=== PATIENT | male | born 1955 | race Caucasian/White ===

== ENCOUNTER → 2017-12-28 16:13 | Outpatient (CLI) | payer MEDICARE, SELFPAY ==
[2017-12-28 16:36] LABS: HCT 42.3 % (40.0-50.0); HGB 14.3 g/dL (13.5-17.5); Mean Corp. HGB Concentration 33.8 g/dL (32.0-36.0); Mean Corpuscular Hemoglobin 32.9 pg (27.0-33.0); Mean Corpuscular Volume 97.5 fL (80-95); Mean Platelet Volume 13.3 fL (8.0-11.0); RBC 4.34 m/cumm (4.50-6.00); RBC Distribution Width 13.8 % (11.8-14.1); White Blood Cell Count 5.14 k/cumm (4.4-10.8)
[2017-12-28 16:47] LABS: INR 1.2 (1.0-3.5); Prothrombin Time 11.6 sec (9.3-10.8)
[2017-12-28 16:50] LABS: Platelet Count 52 x1000/uL (130-400)
[2017-12-28 17:36] LABS: ALT 30 U/L (12-78); AST 60 U/L (15-37); Albumin 2.5 g/dL (3.4-5.0); Alkaline Phosphatase 261 U/L (46-116); Anion Gap 8.5 mmol/L (3-11); BUN 28 mg/dL (7-18); Bilirubin, Total 3.6 mg/dL (0.2-1.0); CO2 27.5 mmol/L (21.0-32.0); CREATININE 1.44 mg/dL (0.70-1.30); Calcium 8.4 mg/dL (8.5-10.1); Chloride 101 mmol/L (98-107); Estimated GFR 49.87 (mL/min/1.73m2); Glucose 154 mg/dL (70-100); Potassium 3.8 mmol/L (3.5-5.1); Sodium 137 mmol/L (136-145)
== END ==
PROVIDERS: PCP Family Medicine; Visit Provider Family Medicine
DX: D64.9 Anemia, unspecified (principal); R10.9 Unspecified abdominal pain; K75.81 Nonalcoholic steatohepatitis (NASH)
CPT/HCPCS: 36415; 80053; 85027; 85610

== ENCOUNTER → 2018-01-03 11:00 | Outpatient (CLI) | payer MEDICARE, SELFPAY | PROVIDERS: PCP Family Medicine; Visit Provider Orthopaedic Surgery | DX: E11.621 Type 2 diabetes mellitus with foot ulcer (principal); L97.511 Non-pressure chronic ulcer of other part of right foot limited to breakdown of skin | CPT/HCPCS: 99213 ==

== ENCOUNTER 2018-01-17 09:00 | Inpatient (IN) | payer MEDICARE, SELFPAY ==
[2018-01-17] VITALS (102 sets, daily range): BP systolic 85–124; BP diastolic 33–90; PULSE 59–87; RESP 10–28; TEMP 37–37.2; O2SAT 90–100
--- NOTE | 2018-01-17 09:38 | DI.CT_ITS ---
SYMPTOMS/DIAGNOSIS: HEADACHE, DISTENSION, WT LOSS CT BRAIN: Noncontrast examination. No priors. There is normal jaimes/white matter differentiation. The ventricles are intact. The basilar cisterns are patent. No acute intracranial hemorrhage, infarct, midline shift or mass effect is identified. The visualized paranasal sinuses are clear. The mastoid air cells are well pneumatized. The calvarium is intact. Calcification of the cavernous portions of the internal carotid artery are noted. IMPRESSION: No acute intracranial process. CT OF THE The findings were discussed with the emergency department on the date of the examination. CT SCAN OF THE ABDOMEN AND PELVIS: CT scan of the abdomen and pelvis was performed without intravenous or oral contrast material. Dependent atelectatic changes are seen in the lung bases. The liver has a lobulated contour and appears slightly small, suggestive of hepatic cirrhosis. The spleen is enlarged. Calcifications are seen consistent with prior granulomatous disease. The patient is status post cholecystectomy. The pancreas, adrenal glands, kidneys and urinary bladder are unremarkable. The reproductive organs are unremarkable. There is atherosclerosis of the abdominal aorta but no aneurysmal dilatation. No significant abdominal or pelvic adenopathy or pneumoperitoneum is present. There is a large amount of abdominal and pelvic ascites present. The bowel shows no evidence of obstruction or inflammation. There is diverticulosis of the colon but no evidence of acute diverticulitis. No findings to suggest an acute appendicitis. Degenerative changes are seen in the spine. IMPRESSION: 1. Findings of hepatic cirrhosis with splenomegaly. 2. Massive amount of abdominal and pelvic ascites. The findings were discussed with Dr. Rodriguez of the emergency department on the date of the examination.
--- NOTE | 2018-01-17 09:40 | W.ED.GENAD ---
Discharge Plan Discharge Details Chief Complaint: GenMedical Reason For Visit: WEAKNESS AND LIVER FAILURE Admit Date/Time: 01/17/18 17:07 Admit Provider: William Adams Attending Provider: William Adams Primary Care Provider: Jaden Mendoza ED Provider: Filiberto Rodriguez Medical Decision Making MDM Narrative Medical decision making narrative: 63-year-old male presents from home with headache as well as episodes of dry heaving. States headache began 2 days ago, now with dry heaves this morning. He states he has had abdominal distention and weight loss since early this summer for which he is been referred to [facility]. He is afebrile, interactive, with grossly normal neurologic exam. Records from community clinic obtained and reveal history of BRUNNER and liver failure followed by Dr Quiñones at [facility] [place]. Differential diagnosis is broad. Includes intracranial hemorrhage, mass, infection, electrolyte abnormalities including metabolic derangements and dehydration. IV access established, patient given analgesic, small amount of fluid and antiemetic. Due to CT repair, CAT scan of the head was delayed Diagnostics reveal white blood cell count of 21, worsening renal function creatinine is risen to 2.0 from previous of 1.4 and 1.2. Patient has hyponatremia of 131 and slightly elevated potassium of 5.2. Total bili has increased to 5.8. Patient is a had near resolution of his headache following the parenteral analgesia. His CT scan of the head was unremarkable, he has fairly massive ascites present on abdominal and pelvic CT scan. Patient consented for paracentesis which I performed at the bedside and withdrew approximately 2200 cc of straw-colored fluid. Laboratory analysis of peritoneal fluid reveals 70 white cells per cubic millimeter. Given the patient's lactic acidosis, elevated white blood cell count and concern for developing peritonitis, I added blood cultures. I did discuss the case with on-call GI at [facility], they recommend complete fever workup, and agree with admission to the hospital. Medical Records Medical records reviewed: Yes I reviewed the patient's medical records. Lab Data Lab results reviewed: Yes I reviewed the patient's lab results. ECG Data Attestation: I personally reviewed and interpreted this ECG (s) as follows: Interpretation: Normal sinus rhythm, rate is 73, nonspecific ST segment changes, no acute T-wave change HPI - General Adult General Mode of arrival: wheelchair. Date/Time Provider Initiated Documentation: 01/17/18 09:11. Limitations to Documentation: no limitations. Information obtained by: patient. History of Present Illness 63 year old M presents to the emergency department with the chief complaint of Headache, described as severe, with intensity rated at 6. Quality is described as aching, and is localized to the head. Patient reports no radiation. Patient started experiencing this day(s) and it has been constant. No relieving factors improve symptom(s), No exacerbating factors reported . Patient notes nausea/vomiting and other (Weakness). HPI Narrative: 63-year-old male presents from home complaining of 2 days of malaise, nausea, weakness, and headache that he states is bifrontal, severe, nonradiating. This morning was associated with dry heaves, weakness, inability to get out of this chair. Denies fall or injury. Has not had stiff neck or fever. He states that over months time he has had weight loss and progressive abdominal swelling for which he has been referred to [facility]. Related Data Home Medications Medication Instructions Recorded Confirmed lancets [FreeStyle Lancets] #100 ea 12/25/14 pen needle, diabetic #100 ea 05/30/16 furosemide [Lasix] 20 - 40 mg PO DAILY 01/17/18 01/17/18 Previous Rx's Medication Instructions Recorded insulin aspart U-100 [Novolog 8 - 12 unit SQ AC #1 box 03/27/17 Flexpen] omeprazole 20 mg PO QAM #90 tab-cap 06/06/17 insulin glargine [Basaglar Kwikpen 20 - 25 u SQ HS #1800 u 10/17/17 U-100] blood sugar diagnostic [Freestyle #400 strip 12/07/17 Test Strips] spironolactone 100 mg PO DAILY #90 tab-cap 12/07/17 Allergies Allergy/AdvReac Type Severity Reaction Status Date / Time erythromycin base Allergy Intermediate Skin Rash Verified 01/17/18 11:04 Sulfa (Sulfonamide Allergy Mild Itching Verified 01/17/18 11:04 Antibiotics) amoxicillin trihydrate AdvReac Severe DIARRHEA Verified 01/17/18 11:04 [From Augmentin] potassium clavulanate AdvReac Severe DIARRHEA Verified 01/17/18 11:04 [From Augmentin] simvastatin AdvReac Severe Severe Verified 01/17/18 11:04 Myalgia gabapentin AdvReac Intermediate WIPED ME Verified 01/17/18 11:04 OUT metformin AdvReac Intermediate H.A.; Verified 01/17/18 11:04 LOOSE TEETH; HAIR General Stated Complaint: GenMedical JACOB: 3 Review of Systems Review of Systems 8 systems reviewed, otherwise negative PFSH Family History Mother Heart disease Cancer Father Essential hypertension Heart disease Cancer Sister Cancer Brother Cancer Social History Smoking/Tobacco Use Status: Never Surgical History Appendectomy Cholecystectomy (08/12/12) EGD - MAC Exam Narrative Exam Narrative: GEN: awake, alert, oriented 3. Pleasant, well groomed, interactive. HEAD: Normocephalic, atraumatic ENT: Mucous membranes dry, oropharynx edentulous, other unremarkable, External ear exam unremarkable EYES: PERRL, EOMI NECK: Full ROM, no DEBORAH, no menigismus CHEST/RESP: Nontender, clear to auscultation bilateral, no wheeze/rhonchi/rales CARDIOVASCULAR: RRR, no murmur, rub naheed. 2+ Rad pulse bilateral ABDOMEN: Soft, nontender, distended with prominent anterior abdominal veins, no mass. +Bowel sounds EXT: Full ROM, no edema, no rash Neuro: Cranial nerves II through XII grossly intact. Moves all 4 extremities without discomfort, grossly normal neurologic exam, conversant, interactive. Psych: Speech fluent, thoughts congruent, affect normal Course Vital Signs Temperature 37.2 C 01/17/18 09:05 Pulse 87 01/17/18 09:05 Respiratory Rate 20 01/17/18 09:05 Blood Pressure 124/56 L 01/17/18 09:05 Pulse Oximetry 98 01/17/18 09:05 Temperature 37.2 C 01/17/18 09:05 Pulse 87 01/17/18 09:05 Respiratory Rate 20 01/17/18 09:35 Blood Pressure 124/56 L 01/17/18 09:05 Pulse Oximetry 98 01/17/18 09:05 Procedures Paracentesis Time Out Performed: Yes Indication: possible spontaneous bacterial peritonitis Procedure: diagnostic paracentesis Location: LLQ Local Anesthetic: Lidocaine 1% Amount of anesthesia used (mL): 4 Bedside Ultrasound Used: yes, Ascites confirmed and location marked Preparation: 11 blade used to make ramón in skin Amount of Fluid Obtained: 2,200 Fluid: other (straw) Post Procedure Exam: awake, alert Patient Tolerated Procedure: well
--- NOTE | 2018-01-17 09:43 | ED.GENADUL_ITS ---
Discharge Plan Discharge Details Chief Complaint: GenMedical Reason For Visit: WEAKNESS AND LIVER FAILURE Admit Date/Time: 01/17/18 17:07 Admit Provider: William Adams Attending Provider: William Adams Primary Care Provider: Jaden Mendoza ED Provider: Filiberto Rodriguez Medical Decision Making MDM Narrative Medical decision making narrative: 63-year-old male presents from home with headache as well as episodes of dry heaving. States headache began 2 days ago, now with dry heaves this morning. He states he has had abdominal distention and weight loss since early this summer for which he is been referred to [facility]. He is afebrile, interactive, with grossly normal neurologic exam. Records from community clinic obtained and reveal history of BRUNNER and liver [place] [facility] Differential diagnosis is broad. Includes intracranial hemorrhage, mass, infection, electrolyte abnormalities including metabolic derangements and dehydration. IV access established, patient given analgesic, small amount of fluid and antiemetic. Due to CT repair, CAT scan of the head was delayed Diagnostics reveal white blood cell count of 21, worsening renal function creatinine is risen to 2.0 from previous of 1.4 and 1.2. Patient has hyponatremia of 131 and slightly elevated potassium of 5.2. Total bili has increased to 5.8. Patient is a had near resolution of his headache following the parenteral analgesia. His CT scan of the head was unremarkable, he has fairly massive ascites present on abdominal and pelvic CT scan. Patient consented for paracentesis which I performed at the bedside and withdrew approximately 2200 cc of straw-colored fluid. Laboratory analysis of peritoneal fluid reveals 70 white cells per cubic millimeter. Given the patient's lactic acidosis, elevated white blood cell count and concern for developing peritonitis, I added blood cultures. I did discuss the case with on-call GI at [facility], they recommend complete fever workup, and agree with admission to the hospital. Medical Records Medical records reviewed: Yes I reviewed the patient's medical records. Lab Data Lab results reviewed: Yes I reviewed the patient's lab results. ECG Data Attestation: I personally reviewed and interpreted this ECG (s) as follows: Interpretation: Normal sinus rhythm, rate is 73, nonspecific ST segment changes , no acute T-wave change HPI - General Adult General Mode of arrival: wheelchair . Date/Time Provider Initiated Documentation: 01/17/18 09:11 . Limitations to Documentation: no limitations . Information obtained by: patient . History of Present Illness 63 year old M presents to the emergency department with the chief complaint of Headache, described as severe, with intensity rated at 6. Quality is described as aching, and is localized to the head. Patient reports no radiation. Patient started experiencing this day(s) and it has been constant. No relieving factors improve symptom(s), No exacerbating factors reported . Patient notes nausea/vomiting and other (Weakness). HPI Narrative: 63-year-old male presents from home complaining of 2 days of malaise, nausea, weakness, and headache that he states is bifrontal, severe, nonradiating. This morning was associated with dry heaves, weakness, inability to get out of this chair. Denies fall or injury. Has not had stiff neck or fever. He states that over months time he has had weight loss and progressive abdominal swelling for which he has been referred to [facility]. Related Data Home Medications Medication Instructions Recorded Confirmed lancets [FreeStyle Lancets] #100 ea 12/25/14 pen needle, diabetic #100 ea 05/30/16 furosemide [Lasix] 20 - 40 mg PO DAILY 01/17/18 01/17/18 Previous Rx's Medication Instructions Recorded insulin aspart U-100 [Novolog 8 - 12 unit SQ AC #1 box 03/27/17 Flexpen] omeprazole 20 mg PO QAM #90 tab-cap 06/06/17 insulin glargine [Basaglar Kwikpen 20 - 25 u SQ HS #1800 u 10/17/17 U-100] blood sugar diagnostic [Freestyle #400 strip 12/07/17 Test Strips] spironolactone 100 mg PO DAILY #90 tab-cap 12/07/17 Allergies Allergy/AdvReac Type Severity Reaction Status Date / Time erythromycin base Allergy Intermediate Skin Rash Verified 01/17/18 11:04 Sulfa (Sulfonamide Allergy Mild Itching Verified 01/17/18 11:04 Antibiotics) amoxicillin trihydrate AdvReac Severe DIARRHEA Verified 01/17/18 11:04 [From Augmentin] potassium clavulanate AdvReac Severe DIARRHEA Verified 01/17/18 11:04 [From Augmentin] simvastatin AdvReac Severe Severe Verified 01/17/18 11:04 Myalgia gabapentin AdvReac Intermediate WIPED ME Verified 01/17/18 11:04 OUT metformin AdvReac Intermediate H.A.; Verified 01/17/18 11:04 LOOSE TEETH; HAIR General Stated Complaint: GenMedical JACOB: 3 Review of Systems Review of Systems 8 systems reviewed, otherwise negative PFSH Family History Mother Heart disease Cancer Father Essential hypertension Heart disease Cancer Sister Cancer Brother Cancer Social History Smoking/Tobacco Use Status: Never Surgical History Appendectomy Cholecystectomy (08/12/12) EGD - MAC Exam Narrative Exam Narrative: GEN: awake, alert, oriented 3. Pleasant, well groomed, interactive. HEAD: Normocephalic, atraumatic ENT: Mucous membranes dry, oropharynx edentulous, other unremarkable, External ear exam unremarkable EYES: PERRL, EOMI NECK: Full ROM, no DEBORAH, no menigismus CHEST/RESP: Nontender, clear to auscultation bilateral, no wheeze/rhonchi/rales CARDIOVASCULAR: RRR, no murmur, rub naheed. 2+ Rad pulse bilateral ABDOMEN: Soft, nontender, distended with prominent anterior abdominal veins, no mass. +Bowel sounds EXT: Full ROM, no edema, no rash Neuro: Cranial nerves II through XII grossly intact. Moves all 4 extremities without discomfort, grossly normal neurologic exam, conversant, interactive. Psych: Speech fluent, thoughts congruent, affect normal Course Vital Signs Temperature 37.2 C 01/17/18 09:05 Pulse 87 01/17/18 09:05 Respiratory Rate 20 01/17/18 09:05 Blood Pressure 124/56 L 01/17/18 09:05 Pulse Oximetry 98 01/17/18 09:05 Temperature 37.2 C 01/17/18 09:05 Pulse 87 01/17/18 09:05 Respiratory Rate 20 01/17/18 09:35 Blood Pressure 124/56 L 01/17/18 09:05 Pulse Oximetry 98 01/17/18 09:05 Procedures Paracentesis Time Out Performed: Yes Indication: possible spontaneous bacterial peritonitis Procedure: diagnostic paracentesis Location: LLQ Local Anesthetic: Lidocaine 1% Amount of anesthesia used (mL): 4 Bedside Ultrasound Used: yes, Ascites confirmed and location marked Preparation: 11 blade used to make ramón in skin Amount of Fluid Obtained: 2,200 Fluid: other (straw) Post Procedure Exam: awake, alert Patient Tolerated Procedure: well
[2018-01-17] MEDS: Normal Saline Flush 10 ML SYR IVP ×2 (09:45→20:06)
[2018-01-17] MEDS: Normal Saline 1,000 ML 150 ML IV ×2 (09:55→20:09)
[2018-01-17 09:58] LABS: HCT 39.6 % (40.0-50.0); HGB 13.4 g/dL (13.5-17.5); Mean Corp. HGB Concentration 33.8 g/dL (32.0-36.0); Mean Corpuscular Hemoglobin 33.1 pg (27.0-33.0); Mean Corpuscular Volume 97.8 fL (80-95); Mean Platelet Volume 13.4 fL (8.0-11.0); RBC 4.05 m/cumm (4.50-6.00); RBC Distribution Width 13.9 % (11.8-14.1); White Blood Cell Count 21.39 k/cumm (4.4-10.8)
[2018-01-17] MEDS: Ondansetron 4 MG/2 ML VIAL IVP (09:59)
[2018-01-17 10:07] LABS: Ammonia 43 umol/L (11-32)
[2018-01-17 10:16] LABS: ALT 32 U/L (12-78); AST 60 U/L (15-37); Albumin 2.4 g/dL (3.4-5.0); Alkaline Phosphatase 247 U/L (46-116); Anion Gap 11.7 mmol/L (3-11); BUN 33 mg/dL (7-18); Bilirubin, Total 5.8 mg/dL (0.2-1.0); CO2 23.3 mmol/L (21.0-32.0); CREATININE 2.06 mg/dL (0.70-1.30); Calcium 8.5 mg/dL (8.5-10.1); Chloride 96 mmol/L (98-107); Estimated GFR 32.88 (mL/min/1.73m2); Glucose 320 mg/dL (70-100); Potassium 5.2 mmol/L (3.5-5.1); Sodium 131 mmol/L (136-145); Total Protein 8.1 g/dL (6.4-8.2)
[2018-01-17 10:18] LABS: Platelet Count 59 x1000/uL (130-400)
[2018-01-17 10:19] LABS: Absolute Monocyte Count 0.86 k/cumm (0.11-0.7); Absolute Neutrophil Count 20.53 k/cumm (1.2-6.7); Diff Comment Manual Differential; RBC Morphology Normal
[2018-01-17 11:37] LABS: INR 1.3 (1.0-3.5); Prothrombin Time 12.7 sec (9.3-10.8)
[2018-01-17 13:51] LABS: Lactate-non-spesis 2.8 mmol/L (0.6-1.4)
[2018-01-17 14:24] LABS: Bilirubin Small (Negative); Blood Negative (Negative); Clarity Clear; Glucose Negative (Negative); Ketones Trace mg/dL (Negative); Leukocyte Esterase Negative (Negative); Nitrite Negative (Negative); Specific Gravity 1.025 (1.005-1.025)
[2018-01-17 14:56] LABS: Source PERITONEAL
[2018-01-17 14:57] LABS: Clarity CLEAR; Mononuclear Cells 85 % (0-0); Nucleated Cells 69 /MM3 (0-0); Polynuclear Cells 12 % (0-0)
[2018-01-17] MEDS: Normal Saline 500 ML IV (15:26)
--- NOTE | 2018-01-17 15:28 | DI.RAD_ITS ---
SYMPTOMS/DIAGNOSIS: ELEVATED WBC, WEAKNESS CHEST X-RAY, PA AND LATERAL: Comparison examination is 12/22/12. The heart is normal in size. The lungs are clear. The mediastinal structures and pleura appear intact. IMPRESSION: Normal chest.
[2018-01-17] MEDS: CEFEPIME 1 GM in Normal Saline 50 ML IVPB (16:27)
--- NOTE | 2018-01-17 18:42 | HPE_ITS ---
Date of service: 01/17/18 Time of Service: 18:39 Assessment and Plan (1) Chronic liver failure: Current visit: Yes Status: Chronic Severe ascites, status post paracentesis for 2200 cc. He still has a distended abdomen. Not terribly tender, no rigid or acute abdomen. Fluid results show significant white cells. Culture is pending. Empiric Rx for spontaneous bacterial peritonitis with cefepime 1 g IV every 12 hours. (2) Diabetic foot ulcer associated with type 2 diabetes mellitus: Current visit: Yes Status: Chronic Seen last week by Dr. Hicks he had this ulcer on his right first metatarsal head treated with skin debridement. It likely is chronically infected. He may need to have osteomyelitis ruled out. At this point does not appear to be a major cause of this admission. Will monitor and consider further treatment if needed. (3) Thrombocytopenia: Current visit: Yes Status: Chronic Chronically low platelet count. We will hold on the VTE prophylaxis. (4) Hypertension: Current visit: Yes Status: Chronic Blood pressures were initially somewhat low. Monitor for low blood pressure and hold parameters on blood pressure meds. However given his fluid status he does need further diuresis. (5) Diabetes type 2, controlled: Current visit: Yes Status: Chronic Diabetic diet. Check fingerstick blood sugars. (6) Liver cirrhosis secondary to nonalcoholic steatohepatitis (BRUNNER): Current visit: Yes Status: Chronic Followed by . Will call [facility] in the a.m. to discuss his management going forward. (7) Discharge planning issues: Current visit: Yes Status: Acute He would like to be a full code however he is quite clear he would not want to be on life support for more than 2 weeks. We will have him as a full code in acute care status in the ICU. CC: Marisela medical History of Present Illness Chief Complaint: Liver failure/abdominal pain/weakness Narrative: This is a 63-year-old man with long-standing stage IV liver failure. He lives alone in [facility]. His nephew came by today and he noted he could not even get out of the chair. Patient describes increasing weakness nausea almost vomited. He has had headaches and some low blood pressures. In the emergency room blood pressure 90/60, ammonia 43, bilirubin 5.8. The abdomen was very distended. The CT of the abdomen showed cirrhosis and splenomegaly. Dr. Rodriguez did a paracentesis for 2200 cc that showed multiple PMNs. He started him on cefepime 1 g. Blood cultures are pending. Review of Systems Constitutional Reports difficulty sleeping, Reports fatigue, Reports poor appetite, Reports weakness and Reports weight loss Cardiovascular Denies chest pain and Denies diaphoresis Respiratory Denies pain on inspiration Gastrointestinal Reports as per HPI, Denies melena, Denies coffee ground emesis, Reports nausea and Denies vomiting Genitourinary Reports urinary frequency Musculoskeletal Comments: Swelling of the lower extremities with skin changes, right greater than left. Neurologic Reports weakness Endocrine Reports fatigue PFSH Family History Mother Heart disease Cancer Father Essential hypertension Heart disease Cancer Sister Cancer Brother Cancer Medical History Chronic liver failure (Chronic) Diabetes type 2, controlled (Chronic) Diabetic foot ulcer associated with type 2 diabetes mellitus (Chronic) Hypertension (Chronic) Liver cirrhosis secondary to nonalcoholic steatohepatitis (BRUNNER) (Chronic) Thrombocytopenia (Chronic) Social History Smoking/Tobacco Use Status: Never Surgical History Appendectomy (Resolved) Cholecystectomy (Resolved 08/12/12) EGD - MAC (Resolved) Meds Home Medications Medication Instructions Recorded Confirmed Type lancets [FreeStyle Lancets] #100 ea 12/25/14 History pen needle, diabetic #100 ea 05/30/16 History furosemide [Lasix] 20 - 40 mg PO DAILY 01/17/18 01/17/18 History Allergies Allergy/AdvReac Type Severity Reaction Status Date / Time erythromycin base Allergy Intermediate Skin Rash Verified 01/17/18 11:04 Sulfa (Sulfonamide Allergy Mild Itching Verified 01/17/18 11:04 Antibiotics) amoxicillin trihydrate AdvReac Severe DIARRHEA Verified 01/17/18 11:04 [From Augmentin] potassium clavulanate AdvReac Severe DIARRHEA Verified 01/17/18 11:04 [From Augmentin] simvastatin AdvReac Severe Severe Verified 01/17/18 11:04 Myalgia gabapentin AdvReac Intermediate WIPED ME Verified 01/17/18 11:04 OUT metformin AdvReac Intermediate H.A.; Verified 01/17/18 11:04 LOOSE TEETH; HAIR Exam Narrative Exam Narrative: Disheveled appearing man with thin face he is thin extremities, long de paz. Huge abdomen with ascites. Const General: cooperative, disheveled and frail appearing Nutritional Appearance: cachectic (Despite huge ascites) Orientation: alert, awake and oriented x3 Neck Neck: normal visual inspection Chest Chest: normal inspection of the chest Breast inspection: normal inspection of the breasts Resp Effort & Inspection: normal respiratory effort Auscultation: clear to auscultation bilaterally Cardio Rate: regular rate Rhythm: regular rhythm Heart Sounds: S1 normal, S2 normal and no murmurs GI Inspection: distended Palpation: soft, hepatosplenomegaly and ascites Male General Exam: Yes normal external exam Back/Spine/Pelvis Back: no CVA tenderness Skin Lesions: lesion noted (Hemosiderin deposits both anterior shins with scale and crust formation, right greater than left, right junior area slightly erythematous and warm) Wounds: wounds noted (Diabetic foot ulcer right first metatarsal head about 1 cm in size no surrounding erythema or apparent drainage) Neuro General: moves all extremities Cognition: normal cognition Speech: speech normal Extrem Right lower extremity: foot (Ulcer on the first metatarsal head as noted) Results Labs : 01/17/18 09:45 01/17/18 09:45 Laboratory Results - last 24 hr 01/17/18 01/17/18 01/17/18 09:45 09:45 09:45 WBC 21.39 H RBC 4.05 L Hgb 13.4 L Hct 39.6 L MCV 97.8 H MCH 33.1 H MCHC 33.8 RDW 13.9 Plt Count 59 L MPV 13.4 H Immature Gran % 0.0 Neutrophils % 85.0 Lymphocytes % 0.0 Monocytes % 4.0 Eosinophils % 0.0 Basophils % 0.0 Absolute Neutrophils 20.53 H Band Neutrophils 11.0 Absolute Lymphocytes 0.00 L Absolute Monocytes 0.86 H Absolute Eosinophils 0.00 Absolute Basophils 0.00 Differential Comment Manual differential RBC Morphology Normal PT INR Sodium 131 L Potassium 5.2 H Chloride 96 L Carbon Dioxide 23.3 Anion Gap 11.7 H BUN 33 H Creatinine 2.06 H Estimated GFR/1.73 m2 32.88 Glucose 320 H Lactate Calcium 8.5 Total Bilirubin 5.8 H AST 60 H ALT 32 Alkaline Phosphatase 247 H Ammonia 43 H Total Protein 8.1 Albumin 2.4 L Urine Color Urine Clarity Urine pH Ur Specific [place] Urine Protein Urine Ketones Urine Blood Urine Nitrite Urine Bilirubin Urine Urobilinogen Ur Leukocyte Esterase Urine Glucose Fluid Source Fluid Color Fluid Appearance Fluid WBC Fluid Mononuclear Cell Fl Polymorphonucl Cell 01/17/18 01/17/18 01/17/18 09:45 13:45 13:45 WBC RBC Hgb Hct MCV MCH MCHC RDW Plt Count MPV Immature Gran % Neutrophils % Lymphocytes % Monocytes % Eosinophils % Basophils % Absolute Neutrophils Band Neutrophils Absolute Lymphocytes Absolute Monocytes Absolute Eosinophils Absolute Basophils Differential Comment RBC Morphology PT 12.7 H INR 1.3 Sodium Potassium Chloride Carbon Dioxide Anion Gap BUN Creatinine Estimated GFR/1.73 m2 Glucose Lactate 2.8 H Calcium Total Bilirubin AST ALT Alkaline Phosphatase Ammonia Total Protein Albumin Urine Color Urine Clarity Urine pH Ur Specific [place] Urine Protein Urine Ketones Urine Blood Urine Nitrite Urine Bilirubin Urine Urobilinogen Ur Leukocyte Esterase Urine Glucose Fluid Source Peritoneal Fluid Color Yellow Fluid Appearance Clear Fluid WBC 69 H Fluid Mononuclear Cell 85 H Fl Polymorphonucl Cell 12 H 01/17/18 14:15 WBC RBC Hgb Hct MCV MCH MCHC RDW Plt Count MPV Immature Gran % Neutrophils % Lymphocytes % Monocytes % Eosinophils % Basophils % Absolute Neutrophils Band Neutrophils Absolute Lymphocytes Absolute Monocytes Absolute Eosinophils Absolute Basophils Differential Comment RBC Morphology PT INR Sodium Potassium Chloride Carbon Dioxide Anion Gap BUN Creatinine Estimated GFR/1.73 m2 Glucose Lactate Calcium Total Bilirubin AST ALT Alkaline Phosphatase Ammonia Total Protein Albumin Urine Color Dark yellow Urine Clarity Clear Urine pH 5.0 Ur Specific [place] 1.025 Urine Protein Negative Urine Ketones Trace H Urine Blood Negative Urine Nitrite Negative Urine Bilirubin Small H Urine Urobilinogen 2.0 H Ur Leukocyte Esterase Negative Urine Glucose Negative Fluid Source Fluid Color Fluid Appearance Fluid WBC Fluid Mononuclear Cell Fl Polymorphonucl Cell
[2018-01-17] MEDS: Melatonin 3 MG TAB PO (22:05)
[2018-01-17] MEDS: Insulin Glargine 300 UNITS/3 ML PEN 12 UNITS SC (22:44)
[2018-01-18] VITALS (43 sets, daily range): BP systolic 89–116; BP diastolic 47–91; PULSE 53–66; RESP 11–22; TEMP 36.4–37; O2SAT 93–98
[2018-01-18] MEDS: Normal Saline 1,000 ML 150 ML IV (03:01)
[2018-01-18] MEDS: CEFEPIME 1 GM in Normal Saline 50 ML IVPB ×2 (03:02→16:25)
[2018-01-18 07:02] LABS: Abs Immature Grans 0.03 k/cumm (0.0-0.09); Absolute Basophil Count 0.02 k/cumm (0.0-0.2); Absolute Eosinophil Count 0.01 k/cumm (0.0-0.7); Absolute Monocyte Count 1.21 k/cumm (0.11-0.7); Absolute Neutrophil Count 10.55 k/cumm (1.2-6.7); Basophils % 0.2; Eosinophils % 0.1; HGB 11.9 g/dL (13.5-17.5); Immature Grans % 0.2; Lymphocytes % 3.3; Mean Corpuscular Hemoglobin 33.2 pg (27.0-33.0); Mean Corpuscular Volume 97.8 fL (80-95); Mean Platelet Volume 13.2 fL (8.0-11.0); Monocytes % 9.9; Neutrophils % 86.3; RBC 3.58 m/cumm (4.50-6.00); RBC Distribution Width 13.9 % (11.8-14.1); White Blood Cell Count 12.22 k/cumm (4.4-10.8)
[2018-01-18 07:20] LABS: ALT 29 U/L (12-78); AST 44 U/L (15-37); Albumin 1.9 g/dL (3.4-5.0); Alkaline Phosphatase 187 U/L (46-116); Anion Gap 5.4 mmol/L (3-11); BUN 36 mg/dL (7-18); Bilirubin, Total 2.7 mg/dL (0.2-1.0); CO2 27.6 mmol/L (21.0-32.0); CREATININE 1.66 mg/dL (0.70-1.30); Calcium 7.7 mg/dL (8.5-10.1); Chloride 101 mmol/L (98-107); Estimated GFR 42.19 (mL/min/1.73m2); Glucose 174 mg/dL (70-100); Potassium 4.5 mmol/L (3.5-5.1); Sodium 134 mmol/L (136-145); Total Protein 6.7 g/dL (6.4-8.2)
[2018-01-18 07:27] LABS: Platelet Count 52 x1000/uL (130-400)
[2018-01-18] MEDS: Spironolactone 50 MG TAB 100 MG PO (08:17)
[2018-01-18] MEDS: Omeprazole 20 MG CAPCR PO (08:17)
[2018-01-18] MEDS: Furosemide 40 MG TAB PO ×2 (08:17→16:25)
[2018-01-18] MEDS: Insulin Aspart 300 UNITS/3 ML PEN 8 UNITS SC ×3 (08:18→17:10)
[2018-01-18] MEDS: Insulin Aspart 300 UNITS/3 ML PEN SC ×2 (08:18→17:10)
--- NOTE | 2018-01-18 10:43 | PHARADMIT ---
Addendum entered by Camille Barrera 01/22/18 16:15: Pharmacy Note Subjective Objective VS-okay weight-107.5(up) no labs Assessment spironolactone 100 mg ordered daily, now dose given today cefepime discontinued Plan continue to watch VS, labs and for med changes Original Note: Addendum entered by Camille Barrera 01/19/18 13:53: Pharmacy Note Subjective pt. still has edema but had great urine output overnight per morning report Objective VS-okay weight-107.4(down) Na-134 SCr-1.43(down) wbc-6.24(down) Assessment lactulose ordered BID scheduled cefepime continues spironolactone still on hold peritoneal fluid culture- no growth at 48 hours Plan continue to watch VS, labs and for med changes Original Note: Admission Pharmacy Clinical Review weakness and liver failure Code Status Full Code Current Weight ~110.1 kg Renally Cleared and Narrow Therapeutic Index Meds Crcl ~56.5 using adjusted body weight current meds okay QTc Value / Action Taken BP Control, Fever BP 108/47 afebrile Electrolytes reviewed Na 134 DVT Prophylaxis none Opiate Usage / Scheduled Bowel Regimen Ordered no/prn Plt/SCr for Heparin / Enoxaparin plt 52 SCr 1.66 INR for Warfarin n/a H/H stable, WBC/Bands h/h 11.9/35.0 wbc 12.22 Antibiotic appropriateness cefepime Cultures and Sensitivities peritoneal body fluid: gram stain no bacteria seen, fluid culture pending Surgical ABX d/c within 24 hr n/a DM control / Insulin Dosing BG 174 scheduled aspart and glargine, sliding scale aspart Heart Failure (Check EF%) (DAMI's, B-Block, Diuretics) furosemide, spironolactone IV to PO Switch n/a Home Meds Reviewed yes Home Meds Not Ordered carvedilol Comments
--- NOTE | 2018-01-18 10:43 | PT.INIE ---
Date of service: 01/18/18 Time of Service: 10:44 PT Notes Inpatient Physical Therapy Evaluation Date: 01/18/18 Referring Doctor: William Adams PT Orders: PT CONSULT: end stage liver disease, decreasing mobility, loss of ADLS, home safety assessment, ability to live independently Precautions: Fall precautions Patient Profile/Admitting Diagnosis: Pt is a 63yr old male admitted with chronic liver failure, severe ascites s/p pancreatitis PMHX: obesity, diabetes mellitus type II, diabetic foot ulcer right 1st metatarsal head, diabetic neuropathy, liver cirrhosis, nonalcoholic steatopepatitis, thrombocytopenia, sciatica, lumbar disc prolapse with radiculopathy, charcot foot, left hand surgery, anxiety, depression, hypertension, cholecystectomy, hyperlipidemia Social History/Home Situation: Lives alone in a house, 3 steps with railing to enter, all one level inside, disabled. Basline mobility independent gait with FWW, occasionally uses quad cane. Has lift chair in the living room to assist with standing. Reports he cooks his own meals. Equipment Owned/DME: quad cane, FWW Subjective: Pt is lying in bed, alert agreeable to PT consult. States I don't know how I got his week, I just couldn't get up from the chair. Objective: General Observation: Telemetry, BP monitor, mcfarland catheter Mental Status: A& O x3 Pain: no c/o pain ROM: Right Upper Extremity: AROM WNL Left Upper Extremity: AROM WNL Right Lower Extremity: AROM WNL Left Lower Extremity: AROM WNL Strength: Right Upper Extremity: 4/5 shoulder flexion, 5/5 bicep, 5/5 sack keeper Left Upper Extremity: 4/5 shoulder flexion, 5/5 bicep, 5/5 sack keeper Right Lower Extremity: 4/5 hip flexion, 4/5 quad, 5/5 DF/PF Left Lower Extremity: 4/5 hip flexion, 4/5 quad, 5/5 DF/PF Bed Mobility/Transfers: Pt wears socks and sneakers for transfers - max A to don Supine-sit: HOB 45 degrees, SBA Sit-stand: MinAx1 with FWW Bed-chair: CGA with FWW Stand-sit: SBA Gait: Pt wears socks and sneakers for gait CGA with FWW 50ftx2, slow step through gait pattern, pt reports feeling weak, positioned up in chair after session completed. Balance: Static Sitting: normal Dynamic Sitting: normal Static Standing: fair Dynamic Standing: fair Special Tests: Mobility Limitations Standardized Measure [facility] AM-PAC 6 clicks Basic Mobility Inpatient Short Form: Raw Score: 18 Standardized Score: 43.63 CMS Score: 46.58% CMS Modifier: CK Informed Consent/Education: Patient instructed in purpose of PT consult and plan of care. Assessment: Pt is a 63yr old male admitted with chronic liver failure, severe ascites s/p pancreatitis in setting of obesity, diabetes mellitus type II, diabetic foot ulcer right 1st metatarsal head, diabetic neuropathy, liver cirrhosis, nonalcoholic steatopepatitis, thrombocytopenia, sciatica, lumbar disc prolapse with radiculopathy, charcot foot, left hand surgery. Patient presents with the following impairment level findings: decreased strength bilateral shoulders and hips, decreased sensation bilateral feet due to neuropathy requiring use of sneakers for gait stability, decreased strength with bed transfers, standing transfers requiring one person assist, decreased gait strength and mobility with decreased gait distance, increased time required to complete gait and decreased static and dynamic standing balance requiring FWW to prevent falls. Pt will benefit from skilled therapy intervention for strengthening, balance training and progressive mobility training. Impairments are contributing to the following functional limitations: AMPAC score CMS Score: 46.58% Patient is assessed as a High 63960 complexity based on the following: History: chronic liver failure, severe ascites s/p pancreatitis in setting of obesity, diabetes mellitus type II, diabetic foot ulcer right 1st metatarsal head, diabetic neuropathy, liver cirrhosis, nonalcoholic steatopepatitis, thrombocytopenia, sciatica, lumbar disc prolapse with radiculopathy, charcot foot, left hand surgery. Examination: decreased strength bilateral shoulders and hips, decreased sensation bilateral feet due to neuropathy requiring use of sneakers for gait stability, decreased strength with bed transfers, standing transfers requiring one person assist, decreased gait strength and mobility with decreased gait distance, increased time required to complete gait and decreased static and dynamic standing balance requiring FWW to prevent falls. Pt will benefit from skilled therapy intervention for strengthening, balance training and progressive mobility training. Presentation: evolving Decision Making: AMPAC score CMS Score: 46.58% Goals: Goals X1 week 1. Supine-Sit independent 2. Sit-Supine independent 3. Sit-Stand supervision with FWW 4. Stand-Sit supervision 5. Bed-Chair SBA with FWW 6. Chair-Bed SBA with FWW 7. Gait SBA with FWW 75ftx2 8. Stairs up/down 3 steps with railing, SBA Plan of Care/Treatment Plan: 1-2x/day, 7 days/week x 1 week. Plan of care has been reviewed with the [employer] MANAGER providing the service under Physical Therapy direction. Initiate Physical Therapy intervention for strengthening, bed mobility, transfers, gait, stairs, balance training, use of assistive device. DISCHARGE RECOMMENDATIONS: home with home PT TREATMENT CODE/TIME: 26min IE 9:30 G Codes in the area mobility of walking and moving around: current status [id number] []; projected status GP [id number]-[]. Discharge status (if discharging) GP G8980 CK based on [facility] score [facility] Score: 46.58% Tayler Herrera, PT
--- NOTE | 2018-01-18 10:58 | IN_ITS ---
Date of service: 01/18/18 Time of Service: 10:44 PT Notes Inpatient Physical Therapy Evaluation Date: 01/18/18 Referring Doctor: William Adams PT Orders: PT CONSULT: end stage liver disease, decreasing mobility, loss of ADLS, home safety assessment, ability to live independently Precautions: Fall precautions Patient Profile/Admitting Diagnosis: Pt is a 63yr old male admitted with chronic liver failure, severe ascites s/p pancreatitis PMHX: obesity, diabetes mellitus type II, diabetic foot ulcer right 1st metatarsal head, diabetic neuropathy, liver cirrhosis, nonalcoholic steatopepatitis, thrombocytopenia, sciatica, lumbar disc prolapse with radiculopathy, charcot foot, left hand surgery, anxiety, depression, hypertension, cholecystectomy, hyperlipidemia Social History/Home Situation: Lives alone in a house, 3 steps with railing to enter, all one level inside, disabled. Basline mobility independent gait with FWW, occasionally uses quad cane. Has lift chair in the living room to assist with standing. Reports he cooks his own meals. Equipment Owned/DME: quad cane, FWW Subjective: Pt is lying in bed, alert agreeable to PT consult. States I don't know how I got his week, I just couldn't get up from the chair. Objective: General Observation: Telemetry, BP monitor, mcfarland catheter Mental Status: A& O x3 Pain: no c/o pain ROM: Right Upper Extremity: AROM WNL Left Upper Extremity: AROM WNL Right Lower Extremity: AROM WNL Left Lower Extremity: AROM WNL Strength: Right Upper Extremity: 4/5 shoulder flexion, 5/5 bicep, 5/5 cracking machine operator Left Upper Extremity: 4/5 shoulder flexion, 5/5 bicep, 5/5 cracking machine operator Right Lower Extremity: 4/5 hip flexion, 4/5 quad, 5/5 DF/PF Left Lower Extremity: 4/5 hip flexion, 4/5 quad, 5/5 DF/PF Bed Mobility/Transfers: Pt wears socks and sneakers for transfers - max A to don Supine-sit: HOB 45 degrees, SBA Sit-stand: MinAx1 with FWW Bed-chair: CGA with FWW Stand-sit: SBA Gait: Pt wears socks and sneakers for gait CGA with FWW 50ftx2, slow step through gait pattern, pt reports feeling weak, positioned up in chair after session completed. Balance: Static Sitting: normal Dynamic Sitting: normal Static Standing: fair Dynamic Standing: fair Special Tests: Mobility Limitations Standardized Measure [facility] AM-PAC 6 clicks Basic Mobility Inpatient Short Form: Raw Score: 18 Standardized Score: 43.63 CMS Score: 46.58% CMS Modifier: CK Informed Consent/Education: Patient instructed in purpose of PT consult and plan of care. Assessment: Pt is a 63yr old male admitted with chronic liver failure, severe ascites s/p pancreatitis in setting of obesity, diabetes mellitus type II, diabetic foot ulcer right 1st metatarsal head, diabetic neuropathy, liver cirrhosis, nonalcoholic steatopepatitis, thrombocytopenia, sciatica, lumbar disc prolapse with radiculopathy, charcot foot, left hand surgery. Patient presents with the following impairment level findings: decreased strength bilateral shoulders and hips, decreased sensation bilateral feet due to neuropathy requiring use of sneakers for gait stability, decreased strength with bed transfers, standing transfers requiring one person assist, decreased gait strength and mobility with decreased gait distance, increased time required to complete gait and decreased static and dynamic standing balance requiring FWW to prevent falls. Pt will benefit from skilled therapy intervention for strengthening, balance training and progressive mobility training. Impairments are contributing to the following functional limitations: AMPAC score CMS Score: 46.58% Patient is assessed as a High 38000 complexity based on the following: History: chronic liver failure, severe ascites s/p pancreatitis in setting of obesity, diabetes mellitus type II, diabetic foot ulcer right 1st metatarsal head, diabetic neuropathy, liver cirrhosis, nonalcoholic steatopepatitis, thrombocytopenia, sciatica, lumbar disc prolapse with radiculopathy, charcot foot, left hand surgery. Examination: decreased strength bilateral shoulders and hips, decreased sensation bilateral feet due to neuropathy requiring use of sneakers for gait stability, decreased strength with bed transfers, standing transfers requiring one person assist, decreased gait strength and mobility with decreased gait distance, increased time required to complete gait and decreased static and dynamic standing balance requiring FWW to prevent falls. Pt will benefit from skilled therapy intervention for strengthening, balance training and progressive mobility training. Presentation: evolving Decision Making: AMPAC score CMS Score: 46.58% Goals: Goals X1 week 1. Supine-Sit independent 2. Sit-Supine independent 3. Sit-Stand supervision with FWW 4. Stand-Sit supervision 5. Bed-Chair SBA with FWW 6. Chair-Bed SBA with FWW 7. Gait SBA with FWW 75ftx2 8. Stairs up/down 3 steps with railing, SBA Plan of Care/Treatment Plan: 1-2x/day, 7 days/week x 1 week. Plan of care has been reviewed with the [employer]TER providing the service under Physical Therapy direction. Initiate Physical Therapy intervention for strengthening, bed mobility, transfers, gait, stairs, balance training, use of assistive device. DISCHARGE RECOMMENDATIONS: home with home PT TREATMENT CODE/TIME: 26min IE 9:30 G Codes in the area mobility of walking and moving around: current status [id number] []; projected status GP [id number]-[]. Discharge status (if discharging) GP G8980 CK based on [facility] score [facility] Score: 46.58% Tayler Herrera, PT
--- NOTE | 2018-01-18 10:58 | PDOC.CMIN ---
- If Service Date Differs Date of service: 01/18/18 Time of Service: 10:58 Care Management Initial Assess REASON FOR HOSPITALIZATION:: Chronic liver failure, weakness. PAST MEDICAL HISTORY/PAST SURGICAL HISTORY:: Chronic liver failure, diabetes, diabetic foot ulcer, hypertension, liver cirrhosis, thrombocytopenia. Surgical hx: appendectomy, cholecystectomy, EGD-MAC. PREVIOUS FUNCTIONAL STATUS/SOCIAL/FAMILY SUPPORTS:: Abdoulaye resides alone on [facility]. He has no children and has never been . 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 Abdoulaye has a sister in law, Vilma, and nephew, Tanvir, who are supportive. Tanvir checks in on Abdoulaye occassionally but otherwise Abdoulaye lives independently, off the grid. Abdoulaye reports that when he feels well enough he will drive to town for groceries and other errands, but that the window of feeling well is smaller and smaller. Most days he stays home. He is independent with his ADLs and uses a cane when ambulating. He has a history of falls though reports he is not really worried about that because he has his cell phone on him at all times so that he can phone 911. Abdoulaye reports that he does not cook and if he can't microwave something, he doesn't eat it. CURRENT FUNCTIONAL STATUS:: Pt presented at interdisciplinary rounds. Abdoulaye is sitting up in his chair in ICU with his sister in law, Vilma, at bedside when CM visits. He is engaged in conversation, makes good eye contact and is talkative. Both Abdoulaye and Vilma are concerned about Abdoulaye's living alone and Abdoulaye reports that he would be open to an assisted living facility for the winter. CM talked with Abdoulaye and Vilma about options; discussed the [facility] and their assisted living facility per pt's request. CM will phone Eugenia at the [facility] and discuss possibilities and report back to Abdoulaye and Vilma. Per Abdoulaye and Vilma, Abdoulaye's sugars were 60 yesterday and Abdoulaye reports that he is not always able to get out last picker his medications due to not feeling well. Abdoulaye is concerned about his finances and states that he does get a little lonely at times when at home by himself. Abdoulaye heats his home with kerosene and has gas for back up when he runs out. CM updated HIPAA with pt per his request. Vilma's phone number is [phone] and Tanvir's number is [phone]. ADVANCE DIRECTIVES:: On file at [facility]. Has patient been provided with information about the portal?: No (No internet access at home per pt. ) Did the patient sign up for the portal?: No CODE STATUS:: Full Code INSURANCE COVERAGE / FINANCIAL ISSUES:: Medicare, Financial ASST. CURRENT HOME/COMMUNITY SERVICES/EQUIPMENT:: No current home or community services. Pt utilizes a cane for ambulating. PRIMARY CARE PHYSICIAN:: Jaden Mendoza. POTENTIAL DISCHARGE NEEDS:: Follow up appointment with PCP and plan of care. PATIENT/FAMILY EDUCATION NEEDS:: Discharge education, any limitations and follow up plan of care. Ask Me Three discussion. ANTICIPATED BARRIERS TO DISCHARGE:: No anticipated barriers to discharge. TRANSPORTATION:: Abdoulaye will discharge via private vehicle with family. PLAN:: Abdoulaye will discharge when medically ready per MD. Anticipate pt will discharge to SNF/assisted living facility vs home with PT/OT, nursing services. Pt will transport via private vehicle with family. CM will continue to provide support to patient, family and care team regarding discharge planning and disposition.
--- NOTE | 2018-01-18 11:29 | INITIAL_ITS ---
- If Service Date Differs Date of service: 01/18/18 Time of Service: 10:58 Care Management Initial Assess REASON FOR HOSPITALIZATION:: Chronic liver failure, weakness. PAST MEDICAL HISTORY/PAST SURGICAL HISTORY:: Chronic liver failure, diabetes, diabetic foot ulcer, hypertension, liver cirrhosis, thrombocytopenia. Surgical hx: appendectomy, cholecystectomy, EGD-MAC. PREVIOUS FUNCTIONAL STATUS/SOCIAL/FAMILY SUPPORTS:: Abdoulaye resides alone on [facility]. He has no children and has never been . 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 Abdoulaye has a sister in law, Vilma, and nephew, Tanvir, who are supportive. Tanvir checks in on Abdoulaye occassionally but otherwise Abdoulaye lives independently, off the grid. Abdoulaye reports that when he feels well enough he will drive to town for groceries and other errands, but that the window of feeling well is smaller and smaller. Most days he stays home. He is independent with his ADLs and uses a cane when ambulating. He has a history of falls though reports he is not really worried about that because he has his cell phone on him at all times so that he can phone 911. Abdoulaye reports that he does not cook and if he can't microwave something, he doesn't eat it. CURRENT FUNCTIONAL STATUS:: Pt presented at interdisciplinary rounds. Abdoulaye is sitting up in his chair in ICU with his sister in law, Vilma, at bedside when CM visits. He is engaged in conversation, makes good eye contact and is talkative. Both Abdoulaye and Vilma are concerned about Abdoulaye's living alone and Abdoulaye reports that he would be open to an assisted living facility for the winter. CM talked with Abdoulaye and Vilma about options; discussed the [facility] and their assisted living facility per pt's request. CM will phone Eugenia at the [facility] and discuss possibilities and report back to Abdoulaye and Vilma. 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 Abdoulaye is concerned about his finances and states that he does get a little lonely at times when at home by himself. Abdoulaye heats his home with kerosene and has gas for back up when he runs out. CM updated HIPAA with pt per his request. Vilma' s phone number is [phone] and Tanvir's number is [phone]. ADVANCE DIRECTIVES:: On file at [facility]. Has patient been provided with information about the portal?: No (No internet access at home per pt. ) Did the patient sign up for the portal?: No CODE STATUS:: Full Code INSURANCE COVERAGE / FINANCIAL ISSUES:: Medicare, Financial ASST. CURRENT HOME/COMMUNITY SERVICES/EQUIPMENT:: No current home or community services. Pt utilizes a cane for ambulating. PRIMARY CARE PHYSICIAN:: Jaden Mendoza. POTENTIAL DISCHARGE NEEDS:: Follow up appointment with PCP and plan of care. PATIENT/FAMILY EDUCATION NEEDS:: Discharge education, any limitations and follow up plan of care. Ask Me Three discussion. ANTICIPATED BARRIERS TO DISCHARGE:: No anticipated barriers to discharge. TRANSPORTATION:: Abdoulaye will discharge via private vehicle with family. PLAN:: Abdoulaye will discharge when medically ready per MD. Anticipate pt will discharge to SNF/assisted living facility vs home with PT/OT, nursing services. Pt will transport via private vehicle with family. CM will continue to provide support to patient, family and care team regarding discharge planning and disposition.
[2018-01-18] MEDS: Acetaminophen 325 MG TAB PO (12:03)
--- NOTE | 2018-01-18 13:58 | OT.INIE ---
Occupational Therapy Notes Inpatient Occupational Therapy Evaluation Date: 01/18/18 Referring Doctor: William Adams MD OT Orders: Loss of ADLs, ambulatory issues, end-stage liver disease Precautions: Fall PATIENT PROFILE/ADMITTING DIAGNOSIS: Pt was admitted for end-stage liver disease. 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 Current Functional Limitations: Pt has difficulty performing ADLs, and decreased (I) for functional ambulation. Social History/Home Situation: Pt lives in [facility] alone. He is disabled. His home which is 1 floor has 3 steps in. Pt states that he has a step in bath shower for his bathroom set up. Pt also notes that his home has multiple rugs, which increase fall risk. Equipment owned/DME: Handheld shower head, quad cane, FWW. SUBJECTIVE: Pt was sitting upright in chair when OT arrived with socks and sneakers on. Pt states that he previously could perform all ADLs and IADLs (I). He has a nephew that stays with him in the summer until March. PT states that he did attend Physical Therapy last year at [facility] in [place] for overall conditioning which he felt was helpful at the time. Pt reports that he had walked with Physical therapy earlier today and felt good at the moment. OBJECTIVE: General Observation: Telemetry, BP monitor (R) arm, IV Mental Status: A/O x3 Pain: None ROM: RUE WFL L UE WFL STRENGTH: RUE flex 4/5, biceps 5/5, layer out 4/5 LUE flex 4/5, biceps 5/5, layer out 5/5 SENSATION: Pt reports diminished sensation in (B) LE and (B) UE located on his forearms. FUNCTIONAL MOBILITY/ADLS: DRESSING Dressing LE Pt able to don and doff socks and shoes with use of sock aid provided by OT (I). BALANCE: Dynamic Sitting CGA Pt education: Pt instructed in use of sock aid for donnng and doffing socks. Pt demonstrated verbal and visual understanding and was able to (I) don socks with minimal verbal cues. SPECIAL TESTS: Daily Activity Limitations Standardized Measure [facility] AM -PAC ?6 clicks? Daily Activity Inpatient Short Form: Raw score: 19 Standardized score: 40.22 CMS score: 42.80% CMS modifier: CK INFORMED CONSENT/EDUCATION: Pt instructed in purpose of OT Consult and plan of care. ASSESSMENT: Patient is a 63-year-old male referred to physical therapy services with diagnosis of loss of ADLs, ambulatory issues and end-stage liver disease. 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 Impairments are contributing to the following functional limitations: Pt presents with difficulty perform upper and lower body dressing (I), increase times with performing ADLs, decreased (I) with functional ambulation. Pt will benefit for OT services for education in adaptive equipment, UE strengthening, energy conservation techniques and education and increased (I) in functional mobility. AMPAC score 19, CMS score: 42.80% Patient is assessed as a X Moderate [id number] complexity based on the following: History: See above PMHX Examination: see functional impairments as noted above. Presentation: Stable Decision Making: AMPAC score 19, CMS Score: 42.80% GOALS Goals x1 week 1. Transfers (I) 2. Dressing (I) with use of adaptive equipment (Sock aid, shoe horn, metalsmith). 3. Bathing SBA 4. Toileting SBA 5. Eating (I) PLAN OF CARE/TREATMENT PLAN: 1x/day, 5 days/ week x 1week Initiate Occupational Therapy Services for bathing, dressing, grooming, toileting, eating, transfer training. DISCHARGE RECOMMENDATIONS Home with use of adaptive equipment. Grab Bars for step in bath/shower in home. TREATMENT TIME/MINUTES/CODES 25 IE Moderate G Codes in the area of self- : washing oneself, toileting, dressing, eating and drinking, current status [id number] CK projected status GP [id number]. Based on AMPAC score of 19, CMS score of 42.80%.
--- NOTE | 2018-01-18 14:24 | OTIE_ITS ---
Occupational Therapy Notes Inpatient Occupational Therapy Evaluation Date: 01/18/18 Referring Doctor: William Adams MD OT Orders: Loss of ADLs, ambulatory issues, end-stage liver disease Precautions: Fall PATIENT PROFILE/ADMITTING DIAGNOSIS: Pt was admitted for end-stage liver disease. 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 Current Functional Limitations: Pt has difficulty performing ADLs, and decreased (I) for functional ambulation. Social History/Home Situation: Pt lives in [facility] alone. He is disabled. His home which is 1 floor has 3 steps in. Pt states that he has a step in bath shower for his bathroom set up. Pt also notes that his home has multiple rugs, which increase fall risk. Equipment owned/DME: Handheld shower head, quad cane, FWW. SUBJECTIVE: Pt was sitting upright in chair when OT arrived with socks and sneakers on. Pt states that he previously could perform all ADLs and IADLs (I). He has a nephew that stays with him in the summer until March. PT states that he did attend Physical Therapy last year at [facility] in [place] for overall conditioning which he felt was helpful at the time. Pt reports that he had walked with Physical therapy earlier today and felt good at the moment. OBJECTIVE: General Observation: Telemetry, BP monitor (R) arm, IV Mental Status: A/O x3 Pain: None ROM: RUE WFL L UE WFL STRENGTH: RUE flex 4/5, biceps 5/5, collection advisor 4/5 LUE flex 4/5, biceps 5/5, collection advisor 5/5 SENSATION: Pt reports diminished sensation in (B) LE and (B) UE located on his forearms. FUNCTIONAL MOBILITY/ADLS: DRESSING Dressing LE Pt able to don and doff socks and shoes with use of sock aid provided by OT (I). BALANCE: Dynamic Sitting CGA Pt education: Pt instructed in use of sock aid for donnng and doffing socks. Pt demonstrated verbal and visual understanding and was able to (I) don socks with minimal verbal cues. SPECIAL TESTS: Daily Activity Limitations Standardized Measure [facility] AM -PAC ?6 clicks? Daily Activity Inpatient Short Form: Raw score: 19 Standardized score: 40.22 CMS score: 42.80% CMS modifier: CK INFORMED CONSENT/EDUCATION: Pt instructed in purpose of OT Consult and plan of care. ASSESSMENT: Patient is a 63-year-old male referred to physical therapy services with diagnosis of loss of ADLs, ambulatory issues and end-stage liver disease. 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 Impairments are contributing to the following functional limitations: Pt presents with difficulty perform upper and lower body dressing (I), increase times with performing ADLs, decreased (I) with functional ambulation. Pt will benefit for OT services for education in adaptive equipment, UE strengthening, energy conservation techniques and education and increased (I) in functional mobility. AMPAC score 19, CMS score: 42.80% Patient is assessed as a X Moderate [id number] complexity based on the following: History: See above PMHX Examination: see functional impairments as noted above. Presentation: Stable Decision Making: AMPAC score 19, CMS Score: 42.80% GOALS Goals x1 week 1. Transfers (I) 2. Dressing (I) with use of adaptive equipment (Sock aid, shoe horn, commercial real estate manager). 3. Bathing SBA 4. Toileting SBA 5. Eating (I) PLAN OF CARE/TREATMENT PLAN: 1x/day, 5 days/ week x 1week Initiate Occupational Therapy Services for bathing, dressing, grooming, toileting, eating, transfer training. DISCHARGE RECOMMENDATIONS Home with use of adaptive equipment. Grab Bars for step in bath/shower in home. TREATMENT TIME/MINUTES/CODES 25 IE Moderate G Codes in the area of self- : washing oneself, toileting, dressing, eating and drinking, current status [id number] CK projected status GP [id number]. Based on AMPAC score of 19, CMS score of 42.80%.
--- NOTE | 2018-01-18 14:26 | PT.INTREAT ---
Date of service: 01/18/18 Time of Service: 14:26 PT Notes Inpatient Physical Therapy Treatment Note Date: 01/18/18 PRECAUTIONS: Fall SUBJECTIVE: Abdoulaye reports that he has been sitting up since breakfast. He states that he does not do much walking at home because he is afraid of falling. OBJECTIVE: PAIN: Patient complained of abdominal pain with sit to supine transfer BED MOBILITY/TRANSFERS Sit-supine: SBA with HOB flat Sit-stand: SBA Stand-sit: SBA GAIT Assistive Device: FWW Weight bearing: Full Assist: CGA/SBA Distance: 100' x2 THEREX: Patient completed a lower extremity strengthening program, as per flow sheet. Patient performed ankle pumps, straight leg raise, heel slides, and bridging. ASSESSMENT: Patient tolerated session with complaints of increased fatigue. Patient was able to tolerate a progression in gait distance with FWW support, as well as a progression in his ther ex program. Patient would benefit from continued strengthening as well as transfer and gait training. PLAN: Continue with PT's POC TREATMENT CODE/TIME: 25 minutes; TA/TP
--- NOTE | 2018-01-18 16:10 | W.PM.PROGNOT ---
Date of service: 01/18/18 Time of Service: 16:10 Assessment and Plan (1) SBP (spontaneous bacterial peritonitis): Current visit: Yes Status: Acute He has some white cells on his ascites fluid. Culture is still pending. He really does not meet criteria for full-blown SBP. We will continue with IV cefepime ?5 days to fully rule out intra-abdominal infection. Await further culture results. (2) Ulcer of foot: Current visit: No Status: Active Diabetic foot ulcer on the right appears stable. He is on IV cefepime for SBP. Will ask Dr. Man to see him from podiatry regarding his toenails and to take a look at the ulcer. (3) Diabetes mellitus type 2: Current visit: No Status: Active Blood sugars are stable continue present meds. (4) Liver failure: Current visit: Yes Status: Acute End-stage liver failure. We will ask palliative care to consult. He is rapidly approaching a point where there is very little more we can do. (5) Discharge planning issues: Current visit: Yes Status: Acute He continues as a full code per his request. Further imaging to rule out hepatocellular carcinoma in the future. Palliative care to discuss overall prognosis and his wishes. Continue to monitor in acute care status. Subjective Patient reports: no new complaints Interval history since last seen: Patient was admitted yesterday because of worsening abdominal swelling and weakness. Workup in the emergency room suggestive of spontaneous bacterial peritonitis. He has not had severe abdominal pain. No fever chills or rigors. His appetite has improved. I spoke with Dr. Phan gastroenterology today. She did not have much to add other than further diagnostics to rule out hepatocellular carcinoma. That was the purpose of an upcoming MRI scheduled for 02 06 2018. Her impression was that he is gradually failing and that eventually would qualify for palliative care/hospice. Is not a candidate for liver transplant nor TI PS procedure. Exam Narrative Exam Narrative: He is lying comfortably in bed. He has no respiratory difficulty. He was up walking with a walker with physical therapy earlier. His strength is improved. Chest Chest: normal inspection of the chest Resp Effort & Inspection: normal respiratory effort Auscultation: clear to auscultation bilaterally Cardio Rate: regular rate Rhythm: regular rhythm Heart Sounds: no murmurs GI Inspection: other (Huge abdomen, generally soft without focal areas of tenderness. Paracentesis site looked fine.) Extrem General: abnormal to inspection (Both lower extremities show hemosiderin and scale, 2+ edema bilaterally. Hypertrophic toenails. Diabetic foot ulcer right first metatarsal is stable) Objective Objective Clinical Data: Abnormal lab results 01/18/18 01/18/18 Range/Units 06:30 06:30 WBC 12.22 H D (4.4-10.8) k/cumm RBC 3.58 L (4.50-6.00) m/cumm Hgb 11.9 L (13.5-17.5) g/dL Hct 35.0 L (40.0-50.0) % MCV 97.8 H (80-95) fL MCH 33.2 H (27.0-33.0) pg Plt Count 52 L (130-400) x1000/uL MPV 13.2 H (8.0-11.0) fL Absolute Neutrophils 10.55 H (1.2-6.7) k/cumm Absolute Lymphocytes 0.40 L (1.2-3.4) k/cumm Absolute Monocytes 1.21 H (0.11-0.7) k/cumm Sodium 134 L (136-145) mmol/L BUN 36 H (7-18) mg/dL Creatinine 1.66 H (0.70-1.30) mg/dL Glucose 174 H D (70-100) mg/dL Calcium 7.7 L (8.5-10.1) mg/dL Total Bilirubin 2.7 H (0.2-1.0) mg/dL AST 44 H (15-37) U/L Alkaline Phosphatase 187 H (46-116) U/L Albumin 1.9 L (3.4-5.0) g/dL Vital Signs Temp 36.5 C 01/18/18 13:00 Pulse 59 L 01/18/18 14:00 Resp 16 01/18/18 13:01 BP 102/59 L 01/18/18 14:00 Pulse Ox 97 01/18/18 11:46 Intake & Output 01/17/18 01/18/18 01/18/18 23:59 11:59 23:59 Intake Total 1560 / 1560 3202.5 / 3202.5 540 / 540 Output Total 120 / 120 200 / 200 Balance 1560 / 1560 3082.5 / 3082.5 340 / 340 Weight 105.4 kg 110.1 kg Intake: IV 1560 / 1560 1912.5 / 191.5 Oral 1290 / 1290 540 / 540 Output: Urine 120 / 120 200 / 200 Other: Urine Color Dark Marta Dark Marta Urine Appearance Clear Clear Comment Urgency with Lasix. Pt voided in ER.Has not voided in ICU as of yet, denies urge. Hernandez intact and draining well. Hernandez intact and draining well. Laboratory Results WBC 12.22 k/cumm (4.4-10.8) H D 01/18/18 06:30 RBC 3.58 m/cumm (4.50-6.00) L 01/18/18 06:30 Hgb 11.9 g/dL (13.5-17.5) L 01/18/18 06:30 Hct 35.0 % (40.0-50.0) L 01/18/18 06:30 MCV 97.8 fL (80-95) H 01/18/18 06:30 MCH 33.2 pg (27.0-33.0) H 01/18/18 06:30 MCHC 34.0 g/dL (32.0-36.0) 01/18/18 06:30 RDW 13.9 % (11.8-14.1) 01/18/18 06:30 Plt Count 52 x1000/uL (130-400) L 01/18/18 06:30 MPV 13.2 fL (8.0-11.0) H 01/18/18 06:30 Immature Gran % 0.2 01/18/18 06:30 Neutrophils % 86.3 01/18/18 06:30 Lymphocytes % 3.3 01/18/18 06:30 Monocytes % 9.9 01/18/18 06:30 Eosinophils % 0.1 01/18/18 06:30 Basophils % 0.2 01/18/18 06:30 Absolute Neutrophils 10.55 k/cumm (1.2-6.7) H 01/18/18 06:30 Band Neutrophils 11.0 % 01/17/18 09:45 Absolute Lymphocytes 0.40 k/cumm (1.2-3.4) L 01/18/18 06:30 Absolute Monocytes 1.21 k/cumm (0.11-0.7) H 01/18/18 06:30 Absolute Eosinophils 0.01 k/cumm (0.0-0.7) 01/18/18 06:30 Absolute Basophils 0.02 k/cumm (0.0-0.2) 01/18/18 06:30 Differential Comment Manual differential 01/17/18 09:45 RBC Morphology Normal 01/17/18 09:45 PT 12.7 sec (9.3-10.8) H 01/17/18 09:45 INR 1.3 (1.0-3.5) 01/17/18 09:45 Sodium 134 mmol/L (136-145) L 01/18/18 06:30 Potassium 4.5 mmol/L (3.5-5.1) 01/18/18 06:30 Chloride 101 mmol/L (98-107) 01/18/18 06:30 Carbon Dioxide 27.6 mmol/L (21.0-32.0) 01/18/18 06:30 Anion Gap 5.4 mmol/L (3-11) 01/18/18 06:30 BUN 36 mg/dL (7-18) H 01/18/18 06:30 Creatinine 1.66 mg/dL (0.70-1.30) H 01/18/18 06:30 Estimated GFR/1.73 m2 42.19 (mL/min/1.73m2) 01/18/18 06:30 Glucose 174 mg/dL (70-100) H D 01/18/18 06:30 Lactate 2.8 mmol/L (0.6-1.4) H 01/17/18 13:45 Calcium 7.7 mg/dL (8.5-10.1) L 01/18/18 06:30 Total Bilirubin 2.7 mg/dL (0.2-1.0) H 01/18/18 06:30 AST 44 U/L (15-37) H 01/18/18 06:30 ALT 29 U/L (12-78) 01/18/18 06:30 Alkaline Phosphatase 187 U/L (46-116) H 01/18/18 06:30 Ammonia 43 umol/L (11-32) H 01/17/18 09:45 Total Protein 6.7 g/dL (6.4-8.2) 01/18/18 06:30 Albumin 1.9 g/dL (3.4-5.0) L 01/18/18 06:30 Urine Color Dark yellow (Yellow) 01/17/18 14:15 Urine Clarity Clear 01/17/18 14:15 Urine pH 5.0 (5-8) 01/17/18 14:15 Ur Specific [place] 1.025 (1.005-1.025) 01/17/18 14:15 Urine Protein Negative mg/dL (Negative) 01/17/18 14:15 Urine Ketones Trace mg/dL (Negative) H 01/17/18 14:15 Urine Blood Negative (Negative) 01/17/18 14:15 Urine Nitrite Negative (Negative) 01/17/18 14:15 Urine Bilirubin Small (Negative) H 01/17/18 14:15 Urine Urobilinogen 2.0 EU/dL (Up TO 0.2) H 01/17/18 14:15 Ur Leukocyte Esterase Negative (Negative) 01/17/18 14:15 Urine Glucose Negative mg/dL (Negative) 01/17/18 14:15 Fluid Source Peritoneal 01/17/18 13:45 Fluid Color Yellow 01/17/18 13:45 Fluid Appearance Clear 01/17/18 13:45 Fluid WBC 69 /MM3 (0-0) H 01/17/18 13:45 Fluid Mononuclear Cell 85 % (0-0) H 01/17/18 13:45 Fl Polymorphonucl Cell 12 % (0-0) H 01/17/18 13:45
[2018-01-18] MEDS: Normal Saline Flush 10 ML SYR IVP (16:25)
[2018-01-18] MEDS: Melatonin 3 MG TAB PO (22:06)
[2018-01-18] MEDS: Insulin Glargine 300 UNITS/3 ML PEN 12 UNITS SC (22:06)
[2018-01-19] VITALS (21 sets, daily range): BP systolic 99–128; BP diastolic 63–79; PULSE 56–77; RESP 12–58; TEMP 35.9–37.1; O2SAT 95–97
[2018-01-19] MEDS: CEFEPIME 1 GM in Normal Saline 50 ML IVPB ×2 (04:13→16:39)
[2018-01-19] MEDS: Normal Saline Flush 10 ML SYR IVP ×2 (04:13→17:42)
[2018-01-19 06:23] LABS: HCT 38.8 % (40.0-50.0); HGB 13.3 g/dL (13.5-17.5); Mean Corp. HGB Concentration 34.3 g/dL (32.0-36.0); Mean Corpuscular Hemoglobin 33.3 pg (27.0-33.0); Mean Corpuscular Volume 97.2 fL (80-95); RBC 3.99 m/cumm (4.50-6.00); White Blood Cell Count 6.24 k/cumm (4.4-10.8)
[2018-01-19 06:24] LABS: Abs Immature Grans 0.02 k/cumm (0.0-0.09); Absolute Basophil Count 0.02 k/cumm (0.0-0.2); Absolute Eosinophil Count 0.18 k/cumm (0.0-0.7); Absolute Lymphocyte Count 0.49 k/cumm (1.2-3.4); Absolute Monocyte Count 0.85 k/cumm (0.11-0.7); Absolute Neutrophil Count 4.68 k/cumm (1.2-6.7); Basophils % 0.3; Eosinophils % 2.9; Immature Grans % 0.3; Lymphocytes % 7.9; Mean Platelet Volume 13.6 fL (8.0-11.0); Monocytes % 13.6; RBC Distribution Width 13.7 % (11.8-14.1)
[2018-01-19 06:32] LABS: Platelet Count 53 x1000/uL (130-400)
[2018-01-19 06:50] LABS: ALT 31 U/L (12-78); AST 45 U/L (15-37); Albumin 1.9 g/dL (3.4-5.0); Alkaline Phosphatase 198 U/L (46-116); Anion Gap 4.6 mmol/L (3-11); BUN 39 mg/dL (7-18); Bilirubin, Total 1.9 mg/dL (0.2-1.0); CO2 28.4 mmol/L (21.0-32.0); CREATININE 1.43 mg/dL (0.70-1.30); Chloride 101 mmol/L (98-107); Estimated GFR 50.11 (mL/min/1.73m2); Glucose 123 mg/dL (70-100); Potassium 4.5 mmol/L (3.5-5.1); Sodium 134 mmol/L (136-145); Total Protein 7.2 g/dL (6.4-8.2)
[2018-01-19] MEDS: Insulin Aspart 300 UNITS/3 ML PEN 8 UNITS SC ×3 (07:54→16:49)
[2018-01-19] MEDS: Furosemide 40 MG TAB PO ×2 (07:54→16:39)
[2018-01-19] MEDS: Omeprazole 20 MG CAPCR PO (07:54)
--- NOTE | 2018-01-19 10:39 | NUR.NOTE ---
Dr. Man in, debrided the plantar aspect of Right foot under the great toe. Padded dressing applied to right foot by the doctor.Nursing Note:
--- NOTE | 2018-01-19 10:51 | W.PODCONSULT ---
Date of service: 01/19/18 Time of Service: 10:51 Assessment and Plan (1) Onychomycosis due to dermatophyte: Start date: 01/19/18 Start time: 11:07 Current visit: Yes Status: Chronic Debrided all toenails aggressively and atraumatically to patient tolerance. Gently curettage all debris free of the nail grooves. Significant relief of symptomatology noted upon debridement. Recommend periodic podiatric care for ongoing comfort measures. Diabetic ulceration right foot Sharply debrided the ulceration with a #10 scalpel under the right first metatarsal partial thickness to patient tolerance. Bleeding edges and base appreciated. Pressure dispersion padding was applied consisting of 1/4 inch felt. He is instructed and he knows that he must wear his shoes during all weightbearing activities to avoid further breakdown of skin on the his right first metatarsal head. Wound should be washed regularly with soap and water and protected with accommodative shoe gear. (2) Diabetic ulcer of right foot associated with diabetes mellitus due to underlying condition, limited to breakdown of skin: Current visit: Yes Status: Chronic History of Present Illness Narrative: This is a 63-year-old male who was admitted through the emergency department due to spontaneous bacterial ascites and severe deconditioning. He has a long-standing insulin-dependent diabetic with peripheral neuropathy and peripheral venous disease. He has a wound under the right first metatarsal head region that has been present for over 10 years which is in need of debridement. He also states he has not been able to trim his nails in about a year and a half. It was last done for him during an admission at [facility]. [facility] Family History Mother Heart disease Cancer Father Essential hypertension Heart disease Cancer Sister Cancer Brother Cancer Medical History Chronic liver failure (Chronic) Diabetes type 2, controlled (Chronic) Diabetic foot ulcer associated with type 2 diabetes mellitus (Chronic) Hypertension (Chronic) Liver cirrhosis secondary to nonalcoholic steatohepatitis (BRUNNER) (Chronic) Thrombocytopenia (Chronic) Social History Smoking/Tobacco Use Status: Never Surgical History Appendectomy (Resolved) Cholecystectomy (Resolved 08/12/12) EGD - MAC (Resolved) Exam Narrative Exam Narrative: Vascular exam: Peripheral arterial pulses are palpable bilaterally weakly graded plus 1 out of 4 at the DP and PT level. Capillary refill is under 4 seconds to all toes. He has chronic venous stasis disease with +1 peripheral edema bilaterally. Skin is hypertrophic and scaly along the anterior aspects of both legs. A dry scab is noted along the distal third medial aspect of the right calf but it is free of any signs of infection. Calves are nontender to gentle palpation. No cords are noted. Dermatologic exam: Chronic venous stasis changes are noted to the anterior junior and calves of both feet. Plaques are appreciated there is no active sign of infection. Toenails appear to be chronically fungal, they are yellowed, thickened, dystrophic, hypertrophic, elongated and in need of debridement. There is heavy subungual debris with periungual tenderness but no drainage or secondary signs of infection. All toenails are affected. Grade 2 ulceration is noted under the right first metatarsal head. The ulcer is partial-thickness without sinus tracking or undermining. The lesion has been present for approximately 10 years on and off per patient history. Wound has a hypertrophic margin and there are areas of hemorrhagic change at the base which should be debrided. The wound measured 2.6 cm medial to lateral and 1.6 cm proximal distal. It is partial thickness. There is no sign of deep space abscess or fluid accumulations. The lesion appears to be directly under the tibial sesamoid Muscle groups are 5 out of 5 bilaterally although markedly deconditioned. Physical therapy has been in working with him on regaining strength. Skeletal exam: No joint inflammations or gross deformities are observed. The lesion under the his right first metatarsal head is biomechanically induced. Neurologically he does show findings consistent with moderate diabetic peripheral neuropathy more noted distally on the plantar aspects of his feet patient acknowledges the peripheral neuropathy and states it has been present for many years. His current shoes are marginally acceptable. There is no removable insole to make accommodation however they are adequately spacious where insoles can be slipped in and pressure a treatment measures can be considered. Results Labs : 01/19/18 05:33 01/19/18 05:33 Laboratory Results - last 24 hr 01/19/18 01/19/18 05:33 05:33 WBC 6.24 D RBC 3.99 L Hgb 13.3 L Hct 38.8 L MCV 97.2 H MCH 33.3 H MCHC 34.3 RDW 13.7 Plt Count 53 L MPV 13.6 H Immature Gran % 0.3 Neutrophils % 75.0 Lymphocytes % 7.9 Monocytes % 13.6 Eosinophils % 2.9 Basophils % 0.3 Absolute Neutrophils 4.68 Absolute Lymphocytes 0.49 L Absolute Monocytes 0.85 H Absolute Eosinophils 0.18 Absolute Basophils 0.02 Sodium 134 L Potassium 4.5 Chloride 101 Carbon Dioxide 28.4 Anion Gap 4.6 BUN 39 H Creatinine 1.43 H Estimated GFR/1.73 m2 50.11 Glucose 123 H Calcium 8.0 L Total Bilirubin 1.9 H AST 45 H ALT 31 Alkaline Phosphatase 198 H Total Protein 7.2 Albumin 1.9 L
--- NOTE | 2018-01-19 11:12 | PT.INTREAT ---
Date of service: 01/19/18 Time of Service: 11:13 PT Notes Inpatient Physical Therapy Treatment Note Date: 01/19/18 SUBJECTIVE: Abdoulaye states that he feels better today vs yesterday. OBJECTIVE: BED MOBILITY/TRANSFERS Supine-sit: SBA Sit-stand: SBA with bed elevated so hips above knees. Stand-sit: [SBA GAIT Assistive Device: FWW Weight bearing: full Assist: SBA/CGA Distance: 100' THEREX: performed a global LE strengthening routine in both supine and seated positions. See flowsheet for details. ASSESSMENT: tolerated session well. No noted LOB or pain. PLAN: continue with POC TREATMENT CODE/TIME: 25 min. TPx1/TAx1.
--- NOTE | 2018-01-19 12:21 | PGE_ITS ---
Assessment and Plan (1) SBP (spontaneous bacterial peritonitis): Current visit: No Status: Acute cont. Cefepime pending results of cultures (2) Ascites: Current visit: No Status: Acute cont. diuretics; may need further peritoneal taps in near future (3) BRUNNER (nonalcoholic steatohepatitis): Current visit: No Status: Acute treat DM, avoid hepatotoxins; cont. management of ascites (4) Diabetes mellitus type 2: Current visit: No Status: Active adjust insulin dosing (5) Liver failure: Current visit: No Status: Chronic (6) Discharge planning issues: Current visit: No Status: Acute (7) Onychomycosis due to dermatophyte: Current visit: No Status: Chronic await podiatry evaluation (8) Diabetic ulcer of right foot associated with diabetes mellitus due to underlying condition, limited to breakdown of skin: Current visit: No Status: Chronic await podiatry evaluation otherwise continue current antibiotics Subjective Patient reports: still having pain Interval history since last seen: Still having some abdominal pains. Remains weak. Starting some P.T. Cont. Cefepime empirically for SBP until we receive results of peritoneal tap done in the ER. Await podiatry evaluation of his foot ulcer. Still has a leukocytosis of 12,000 but coming down. Exam Const General: cooperative, no acute distress, well developed, well groomed and ill appearing chronically Nutritional Appearance: obese Orientation: alert, awake and oriented x3 HENMT Head: normal to inspection Neck Neck: normal visual inspection and full ROM Carotids: normal carotid upstroke Resp Effort & Inspection: normal respiratory effort and able to speak in complete sentences Auscultation: clear to auscultation bilaterally Cardio Jugular venous pressure: JVD Palpation: normal PMI Rate: regular rate Rhythm: regular rhythm Heart Sounds: S1 normal, S2 normal and normal, physiologic split S2 Bruits: no abdominal aortic bruits GI Inspection: abdominal wall ecchymosis, edema and obesity Palpation: soft, hepatosplenomegaly and ascites Percussion: normal to percussion Auscultation: normal bowel sounds Neuro General: alert, awake and oriented x3 Cognition: normal cognition Motor: muscle tone normal throughout and strength 5/5 throughout Extrem General: full ROM, no calf tenderness, edema Laterality: bilateral and pedal edema bilaterally Right lower extremity: edema Left lower extremity: edema Objective Objective Clinical Data: Abnormal lab results 01/19/18 01/19/18 Range/Units 05:33 05:33 RBC 3.99 L (4.50-6.00) m/cumm Hgb 13.3 L (13.5-17.5) g/dL Hct 38.8 L (40.0-50.0) % MCV 97.2 H (80-95) fL MCH 33.3 H (27.0-33.0) pg Plt Count 53 L (130-400) x1000/uL MPV 13.6 H (8.0-11.0) fL Absolute Lymphocytes 0.49 L (1.2-3.4) k/cumm Absolute Monocytes 0.85 H (0.11-0.7) k/cumm Sodium 134 L (136-145) mmol/L BUN 39 H (7-18) mg/dL Creatinine 1.43 H (0.70-1.30) mg/dL Glucose 123 H (70-100) mg/dL Calcium 8.0 L (8.5-10.1) mg/dL Total Bilirubin 1.9 H (0.2-1.0) mg/dL AST 45 H (15-37) U/L Alkaline Phosphatase 198 H (46-116) U/L Albumin 1.9 L (3.4-5.0) g/dL Vital Signs Temp 36.6 C 01/19/18 12:12 Pulse 65 01/19/18 12:02 Resp 16 01/19/18 12:02 BP 109/70 01/19/18 12:02 Pulse Ox 97 01/19/18 09:33 Intake & Output 01/18/18 01/19/18 01/19/18 23:59 11:59 23:59 Intake Total 1070 / 1070 425 / 425 Output Total 1200 / 1200 2225 / 2225 Balance -130 / -130 -1800 / -1800 Weight 107.4 kg Intake: IV 50 / 50 Oral 1060 / 1060 375 / 375 Output: Urine 1200 / 1200 2225 / 2225 Other: Urine Color Light Marta Yellow Urine Appearance Sediment Clear Comment Hernandez in place draining clear yellow urine. Hernandez in place draining clear yellow urine. Laboratory Results WBC 6.24 k/cumm (4.4-10.8) D 01/19/18 05:33 RBC 3.99 m/cumm (4.50-6.00) L 01/19/18 05:33 Hgb 13.3 g/dL (13.5-17.5) L 01/19/18 05:33 Hct 38.8 % (40.0-50.0) L 01/19/18 05:33 MCV 97.2 fL (80-95) H 01/19/18 05:33 MCH 33.3 pg (27.0-33.0) H 01/19/18 05:33 MCHC 34.3 g/dL (32.0-36.0) 01/19/18 05:33 RDW 13.7 % (11.8-14.1) 01/19/18 05:33 Plt Count 53 x1000/uL (130-400) L 01/19/18 05:33 MPV 13.6 fL (8.0-11.0) H 01/19/18 05:33 Immature Gran % 0.3 01/19/18 05:33 Neutrophils % 75.0 01/19/18 05:33 Lymphocytes % 7.9 01/19/18 05:33 Monocytes % 13.6 01/19/18 05:33 Eosinophils % 2.9 01/19/18 05:33 Basophils % 0.3 01/19/18 05:33 Absolute Neutrophils 4.68 k/cumm (1.2-6.7) 01/19/18 05:33 Band Neutrophils 11.0 % 01/17/18 09:45 Absolute Lymphocytes 0.49 k/cumm (1.2-3.4) L 01/19/18 05:33 Absolute Monocytes 0.85 k/cumm (0.11-0.7) H 01/19/18 05:33 Absolute Eosinophils 0.18 k/cumm (0.0-0.7) 01/19/18 05:33 Absolute Basophils 0.02 k/cumm (0.0-0.2) 01/19/18 05:33 Differential Comment Manual differential 01/17/18 09:45 RBC Morphology Normal 01/17/18 09:45 PT 12.7 sec (9.3-10.8) H 01/17/18 09:45 INR 1.3 (1.0-3.5) 01/17/18 09:45 Sodium 134 mmol/L (136-145) L 01/19/18 05:33 Potassium 4.5 mmol/L (3.5-5.1) 01/19/18 05:33 Chloride 101 mmol/L (98-107) 01/19/18 05:33 Carbon Dioxide 28.4 mmol/L (21.0-32.0) 01/19/18 05:33 Anion Gap 4.6 mmol/L (3-11) 01/19/18 05:33 BUN 39 mg/dL (7-18) H 01/19/18 05:33 Creatinine 1.43 mg/dL (0.70-1.30) H 01/19/18 05:33 Estimated GFR/1.73 m2 50.11 (mL/min/1.73m2) 01/19/18 05:33 Glucose 123 mg/dL (70-100) H 01/19/18 05:33 Lactate 2.8 mmol/L (0.6-1.4) H 01/17/18 13:45 Calcium 8.0 mg/dL (8.5-10.1) L 01/19/18 05:33 Total Bilirubin 1.9 mg/dL (0.2-1.0) H 01/19/18 05:33 AST 45 U/L (15-37) H 01/19/18 05:33 ALT 31 U/L (12-78) 01/19/18 05:33 Alkaline Phosphatase 198 U/L (46-116) H 01/19/18 05:33 Ammonia 43 umol/L (11-32) H 01/17/18 09:45 Total Protein 7.2 g/dL (6.4-8.2) 01/19/18 05:33 Albumin 1.9 g/dL (3.4-5.0) L 01/19/18 05:33 Urine Color Dark yellow (Yellow) 01/17/18 14:15 Urine Clarity Clear 01/17/18 14:15 Urine pH 5.0 (5-8) 01/17/18 14:15 Ur Specific [place] 1.025 (1.005-1.025) 01/17/18 14:15 Urine Protein Negative mg/dL (Negative) 01/17/18 14:15 Urine Ketones Trace mg/dL (Negative) H 01/17/18 14:15 Urine Blood Negative (Negative) 01/17/18 14:15 Urine Nitrite Negative (Negative) 01/17/18 14:15 Urine Bilirubin Small (Negative) H 01/17/18 14:15 Urine Urobilinogen 2.0 EU/dL (Up TO 0.2) H 01/17/18 14:15 Ur Leukocyte Esterase Negative (Negative) 01/17/18 14:15 Urine Glucose Negative mg/dL (Negative) 01/17/18 14:15 Fluid Source Peritoneal 01/17/18 13:45 Fluid Color Yellow 01/17/18 13:45 Fluid Appearance Clear 01/17/18 13:45 Fluid WBC 69 /MM3 (0-0) H 01/17/18 13:45 Fluid Mononuclear Cell 85 % (0-0) H 01/17/18 13:45 Fl Polymorphonucl Cell 12 % (0-0) H 01/17/18 13:45
--- NOTE | 2018-01-19 12:24 | PDOC.CMPRO ---
Care Management Progress Note S/O: Abdoulaye was lying in bed when CM met with him. He shared concerns around returning home and feels he has become weaker. CM met with Abdoulaye's family; his former ABELARDO: Tati, his nephew; Tanvir and Tanvir's significant other; Soni. CM coordinated an MD meeting with the family as they had questions and were voicing concerns around Abdoulaye's medical status. Dr. 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 CM requested Palliative Care Consult, provided [facility] Medicaid application to the family and reviewed insurance limitations, discharge planning considerations. Abdoulaye and his family would like for the plan to be for Abdoulaye to discharge to the [facility] upon discharge. Dr. Klein does not anticipate this will be before Sunday as he is still closely monitoring Abdoulaye at this time. CM will continue to follow and support Abdoulaye and his family. A: 63 year old male admitted to [facility] 01/17/18 for Weakness and Liver Failure P: Abdoulaye will discharge when medically ready per MD; he continues to be monitored as a MED/SURG overflow patient in the ICU. Abdoulaye will likelu discharge to [email or web address] and transport via private vehicle with family. In the event the [facility] is unable to offer a bed, CM will coordinate referrals to other facilities including [facility] and [facility]. CM will continue to monitor clinical status and provide support to patient, family and care team regarding discharge planning and disposition.
--- NOTE | 2018-01-19 12:27 | CMPROGNOTE_ITS ---
Care Management Progress Note S/O: Abdoulaye was lying in bed when CM met with him. He shared concerns around returning home and feels he has become weaker. CM met with Abdoulaye's family; his former ABELARDO: Tati, his nephew; Tanvir and Tanvir's significant other; Soni. CM coordinated an MD meeting with the family as they had questions and were voicing concerns around Abdoulaye's medical status. Dr. 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 CM requested Palliative Care Consult, provided [facility] Medicaid application to the family and reviewed insurance limitations, discharge planning considerations. Abdoulaye and his family would like for the plan to be for Abdoulaye to discharge to the [facility] upon discharge. Dr. Klein does not anticipate this will be before Sunday as he is still closely monitoring Abdoulaye at this time. CM will continue to follow and support Abdoulaye and his family. A: 63 year old male admitted to [facility] 01/17/18 for Weakness and Liver Failure P: Abdoulaye will discharge when medically ready per MD; he continues to be monitored as a MED/SURG overflow patient in the ICU. Abdoulaye will likelu discharge to SNF[facility] and transport via private vehicle with family. In the event the [facility] is unable to offer a bed, CM will coordinate referrals to other facilities including [facility] and [facility]. CM will continue to monitor clinical status and provide support to patient, family and care team regarding discharge planning and disposition.
[2018-01-19] MEDS: Lactulose 20 GM/30 ML CUP PO ×2 (13:42→20:16)
--- NOTE | 2018-01-19 16:26 | NUR.NOTE ---
Nursing Note: At 1618 on 01/19/18, pt. was transferred from ICU to Med/Surg per MD order. Pt. was settled in to and oriented to his room, VS were obtained, and a head to toe assessment was performed. VSS. Pt. complained of 6/10 dull pain in his bilateral abdomen but denied the need for pain medication at this time. RN informed pt. not to let his pain get out of control and informed him to ring if he felt like he needed pain medication. See shift assessment for more information. RN will reassess as necessary.
[2018-01-19] MEDS: Acetaminophen 325 MG TAB PO (18:23)
[2018-01-19] MEDS: Melatonin 3 MG TAB PO (22:17)
[2018-01-19] MEDS: traMADol 50 MG TAB PO (22:17)
[2018-01-19] MEDS: Insulin Glargine 300 UNITS/3 ML PEN 12 UNITS SC (22:18)
[2018-01-20] VITALS (7 sets, daily range): BP systolic 98–118; BP diastolic 60–76; PULSE 52–59; RESP 14–18; TEMP 35.9–36.6; O2SAT 95–100
[2018-01-20] MEDS: Normal Saline Flush 10 ML SYR IVP (04:15)
[2018-01-20] MEDS: CEFEPIME 1 GM in Normal Saline 50 ML IVPB ×2 (04:15→16:08)
[2018-01-20] MEDS: Lactulose 20 GM/30 ML CUP PO ×2 (08:08→20:03)
[2018-01-20] MEDS: Omeprazole 20 MG CAPCR PO (08:09)
[2018-01-20] MEDS: traMADol 50 MG TAB PO (08:09)
[2018-01-20] MEDS: Docusate Sodium 100 MG CAP PO (08:09)
[2018-01-20] MEDS: Insulin Aspart 300 UNITS/3 ML PEN 8 UNITS SC ×3 (08:09→17:20)
[2018-01-20] MEDS: Furosemide 40 MG TAB PO ×2 (08:09→16:08)
--- NOTE | 2018-01-20 11:02 | PT.INTREAT ---
Date of service: 01/20/18 Time of Service: 10:00 PT Notes Inpatient Physical Therapy Treatment Note Date: 01/20/18 SUBJECTIVE: Abdoulaye states that he is not feeling well. He c/o nausea. OBJECTIVE: [] BED MOBILITY/TRANSFERS Supine-sit: SBA Sit-supine: SBA Sit-stand: SBA Stand-sit: SBA GAIT Assistive Device: FWW Weight bearing: full Assist: CGA Distance: 50' THEREX: performed a global LE strengthening in both supine and seated positions. Please refer to flowsheet for details. ASSESSMENT: tolerated session well despite feeling nauseous. No improvement in symptoms after session today in regards to nausea. PLAN: continue with POC. TREATMENT CODE/TIME: 25 min. TPx1/TAx1.
--- NOTE | 2018-01-20 14:44 | PDOC.CMPRO ---
Care Management Progress Note S/O: Abdoulaye was lying in his bed, visiting with multiple visitors in his room now on MED/SURG when CM checked in with him. He reported no concerns at this time. Per MD, Abdoulaye will require five days of ABX; monitored and the soonest he would be ready for discharge would be 01/22/18. A: 63 year old male admitted to [facility] 01/17/18 for Weakness and Liver Failure P: Abdoulaye will discharge when medically ready per MD; he continues to be monitored as a MED/SURG overflow patient in the ICU. Abdoulaye will likely discharge to SNF[email or web address] and transport via private vehicle with family for short term rehab, though CM did provided LTC Medicaid application to his family for future planning. In the event the [facility] is unable to offer a bed, CM will coordinate referrals to other facilities including [facility] and [facility]. CM will continue to monitor clinical status and provide support to patient, family and care team regarding discharge planning and disposition.
--- NOTE | 2018-01-20 15:35 | PGE_ITS ---
Date of service: 01/20/18 Time of Service: 12:45 Assessment and Plan (1) Liver failure: Current visit: Yes Status: Acute end-stage liver failure. palliative care consult placed and pending. further imaging to rule out hepatocellular carcinoma, MRI. follow labs, avoid hepatotoxic drugs (2) SBP (spontaneous bacterial peritonitis): Current visit: Yes Status: Acute will complete a 5 day course of cefepime. cultures with no growth. hemodynamically stable and afebrile. (3) Discharge planning issues: Current visit: Yes Status: Acute case management following. patient remains a full code (4) Diabetes mellitus type 2: Current visit: No Status: Active stable, continue current regimen (5) Benign hypertension: Current visit: No Status: Active blood pressures stable. continue to follow (6) Ulcer of foot: Current visit: No Status: Active seen and debrided by Dr Man. wound care: wash regularly with soap and water and protect with accommodative shoe gear. Subjective Patient reports: bowel movement, nausea and afebrile; denies diarrhea and vomiting Interval history since last seen: this is a 63 year old male with history of liver failure who presented to the emergency department with c/o increasing abdominal swelling, pain and weakness who's work up with concerning for SBP. Dr Phan from GI at [facility] was consulted yesterday and recommendations for MRI to rule out hepatocellular carcinoma which he is scheduled as outpatient for on 02/06/2018. Hes not a candidate for liver transplant nor TI PS procedure and he has been gradually failing and may qualify for palliative/hospice care. He has been hemodynamically stable and afebrile. he is eating some but today experienced some nausea. He does not have worsening abdominal pain. Exam Narrative Exam Narrative: resting quietly in bed Const General: cooperative, comfortable, no acute distress and ill appearing Orientation: alert, awake and oriented x3 HENMT Head: normal to inspection and normocephalic Mouth: oral mucosa abnormal (dry) Eyes Sclera: scleral abnormality bilaterally (non-icteric) Resp Effort & Inspection: normal respiratory effort and no respiratory distress Auscultation: clear to auscultation bilaterally Cardio Rate: regular rate GI Inspection: abnormal to inspection and distended (severely) Palpation: soft, no guarding, no masses and ascites Auscultation: normal bowel sounds Skin Lesions: lesion noted (paracentesis site clear) Rashes: rash noted Extrem General: full ROM Psych Speech and Movement: speech and movement normal Affect: sad (flat affect) Attitude: cooperative Objective Objective Clinical Data: Vital Signs Temp 36.2 C L 01/20/18 11:33 Pulse 55 L 01/20/18 11:33 Resp 16 01/20/18 11:33 BP 112/73 01/20/18 11:33 Pulse Ox 95 01/20/18 11:33 Intake & Output 01/19/18 01/20/18 01/20/18 23:59 11:59 23:59 Intake Total 1190 / 1190 640 / 640 240 / 240 Output Total 1725 / 1725 1300 / 1300 900 / 900 Balance -535 / -535 -660 / -660 -660 / -660 Intake: IV 50 / 50 50 / 50 Oral 1140 / 1140 590 / 590 240 / 240 Output: Urine 1725 / 1725 1300 / 1300 900 / 900 Other: Urine Color Dark Marta Dark Marta Light Marta Urine Appearance Clear Clear Clear Stool Size Small Stool Characteristics Formed Laboratory Results WBC 6.24 k/cumm (4.4-10.8) D 01/19/18 05:33 RBC 3.99 m/cumm (4.50-6.00) L 01/19/18 05:33 Hgb 13.3 g/dL (13.5-17.5) L 01/19/18 05:33 Hct 38.8 % (40.0-50.0) L 01/19/18 05:33 MCV 97.2 fL (80-95) H 01/19/18 05:33 MCH 33.3 pg (27.0-33.0) H 01/19/18 05:33 MCHC 34.3 g/dL (32.0-36.0) 01/19/18 05:33 RDW 13.7 % (11.8-14.1) 01/19/18 05:33 Plt Count 53 x1000/uL (130-400) L 01/19/18 05:33 MPV 13.6 fL (8.0-11.0) H 01/19/18 05:33 Immature Gran % 0.3 01/19/18 05:33 Neutrophils % 75.0 01/19/18 05:33 Lymphocytes % 7.9 09/15/18 05:33 Monocytes % 13.6 09/15/18 05:33 Eosinophils % 2.9 01/19/18 05:33 Basophils % 0.3 01/19/18 05:33 Absolute Neutrophils 4.68 k/cumm (1.2-6.7) 01/19/18 05:33 Band Neutrophils 11.0 % 01/17/18 09:45 Absolute Lymphocytes 0.49 k/cumm (1.2-3.4) L 01/19/18 05:33 Absolute Monocytes 0.85 k/cumm (0.11-0.7) H 01/19/18 05:33 Absolute Eosinophils 0.18 k/cumm (0.0-0.7) 01/19/18 05:33 Absolute Basophils 0.02 k/cumm (0.0-0.2) 01/19/18 05:33 Differential Comment Manual differential 01/17/18 09:45 RBC Morphology Normal 01/17/18 09:45 PT 12.7 sec (9.3-10.8) H 01/17/18 09:45 INR 1.3 (1.0-3.5) 01/17/18 09:45 Sodium 134 mmol/L (136-145) L 01/19/18 05:33 Potassium 4.5 mmol/L (3.5-5.1) 01/19/18 05:33 Chloride 101 mmol/L (98-107) 01/19/18 05:33 Carbon Dioxide 28.4 mmol/L (21.0-32.0) 01/19/18 05:33 Anion Gap 4.6 mmol/L (3-11) 01/19/18 05:33 BUN 39 mg/dL (7-18) H 01/19/18 05:33 Creatinine 1.43 mg/dL (0.70-1.30) H 01/19/18 05:33 Estimated GFR/1.73 m2 50.11 (mL/min/1.73m2) 01/19/18 05:33 Glucose 123 mg/dL (70-100) H 01/19/18 05:33 Lactate 2.8 mmol/L (0.6-1.4) H 01/17/18 13:45 Calcium 8.0 mg/dL (8.5-10.1) L 01/19/18 05:33 Total Bilirubin 1.9 mg/dL (0.2-1.0) H 01/19/18 05:33 AST 45 U/L (15-37) H 01/19/18 05:33 ALT 31 U/L (12-78) 01/19/18 05:33 Alkaline Phosphatase 198 U/L (46-116) H 01/19/18 05:33 Ammonia 43 umol/L (11-32) H 01/17/18 09:45 Total Protein 7.2 g/dL (6.4-8.2) 01/19/18 05:33 Albumin 1.9 g/dL (3.4-5.0) L 01/19/18 05:33 Urine Color Dark yellow (Yellow) 01/17/18 14:15 Urine Clarity Clear 01/17/18 14:15 Urine pH 5.0 (5-8) 01/17/18 14:15 Ur Specific [place] 1.025 (1.005-1.025) 01/17/18 14:15 Urine Protein Negative mg/dL (Negative) 01/17/18 14:15 Urine Ketones Trace mg/dL (Negative) H 01/17/18 14:15 Urine Blood Negative (Negative) 01/17/18 14:15 Urine Nitrite Negative (Negative) 01/17/18 14:15 Urine Bilirubin Small (Negative) H 01/17/18 14:15 Urine Urobilinogen 2.0 EU/dL (Up TO 0.2) H 01/17/18 14:15 Ur Leukocyte Esterase Negative (Negative) 01/17/18 14:15 Urine Glucose Negative mg/dL (Negative) 01/17/18 14:15 Fluid Source Peritoneal 01/17/18 13:45 Fluid Color Yellow 01/17/18 13:45 Fluid Appearance Clear 01/17/18 13:45 Fluid WBC 69 /MM3 (0-0) H 01/17/18 13:45 Fluid Mononuclear Cell 85 % (0-0) H 01/17/18 13:45 Fl Polymorphonucl Cell 12 % (0-0) H 01/17/18 13:45
[2018-01-20] MEDS: Melatonin 3 MG TAB PO (22:04)
[2018-01-20] MEDS: Insulin Glargine 300 UNITS/3 ML PEN 12 UNITS SC (22:05)
[2018-01-21 03:36] VITALS: BP 112/69; PULSE 54; RESP 16; TEMP 36.5; O2SAT 96
[2018-01-21] MEDS: CEFEPIME 1 GM in Normal Saline 50 ML IVPB ×2 (03:43→17:01)
[2018-01-21 06:58] LABS: Abs Immature Grans 0.06 k/cumm (0.0-0.09); Absolute Basophil Count 0.05 k/cumm (0.0-0.2); Absolute Eosinophil Count 0.21 k/cumm (0.0-0.7); Absolute Lymphocyte Count 0.46 k/cumm (1.2-3.4); Absolute Neutrophil Count 3.42 k/cumm (1.2-6.7); Eosinophils % 4.3; HCT 37.3 % (40.0-50.0); HGB 12.9 g/dL (13.5-17.5); Immature Grans % 1.2; Lymphocytes % 9.4; Mean Corp. HGB Concentration 34.6 g/dL (32.0-36.0); Mean Corpuscular Hemoglobin 33.2 pg (27.0-33.0); Mean Corpuscular Volume 96.1 fL (80-95); Mean Platelet Volume 13.1 fL (8.0-11.0); Monocytes % 14.3; Neutrophils % 69.8; RBC 3.88 m/cumm (4.50-6.00); RBC Distribution Width 13.6 % (11.8-14.1)
[2018-01-21 07:11] LABS: ALT 37 U/L (12-78); AST 60 U/L (15-37); Alkaline Phosphatase 248 U/L (46-116); Anion Gap 5.3 mmol/L (3-11); BUN 41 mg/dL (7-18); CO2 28.7 mmol/L (21.0-32.0); CREATININE 1.24 mg/dL (0.70-1.30); Calcium 8.2 mg/dL (8.5-10.1); Chloride 100 mmol/L (98-107); Estimated GFR 59.07 (mL/min/1.73m2); Glucose 98 mg/dL (70-100); Potassium 4.2 mmol/L (3.5-5.1); Sodium 134 mmol/L (136-145); Total Protein 7.2 g/dL (6.4-8.2)
[2018-01-21 07:20] VITALS: BP 112/71; PULSE 60; RESP 16; TEMP 36.3; O2SAT 94
[2018-01-21 07:23] LABS: Platelet Count 69 x1000/uL (130-400)
[2018-01-21] MEDS: Mylanta Suspension 30 ML CUP PO (08:04)
[2018-01-21] MEDS: Lactulose 20 GM/30 ML CUP PO ×2 (08:04→19:27)
[2018-01-21] MEDS: Omeprazole 20 MG CAPCR PO (08:04)
[2018-01-21] MEDS: Furosemide 40 MG TAB PO ×2 (08:04→17:01)
[2018-01-21] MEDS: Insulin Aspart 300 UNITS/3 ML PEN 8 UNITS SC ×3 (08:27→17:02)
--- NOTE | 2018-01-21 09:22 | OT.INTREAT ---
Date of service: 01/21/18 Time of Service: 08:35 Occupational Therapy Notes Occupational Therapy Inpatient Treatment Note Date: 01/21/18 SUBJECTIVE: Pt was laying in bed when OT arrived. He was just finishing up his breakfast. Pt states that it is much quieter in his new room and that he was able to sleep a little better. He states that he is not sure when he will be leaving or when he will end up going home but he is looking forward meeting with the woman (director case) to discuss this. OBJECTIVE: PAIN:Pt reports no pain while sitting or with functional movements. FUNCTIONAL MOBILITY Supine-sit: HOB 45*, CGA Sit-stand: CGA, FWW Stand-sit: CGA, FWW Bed-Chair: CGA, FWW DRESSING: Lower Extremity: Pt has modified (I) for donning and doffing socks and shoes with use of sock aid. Pt was educated on the use of shoe horn to help with shoes, however pt states that this is more difficult. Pt reports that since the use of sock aid, he feels that he is able to perform donning socks a little quicker. GROOMING: Pt performed dynamic functional movements at sink with CGA and FWW. Was able to wash face with minimal verbal cues, shift weight with CGA while reaching for objects located on sink, with verbal cues for standing up tall. EATING: (I) THEREX: Pt instructed in shoulder flexion, shoulder abduction and bicep curls 10x each to maintain UE functional ROM. ASSESSMENT: Pt demonstrated understanding of education of sock aid for LE dressing. Pt also demonstrates good dynamic balance while performing ADLs. Pt does report that he feels unbalanced at the sink while performing ADLs and tends to lean forward. When transferring from stand to sit pt needed minimal verbal cues for hand placement on chair. Pt will benefit from OT services to continue to work on (I) with functional dynamic endurance and (I) in ADLs. PLAN: Continue to work on pt's (I) with ADLs and increase UE strengthening and functional endurance. TREATMENT CODES/TIME: 35 min/ Self Care Training x2
--- NOTE | 2018-01-21 09:34 | OTTR_ITS ---
Date of service: 01/21/18 Time of Service: 08:35 Occupational Therapy Notes Occupational Therapy Inpatient Treatment Note Date: 01/21/18 SUBJECTIVE: Pt was laying in bed when OT arrived. He was just finishing up his breakfast. Pt states that it is much quieter in his new room and that he was able to sleep a little better. He states that he is not sure when he will be leaving or when he will end up going home but he is looking forward meeting with the woman (welfare case worker) to discuss this. OBJECTIVE: PAIN:Pt reports no pain while sitting or with functional movements. FUNCTIONAL MOBILITY Supine-sit: HOB 45*, CGA Sit-stand: CGA, FWW Stand-sit: CGA, FWW Bed-Chair: CGA, FWW DRESSING: Lower Extremity: Pt has modified (I) for donning and doffing socks and shoes with use of sock aid. Pt was educated on the use of shoe horn to help with shoes , however pt states that this is more difficult. Pt reports that since the use of sock aid, he feels that he is able to perform donning socks a little quicker. GROOMING: Pt performed dynamic functional movements at sink with CGA and FWW. Was able to wash face with minimal verbal cues, shift weight with CGA while reaching for objects located on sink, with verbal cues for standing up tall. EATING: (I) THEREX: Pt instructed in shoulder flexion, shoulder abduction and bicep curls 10x each to maintain UE functional ROM. ASSESSMENT: Pt demonstrated understanding of education of sock aid for LE dressing. Pt also demonstrates good dynamic balance while performing ADLs. Pt does report that he feels unbalanced at the sink while performing ADLs and tends to lean forward. When transferring from stand to sit pt needed minimal verbal cues for hand placement on chair. Pt will benefit from OT services to continue to work on (I) with functional dynamic endurance and (I) in ADLs. PLAN: Continue to work on pt's (I) with ADLs and increase UE strengthening and functional endurance. TREATMENT CODES/TIME: 35 min/ Self Care Training x2
--- NOTE | 2018-01-21 10:22 | PT.INTREAT ---
Date of service: 01/21/18 Time of Service: 10:23 PT Notes Inpatient Physical Therapy Treatment Note Date: 01/21/18 PRECAUTIONS:Fall SUBJECTIVE: Abdoulaye states that he is feeling fair today. OBJECTIVE: PAIN: No c/o pain BED MOBILITY/TRANSFERS Sit-stand: SBA Stand-sit: SBA GAIT Assistive Device: FWW Weight bearing: Full Assist: SBA Distance: 200' ASSESSMENT: Patient tolerated a progression in his gait distance well, with FWW support and SBA only. He would benefit from continued gait and transfer training as well as strengthening to improve ability to perform daily functional tasks. PLAN: Continue with PT's POC TREATMENT CODE/TIME: 15 minutes; TA
[2018-01-21 11:10] VITALS: BP 99/63; PULSE 64; RESP 20; TEMP 36.6; O2SAT 98
--- NOTE | 2018-01-21 11:23 | PDOC.CMPRO ---
- If Service Date Differs Date of service: 01/21/18 Time of Service: 11:24 Care Management Progress Note S/O: Abdoulaye was just finishing up with PT when CM visited this morning. He is ambulating well with a walker and reports that he feels pretty good though he's a bit nauseous. Abdoulaye reports that he has been anxious about the plan and his next steps. CM informed Abdoulaye that the [facility] has offered him a bed and that he can go whenever he is medically ready. Abdoulaye accepted the bed offer and CM phoned Eugenia at the [facility] to confirm. Abdoulaye agrees that the [facility] will be a good place for him and he is looking forward to someone providing his meals. He reports that he is often lonely at home and looks forward to being around other people at the [facility]. Abdoulaye needs five days of antibiotics so could potentially discharge to the [facility] on 01/22. Abdoulaye had an appointment scheduled with his PCP for 01/22 and requested that CM cancel it. CM phoned Dr. Mendoza's office. CM spoke with Abdoulaye's nephew, Tanvir, and reviewed the plan. A: 63 year old male admitted to [facility] 01/17/18 for Weakness and Liver Failure P: Abdoulaye will discharge when medically ready per MD. Anticipate Abdoulaye will discharge to the [facility] and transport via private vehicle with family for short term rehab. CM provided LTC Medicaid application to Abdoulaye's family and CM has requested that the [facility] follow up. FELISHA will continue to offer support to patient, family and care team regarding discharge planning and disposition.
--- NOTE | 2018-01-21 11:35 | CMPROGNOTE_ITS ---
- If Service Date Differs Date of service: 01/21/18 Time of Service: 11:24 Care Management Progress Note S/O: Abdoulaye was just finishing up with PT when CM visited this morning. He is ambulating well with a walker and reports that he feels pretty good though he' s a bit nauseous. Abdoulaye reports that he has been anxious about the plan and his next steps. CM informed Abdoulaye that the [facility] has offered him a bed and that he can go whenever he is medically ready. Abdoulaye accepted the bed offer and CM phoned Eugenia at the [facility] to confirm. Abdoulaye agrees that the [facility] will be a good place for him and he is looking forward to someone providing his meals. He reports that he is often lonely at home and looks forward to being around other people at the [facility]. Abdoulaye needs five days of antibiotics so could potentially discharge to the [facility] on 01/22. Abdoulaye had an appointment scheduled with his PCP for 01/22 and requested that CM cancel it. CM phoned Dr. Mendoza's office. CM spoke with Abdoulaye's nephew, Tanvir, and reviewed the plan. A: 63 year old male admitted to [facility] 01/17/18 for Weakness and Liver Failure P: Abdoulaye will discharge when medically ready per MD. Anticipate Abdoulaye will discharge to the [facility] and transport via private vehicle with family for short term rehab. CM provided LTC Medicaid application to Abdoulaye's family and CM has requested that the [facility] follow up. FELISHA will continue to offer support to patient , family and care team regarding discharge planning and disposition.
--- NOTE | 2018-01-21 13:59 | W.PM.PROGNOT ---
Assessment and Plan (1) SBP (spontaneous bacterial peritonitis): Current visit: No Status: Acute cont. Cefepime for another 24hr then dc all antibiotics and observer him for 24hr. if no fever spikes nor any leukocytosis while off antibiotics then he can be discharged (2) Ascites: Current visit: No Status: Acute cont. diuretics; may need further peritoneal taps in near future (3) BRUNNER (nonalcoholic steatohepatitis): Current visit: No Status: Acute treat DM, avoid hepatotoxins; cont. management of ascites (4) Diabetes mellitus type 2: Current visit: No Status: Active adjust insulin dosing (5) Liver failure: Current visit: No Status: Chronic (6) Onychomycosis due to dermatophyte: Current visit: No Status: Chronic patient has had podiatry visit on 01/19 w/ trimming of his toenails and debridement of his chronic foot ulcer (7) Diabetic ulcer of right foot associated with diabetes mellitus due to underlying condition, limited to breakdown of skin: Current visit: No Status: Chronic Dr. Man's treatment and opinion of this patient's chronic foot ulcer is greatly appreciated. (8) Discharge planning issues: Current visit: No Status: Acute patient will be discharged to [facility] after he has been off antibiotics for 24hrs and we are certain that he has shown no signs of relapse Subjective Patient reports: no new complaints Interval history since last seen: Patient denies any abdominal pain or nausea or vomiting. He is remained afebrile. He remains on cefepime empirically for spontaneous bacterial peritonitis. However his peritoneal cultures came back no growth. Nevertheless on admission he had elevated white blood cell count 21,000 which is since normalized and is currently at 4900. He has never spiked a fever. I will continue his cefepime for another 24hr to give him a completed 5 day course of parenteral antibiotics for empiric treatment of SBP although his peritoneal fluids have not grown any bacteria, nevertheless he has some signs of infection w/ his leukocytosis, worsening ascites and abdominal pains. Exam Const General: cooperative, healthy appearing and no acute distress Orientation: alert, awake and oriented x3 HENMT Head: normal to inspection, normocephalic and atraumatic Ears: hearing grossly normal bilaterally and TM's normal bilaterally General nose exam: external nose normal, nares normal and nasal mucous membranes and turbinates normal Face and sinus: normal facial exam Mouth: oral mucosae normal Teeth and gingiva: dentition normal Throat: posterior oropharynx normal and uvula midline Eyes General: appearance normal, both eyes and all related structures Visual Mistry: normal visual mistry by confrontation Alignment and Position: alignment normal and position normal Eyelids: eyelids normal Sclera: sclerae normal Cornea: corneas normal Pupils: PERRL EOM: EOM intact bilaterally Direct ophthalmoscopy: normal light reflex Neck Neck: normal visual inspection, full ROM, no lymphadenopathy, trachea midline, supple and no JVD Thyroid: thyroid normal Carotids: normal carotid upstroke Lymphatic: no lymphadenopathy noted Chest Chest: normal inspection of the chest and normal palpation of entire chest wall Breast inspection: normal inspection of the breasts Breast palpation: normal palpation of the breasts and normal palpation of the axillae Resp Effort & Inspection: normal respiratory effort and able to speak in complete sentences Auscultation: clear to auscultation bilaterally Percussion: percussion normal Cardio Jugular venous pressure: no JVD Palpation: normal PMI Rate: regular rate Rhythm: regular rhythm Heart Sounds: S1 normal, S2 normal and normal, physiologic split S2 Bruits: no abdominal aortic bruits, no carotid bruits, no femoral bruits and no renal bruits Pulses: brachial pulses present, radial pulses present, femoral pulses present, popliteal pulses present, posterior tibial pulses present, dorsalis pedis pulses present and normal peripheral pulses GI Inspection: normal to inspection Palpation: soft and no hepatosplenomegaly Percussion: normal to percussion Auscultation: normal bowel sounds Back/Spine/Pelvis Back: no CVA tenderness Cervical Spine: normal cervical lordosis and cervical ROM normal Thoracic/Lumbar Spine: thoracic and lumbar spine normal to inspection Skin General skin exam: no rashes or lesions noted and turgor normal Lesions: no lesions Rashes: no rashes Wounds: no wounds Hair: normal Nails: normal Neuro General: alert, awake, oriented x3, gait normal, tone normal, moves all extremities, normal light touch, pain and propioception, no focal motor deficits, CN's II-XI intact bilaterally and deep tendon reflexes 2+ bilaterally Cognition: normal cognition Speech: speech normal Gait: normal gait Motor: muscle tone normal throughout Sensory Exam: no sensory deficits noted Extrem General: normal to inspection, full ROM, normal capillary refill, no joint enlargement, no clubbing, cyanosis or edema, no calf tenderness and normal gait Psych Appearance: grossly normal and well kempt Mental Status: mental status grossly normal Speech and Movement: speech and movement normal Mood: congruent mood Affect: normal affect Attitude: cooperative Thought Process: normal Thought Content: normal Insight: insight good Judgment: judgment good Objective Objective Clinical Data: Abnormal lab results 01/21/18 01/21/18 Range/Units 06:40 06:40 RBC 3.88 L (4.50-6.00) m/cumm Hgb 12.9 L (13.5-17.5) g/dL Hct 37.3 L (40.0-50.0) % MCV 96.1 H (80-95) fL MCH 33.2 H (27.0-33.0) pg Plt Count 69 L (130-400) x1000/uL MPV 13.1 H (8.0-11.0) fL Absolute Lymphocytes 0.46 L (1.2-3.4) k/cumm Sodium 134 L (136-145) mmol/L BUN 41 H (7-18) mg/dL Calcium 8.2 L (8.5-10.1) mg/dL Total Bilirubin 2.0 H (0.2-1.0) mg/dL AST 60 H (15-37) U/L Alkaline Phosphatase 248 H (46-116) U/L Albumin 2.0 L (3.4-5.0) g/dL Vital Signs Temp 36.6 C 01/21/18 11:10 Pulse 64 01/21/18 11:10 Resp 20 01/21/18 11:10 BP 99/63 L 01/21/18 11:10 Pulse Ox 98 01/21/18 11:10 Intake & Output 01/20/18 01/21/18 01/21/18 23:59 11:59 23:59 Intake Total 650 / 650 1020 / 1020 250 / 250 Output Total 2650 / 2650 500 / 500 Balance -1999 / -1999 520 / 520 250 / 250 Weight 106.7 kg Intake: IV 50 / 50 170 / 170 Oral 600 / 600 850 / 850 250 / 250 Output: Urine 2650 / 2650 500 / 500 Other: Urine Color Yellow Yellow Urine Appearance Clear Clear Urine Odor Normal Voiding Methods Indwelling Catheter Laboratory Results WBC 4.90 k/cumm (4.4-10.8) 01/21/18 06:40 RBC 3.88 m/cumm (4.50-6.00) L 01/21/18 06:40 Hgb 12.9 g/dL (13.5-17.5) L 01/21/18 06:40 Hct 37.3 % (40.0-50.0) L 01/21/18 06:40 MCV 96.1 fL (80-95) H 01/21/18 06:40 MCH 33.2 pg (27.0-33.0) H 01/21/18 06:40 MCHC 34.6 g/dL (32.0-36.0) 01/21/18 06:40 RDW 13.6 % (11.8-14.1) 01/21/18 06:40 Plt Count 69 x1000/uL (130-400) L 01/21/18 06:40 MPV 13.1 fL (8.0-11.0) H 01/21/18 06:40 Immature Gran % 1.2 01/21/18 06:40 Neutrophils % 69.8 01/21/18 06:40 Lymphocytes % 9.4 01/21/18 06:40 Monocytes % 14.3 01/21/18 06:40 Eosinophils % 4.3 01/21/18 06:40 Basophils % 1.0 01/21/18 06:40 Absolute Neutrophils 3.42 k/cumm (1.2-6.7) 01/21/18 06:40 Band Neutrophils 11.0 % 01/17/18 09:45 Absolute Lymphocytes 0.46 k/cumm (1.2-3.4) L 01/21/18 06:40 Absolute Monocytes 0.70 k/cumm (0.11-0.7) 01/21/18 06:40 Absolute Eosinophils 0.21 k/cumm (0.0-0.7) 01/21/18 06:40 Absolute Basophils 0.05 k/cumm (0.0-0.2) 01/21/18 06:40 Differential Comment Manual differential 01/17/18 09:45 RBC Morphology Normal 01/17/18 09:45 PT 12.7 sec (9.3-10.8) H 01/17/18 09:45 INR 1.3 (1.0-3.5) 01/17/18 09:45 Sodium 134 mmol/L (136-145) L 01/21/18 06:40 Potassium 4.2 mmol/L (3.5-5.1) 01/21/18 06:40 Chloride 100 mmol/L (98-107) 01/21/18 06:40 Carbon Dioxide 28.7 mmol/L (21.0-32.0) 01/21/18 06:40 Anion Gap 5.3 mmol/L (3-11) 01/21/18 06:40 BUN 41 mg/dL (7-18) H 01/21/18 06:40 Creatinine 1.24 mg/dL (0.70-1.30) 01/21/18 06:40 Estimated GFR/1.73 m2 59.07 (mL/min/1.73m2) 01/21/18 06:40 Glucose 98 mg/dL (70-100) 01/21/18 06:40 Lactate 2.8 mmol/L (0.6-1.4) H 01/17/18 13:45 Calcium 8.2 mg/dL (8.5-10.1) L 01/21/18 06:40 Total Bilirubin 2.0 mg/dL (0.2-1.0) H 01/21/18 06:40 AST 60 U/L (15-37) H 01/21/18 06:40 ALT 37 U/L (12-78) 01/21/18 06:40 Alkaline Phosphatase 248 U/L (46-116) H 01/21/18 06:40 Ammonia 43 umol/L (11-32) H 01/17/18 09:45 Total Protein 7.2 g/dL (6.4-8.2) 01/21/18 06:40 Albumin 2.0 g/dL (3.4-5.0) L 01/21/18 06:40 Urine Color Dark yellow (Yellow) 01/17/18 14:15 Urine Clarity Clear 01/17/18 14:15 Urine pH 5.0 (5-8) 01/17/18 14:15 Ur Specific [place] 1.025 (1.005-1.025) 01/17/18 14:15 Urine Protein Negative mg/dL (Negative) 01/17/18 14:15 Urine Ketones Trace mg/dL (Negative) H 01/17/18 14:15 Urine Blood Negative (Negative) 01/17/18 14:15 Urine Nitrite Negative (Negative) 01/17/18 14:15 Urine Bilirubin Small (Negative) H 01/17/18 14:15 Urine Urobilinogen 2.0 EU/dL (Up TO 0.2) H 01/17/18 14:15 Ur Leukocyte Esterase Negative (Negative) 01/17/18 14:15 Urine Glucose Negative mg/dL (Negative) 01/17/18 14:15 Fluid Source Peritoneal 01/17/18 13:45 Fluid Color Yellow 01/17/18 13:45 Fluid Appearance Clear 01/17/18 13:45 Fluid WBC 69 /MM3 (0-0) H 01/17/18 13:45 Fluid Mononuclear Cell 85 % (0-0) H 01/17/18 13:45 Fl Polymorphonucl Cell 12 % (0-0) H 01/17/18 13:45 Path Cons Comment 01/17/18 13:45
--- NOTE | 2018-01-21 14:34 | PT.INTREAT ---
Date of service: 01/21/18 Time of Service: 14:34 PT Notes Inpatient Physical Therapy Treatment Note Date: 01/21/18 PRECAUTIONS: Fall SUBJECTIVE: Abdoulaye states that he is feeling better this afternoon. OBJECTIVE: PAIN: No complaints of pain. BED MOBILITY/TRANSFERS Supine-sit: S with HOB at 20? Sit-supine: S with HOB flat Sit-stand: SBA Stand-sit: SBA GAIT Assistive Device: FWW Weight bearing: Full Assist: S Distance: 200' THEREX: Patient completed a lower extremity strengthening program in a supine position, as per flow sheet. ASSESSMENT: Patient tolerated session well without complaint. Patient would benefit from continued to sit <> stand transfer training to improve safety with increased independence. Patient would also benefit from continued participation in the strengthening program. PLAN: Continue with PT's POC. TREATMENT CODE/TIME: 25 minutes; TA/TP
[2018-01-21 15:20] VITALS: BP 104/63; PULSE 60; RESP 17; TEMP 36.6; O2SAT 97
--- NOTE | 2018-01-21 15:45 | CHAPLAIN ---
Abdoulaye was visiting with a friend, so I didn't stay long. We remembered each other from previous admission. I will check in with Abdoulaye tomorrow.
[2018-01-21] MEDS: Normal Saline Flush 10 ML SYR IVP (17:01)
[2018-01-21 19:49] VITALS: BP 120/76; PULSE 65; RESP 18; TEMP 36; O2SAT 98
[2018-01-21] MEDS: Melatonin 3 MG TAB PO (21:54)
[2018-01-21] MEDS: Insulin Glargine 300 UNITS/3 ML PEN 12 UNITS SC (21:54)
[2018-01-22 00:01] VITALS: BP 120/71; PULSE 67; RESP 16; TEMP 35.9; O2SAT 95
[2018-01-22 03:20] VITALS: BP 118/74; PULSE 60; RESP 20; TEMP 36.6; O2SAT 95
[2018-01-22] MEDS: Normal Saline Flush 10 ML SYR IVP ×2 (04:46→12:07)
[2018-01-22] MEDS: CEFEPIME 1 GM in Normal Saline 50 ML IVPB (04:47)
[2018-01-22 07:27] VITALS: BP 109/66; PULSE 59; RESP 18; TEMP 36.2; O2SAT 95
[2018-01-22] MEDS: Omeprazole 20 MG CAPCR PO ×2 (08:04→19:58)
[2018-01-22] MEDS: Furosemide 40 MG TAB PO ×2 (08:04→15:46)
[2018-01-22] MEDS: Insulin Aspart 300 UNITS/3 ML PEN 8 UNITS SC ×3 (08:04→17:05)
[2018-01-22] MEDS: Lactulose 20 GM/30 ML CUP PO ×2 (08:04→19:58)
--- NOTE | 2018-01-22 09:37 | PT.INTREAT ---
Date of service: 01/22/18 Time of Service: 09:37 PT Notes Inpatient Physical Therapy Treatment Note Date: 01/22/18 PRECAUTIONS: Fall SUBJECTIVE: Abdoulaye reports that he is feeling a little better today. OBJECTIVE: PAIN: No complaints of pain. BED MOBILITY/TRANSFERS Sit-stand: S Stand-sit: S GAIT Assistive Device: FWW Weight bearing: Full Assist: S Distance: 250' THEREX: Patient completed a lower extremity strengthening program, as per flow sheet. Patient was able to tolerate a slight progression in his program today, modifications made to repetitions are noted on flow sheet. ASSESSMENT: Patient tolerated a progression in his gait distance with FWW support and supervision only. He also tolerated a progression in his ther ex program today. Patient would benefit from continued participation in his strengthening program as well as continued gait training for improved strength and duration. PLAN: Continue with PT's POC. TREATMENT CODE/TIME: 30 minutes; TA/TP
--- NOTE | 2018-01-22 11:45 | OT.INTREAT ---
Date of service: 01/22/18 Time of Service: 11:10 Occupational Therapy Notes Occupational Therapy Inpatient Treatment Note Date: 01/22/18 SUBJECTIVE: Pt was up and getting into the bathroom when OT arrived with EDGER OPERATOR. Pt states that he has been sitting up in his chair since 9:30 and is ready to get back into bed soon. Pt states that he was hoping to leave for the [facility] [facility] today but was told that he should be leaving tomorrow. He states he was a little discouraged but is hoping he will go to the [facility] [facility] by tomorrow afternoon. Pt's catheter was removed prior to OT arrival. Pt was concerned about how he was going to do without the catheter and his toileting routines. OBJECTIVE: PAIN:0/10 FUNCTIONAL MOBILITY Supine-sit: SBA Sit-stand: SBA, FWW Stand-sit: SBA, FWW Chair-bed: SBA, FWW DRESSING: Upper Extremity: Pt is able to (I) don and doff gown without verbal cues or adaptive equipment. TOILETING: Device: FWW for ambulation Assist: SBA with min (A) for self care for wiping. ASSESSMENT: Pt continues to make gains with (I) in functional ambulation and ADLs. He still needs min (A) with wiping during toileting and is mod (I) for donning and doffing socks to (B) LE. Pt continues to report increased time for bathing and dressing routines. Pt will continue to benefit from OT services for education and progression for Functional (I) in ADLs including LE dressing PLAN: Continue per POC. TREATMENT CODES/TIME: 20 min, Self Care Training x1
--- NOTE | 2018-01-22 11:52 | PDOC.CMPRO ---
- If Service Date Differs Date of service: 01/22/18 Time of Service: 11:52 Care Management Progress Note S/O: Abdoulaye was ambulating from the BR to his recliner with his walker when CM visited this morning. He is engaged in conversation, makes good eye contact and is talkative. Abdoulaye had his [place]arland d/c'ed this morning and is due to void. He reports that he is feeling weak but might feel a little better than when he first arrived at [facility]. Dr. Man will see Abdoulaye today to evaluate his right foot. A: 63 year old male admitted to [facility] 01/17/18 for Weakness and Liver Failure P: Abdoulaye will discharge when medically ready per MD. Anticipate Abdoulaye will discharge to the [facility] and transport via private vehicle with family for short term rehab. CM spoke with Eugenia at the [facility] regarding Abdoulaye's continuation of stay at [facility]. CM spoke with Abdoulaye's sister in law, Vilma, to review the plan. CM will continue to offer support to patient, family and care team regarding discharge planning and disposition.
--- NOTE | 2018-01-22 11:56 | CMPROGNOTE_ITS ---
- If Service Date Differs Date of service: 01/22/18 Time of Service: 11:52 Care Management Progress Note S/O: Abdoulaye was ambulating from the BR to his recliner with his walker when CM visited this morning. He is engaged in conversation, makes good eye contact and is talkative. Abdoulaye had his mcfarland d/c'ed this morning and is due to void. He reports that he is feeling weak but might feel a little better than when he first arrived at [facility]. Dr. Man will see Abdoulaye today to evaluate his right foot. A: 63 year old male admitted to [facility] 01/17/18 for Weakness and Liver Failure P: Abdoulaye will discharge when medically ready per MD. Anticipate Abdoulaye will discharge to the [facility] and transport via private vehicle with family for short term rehab. CM spoke with Eugenia at the [facility] regarding Abdoulaye's continuation of stay at [facility]. CM spoke with Abdoulaye's sister in law, Vilma, to review the plan. CM will continue to offer support to patient, family and care team regarding discharge planning and disposition.
--- NOTE | 2018-01-22 11:58 | OTTR_ITS ---
Date of service: 01/22/18 Time of Service: 11:10 Occupational Therapy Notes Occupational Therapy Inpatient Treatment Note Date: 01/22/18 SUBJECTIVE: Pt was up and getting into the bathroom when OT arrived with FUEL CELL SYSTEMS ENGINEER. Pt states that he has been sitting up in his chair since 9:30 and is ready to get back into bed soon. Pt states that he was hoping to leave for the [facility] today but was told that he should be leaving tomorrow. He states he was a little discouraged but is hoping he will go to the [facility] [facility] by tomorrow afternoon. Pt's catheter was removed prior to OT arrival. Pt was concerned about how he was going to do without the catheter and his toileting routines. OBJECTIVE: PAIN:0/10 FUNCTIONAL MOBILITY Supine-sit: SBA Sit-stand: SBA, FWW Stand-sit: SBA, FWW Chair-bed: SBA, FWW DRESSING: Upper Extremity: Pt is able to (I) don and doff gown without verbal cues or adaptive equipment. TOILETING: Device: FWW for ambulation Assist: SBA with min (A) for self care for wiping. ASSESSMENT: Pt continues to make gains with (I) in functional ambulation and ADLs. He still needs min (A) with wiping during toileting and is mod (I) for donning and doffing socks to (B) LE. Pt continues to report increased time for bathing and dressing routines. Pt will continue to benefit from OT services for education and progression for Functional (I) in ADLs including LE dressing PLAN: Continue per POC. TREATMENT CODES/TIME: 20 min, Self Care Training x1
[2018-01-22] MEDS: Insulin Aspart 300 UNITS/3 ML PEN SC ×2 (12:01→17:06)
[2018-01-22] MEDS: Mylanta Suspension 30 ML CUP PO (12:06)
--- NOTE | 2018-01-22 13:37 | PT.INDS ---
Date of service: 01/22/18 Time of Service: 13:37 PT Notes Inpatient Physical Therapy Discharge Summary Date: 01/22/18 Dates of Service: 01/18/18-01/22/18 Subjective: Pt is lying in bed watching TV, agreeable to PT session. Pt keeps his sneakers on in the bed in case he needs to get up to use the bathroom. Objective: Pain: no c/o pain Bed Mobility/Transfers: Supine-sit: HOB 30 degrees, independent Sit-stand: independent Stand-sit: independent Sit-supine: independent Gait: Pt wears socks and sneakers for gait supervision gait with FWW 250ft. wide base of support, step through gait pattern, steady prachi Stairs: Up/down 3 steps with left railing and cane, supervision Balance: Static Sitting: normal Dynamic Sitting: normal Static Standing: fair Dynamic Standing: fair Assessment: Pt is a 63yr old male admitted with chronic liver failure, severe ascites s/p pancreatitis in setting of obesity, diabetes mellitus type II, diabetic foot ulcer right 1st metatarsal head, diabetic neuropathy, liver cirrhosis, nonalcoholic steatopepatitis, thrombocytopenia, sciatica, lumbar disc prolapse with radiculopathy, charcot foot, left hand surgery. Patient was seen for 7 PT visits. Progressed from SBA bed transfers to independent, from Curtis standing transfers to independent, from CGA gait with FWW 50ftx2 to supervision gait with FWW 250ft, able to ascend/descend 3 steps with railing supervision. Pt has met therapy goals. Plan is for [facility] to [facility]. Goals: Goals X1 week 1. Supine-Sit independent 2. Sit-Supine independent 3. Sit-Stand supervision with FWW 4. Stand-Sit supervision 5. Bed-Chair SBA with FWW 6. Chair-Bed SBA with FWW 7. Gait SBA with FWW 75ftx2 8. Stairs up/down 3 steps with railing, SBA Pt met goals 1-8 DISCHARGE RECOMMENDATIONS: Plan is for patient to transfer to [facility] tomorrow TREATMENT CODE/TIME: 24min TAx1 TP x1 1330 G Codes in the area mobility of walking and moving around:projected status GP [id number] CK Discharge status (if discharging) GP [id number] CK Tayler Herrera, PT
--- NOTE | 2018-01-22 13:44 | INDS_ITS ---
Date of service: 01/22/18 Time of Service: 13:37 PT Notes Inpatient Physical Therapy Discharge Summary Date: 01/22/18 Dates of Service: 01/18/18-01/22/18 Subjective: Pt is lying in bed watching TV, agreeable to PT session. Pt keeps his sneakers on in the bed in case he needs to get up to use the bathroom. Objective: Pain: no c/o pain Bed Mobility/Transfers: Supine-sit: HOB 30 degrees, independent Sit-stand: independent Stand-sit: independent Sit-supine: independent Gait: Pt wears socks and sneakers for gait supervision gait with FWW 250ft. wide base of support, step through gait pattern , steady prachi Stairs: Up/down 3 steps with left railing and cane, supervision Balance: Static Sitting: normal Dynamic Sitting: normal Static Standing: fair Dynamic Standing: fair Assessment: Pt is a 63yr old male admitted with chronic liver failure, severe ascites s/p pancreatitis in setting of obesity, diabetes mellitus type II, diabetic foot ulcer right 1st metatarsal head, diabetic neuropathy, liver cirrhosis, nonalcoholic steatopepatitis, thrombocytopenia, sciatica, lumbar disc prolapse with radiculopathy, charcot foot, left hand surgery. Patient was seen for 7 PT visits. Progressed from SBA bed transfers to independent, from Curtis standing transfers to independent, from CGA gait with FWW 50ftx2 to supervision gait with FWW 250ft, able to ascend/descend 3 steps with railing supervision. Pt has met therapy goals. Plan is for [facility] to [facility]. Goals: Goals X1 week 1. Supine-Sit independent 2. Sit-Supine independent 3. Sit-Stand supervision with FWW 4. Stand-Sit supervision 5. Bed-Chair SBA with FWW 6. Chair-Bed SBA with FWW 7. Gait SBA with FWW 75ftx2 8. Stairs up/down 3 steps with railing, SBA Pt met goals 1-8 DISCHARGE RECOMMENDATIONS: Plan is for patient to transfer to [facility] facility tomorrow TREATMENT CODE/TIME: 24min TAx1 TP x1 1330 G Codes in the area mobility of walking and moving around:projected status GP [id number] CK Discharge status (if discharging) GP [id number] CK Tayler Herrera, PT
--- NOTE | 2018-01-22 15:27 | PGE_ITS ---
Date of service: 01/22/18 Time of Service: 15:24 Assessment and Plan (1) SBP (spontaneous bacterial peritonitis): Current visit: Yes Status: Acute Patient's peritoneal fluids never grew out any organisms nevertheless his leukocytosis responded to parenteral antibiotics including cefepime. At this point he has been afebrile since admission. His leukocytosis has resolved since January 19, 2018. He completed 5 days worth of cefepime and at this point I think we can discontinue parenteral antibiotics. If he remains afebrile overnight and no rise in his white cell count overnight that he could be discharged to senior living facility with close follow-up. (2) Ascites: Current visit: Yes Status: Acute I resumed his spironolactone in addition to his furosemide. He may require further paracentesis in the near future. (3) BRUNNER (nonalcoholic steatohepatitis): Current visit: Yes Status: Acute Continue to work on diabetes control. Otherwise continue to treat for cirrhosis by controlling his ascites and prevent hyperammonemia (4) Diabetes mellitus type 2: Current visit: No Status: Active Although his blood sugars are not optimal they are reasonably controlled today. Fasting glucose is 110 his highest today was 190. He is currently being maintained on insulin aspart 8 units with meals along with sliding scale coverage for elevated blood sugars and 12 units of Lantus at bedtime. (5) Liver failure: Current visit: Yes Status: Chronic (6) Discharge planning issues: Current visit: Yes Status: Acute (7) Onychomycosis due to dermatophyte: Current visit: Yes Status: Chronic Patient had his toenails trimmed and his right foot ulcer debrided by Dr. Man (8) Diabetic ulcer of right foot associated with diabetes mellitus due to underlying condition, limited to breakdown of skin: Current visit: Yes Status: Chronic Status post debridement by Dr. Man on January 19, 2018. Patient's been instructed he needs to wear shoes during all weightbearing activities to prevent further breakdown the skin on his right first metatarsal head. Patient has a pressure dispersion padding applied to the right first metatarsal head Subjective Interval history since last seen: Patient compllains of some dyspepsia w/ improvement after Mylanta. He is already on omeprazole 20 mg every morning. I will increase this to twice a day. He is having couple BM per day. Formed Soft bm's. This suggests that his lactulose is working. He still has significant ascites and bilateral leg edema. I am going to resume his spironolactone 100 mg per day and recheck his labs in the a.m. Exam Const General: cooperative, no acute distress and ill appearing chronically Nutritional Appearance: obese Orientation: alert, awake and oriented x3 Resp Effort & Inspection: normal respiratory effort and able to speak in complete sentences Auscultation: clear to auscultation bilaterally Cardio Palpation: normal PMI Rate: regular rate Rhythm: regular rhythm Heart Sounds: S1 normal, S2 normal and normal, physiologic split S2 Bruits: no abdominal aortic bruits GI Inspection: abdominal wall ecchymosis Palpation: ascites Percussion: normal to percussion Auscultation: normal bowel sounds Neuro General: alert, awake and oriented x3 Cognition: normal cognition Motor: muscle tone normal throughout and strength 5/5 throughout Extrem General: full ROM, no calf tenderness, edema Laterality: bilateral and pedal edema bilaterally Objective Objective Clinical Data: Vital Signs Temp 36.2 C L 01/22/18 07:27 Pulse 59 L 01/22/18 07:27 Resp 18 01/22/18 07:27 BP 109/66 01/22/18 07:27 Pulse Ox 95 01/22/18 07:27 Intake & Output 01/21/18 01/22/18 01/22/18 23:59 11:59 23:59 Intake Total 550 / 550 690 / 690 240 / 240 Output Total 1200 / 1200 950 / 950 100 / 100 Balance -650 / -650 -260 / -260 140 / 140 Weight 107.5 kg Intake: IV 60 / 60 50 / 50 Oral 490 / 490 640 / 640 240 / 240 Output: Urine 1200 / 1200 950 / 950 100 / 100 Other: Urine Color Light Marta Straw Yellow Urine Appearance Clear Clear Cloudy Comment Scanned the Bladder 3 times the amounts were, 141, 56, and 242. Stool Size Small Stool Characteristics Soft Formed Voiding Methods Toilet Laboratory Results WBC 4.90 k/cumm (4.4-10.8) 01/21/18 06:40 RBC 3.88 m/cumm (4.50-6.00) L 01/21/18 06:40 Hgb 12.9 g/dL (13.5-17.5) L 01/21/18 06:40 Hct 37.3 % (40.0-50.0) L 01/21/18 06:40 MCV 96.1 fL (80-95) H 01/21/18 06:40 MCH 33.2 pg (27.0-33.0) H 01/21/18 06:40 MCHC 34.6 g/dL (32.0-36.0) 01/21/18 06:40 RDW 13.6 % (11.8-14.1) 01/21/18 06:40 Plt Count 69 x1000/uL (130-400) L 01/21/18 06:40 MPV 13.1 fL (8.0-11.0) H 01/21/18 06:40 Immature Gran % 1.2 01/21/18 06:40 Neutrophils % 69.8 01/21/18 06:40 Lymphocytes % 9.4 01/21/18 06:40 Monocytes % 14.3 01/21/18 06:40 Eosinophils % 4.3 01/21/18 06:40 Basophils % 1.0 01/21/18 06:40 Absolute Neutrophils 3.42 k/cumm (1.2-6.7) 01/21/18 06:40 Band Neutrophils 11.0 % 01/17/18 09:45 Absolute Lymphocytes 0.46 k/cumm (1.2-3.4) L 01/21/18 06:40 Absolute Monocytes 0.70 k/cumm (0.11-0.7) 01/21/18 06:40 Absolute Eosinophils 0.21 k/cumm (0.0-0.7) 01/21/18 06:40 Absolute Basophils 0.05 k/cumm (0.0-0.2) 01/21/18 06:40 Differential Comment Manual differential 01/17/18 09:45 RBC Morphology Normal 01/17/18 09:45 PT 12.7 sec (9.3-10.8) H 01/17/18 09:45 INR 1.3 (1.0-3.5) 01/17/18 09:45 Sodium 134 mmol/L (136-145) L 01/21/18 06:40 Potassium 4.2 mmol/L (3.5-5.1) 01/21/18 06:40 Chloride 100 mmol/L (98-107) 01/21/18 06:40 Carbon Dioxide 28.7 mmol/L (21.0-32.0) 01/21/18 06:40 Anion Gap 5.3 mmol/L (3-11) 01/21/18 06:40 BUN 41 mg/dL (7-18) H 01/21/18 06:40 Creatinine 1.24 mg/dL (0.70-1.30) 01/21/18 06:40 Estimated GFR/1.73 m2 59.07 (mL/min/1.73m2) 01/21/18 06:40 Glucose 98 mg/dL (70-100) 01/21/18 06:40 Lactate 2.8 mmol/L (0.6-1.4) H 01/17/18 13:45 Calcium 8.2 mg/dL (8.5-10.1) L 01/21/18 06:40 Total Bilirubin 2.0 mg/dL (0.2-1.0) H 01/21/18 06:40 AST 60 U/L (15-37) H 01/21/18 06:40 ALT 37 U/L (12-78) 01/21/18 06:40 Alkaline Phosphatase 248 U/L (46-116) H 01/21/18 06:40 Ammonia 43 umol/L (11-32) H 01/17/18 09:45 Total Protein 7.2 g/dL (6.4-8.2) 01/21/18 06:40 Albumin 2.0 g/dL (3.4-5.0) L 01/21/18 06:40 Urine Color Dark yellow (Yellow) 01/17/18 14:15 Urine Clarity Clear 01/17/18 14:15 Urine pH 5.0 (5-8) 01/17/18 14:15 Ur Specific [place] 1.025 (1.005-1.025) 01/17/18 14:15 Urine Protein Negative mg/dL (Negative) 01/17/18 14:15 Urine Ketones Trace mg/dL (Negative) H 01/17/18 14:15 Urine Blood Negative (Negative) 01/17/18 14:15 Urine Nitrite Negative (Negative) 01/17/18 14:15 Urine Bilirubin Small (Negative) H 01/17/18 14:15 Urine Urobilinogen 2.0 EU/dL (Up TO 0.2) H 01/17/18 14:15 Ur Leukocyte Esterase Negative (Negative) 01/17/18 14:15 Urine Glucose Negative mg/dL (Negative) 01/17/18 14:15 Fluid Source Peritoneal 01/17/18 13:45 Fluid Color Yellow 01/17/18 13:45 Fluid Appearance Clear 01/17/18 13:45 Fluid WBC 69 /MM3 (0-0) H 01/17/18 13:45 Fluid Mononuclear Cell 85 % (0-0) H 01/17/18 13:45 Fl Polymorphonucl Cell 12 % (0-0) H 01/17/18 13:45 Path Cons Comment 01/17/18 13:45
--- NOTE | 2018-01-22 15:37 | NUR.NOTE ---
01/22/[id number] Man regarding pressure relieving pad under right great toe. stated that we can keep dressing in place unless pt showering. also stated pt needs to be in his shoes to ambulate.
[2018-01-22 15:44] VITALS: BP 103/69; PULSE 64; RESP 18; TEMP 36.2; O2SAT 98
[2018-01-22] MEDS: Spironolactone 50 MG TAB 100 MG PO (15:46)
[2018-01-22] MEDS: Insulin Glargine 300 UNITS/3 ML PEN 12 UNITS SC (21:27)
[2018-01-22] MEDS: Melatonin 3 MG TAB PO (21:27)
[2018-01-22 23:12] VITALS: BP 113/73; PULSE 60; RESP 18; TEMP 36.5; O2SAT 97
[2018-01-23 07:31] LABS: ALT 35 U/L (12-78); AST 59 U/L (15-37); Alkaline Phosphatase 277 U/L (46-116); Anion Gap 6.6 mmol/L (3-11); BUN 39 mg/dL (7-18); Bilirubin, Total 2.7 mg/dL (0.2-1.0); CO2 28.4 mmol/L (21.0-32.0); CREATININE 1.19 mg/dL (0.70-1.30); Chloride 100 mmol/L (98-107); Glucose 110 mg/dL (70-100); Potassium 4.2 mmol/L (3.5-5.1); Sodium 135 mmol/L (136-145); Total Protein 7.1 g/dL (6.4-8.2)
[2018-01-23] MEDS: Insulin Aspart 300 UNITS/3 ML PEN 8 UNITS SC (08:10)
[2018-01-23] MEDS: Lactulose 20 GM/30 ML CUP PO (08:53)
[2018-01-23] MEDS: Furosemide 40 MG TAB PO (08:54)
[2018-01-23] MEDS: Omeprazole 20 MG CAPCR PO (08:54)
[2018-01-23] MEDS: Spironolactone 50 MG TAB 100 MG PO (08:54)
[2018-01-23 09:47] LABS: Hemoglobin A1C 5.9 % (4.5-6.2)
[2018-01-23 09:50] VITALS: BP 109/70; PULSE 60; RESP 19; TEMP 36.5; O2SAT 99
--- NOTE | 2018-01-23 10:08 | W.PM.DS.N ---
DS: Diagnosis Discharge Diagnosis (1) SBP (spontaneous bacterial peritonitis): Status: Acute Asessment and Plan: Although his peritoneal culture came back no growth and there was no definite evidence of peritonitis nevertheless the patient had a significant leukocytosis on admission along with abdominal pain and abdominal distention with worsening ascites. He was empirically treated for 5 days with meropenem and improved dramatically with correction of his lactic acidosis and leukocytosis. He should be closely monitored for any worsening symptoms such as fever, rigors, recurrent leukocytosis or abdominal pain. (2) Ascites: Status: Acute Asessment and Plan: Patient underwent paracentesis with removal of 2200 mL of fluid on the day of admission on January 17, 2018. His furosemide was increased and spironolactone was resumed. His electrolytes need to be carefully monitored with repeat CMP in the next week. He should be weighed daily and if he has significant weight gain such as 5 pounds or more within a week he may require repeat therapeutics paracentesis. Patient needs a follow-up with his aircraft structure mechanic Dr. Phan at [facility]. (3) BRUNNER (nonalcoholic steatohepatitis): Status: Acute Asessment and Plan: Monitoring of liver function testing as well as hepatology follow-up as noted above (4) Diabetes mellitus type 2: Status: Active Asessment and Plan: Patient's mealtime insulin dosing as well as sliding scale coverage for correction of elevated blood sugars has been adjusted. He should be closely watch for any hypoglycemia spells. Further adjustment in his insulin may be required over the next week as the patient re-acclimates to outpatient treatment (5) Liver failure: Status: Chronic Asessment and Plan: As above (6) Discharge planning issues: Status: Acute Asessment and Plan: Plans for the patient to go to the [facility] for short-term rehabilitation stay. OT and PT should continue to work with the patient with goals to get him to perform primary and secondary ADLs independently with a goal for him to return to his home in [facility]. (7) Onychomycosis due to dermatophyte: Status: Chronic Asessment and Plan: Patient was seen by Dr. Marshall Man, plastic surgery technician, while he was hospitalized. Dr. Man trimmed his toenails and did some debridement from the patient's pressure ulcer over his right first MTP plantar surface. Patient needs to wear shoes at all times and should have padding under his MTP joints to prevent ulceration. His feet should be inspected daily and wash daily. Any change in his podiatric condition should be reported to Dr. Man. Outpatient follow-up should be arranged in the next 4-[address] Man. (8) Diabetic ulcer of right foot associated with diabetes mellitus due to underlying condition, limited to breakdown of skin: Status: Chronic Asessment and Plan: See above Discharge Plan Disposition Patient Disposition: SNF (LEVEL 1) [facility] Condition: Improving Discharge Details Reason For Visit: WEAKNESS AND LIVER FAILURE Admit Date/Time: 01/17/18 16:56 Admit Provider: William Adams Attending Provider: William Adams Primary Care Provider: [facility] Hospital Course: This 63-year-old male with a history of stage IV liver failure secondary to nonalcoholic steatohepatitis,hypertension and DM type 2, presented to the emergency room with increased generalized weakness nausea and vomiting along with hypotension and increasing ascites. He was evaluated in the emergency room by Dr. Filiberto Rodriguez who performed a paracentesis obtaining 2200 cc of fluid that showed multiple PMNs and after obtaining blood cultures start him on cefepime. Patient had no fever on admission but had elevated white count of 21,000 and elevated blood lactate level of 2.8 and glucose of 320 with an elevated anion gap of 11.7 and an elevated creatinine of 2.0. Patient was admitted to the intensive care unit for parenteral antibiotics including cefepime to treat empirically for what was felt to be spontaneous bacterial peritonitis. Admission images including CT of the head because of complaints of headache and showed no acute intracranial process. Noncontrast CT scan of the abdomen and pelvis demonstrated hepatic cirrhosis with splenomegaly and massive amounts of abdominal pelvic ascites. Chest x-ray was read as normal. After initiation of parenteral antibiotics his leukocytosis resolved dropping down to 12,000 the next morning and down to 6002 days later. His platelet count remained steady but suppressed from his hepatosplenomegaly at 50,000-59,000. And his anemia remained stable with a hemoglobin 13 g hematocrit 38%. With IV fluid hydration his azotemia improved with a final BUN of 39 and creatinine 1.19. With adjustment of his insulin dosing his glucose improved and on the day of discharge his fasting glucose was 110. His peritoneal fluid came back showing moderate white cells but no bacteria on the Gram stain and the culture results showed no growth after 96 hours. Nevertheless the patient was treated for 5 days with meropenem. On the day prior to discharge the meropenem was discontinued and he had no fevers off antibiotics. Patient was eventually resumed on his furosemide and spironolactone to treat his ascites. Patient has some dyspepsia for which his omeprazole was increased to twice a day. The dyspepsia improved with antacids. Patient underwent physical therapy and he met all of his physical therapy goals for the first week. See Tayler Herrera's discharge note from January 22, 2018 for details. She recommended continued physical therapy treatment in a rehab facility to improve his strength and mobility and independence before returning home. Patient should have a follow-up CBC and CMP next week. He should be weighed daily and if he has 5 pounds or more weight gain in a week and his physician should be notified and consult with his aircraft structure mechanic, Dr. Phan, at [facility]. Home Meds and New Rx's Prescriptions: New furosemide 40 mg Tablet 40 mg PO BID@0830,1600 Qty: 60 RF: 0 polyethylene glycol 3350 17 gram Powder In Packet 17 g PO DAILY PRN PRN (Reason: Constipation) Qty: 30 RF: 0 tramadol 50 mg Tablet 50 mg PO Q12H PRNQty: 10 RF: 0 magnesium hydroxide [Milk of Magnesia] 400 mg/5 mL Suspension 30 ml PO DAILY PRN PRNQty: 1000 RF: 0 docusate sodium [Colace] 100 mg Capsule 100 mg PO TID PRN PRNQty: 90 RF: 0 omeprazole 20 mg Capsule,Delayed Release(Dr/Ec) 20 mg PO BID Qty: 60 RF: 0 alum-mag hydroxide-simeth [Mag-Al Plus] 200-200-20 mg/5 mL Suspension 30 ml PO Q2H PRN PRNQty: 1000 RF: 0 melatonin 3 mg Tablet Extended Release 3 mg PO HS Qty: 30 RF: 0 insulin aspart U-100 [Novolog Flexpen U-100 Insulin] 100 unit/mL Insulin Pen 8 units subcut AC Qty: 10 RF: 0 insulin aspart U-100 [Novolog Flexpen U-100 Insulin] 100 unit/mL Insulin Pen subcut 0800,1200,1700 Qty: 10 RF: 0 insulin glargine [Lantus Solostar U-100 Insulin] 100 unit/mL (3 mL) Insulin Pen 12 units subcut HS Qty: 10 RF: 0 lactulose 20 gram/30 mL Solution 20 g PO BID Qty: 1800 RF: 0 Continue spironolactone 100 MG tablet 100 mg PO DAILY Qty: 90 RF: 3 Discontinued insulin aspart U-100 [Novolog Flexpen U-100 Insulin] 100 UNIT/1 ML insulin pen 8 - 12 unit SQ AC Qty: 1 RF: 11 omeprazole 20 MG capsule,delayed release(DR/EC) 20 mg PO QAM Qty: 90 RF: 4 insulin glargine [Basaglar KwikPen U-100 Insulin] 100 UNIT/1 ML insulin pen 20 - 25 u SQ HS Qty: 1800 RF: 3 furosemide [Lasix] 40 MG tablet 20 - 40 mg PO DAILY RF: 0 No Action lancets [FreeStyle Lancets] 1 EACH misc 1 ea Miscellaneous QID Qty: 100 RF: 11 pen needle, diabetic 1 EACH needle 1 ea Miscellaneous QID Qty: 100 RF: 4 blood sugar diagnostic [FreeStyle Test] 1 EACH strip 1 ea Miscellaneous AC & HS Qty: 400 RF: 4 Discharge Instructions Instructions: Abdominal Paracentesis (DC), Ascites (DC) Additional Instructions: Labs next week including CBC and CMP Stand Alone Forms: Nursing Discharge Form Activity:: Activity as Tolerated Equipment/Supplies:: Walker Diet:: Low-sodium with a 2 L/d Discharge Orders Discharge Orders: Discharge Order (Routine); Ordered 01/23/18 Ordered By: Royer Klein Other Ambulatory Orders: Complete Blood Count w/Diff (Routine) Timeframe: 1 Week Location: Determined by Patient Ordered By: Royer Klein Comprehensive Metabolic Panel (Routine) Timeframe: 1 Week Location: Determined by Patient Ordered By: Royer Klein DS: Summary Status at Discharge Functional status at discharge: uses cane/walker Overall status at discharge: patient is progressing back to baseline Time Spent with Patient Greater than 30 minutes Exam Const General: cooperative, no acute distress, well developed and well groomed Nutritional Appearance: obese Orientation: alert, awake and oriented x3 HENMT Head: normal to inspection Neck Neck: normal visual inspection and full ROM Carotids: normal carotid upstroke Resp Effort & Inspection: normal respiratory effort and able to speak in complete sentences Auscultation: clear to auscultation bilaterally Cardio Jugular venous pressure: JVD Rate: regular rate Rhythm: regular rhythm Heart Sounds: S1 normal and S2 normal GI Inspection: edema and obesity Palpation: soft, hepatosplenomegaly and ascites Percussion: normal to percussion Auscultation: normal bowel sounds Extrem Right lower extremity: edema Left lower extremity: edema DS: Data Vitals/I&O Vitals and I&O: Vital Signs Temp 36.5 C 01/22/18 23:12 Pulse 60 01/22/18 23:12 Resp 18 01/22/18 23:12 BP 113/73 01/22/18 23:12 Pulse Ox 97 01/22/18 23:12 Intake & Output 01/22/18 01/22/18 01/23/18 11:59 23:59 11:59 Intake Total 690 / 690 900 / 900 400 / 400 Output Total 950 / 950 1094 / 1094 500 / 500 Balance -260 / -260 -194 / -194 -100 / -100 Weight 107.5 kg 106.4 kg Intake: IV 50 / 50 10 / 10 Oral 640 / 640 890 / 890 400 / 400 Output: Urine 950 / 950 1094 / 1094 500 / 500 Other: Urine Color Straw Straw Light [place]at Urine Appearance Clear Clear Clear Urine Odor Normal Comment Scanned the Bladder 3 times the amounts were, 141, 56, and 242. Stool Size Moderate Stool Characteristics Soft Voiding Methods Toilet Toilet Labs on day of discharge: Labs from last 24 hours 01/23/18 01/23/18 06:25 06:25 Sodium 135 L Potassium 4.2 Chloride 100 Carbon Dioxide 28.4 Anion Gap 6.6 BUN 39 H Creatinine 1.19 Estimated GFR/1.73 m2 >= 60.00 Glucose 110 H Hemoglobin A1c Pending Calcium 8.0 L Total Bilirubin 2.7 H AST 59 H ALT 35 Alkaline Phosphatase 277 H Total Protein 7.1 Albumin 2.0 L
--- NOTE | 2018-01-23 10:09 | CMDISCH_ITS ---
- If Service Date Differs Date of service: 01/23/18 Time of Service: 10:05 LACE Index Scoring Tool - Questions: Length of Stay (in days): 7 - 13 Acuity (Admit via E.D.?): Yes Comorbidities: Diabetes w/o Complication, Mild Liver/Renal Disease E.D. Visits: 1 - Answers: Total Score: 12 Risk of Readmission: High Risk Care Management Discharge Reason for Hospitalization: Chronic liver failure, weakness. Discharge Plan: Abdoulaye will discharge to the [facility] facility when medically ready per MD. Abdoulaye will transport via private vehicle with his sister in law, Vilma. Patient/Family Education Needs: Discharge education, any limitations and follow up plan of care. Ask Me Three discussion. Services Needed at Discharge: Intermediate Facility ([facility])
--- NOTE | 2018-01-23 10:44 | OT.INDS ---
Date of service: 01/23/18 Time of Service: 08:25 Occupational Therapy Notes Occupational Therapy Inpatient Discharge Summary Date: 01/23/18 Dates of Service: 01/18/18- 01/23/18 PRECAUTIONS: None SUBJECTIVE: Pt reports that he will be going to the [facility] in [place], [place] today. He reports that he isn't sure how he feels about going but he wants to get stronger. Pt was laying supine in bed when OT arrived and was getting ready to eat breakfast. OBJECTIVE: PAIN: 0/10 however, pt states that his abdomen is uncomfortable today but was unable to quantify pain with a number. FUNCTIONAL MOBILITY/ADLS: Rolling L/R: S Supine-sit: S Sit-supine: S Sit-stand: S Stand-sit: SBA with minimal verbal cues for hand placement. Bed-Chair: S BATHING Pt performed bathing in sitting position with good dynamic sitting balance. Pt denied use of shower stating that, he preferred to do this sitting in chair today. Pt was able to (I) wash UE/LE with S assist for LE and dynamic balance. DRESSING Upper body: Pt (I) able to don t-shirt. Lower Body: S with FWW, pt able to don underwear and pants. Don socks and shoes mod (I) with use of sock aid. GROOMING: Pt performed grooming with S, FWW in front for balance is needed. Pt able to (I) groom hair and teeth without cues. TOILETING: Denied need for use of toileting at this time. Pt reports that he felt sore from wiping so much, but states he has been trying to perform this as (I) as possible. EATING: (I) ASSESSMENT: Patient is a 63-year-old male referred to occupational therapy services with diagnosis of loss of ADLs, ambulatory issues and end-stage liver disease. 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 Impairments are contributing to the following functional limitations: Pt presents with difficulty perform upper and lower body dressing (I), increase times with performing ADLs, decreased (I) with functional ambulation. Discussed with pt use of grab bars for home for his bathroom. Pt will be discharged from OT services at this time and will transition his care to terminal manager care facility today. GOALS Goals 1. Transfers (I)- (MET)with use of FWW 2. Dressing (I) with use of adaptive equipment (Sock aid, shoe horn, retail operations specialist)- (MET) pt able to (I) dress UE and mod (I) with use of sock aid for socks. Pt able to don pants and underwear with S and FWW. 3. Bathing SBA- (MET) Pt able to (I) bath in the sitting position both UE/LE without assist or verbal cues. 4. Toileting SBA- (MET) Pt still requires S for wiping but otherwise able to perform toileting routine without assist. 5. Eating (I)- (MET) Pt met goals 1-5. DISCHARGE RECOMMENDATIONS long-term care facility. TREATMENT TIME/MINUTES/CODES 35 min, Self care training x 2, 08:25 G Codes in the area of self- : washing oneself, toileting, dressing, eating and drinking, current status [id number] CK projected status GP [id number]. Discharge status: [id number] CJ Based on AMPAC score of 19, CMS score of 42.80% at eval and at AMPAC score 21, CMS score 32.79%.
--- NOTE | 2018-01-23 10:47 | OTDS_ITS ---
Date of service: 01/23/18 Time of Service: 08:25 Occupational Therapy Notes Occupational Therapy Inpatient Discharge Summary Date: 01/23/18 Dates of Service: 01/18/18- 01/23/18 PRECAUTIONS: None SUBJECTIVE: Pt reports that he will be going to the [facility] in [place], [place] today. He reports that he isn't sure how he feels about going but he wants to get stronger. Pt was laying supine in bed when OT arrived and was getting ready to eat breakfast. OBJECTIVE: PAIN: 0/10 however, pt states that his abdomen is uncomfortable today but was unable to quantify pain with a number. FUNCTIONAL MOBILITY/ADLS: Rolling L/R: S Supine-sit: S Sit-supine: S Sit-stand: S Stand-sit: SBA with minimal verbal cues for hand placement. Bed-Chair: S BATHING Pt performed bathing in sitting position with good dynamic sitting balance. Pt denied use of shower stating that, he preferred to do this sitting in chair today. Pt was able to (I) wash UE/LE with S assist for LE and dynamic balance. DRESSING Upper body: Pt (I) able to don t-shirt. Lower Body: S with FWW, pt able to don underwear and pants. Don socks and shoes mod (I) with use of sock aid. GROOMING: Pt performed grooming with S, FWW in front for balance is needed. Pt able to (I) groom hair and teeth without cues. TOILETING: Denied need for use of toileting at this time. Pt reports that he felt sore from wiping so much, but states he has been trying to perform this as (I) as possible. EATING: (I) ASSESSMENT: Patient is a 63-year-old male referred to occupational therapy services with diagnosis of loss of ADLs, ambulatory issues and end-stage liver disease. 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 Impairments are contributing to the following functional limitations: Pt presents with difficulty perform upper and lower body dressing (I), increase times with performing ADLs, decreased (I) with functional ambulation. Discussed with pt use of grab bars for home for his bathroom. Pt will be discharged from OT services at this time and will transition his care to [facility] facility today. GOALS Goals 1. Transfers (I)- (MET)with use of FWW 2. Dressing (I) with use of adaptive equipment (Sock aid, shoe horn, rn wellness)- (MET) pt able to (I) dress UE and mod (I) with use of sock aid for socks. Pt able to don pants and underwear with S and FWW. 3. Bathing SBA- (MET) Pt able to (I) bath in the sitting position both UE/LE without assist or verbal cues. 4. Toileting SBA- (MET) Pt still requires S for wiping but otherwise able to perform toileting routine without assist. 5. Eating (I)- (MET) Pt met goals 1-5. DISCHARGE RECOMMENDATIONS snf care facility. TREATMENT TIME/MINUTES/CODES 35 min, Self care training x 2, 08:25 G Codes in the area of self- : washing oneself, toileting, dressing, eating and drinking, current status [id number] CK projected status GP [id number]. Discharge status: [id number] CJ Based on AMPAC score of 19, CMS score of 42.80% at eval and at AMPAC score 21, CMS score 32.79%.
== END 2018-01-23 11:09 | disposition skilled nursing facility (03) | DRG 372 ==
LOC: ER 17:10 → ICU 18:41 → MS 01-22 11:26
PROVIDERS: Internal Medicine; Nurse Practitioner Acute Care; Admitting Provider Family Medicine; Emergency Provider Emergency Medicine; PCP Family Medicine; Visit Provider Family Medicine
DX: K65.2 Spontaneous bacterial peritonitis; R18.8 Other ascites; L97.411 Non-pressure chronic ulcer of right heel and midfoot limited to breakdown of skin; Z79.4 Long term (current) use of insulin; B35.1 Tinea unguium; E11.621 Type 2 diabetes mellitus with foot ulcer; I10 Essential (primary) hypertension; D64.9 Anemia, unspecified; Z73.89 Other problems related to life management difficulty; R10.13 Epigastric pain; D69.6 Thrombocytopenia, unspecified; K75.81 Nonalcoholic steatohepatitis (NASH)
CPT/HCPCS: 36415; 36416; 49082; 80053; 82962; 93005; 96361; 96365; 96375; 97110; 97163; 97167; 97530; 97535; 99223; 99232; 99233; 99239; 99285; 70450; 71046; 74176; 81003; 82140; 83036; 83605; 85025; 85610; 87070; 87205; 89051; 93010; J2405

== ENCOUNTER 2018-01-30 11:41 | Outpatient (REF) | payer MEDICARE, SELFPAY ==
[2018-01-30 12:46] LABS: Abs Immature Grans 0.01 k/cumm (0.0-0.09); Absolute Basophil Count 0.03 k/cumm (0.0-0.2); Absolute Eosinophil Count 0.09 k/cumm (0.0-0.7); Absolute Lymphocyte Count 0.39 k/cumm (1.2-3.4); Absolute Monocyte Count 0.62 k/cumm (0.11-0.7); Absolute Neutrophil Count 3.71 k/cumm (1.2-6.7); Basophils % 0.6; Eosinophils % 1.9; HCT 38.2 % (40.0-50.0); HGB 12.8 g/dL (13.5-17.5); Immature Grans % 0.2; Mean Corp. HGB Concentration 33.5 g/dL (32.0-36.0); Mean Corpuscular Volume 98.5 fL (80-95); Mean Platelet Volume 13.3 fL (8.0-11.0); Monocytes % 12.8; Neutrophils % 76.5; RBC 3.88 m/cumm (4.50-6.00); RBC Distribution Width 13.8 % (11.8-14.1); White Blood Cell Count 4.85 k/cumm (4.4-10.8)
[2018-01-30 13:46] LABS: Diff Comment PLT Morph Reviewed; Platelet Count 60 x1000/uL (130-400); RBC Morphology Normal
== END 2018-01-30 12:01 ==
LOC: LBN 11:41
PROVIDERS: PCP Family Medicine; Visit Provider Family Medicine
DX: I10 Essential (primary) hypertension (principal); D69.6 Thrombocytopenia, unspecified; K74.60 Unspecified cirrhosis of liver
CPT/HCPCS: 80053; 85025

== ENCOUNTER 2018-02-05 11:31 | Outpatient (REF) | payer MEDICARE, SELFPAY | END 2018-02-05 11:51 | LOC: LBN 11:31 | PROVIDERS: PCP Family Medicine; Visit Provider Family Medicine | DX: I10 Essential (primary) hypertension (principal) | CPT/HCPCS: 80053 ==

== ENCOUNTER → 2018-04-03 10:55 | Outpatient (BNVA) | payer MEDICARE, MEDICAID, SELFPAY | PROVIDERS: PCP Family Medicine; Referring Provider Family Medicine; Visit Provider Orthopaedic Surgery | DX: L84 Corns and callosities (principal); L97.511 Non-pressure chronic ulcer of other part of right foot limited to breakdown of skin; E11.621 Type 2 diabetes mellitus with foot ulcer; Z79.4 Long term (current) use of insulin | CPT/HCPCS: 99211; 99213 ==

== ENCOUNTER 2018-05-09 09:05 | Outpatient (REF) | payer MEDICARE, SELFPAY ==
[2018-05-09 10:25] LABS: Hemoglobin A1C 5.4 % (4.5-6.2)
== END 2018-05-09 09:25 ==
LOC: LBN 09:05
PROVIDERS: PCP Family Medicine; Visit Provider Family Medicine
DX: E11.40 Type 2 diabetes mellitus with diabetic neuropathy, unspecified (principal)
CPT/HCPCS: 83036

== ENCOUNTER 2018-05-10 12:36 | Outpatient (REF) | payer MEDICARE, SELFPAY ==
[2018-05-10 14:33] LABS: Abs Immature Grans 0.02 k/cumm (0.0-0.09); Absolute Basophil Count 0.04 k/cumm (0.0-0.2); Absolute Eosinophil Count 0.16 k/cumm (0.0-0.7); Absolute Lymphocyte Count 0.36 k/cumm (1.2-3.4); Absolute Monocyte Count 0.65 k/cumm (0.11-0.7); Absolute Neutrophil Count 3.28 k/cumm (1.2-6.7); Basophils % 0.9; Eosinophils % 3.5; HCT 42.2 % (40.0-50.0); HGB 14.1 g/dL (13.5-17.5); Immature Grans % 0.4; Mean Corp. HGB Concentration 33.4 g/dL (32.0-36.0); Mean Corpuscular Hemoglobin 33.9 pg (27.0-33.0); Mean Corpuscular Volume 101.4 fL (80-95); Mean Platelet Volume 13.7 fL (8.0-11.0); Monocytes % 14.4; Neutrophils % 72.8; RBC 4.16 m/cumm (4.50-6.00); RBC Distribution Width 14.8 % (11.8-14.1); White Blood Cell Count 4.51 k/cumm (4.4-10.8)
[2018-05-10 14:44] LABS: Platelet Count 62 x1000/uL (130-400)
[2018-05-10 15:19] LABS: INR 1.1 (0.9-1.1); Prothrombin Time 11.1 sec (9.3-11.0)
[2018-05-10 15:53] LABS: ALT 67 U/L (12-78); AST 110 U/L (15-37); Albumin 2.6 g/dL (3.4-5.0); Alkaline Phosphatase 323 U/L (46-116); BUN 32 mg/dL (7-18); Bilirubin, Total 2.5 mg/dL (0.2-1.0); CREATININE 1.59 mg/dL (0.70-1.30); Calcium 8.8 mg/dL (8.5-10.1); Chloride 102 mmol/L (98-107); Estimated GFR 44.34 (mL/min/1.73m2); Glucose 90 mg/dL (70-100); Potassium 5.1 mmol/L (3.5-5.1); Sodium 135 mmol/L (136-145); TSH (W/Ref FT4) 6.43 uIU/mL (0.358-3.74); Total Protein 8.4 g/dL (6.4-8.2)
[2018-05-10 16:12] LABS: FREE T4 1.22 ng/dL (0.76-1.46)
== END 2018-05-10 12:56 ==
LOC: LBN 12:36
PROVIDERS: PCP Family Medicine; Visit Provider Family Medicine
DX: I10 Essential (primary) hypertension (principal); R63.5 Abnormal weight gain; N18.6 End stage renal disease; E11.9 Type 2 diabetes mellitus without complications; D64.9 Anemia, unspecified
CPT/HCPCS: 80053; 84439; 84443; 85025; 85610

== ENCOUNTER 2018-06-05 11:42 | Outpatient (REF) | payer MEDICARE, SELFPAY ==
[2018-06-05 13:48] LABS: Abs Immature Grans 0.02 k/cumm (0.0-0.09); Absolute Basophil Count 0.05 k/cumm (0.0-0.2); Absolute Eosinophil Count 0.07 k/cumm (0.0-0.7); Absolute Lymphocyte Count 0.39 k/cumm (1.2-3.4); Absolute Monocyte Count 0.64 k/cumm (0.11-0.7); Absolute Neutrophil Count 3.86 k/cumm (1.2-6.7); Eosinophils % 1.4; HCT 41.4 % (40.0-50.0); HGB 14.3 g/dL (13.5-17.5); Immature Grans % 0.4; Lymphocytes % 7.8; Mean Corp. HGB Concentration 34.5 g/dL (32.0-36.0); Mean Corpuscular Hemoglobin 34.6 pg (27.0-33.0); Mean Corpuscular Volume 100.2 fL (80-95); Monocytes % 12.7; Neutrophils % 76.7; RBC 4.13 m/cumm (4.50-6.00); RBC Distribution Width 14.2 % (11.8-14.1); White Blood Cell Count 5.03 k/cumm (4.4-10.8)
[2018-06-05 14:07] LABS: ALT 49 U/L (12-78); AST 73 U/L (15-37); Albumin 2.7 g/dL (3.4-5.0); Alkaline Phosphatase 271 U/L (46-116); BUN 51 mg/dL (7-18); CREATININE 1.88 mg/dL (0.70-1.30); Chloride 99 mmol/L (98-107); Estimated GFR 36.54 (mL/min/1.73m2); Glucose 152 mg/dL (70-100); Potassium 4.6 mmol/L (3.5-5.1); Sodium 136 mmol/L (136-145); Total Protein 8.1 g/dL (6.4-8.2)
[2018-06-05 14:26] LABS: Diff Comment RBC Morph Reviewed; Macrocytosis 2+; Platelet Count 51 x1000/uL (130-400)
== END 2018-06-05 12:02 ==
LOC: LBN 11:42
PROVIDERS: PCP Family Medicine; Visit Provider Family Medicine
DX: E11.40 Type 2 diabetes mellitus with diabetic neuropathy, unspecified (principal); R11.2 Nausea with vomiting, unspecified; K74.60 Unspecified cirrhosis of liver; R18.8 Other ascites
CPT/HCPCS: 80053; 85025

== ENCOUNTER 2018-06-09 08:48 | Inpatient (IN) | payer MEDICARE, MEDICAID, SELFPAY ==
[2018-06-09] VITALS (15 sets, daily range): BP systolic 100–129; BP diastolic 56–76; PULSE 56–71; RESP 12–22; TEMP 36.2–36.9; O2SAT 92–100
--- NOTE | 2018-06-09 09:02 | W.ED.GENAD ---
Discharge Plan Disposition Patient Disposition: [facility] INPATIENT Condition: Stable Discharge Details Chief Complaint: Abd Prob Clinical Impression: Hyperammonemia, Acute kidney injury Reason For Visit: BRIDGER Primary Care Provider: Jaden Mendoza ED Provider: Filiberto Rodriguez Home Meds and New Rx's Prescriptions: No Action lancets [FreeStyle Lancets] 1 EACH misc 1 ea Miscellaneous QID Qty: 100 RF: 11 pen needle, diabetic 1 EACH needle 1 ea Miscellaneous QID Qty: 100 RF: 4 spironolactone 100 MG tablet 100 mg PO DAILY Qty: 90 RF: 3 blood sugar diagnostic [FreeStyle Test] 1 EACH strip 1 ea Miscellaneous AC & HS Qty: 400 RF: 4 polyethylene glycol 3350 17 gram Powder In Packet 17 g PO DAILY PRN PRN (Reason: Constipation) Qty: 30 RF: 0 tramadol 50 mg Tablet 50 mg PO Q12H PRNQty: 10 RF: 0 magnesium hydroxide [Milk of Magnesia] 400 mg/5 mL Suspension 30 ml PO DAILY PRN PRNQty: 1000 RF: 0 docusate sodium [Colace] 100 mg Capsule 100 mg PO TID PRN PRNQty: 90 RF: 0 omeprazole 20 mg Capsule,Delayed Release(Dr/Ec) 20 mg PO BID Qty: 60 RF: 0 alum-mag hydroxide-simeth [Mag-Al Plus] 200-200-20 mg/5 mL Suspension 30 ml PO Q2H PRN PRNQty: 1000 RF: 0 melatonin 3 mg Tablet Extended Release 3 mg PO HS Qty: 30 RF: 0 Novolog Flexpen U-100 Insulin 100 unit/mL Insulin Pen 8 units subcut AC Qty: 10 RF: 0 Novolog Flexpen U-100 Insulin 100 unit/mL Insulin Pen subcut 0800,1200,1700 Qty: 10 RF: 0 lactulose 20 gram/30 mL Solution 20 g PO BID Qty: 1800 RF: 0 ondansetron HCl 4 mg Tablet 4 mg PO TID PRNRF: 0 ergocalciferol (vitamin D2) [Vitamin D2] 50,000 unit Capsule 50,000 unit PO QWEEK RF: 0 Basaglar KwikPen U-100 Insulin 100 unit/mL (3 mL) Insulin Pen 8 unit SUBCUT HS RF: 0 Centrum Complete 18-400 mg-mcg Tablet 1 tab PO DAILY RF: 0 furosemide 40 mg tablet 80 mg PO DAILY RF: 0 Medical Decision Making 63-year-old male with diabetes, end-stage liver failure, who lives at the [facility]. He presents with weeks of decreased p.o. intake, persistent nausea, and emesis of large volumes of food or liquids. Very weak today and therefore referred to the ER. He denies confusion, is not had a fever. He arrives interactive but dehydrated in appearance. Differential diagnosis is broad including electrolyte abnormality, metabolic derangements, dehydration, SBP. Patient had IV access established, given antiemetic, referred for laboratory testing Is elevated BUN of 54 with creatinine greater than 2. His ammonia is 145 which is significantly increased over most recent baseline. CT scan of the abdomen reveals hepatic cirrhosis morphology, significant cirrhosis with portal hypertension and mild splenomegaly, increased cardiophrenic angle adenopathy. Ascitic fluid analysis shows 208 white blood cells per field, less than that diagnostic of SBP. I do feel he should be admitted for hyperammonemia and probable mild encephalopathy. Lactulose initiated. Lab Data Lab results reviewed: Yes I reviewed the patient's lab results. Laboratory Results - last 24 hr 06/09/18 06/09/18 06/09/18 08:55 08:55 08:55 WBC RBC Hgb Hct MCV MCH MCHC RDW Plt Count MPV Immature Gran % Neutrophils % Lymphocytes % Monocytes % Eosinophils % Basophils % Absolute Neutrophils Absolute Lymphocytes Absolute Monocytes Absolute Eosinophils Absolute Basophils Sodium 134 L Potassium 4.0 Chloride 97 L Carbon Dioxide 31.5 Anion Gap 5.5 BUN 54 H Creatinine 2.08 H Estimated GFR/1.73 m2 32.52 Glucose 106 H Calcium 8.9 Magnesium 2.3 Total Bilirubin 4.8 H AST 73 H ALT 44 Alkaline Phosphatase 273 H Ammonia 145 H Troponin I < 0.02 Total Protein 9.0 H Albumin 2.6 L Lipase 228 06/09/18 08:55 WBC 5.68 RBC 4.16 L Hgb 14.5 Hct 41.6 MCV 100.0 H MCH 34.9 H MCHC 34.9 RDW 14.0 Plt Count 47 L MPV 13.7 H Immature Gran % 0.4 Neutrophils % 71.0 Lymphocytes % 11.1 Monocytes % 15.5 Eosinophils % 1.1 Basophils % 0.9 Absolute Neutrophils 4.04 Absolute Lymphocytes 0.63 L Absolute Monocytes 0.88 H Absolute Eosinophils 0.06 Absolute Basophils 0.05 Sodium Potassium Chloride Carbon Dioxide Anion Gap BUN Creatinine Estimated GFR/1.73 m2 Glucose Calcium Magnesium Total Bilirubin AST ALT Alkaline Phosphatase Ammonia Troponin I Total Protein Albumin Lipase ECG Data Attestation: I personally reviewed and interpreted this ECG (s) as follows: Interpretation: Normal sinus rhythm, rate of 60, slight interval ventricular conduction delay, QRS measures approximately 100, there is no ST segment HPI General Mode of arrival: EMS. Date/Time Provider Initiated Documentation: 06/09/18 08:50. Limitations to Documentation: no limitations. Information obtained by: patient, EMS and old records reviewed. History of Present Illness 63 year old M presents to the emergency department with the chief complaint of Weakness, nausea, decreased p.o. intake over days to 2 weeks time, described as moderate, Quality is described as dull and constant, and is localized to the abdomen. Patient reports no radiation. Patient started experiencing this day(s) and it has been constant. No relieving factors improve symptom(s), Eating worsens symptoms . Patient notes loss of appetite, malaise and weakness; denies chest pain, cough and fever/chills. Patient did receive the following treatments prior to arrival, other (Ondansetron) Related Data Home Medications Medication Instructions Recorded Confirmed lancets [FreeStyle Lancets] #100 ea 12/25/14 04/03/18 pen needle, diabetic #100 ea 05/30/16 04/03/18 blood sugar diagnostic [Freestyle #400 strip 12/07/17 04/03/18 Test Strips] spironolactone 100 mg PO DAILY #90 tab-cap 12/07/17 06/09/18 alum-mag hydroxide-simeth [Mag-Al 30 ml PO Q2H PRN PRN #1000 ml 01/23/18 06/09/18 Plus] docusate sodium [Colace] 100 mg PO TID PRN PRN #90 cap 01/23/18 06/09/18 insulin aspart U-100 [Novolog 0 units SUBCUT 0800,1200,1700 #10 01/23/18 06/09/18 Flexpen U-100 Insulin] ml insulin aspart U-100 [Novolog 8 units SUBCUT AC #10 ml 01/23/18 06/09/18 Flexpen U-100 Insulin] lactulose 20 g PO BID #1800 ml 01/23/18 06/09/18 magnesium hydroxide [Milk of 30 ml PO DAILY PRN PRN #1000 ml 01/23/18 06/09/18 Magnesia] melatonin 3 mg PO HS #30 tab 01/23/18 06/09/18 omeprazole 20 mg PO BID #60 cap 01/23/18 06/09/18 polyethylene glycol 3350 17 g PO DAILY PRN PRN #30 ea 01/23/18 06/09/18 tramadol 50 mg PO Q12H PRN #10 tab 01/23/18 06/09/18 ergocalciferol (vitamin D2) 50,000 unit PO QWEEK 06/09/18 06/09/18 [Vitamin D2] furosemide 80 mg PO DAILY 06/09/18 insulin glargine [Basaglar KwikPen 8 unit SUBCUT HS 06/09/18 06/09/18 U-100 Insulin] jqfnxwketebw-ebbb-nbajr acid 1 tab PO DAILY 06/09/18 06/09/18 [Centrum Complete] ondansetron HCl 4 mg PO TID PRN 06/09/18 06/09/18 Previous Rx's Medication Instructions Recorded blood sugar diagnostic [Freestyle #400 strip 12/07/17 Test Strips] spironolactone 100 mg PO DAILY #90 tab-cap 12/07/17 alum-mag hydroxide-simeth [Mag-Al 30 ml PO Q2H PRN PRN #1000 ml 01/23/18 Plus] docusate sodium [Colace] 100 mg PO TID PRN PRN #90 cap 01/23/18 insulin aspart U-100 [Novolog 0 units SUBCUT 0800,1200,1700 #10 01/23/18 Flexpen U-100 Insulin] ml insulin aspart U-100 [Novolog 8 units SUBCUT AC #10 ml 01/23/18 Flexpen U-100 Insulin] lactulose 20 g PO BID #1800 ml 01/23/18 magnesium hydroxide [Milk of 30 ml PO DAILY PRN PRN #1000 ml 01/23/18 Magnesia] melatonin 3 mg PO HS #30 tab 01/23/18 omeprazole 20 mg PO BID #60 cap 01/23/18 polyethylene glycol 3350 17 g PO DAILY PRN PRN #30 ea 01/23/18 tramadol 50 mg PO Q12H PRN #10 tab 01/23/18 Allergies Allergy/AdvReac Type Severity Reaction Status Date / Time erythromycin base Allergy Intermediate Skin Rash Verified 06/09/18 08:59 Sulfa (Sulfonamide Allergy Mild Itching Verified 06/09/18 08:59 Antibiotics) amoxicillin trihydrate AdvReac Severe DIARRHEA Verified 06/09/18 08:59 [From Augmentin] potassium clavulanate AdvReac Severe DIARRHEA Verified 06/09/18 08:59 [From Augmentin] simvastatin AdvReac Severe Severe Verified 06/09/18 08:59 Myalgia gabapentin AdvReac Intermediate WIPED ME Verified 06/09/18 08:59 OUT metformin AdvReac Intermediate H.A.; Verified 06/09/18 08:59 LOOSE TEETH; HAIR General JACOB: 3 Review of Systems Review of Systems 8 systems reviewed and otherwise negative [facility] Medical History Chronic liver failure (Chronic) Diabetes type 2, controlled (Chronic) Diabetic foot ulcer associated with type 2 diabetes mellitus (Chronic) Hypertension (Chronic) Liver cirrhosis secondary to nonalcoholic steatohepatitis (BRUNNER) (Chronic) Thrombocytopenia (Chronic) Surgical History Appendectomy (Resolved) Cholecystectomy (Resolved 08/12/12) EGD - MAC (Resolved) Family History Mother Heart disease Cancer Father Essential hypertension Heart disease Cancer Sister Cancer Brother Cancer Social History Smoking/Tobacco Use Status: Never alcohol intake: never substance use type: does not use Exam Narrative Exam Narrative: GEN: awake, alert, oriented 3. Pleasant, well groomed, interactive. HEAD: Normocephalic, atraumatic ENT: Mucous membranes dry, oropharynx unremarkable, External ear exam unremarkable EYES: PERRL, EOMI NECK: Full ROM, no DEBORAH, no menigismus CHEST/RESP: Nontender, clear to auscultation bilateral, no wheeze/rhonchi/rales CARDIOVASCULAR: RRR, no murmur, rub naheed. 2+ Rad pulse bilateral ABDOMEN: Soft, distended, no fluid wave, nontender, no mass. +Bowel sounds EXT: Full ROM, thin, muscle wasting, trace pretibial edema, no rash Neuro: Grossly normal neurologic exam, conversant, interactive. Psych: Speech fluent, thoughts congruent, affect slightly anxious Course Lab/Test Results Lab/Test Results: 06/09/18 08:51 Nasopharynx Influenza Types A,B Antigen - Pending Procedures Paracentesis Time Out Performed: Yes Indication: possible spontaneous bacterial peritonitis Procedure: diagnostic paracentesis Location: LLQ Local Anesthetic: Lidocaine 1% Bedside Ultrasound Used: yes, Ascites confirmed and location marked Preparation: 11 blade used to make ramón in skin Amount of Fluid Obtained: 2,250 Fluid: other (straw colored) Post Procedure Exam: awake, alert Patient Tolerated Procedure: well
--- NOTE | 2018-06-09 09:05 | ED.GENADUL_ITS ---
Discharge Plan Disposition Patient Disposition: [facility] INPATIENT Condition: Stable Discharge Details Chief Complaint: Abd Prob Clinical Impression: Hyperammonemia, Acute kidney injury Reason For Visit: BRIDGER Primary Care Provider: Jaden Mendoza ED Provider: Filiberto Rodriguez Home Meds and New Rx's Prescriptions: No Action lancets [FreeStyle Lancets] 1 EACH misc 1 ea Miscellaneous QID Qty: 100 RF: 11 pen needle, diabetic 1 EACH needle 1 ea Miscellaneous QID Qty: 100 RF: 4 spironolactone 100 MG tablet 100 mg PO DAILY Qty: 90 RF: 3 blood sugar diagnostic [FreeStyle Test] 1 EACH strip 1 ea Miscellaneous AC & HS Qty: 400 RF: 4 polyethylene glycol 3350 17 gram Powder In Packet 17 g PO DAILY PRN PRN (Reason: Constipation) Qty: 30 RF: 0 tramadol 50 mg Tablet 50 mg PO Q12H PRNQty: 10 RF: 0 magnesium hydroxide [Milk of Magnesia] 400 mg/5 mL Suspension 30 ml PO DAILY PRN PRNQty: 1000 RF: 0 docusate sodium [Colace] 100 mg Capsule 100 mg PO TID PRN PRNQty: 90 RF: 0 omeprazole 20 mg Capsule,Delayed Release(Dr/Ec) 20 mg PO BID Qty: 60 RF: 0 alum-mag hydroxide-simeth [Mag-Al Plus] 200-200-20 mg/5 mL Suspension 30 ml PO Q2H PRN PRNQty: 1000 RF: 0 melatonin 3 mg Tablet Extended Release 3 mg PO HS Qty: 30 RF: 0 Novolog Flexpen U-100 Insulin 100 unit/mL Insulin Pen 8 units subcut AC Qty: 10 RF: 0 Novolog Flexpen U-100 Insulin 100 unit/mL Insulin Pen subcut 0800,1200,1700 Qty: 10 RF: 0 lactulose 20 gram/30 mL Solution 20 g PO BID Qty: 1800 RF: 0 ondansetron HCl 4 mg Tablet 4 mg PO TID PRNRF: 0 ergocalciferol (vitamin D2) [Vitamin D2] 50,000 unit Capsule 50,000 unit PO QWEEK RF: 0 Basaglar KwikPen U-100 Insulin 100 unit/mL (3 mL) Insulin Pen 8 unit SUBCUT HS RF: 0 Centrum Complete 18-400 mg-mcg Tablet 1 tab PO DAILY RF: 0 furosemide 40 mg tablet 80 mg PO DAILY RF: 0 Medical Decision Making 63-year-old male with diabetes, end-stage liver failure, who lives at the [facility]. He presents with weeks of decreased p.o. intake, persistent nausea, and emesis of large volumes of food or liquids. Very weak today and therefore referred to the ER. He denies confusion, is not had a fever. He arrives interactive but dehydrated in appearance. Differential diagnosis is broad including electrolyte abnormalit y, metabolic derangements, dehydration, SBP. Patient had IV access established, given antiemetic, referred for laboratory testing Is elevated BUN of 54 with creatinine greater than 2. His ammonia is 145 which is significantly increased over most recent baseline. CT scan of the abdomen reveals hepatic cirrhosis morphology, significant cirrhosis with portal hypertension and mild splenomegaly, increased cardiophrenic angle adenopathy. Ascitic fluid analysis shows 208 white blood cells per field, less than that diagnostic of SBP. I do feel he should be admitted for hyperammonemia and probable mild encephalopathy. Lactulose initiated. Lab Data Lab results reviewed: Yes I reviewed the patient's lab results. Laboratory Results - last 24 hr 06/09/18 06/09/18 06/09/18 08:55 08:55 08:55 WBC RBC Hgb Hct MCV MCH MCHC RDW Plt Count MPV Immature Gran % Neutrophils % Lymphocytes % Monocytes % Eosinophils % Basophils % Absolute Neutrophils Absolute Lymphocytes Absolute Monocytes Absolute Eosinophils Absolute Basophils Sodium 134 L Potassium 4.0 Chloride 97 L Carbon Dioxide 31.5 Anion Gap 5.5 BUN 54 H Creatinine 2.08 H Estimated GFR/1.73 m2 32.52 Glucose 106 H Calcium 8.9 Magnesium 2.3 Total Bilirubin 4.8 H AST 73 H ALT 44 Alkaline Phosphatase 273 H Ammonia 145 H Troponin I < 0.02 Total Protein 9.0 H Albumin 2.6 L Lipase 228 06/09/18 08:55 WBC 5.68 RBC 4.16 L Hgb 14.5 Hct 41.6 MCV 100.0 H MCH 34.9 H MCHC 34.9 RDW 14.0 Plt Count 47 L MPV 13.7 H Immature Gran % 0.4 Neutrophils % 71.0 Lymphocytes % 11.1 Monocytes % 15.5 Eosinophils % 1.1 Basophils % 0.9 Absolute Neutrophils 4.04 Absolute Lymphocytes 0.63 L Absolute Monocytes 0.88 H Absolute Eosinophils 0.06 Absolute Basophils 0.05 Sodium Potassium Chloride Carbon Dioxide Anion Gap BUN Creatinine Estimated GFR/1.73 m2 Glucose Calcium Magnesium Total Bilirubin AST ALT Alkaline Phosphatase Ammonia Troponin I Total Protein Albumin Lipase ECG Data Attestation: I personally reviewed and interpreted this ECG (s) as follows: Interpretation: Normal sinus rhythm, rate of 60, slight interval ventricular conduction delay, QRS measures approximately 100, there is no ST segment HPI General Mode of arrival: EMS . Date/Time Provider Initiated Documentation: 06/09/18 08:50 . Limitations to Documentation: no limitations . Information obtained by: patient, EMS and old records reviewed . History of Present Illness 63 year old M presents to the emergency department with the chief complaint of Weakness, nausea, decreased p.o. intake over days to 2 weeks time, described as moderate, Quality is described as dull and constant, and is localized to the abdomen. Patient reports no radiation. Patient started experiencing this day(s) and it has been constant. No relieving factors improve symptom(s), Eating worsens symptoms . Patient notes loss of appetite, malaise and weakness; denies chest pain, cough and fever/chills. Patient did receive the following treatments prior to arrival, other (Ondansetron) Related Data Home Medications Medication Instructions Recorded Confirmed lancets [FreeStyle Lancets] #100 ea 12/25/14 04/03/18 pen needle, diabetic #100 ea 05/30/16 04/03/18 blood sugar diagnostic [Freestyle #400 strip 12/07/17 04/03/18 Test Strips] spironolactone 100 mg PO DAILY #90 tab-cap 12/07/17 06/09/18 alum-mag hydroxide-simeth [Mag-Al 30 ml PO Q2H PRN PRN #1000 ml 01/23/18 06/09/18 Plus] docusate sodium [Colace] 100 mg PO TID PRN PRN #90 cap 01/23/18 06/09/18 insulin aspart U-100 [Novolog 0 units SUBCUT 0800,1200,1700 #10 01/23/18 06/09/18 Flexpen U-100 Insulin] ml insulin aspart U-100 [Novolog 8 units SUBCUT AC #10 ml 01/23/18 06/09/18 Flexpen U-100 Insulin] lactulose 20 g PO BID #1800 ml 01/23/18 06/09/18 magnesium hydroxide [Milk of 30 ml PO DAILY PRN PRN #1000 ml 01/23/18 06/09/18 Magnesia] melatonin 3 mg PO HS #30 tab 01/23/18 06/09/18 omeprazole 20 mg PO BID #60 cap 01/23/18 06/09/18 polyethylene glycol 3350 17 g PO DAILY PRN PRN #30 ea 01/23/18 06/09/18 tramadol 50 mg PO Q12H PRN #10 tab 01/23/18 06/09/18 ergocalciferol (vitamin D2) 50,000 unit PO QWEEK 06/09/18 06/09/18 [Vitamin D2] furosemide 80 mg PO DAILY 06/09/18 insulin glargine [Basaglar KwikPen 8 unit SUBCUT HS 06/09/18 06/09/18 U-100 Insulin] lnkxmdjclrry-fiit-cvqbu acid 1 tab PO DAILY 06/09/18 06/09/18 [Centrum Complete] ondansetron HCl 4 mg PO TID PRN 06/09/18 06/09/18 Previous Rx's Medication Instructions Recorded blood sugar diagnostic [Freestyle #400 strip 12/07/17 Test Strips] spironolactone 100 mg PO DAILY #90 tab-cap 12/07/17 alum-mag hydroxide-simeth [Mag-Al 30 ml PO Q2H PRN PRN #1000 ml 01/23/18 Plus] docusate sodium [Colace] 100 mg PO TID PRN PRN #90 cap 01/23/18 insulin aspart U-100 [Novolog 0 units SUBCUT 0800,1200,1700 #10 01/23/18 Flexpen U-100 Insulin] ml insulin aspart U-100 [Novolog 8 units SUBCUT AC #10 ml 01/23/18 Flexpen U-100 Insulin] lactulose 20 g PO BID #1800 ml 01/23/18 magnesium hydroxide [Milk of 30 ml PO DAILY PRN PRN #1000 ml 01/23/18 Magnesia] melatonin 3 mg PO HS #30 tab 01/23/18 omeprazole 20 mg PO BID #60 cap 01/23/18 polyethylene glycol 3350 17 g PO DAILY PRN PRN #30 ea 01/23/18 tramadol 50 mg PO Q12H PRN #10 tab 01/23/18 Allergies Allergy/AdvReac Type Severity Reaction Status Date / Time erythromycin base Allergy Intermediate Skin Rash Verified 06/09/18 08:59 Sulfa (Sulfonamide Allergy Mild Itching Verified 06/09/18 08:59 Antibiotics) amoxicillin trihydrate AdvReac Severe DIARRHEA Verified 06/09/18 08:59 [From Augmentin] potassium clavulanate AdvReac Severe DIARRHEA Verified 06/09/18 08:59 [From Augmentin] simvastatin AdvReac Severe Severe Verified 06/09/18 08:59 Myalgia gabapentin AdvReac Intermediate WIPED ME Verified 06/09/18 08:59 OUT metformin AdvReac Intermediate H.A.; Verified 06/09/18 08:59 LOOSE TEETH; HAIR General JACOB: 3 Review of Systems Review of Systems 8 systems reviewed and otherwise negative [facility] Medical History Chronic liver failure (Chronic) Diabetes type 2, controlled (Chronic) Diabetic foot ulcer associated with type 2 diabetes mellitus (Chronic) Hypertension (Chronic) Liver cirrhosis secondary to nonalcoholic steatohepatitis (BRUNNER) (Chronic) Thrombocytopenia (Chronic) Surgical History Appendectomy (Resolved) Cholecystectomy (Resolved 08/12/12) EGD - MAC (Resolved) Family History Mother Heart disease Cancer Father Essential hypertension Heart disease Cancer Sister Cancer Brother Cancer Social History Smoking/Tobacco Use Status: Never alcohol intake: never substance use type: does not use Exam Narrative Exam Narrative: GEN: awake, alert, oriented 3. Pleasant, well groomed, interactive. HEAD: Normocephalic, atraumatic ENT: Mucous membranes dry, oropharynx unremarkable, External ear exam unremarkable EYES: PERRL, EOMI NECK: Full ROM, no DEBORAH, no menigismus CHEST/RESP: Nontender, clear to auscultation bilateral, no wheeze/rhonchi/rales CARDIOVASCULAR: RRR, no murmur, rub naheed. 2+ Rad pulse bilateral ABDOMEN: Soft, distended, no fluid wave, nontender, no mass. +Bowel sounds EXT: Full ROM, thin, muscle wasting, trace pretibial edema, no rash Neuro: Grossly normal neurologic exam, conversant, interactive. Psych: Speech fluent, thoughts congruent, affect slightly anxious Course Lab/Test Results Lab/Test Results: 06/09/18 08:51 Nasopharynx Influenza Types A,B Antigen - Pending Procedures Paracentesis Time Out Performed: Yes Indication: possible spontaneous bacterial peritonitis Procedure: diagnostic paracentesis Location: LLQ Local Anesthetic: Lidocaine 1% Bedside Ultrasound Used: yes, Ascites confirmed and location marked Preparation: 11 blade used to make ramón in skin Amount of Fluid Obtained: 2,250 Fluid: other (straw colored) Post Procedure Exam: awake, alert Patient Tolerated Procedure: well
[2018-06-09 09:11] LABS: Abs Immature Grans 0.02 k/cumm (0.0-0.09); Absolute Basophil Count 0.05 k/cumm (0.0-0.2); Absolute Eosinophil Count 0.06 k/cumm (0.0-0.7); Absolute Lymphocyte Count 0.63 k/cumm (1.2-3.4); Absolute Monocyte Count 0.88 k/cumm (0.11-0.7); Absolute Neutrophil Count 4.04 k/cumm (1.2-6.7); Basophils % 0.9; Eosinophils % 1.1; HCT 41.6 % (40.0-50.0); HGB 14.5 g/dL (13.5-17.5); Immature Grans % 0.4; Lymphocytes % 11.1; Mean Corp. HGB Concentration 34.9 g/dL (32.0-36.0); Mean Corpuscular Hemoglobin 34.9 pg (27.0-33.0); Mean Platelet Volume 13.7 fL (8.0-11.0); Monocytes % 15.5; RBC 4.16 m/cumm (4.50-6.00); White Blood Cell Count 5.68 k/cumm (4.4-10.8)
[2018-06-09 09:21] LABS: Lipase 228 U/L (73-393); Magnesium 2.3 mg/dL (1.8-2.4)
[2018-06-09 09:23] LABS: Ammonia 145 umol/L (11-32)
[2018-06-09] MEDS: Normal Saline 1,000 ML 125 ML IV (09:25)
[2018-06-09] MEDS: Normal Saline Flush 10 ML SYR IVP ×2 (09:26→19:41)
[2018-06-09 09:30] LABS: ALT 44 U/L (12-78); AST 73 U/L (15-37); Albumin 2.6 g/dL (3.4-5.0); Alkaline Phosphatase 273 U/L (46-116); Anion Gap 5.5 mmol/L (3-11); BUN 54 mg/dL (7-18); Bilirubin, Total 4.8 mg/dL (0.2-1.0); CO2 31.5 mmol/L (21.0-32.0); CREATININE 2.08 mg/dL (0.70-1.30); Calcium 8.9 mg/dL (8.5-10.1); Chloride 97 mmol/L (98-107); Estimated GFR 32.52 (mL/min/1.73m2); Glucose 106 mg/dL (70-100); Sodium 134 mmol/L (136-145)
[2018-06-09 09:31] LABS: Platelet Count 47 x1000/uL (130-400)
[2018-06-09 09:32] LABS: Troponin I < 0.02 ng/mL (0.00-0.06)
--- NOTE | 2018-06-09 10:07 | DI.CT_ITS ---
SYMPTOM/DIAGNOSIS: NAUSEA, FECULENT EMESIS, H/O BRUNNER ABDOMEN AND PELVIC CT: Comparison is made with 01/17/18. A noncontrast exam was performed. Cirrhotic appearing liver and splenomegaly are again noted, unchanged. The patient is status post cholecystectomy. There is no biliary dilatation. A large quantity of ascites is again noted, similar to the previous exam. The urinary bladder is distended but otherwise unremarkable. The heart size is normal. There is respiratory motion at the lung bases. There is motion in the mid portion of the scan. There is colonic wall thickening seen of the ascending colon which could represent colitis or could be secondary to portal hypertension. The kidneys, adrenals and pancreas are unremarkable. Enlarged lymph nodes are again noted anterior to the heart, unchanged. There are small haile hepatis lymph nodes and celiac axis lymph nodes, also stable. IMPRESSION: Stable hepatosplenomegaly and ascites. Wall thickening of the ascending colon could represent infectious or inflammatory colitis versus being secondary to portal hypertension.
--- NOTE | 2018-06-09 11:13 | DI.VRAD_ITS ---
EXAM: CT Abdomen and Pelvis Without Contrast EXAM DATE/TIME: 06/09/2018 10:06 AM CLINICAL HISTORY: 63 years old, male; Signs and symptoms; Nausea and vomiting; Patient HX: Nausea, feculent emesis, HX boss. TECHNIQUE: Axial computed tomography images of the abdomen and pelvis without contrast. All CT scans at this facility use at least one of these dose optimization techniques: automated exposure control; mA and/or kV adjustment per patient size (includes targeted exams where dose is matched to clinical indication); or iterative reconstruction. Coronal and sagittal reformatted images were created and reviewed. COMPARISON: CT UPPER ABD WITH CONTRAST (P) 12/11/2012 8:17 AM FINDINGS: Lower thorax: No acute findings. ABDOMEN: Liver: Hepatic cirrhosis morphology with nodular contour and/or caudate lobe enlargement and/or left lobe enlargement. Gallbladder and bile ducts: Stable cholecystectomy. Pancreas: Normal. No ductal dilation. Spleen: Continued significant cirrhosis with portal hypertension and moderate splenomegaly. There are one or more accessory splenules. Moderate 15.0 x 14.7 cm splenomegaly. Adrenals: Normal. No mass. Kidneys and ureters: Normal. No hydronephrosis. Stomach and bowel: New onset mild to moderate bowel wall thickening in the right colon most consistent with portal colonopathy. Appendix: No evidence of appendicitis. PELVIS: Bladder: The urinary bladder is enlarged suggesting possible outlet obstruction versus neurogenic bladder. Reproductive: Unremarkable as visualized. ABDOMEN and PELVIS: Intraperitoneal space: New onset severe four-quadrant ascites. Bones/joints: No acute fracture. No dislocation. Soft tissues: Unremarkable. Vasculature: 18 mm portal vein consistent with portal hypertension. One or more calcified pelvic phleboliths. Lymph nodes: Increased mild cardiophrenic angle adenopathy with increase size of 3 lymph nodes which is non-specific and suggestive of infectious or neoplastic process. Other findings: Examination is limited secondary to motion artifact. The images were repeated with or without additional motion artifact. IMPRESSION: 1. New onset severe four-quadrant ascites. 2. Increased mild cardiophrenic angle adenopathy with increase size of 3 lymph nodes which is non-specific and suggestive of infectious or neoplastic process. 3. Continued significant cirrhosis with portal hypertension and moderate splenomegaly. 4. New onset mild to moderate bowel wall thickening in the right colon most consistent with portal colonopathy. 5. The urinary bladder is enlarged suggesting possible outlet obstruction versus neurogenic bladder. Dictated and Authenticated by: William Dash MD. Ordering:DEANDRE De Los Santos MD
--- NOTE | 2018-06-09 12:23 | NUR.NOTE ---
paracentesis done and fluid sent to lab er er doctor Nursing Note:
[2018-06-09 12:45] LABS: Bilirubin Negative (Negative); Blood Negative (Negative); Clarity Clear; Glucose Negative (Negative); Ketones Negative (Negative); Leukocyte Esterase Negative (Negative); Nitrite Negative (Negative); Specific Gravity 1.015 (1.005-1.025); Urobilinogen >=8.0 EU/dL (Up TO 0.2)
[2018-06-09 12:55] LABS: Source PERITONEAL
[2018-06-09 12:59] LABS: Clarity CLEAR; Mononuclear Cells 81 % (0-0); Nucleated Cells 208 /MM3 (0-0); Polynuclear Cells 8 % (0-0)
[2018-06-09 13:00] LABS: Other Cells 11 0 (0-0)
--- NOTE | 2018-06-09 16:47 | W.PM.HP.N ---
Date of service: 06/09/18 Time of Service: 16:47 Assessment and Plan (1) Hepatic encephalopathy: Current visit: Yes Status: Acute Patient educated on the need to take lactulose, even if he doesn't like it - he verbalizes understanding. I have scheduled lactulose to be TID. If the patient truly has difficulty tolerating lactulose, he should be treated with rifaximine, but for now I feel like lactulose was not given a fair try. Monitor mental status with lactulose on board. Recheck ammonia in am. (2) Hepatorenal syndrome: Current visit: Yes Status: Acute Due to dehydration - as below. Hold diuretics. On discharge, lasix should be only prn for edema, not scheduled, but the aldactone can likely be resumed. Gentle hydration with NS. May need albumin. Also, ensure there is no urinary retention. (3) Dehydration: Current visit: Yes Status: Acute Clinically, truly dry - no evidence of LE edema. Both diuretics are on hold. In the future, the patient should only be on lasix if he actually has edema - otherwise, he should remain only on aldactone for the ascites. Hydrate gently with Normal saline. May actually require albumin. (4) Ascites: Current visit: Yes Status: Acute S/p paracenthesis today with WBC's not quite meeting criteria for SBP, nor does he clinically. However, we will await peritoneal fluid culture results and, for now, cover with cefepime. (5) Nausea & vomiting: Current visit: Yes Status: Acute ?due to portal gastropathy. Check hemoccult. Start IV protonix BID. Consider starting beta blockers. Prn zofran IV for now (6) Thrombocytopenia: Current visit: Yes Status: Chronic Stable. Monitor for bleeding. No chemical DVT ppx (7) Hyponatremia: Current visit: Yes Status: Acute Due to liver disease. At this point, will monitor. (8) End stage liver disease: Current visit: Yes Status: Chronic Due to BRUNNER, with known portal hypertension, esophageal varices (no history of bleeding), ascites, prior SBP, thrombocytopenia, encephalopathy. Check INR. Patient follows with [facility]. (9) Esophageal varices without bleeding: Current visit: No Status: Acute Check hematest. Consider starting the patient on a nadolol (10) Insulin dependent diabetes mellitus: Current visit: Yes Status: Chronic Cover with sliding scale insulin for now while it is not clear how good the patient's PO intake is going to be. (11) Discharge planning issues: Current visit: Yes Status: Acute Full code as per COLST form and my discussion with patient. Will need PT/OT consults Expected to return to the [facility] on discharge. (12) DVT prophylaxis: Current visit: Yes Status: Acute Chemical DVT ppx is contraindicated with patient's thrombocytopenia and history of esophageal varices History of Present Illness Chief Complaint: Weakness, nausea, vomiting, poor appetite Narrative: Mr Urias is a 63 year old male with end stage liver disease/chronic liver failure due to BRUNNER with ascites with prior history of SBP and hepatic encephalopathy, not compliant with lactulose, as well as insulin dependent diabetes mellitus type 2 and hypertension, resident of the [facility], who was brought in to [facility] ED today by ambulance for weakness, nausea/vomiting, and poor PO intake for 2 weeks. He states he hasn't had any abdominal pain. A couple of days ago the patient also had a cough, though he states this now resolved. Denies any bleeding in his stool/emesis. He had not vomited now in several days. Last BM was yesterday and was light brown. Notably,he has not been compliant with his lactulose and had not been having diarrhea. He states he had an appointment at [facility] for a paracenthesis on 05/22, when 11 L of fluid were removed (I cannot confirm an exact volume by [facility] notes). In our ED today, he also had a paracenthesis with 2 L out of clear yellow fluid with 208 WBC's. Review of Systems Review of Systems 12 systems reviewed. Pertinent positives and negatives are as per HPI. In addition, the patient reports notices 2 sores on the tibial surface of his LLE, which initially drained pus but have since healed and are doing better. 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) (Chronic) Thrombocytopenia (Chronic) Surgical History Appendectomy (Resolved) Cholecystectomy (Resolved 08/12/12) EGD - MAC (Resolved) Family History Mother Heart disease Cancer Father Essential hypertension Heart disease Cancer Sister Cancer Brother Cancer Social History Smoking/Tobacco Use Status: Never alcohol intake: never substance use type: does not use Meds Home Medications Medication Instructions Recorded Confirmed Type lancets [FreeStyle Lancets] #100 ea 12/25/14 04/03/18 History pen needle, diabetic #100 ea 05/30/16 04/03/18 History blood sugar diagnostic [Freestyle #400 strip 12/07/17 04/03/18 Rx Test Strips] spironolactone 100 mg PO DAILY #90 tab-cap 12/07/17 06/09/18 Rx alum-mag hydroxide-simeth [Mag-Al 30 ml PO Q2H PRN PRN #1000 ml 01/23/18 06/09/18 Rx Plus] docusate sodium [Colace] 100 mg PO TID PRN PRN #90 cap 01/23/18 06/09/18 Rx insulin aspart U-100 [Novolog 0 units SUBCUT 0800,1200,1700 #10 01/23/18 06/09/18 Rx Flexpen U-100 Insulin] ml insulin aspart U-100 [Novolog 8 units SUBCUT AC #10 ml 01/23/18 06/09/18 Rx Flexpen U-100 Insulin] lactulose 20 g PO BID #1800 ml 01/23/18 06/09/18 Rx magnesium hydroxide [Milk of 30 ml PO DAILY PRN PRN #1000 ml 01/23/18 06/09/18 Rx Magnesia] melatonin 3 mg PO HS #30 tab 01/23/18 06/09/18 Rx omeprazole 20 mg PO BID #60 cap 01/23/18 06/09/18 Rx polyethylene glycol 3350 17 g PO DAILY PRN PRN #30 ea 01/23/18 06/09/18 Rx tramadol 50 mg PO Q12H PRN #10 tab 01/23/18 06/09/18 Rx ergocalciferol (vitamin D2) 50,000 unit PO QWEEK 06/09/18 06/09/18 History [Vitamin D2] furosemide 60 mg PO DAILY 06/09/18 06/09/18 History insulin glargine [Basaglar KwikPen 8 unit SUBCUT HS 06/09/18 06/09/18 History U-100 Insulin] aqashqchbroi-mbql-whkga acid 1 tab PO DAILY 06/09/18 06/09/18 History [Centrum Complete] ondansetron HCl 4 mg PO TID PRN 06/09/18 06/09/18 History Allergies Allergy/AdvReac Type Severity Reaction Status Date / Time erythromycin base Allergy Intermediate Skin Rash Verified 06/09/18 08:59 Sulfa (Sulfonamide Allergy Mild Itching Verified 06/09/18 08:59 Antibiotics) amoxicillin trihydrate AdvReac Severe DIARRHEA Verified 06/09/18 08:59 [From Augmentin] potassium clavulanate AdvReac Severe DIARRHEA Verified 06/09/18 08:59 [From Augmentin] simvastatin AdvReac Severe Severe Verified 06/09/18 08:59 Myalgia gabapentin AdvReac Intermediate WIPED ME Verified 06/09/18 08:59 OUT metformin AdvReac Intermediate H.A.; Verified 06/09/18 08:59 LOOSE TEETH; HAIR Exam Narrative Exam Narrative: General: Very pleasant middle Aged male, appears tired and weak, fully able to tell his story, A&OX3 Neurological: A&OX3, +asterexis Psychiatric: appropriate speech pattern/content Skin: Dry with facial scaling; chronic venous stasis dermatitis B; B feet without lesions. LLE tibial surface indeed with 2 healing wounds, no drainage/evidence of infection. HEENT: EOMI, Dry MM, clear oropharynx, no submandibular or cervical lymphadenopathy, no goiter or JVD Cardiovascular: RRR, no m/r/g Lungs: CTAB Gastrointestinal: abdomen soft with ascites, nontender, nondistended (though this is hard to tell with ascites); + bowel sounds. Genitourinary: Deferred Extremities: No edema, clubbing, or cyanosis; 2+ BLE pedal pulses; no lesions on feet. Skin exam as above Results Labs : 06/09/18 08:55 06/09/18 08:55 Laboratory Results - last 24 hr 06/09/18 06/09/18 06/09/18 08:55 08:55 08:55 WBC RBC Hgb Hct MCV MCH MCHC RDW Plt Count MPV Immature Gran % Neutrophils % Lymphocytes % Monocytes % Eosinophils % Basophils % Absolute Neutrophils Absolute Lymphocytes Absolute Monocytes Absolute Eosinophils Absolute Basophils Sodium 134 L Potassium 4.0 Chloride 97 L Carbon Dioxide 31.5 Anion Gap 5.5 BUN 54 H Creatinine 2.08 H Estimated GFR/1.73 m2 32.52 Glucose 106 H Calcium 8.9 Magnesium 2.3 Total Bilirubin 4.8 H AST 73 H ALT 44 Alkaline Phosphatase 273 H Ammonia 145 H Troponin I < 0.02 Total Protein 9.0 H Albumin 2.6 L Lipase 228 Urine Color Urine Clarity Urine pH Ur Specific [place] Urine Protein Urine Ketones Urine Blood Urine Nitrite Urine Bilirubin Urine Urobilinogen Ur Leukocyte Esterase Urine Glucose Fluid Source Fluid Color Fluid Appearance Fluid WBC Fluid Mononuclear Cell Fl Polymorphonucl Cell Fluid Other Cells 06/09/18 06/09/18 06/09/18 08:55 11:42 12:33 WBC 5.68 RBC 4.16 L Hgb 14.5 Hct 41.6 MCV 100.0 H MCH 34.9 H MCHC 34.9 RDW 14.0 Plt Count 47 L MPV 13.7 H Immature Gran % 0.4 Neutrophils % 71.0 Lymphocytes % 11.1 Monocytes % 15.5 Eosinophils % 1.1 Basophils % 0.9 Absolute Neutrophils 4.04 Absolute Lymphocytes 0.63 L Absolute Monocytes 0.88 H Absolute Eosinophils 0.06 Absolute Basophils 0.05 Sodium Potassium Chloride Carbon Dioxide Anion Gap BUN Creatinine Estimated GFR/1.73 m2 Glucose Calcium Magnesium Total Bilirubin AST ALT Alkaline Phosphatase Ammonia Troponin I Total Protein Albumin Lipase Urine Color Yellow Urine Clarity Clear Urine pH 7.0 Ur Specific [place] 1.015 Urine Protein Negative Urine Ketones Negative Urine Blood Negative Urine Nitrite Negative Urine Bilirubin Negative Urine Urobilinogen >=8.0 Ur Leukocyte Esterase Negative Urine Glucose Negative Fluid Source Peritoneal Fluid Color Yellow Fluid Appearance Clear Fluid WBC 208 H Fluid Mononuclear Cell 81 H Fl Polymorphonucl Cell 8 H Fluid Other Cells 11 H Last Vital Signs Temp 36.6 C 06/09/18 15:23 Pulse 57 L 06/09/18 15:23 Resp 18 06/09/18 15:23 BP 123/75 06/09/18 15:23 Pulse Ox 99 06/09/18 15:23
--- NOTE | 2018-06-09 16:51 | HPE_ITS ---
Date of service: 06/09/18 Time of Service: 16:47 Assessment and Plan (1) Hepatic encephalopathy: Current visit: Yes Status: Acute Patient educated on the need to take lactulose, even if he doesn't like it - he verbalizes understanding. I have scheduled lactulose to be TID. If the patient truly has difficulty tolerating lactulose, he should be treated with rifaximine, but for now I feel like lactulose was not given a fair try. Monitor mental status with lactulose on board. Recheck ammonia in am. (2) Hepatorenal syndrome: Current visit: Yes Status: Acute Due to dehydration - as below. Hold diuretics. On discharge, lasix should be only prn for edema, not scheduled, but the ald actone can likely be resumed. Gentle hydration with NS. May need albumin. Also, ensure there is no urinary retention. (3) Dehydration: Current visit: Yes Status: Acute Clinically, truly dry - no evidence of LE edema. Both diuretics are on hold. In the future, the patient should only be on lasix if he actually has edema - otherwise, he should remain only on aldactone for the ascites. Hydrate gently with Normal saline. May actually require albumin. (4) Ascites: Current visit: Yes Status: Acute S/p paracenthesis today with WBC's not quite meeting criteria for SBP, nor does he clinically. However, we will await peritoneal fluid culture results and, for now, cover with cefepime. (5) Nausea & vomiting: Current visit: Yes Status: Acute ?due to portal gastropathy. Check hemoccult. Start IV protonix BID. Consider starting beta blockers. Prn zofran IV for now (6) Thrombocytopenia: Current visit: Yes Status: Chronic Stable. Monitor for bleeding. No chemical DVT ppx (7) Hyponatremia: Current visit: Yes Status: Acute Due to liver disease. At this point, will monitor. (8) End stage liver disease: Current visit: Yes Status: Chronic Due to BRUNNER, with known portal hypertension, esophageal varices (no history of bleeding), ascites, prior SBP, thrombocytopenia, encephalopathy. Check INR. Patient follows with [facility]. (9) Esophageal varices without bleeding: Current visit: No Status: Acute Check hematest. Consider starting the patient on a nadolol (10) Insulin dependent diabetes mellitus: Current visit: Yes Status: Chronic Cover with sliding scale insulin for now while it is not clear how good the patient's PO intake is going to be. (11) Discharge planning issues: Current visit: Yes Status: Acute Full code as per COLST form and my discussion with patient. Will need PT/OT consults Expected to return to the [facility] on discharge. (12) DVT prophylaxis: Current visit: Yes Status: Acute Chemical DVT ppx is contraindicated with patient's thrombocytopenia and history of esophageal varices History of Present Illness Chief Complaint: Weakness, nausea, vomiting, poor appetite Narrative: Mr Urias is a 63 year old male with end stage liver disease/chronic liver failure due to BRUNNER with ascites with prior history of SBP and hepatic encephalopathy, not compliant with lactulose, as well as insulin dependent diabetes mellitus type 2 and hypertension, resident of the [facility], who was brought in to [facility] ED today by ambulance for weakness, nausea/vomiting, and poor PO intake for 2 weeks. He states he hasn't had any abdominal pain. A couple of days ago the patient also had a cough, though he states this now resolved. Denies any bleeding in his stool/emesis. He had not vomited now in several days. Last BM was yesterday and was light brown. Notably,he has not been compliant with his lactulose and had not been having diarrhea. He states he had an appointment at [facility] for a paracenthesis on 05/22, when 11 L of fluid were removed (I cannot confirm an exact volume by [facility] notes). In our ED today, he also had a paracenthesis with 2 L out of clear yellow fluid with 208 WBC's. Review of Systems Review of Systems 12 systems reviewed. Pertinent positives and negatives are as per HPI. In addition, the patient reports notices 2 sores on the tibial surface of his LLE, which initially drained pus but have since healed and are doing better. 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) (Chronic) Thrombocytopenia (Chronic) Surgical History Appendectomy (Resolved) Cholecystectomy (Resolved 08/12/12) EGD - MAC (Resolved) Family History Mother Heart disease Cancer Father Essential hypertension Heart disease Cancer Sister Cancer Brother Cancer Social History Smoking/Tobacco Use Status: Never alcohol intake: never substance use type: does not use Meds Home Medications Medication Instructions Recorded Confirmed Type lancets [FreeStyle Lancets] #100 ea 12/25/14 04/03/18 History pen needle, diabetic #100 ea 05/30/16 04/03/18 History blood sugar diagnostic [Freestyle #400 strip 12/07/17 04/03/18 Rx Test Strips] spironolactone 100 mg PO DAILY #90 tab-cap 12/07/17 06/09/18 Rx alum-mag hydroxide-simeth [Mag-Al 30 ml PO Q2H PRN PRN #1000 ml 01/23/18 06/09/18 Rx Plus] docusate sodium [Colace] 100 mg PO TID PRN PRN #90 cap 01/23/18 06/09/18 Rx insulin aspart U-100 [Novolog 0 units SUBCUT 0800,1200,1700 #10 01/23/18 06/09/18 Rx Flexpen U-100 Insulin] ml insulin aspart U-100 [Novolog 8 units SUBCUT AC #10 ml 01/23/18 06/09/18 Rx Flexpen U-100 Insulin] lactulose 20 g PO BID #1800 ml 01/23/18 06/09/18 Rx magnesium hydroxide [Milk of 30 ml PO DAILY PRN PRN #1000 ml 01/23/18 06/09/18 Rx Magnesia] melatonin 3 mg PO HS #30 tab 01/23/18 06/09/18 Rx omeprazole 20 mg PO BID #60 cap 01/23/18 06/09/18 Rx polyethylene glycol 3350 17 g PO DAILY PRN PRN #30 ea 01/23/18 06/09/18 Rx tramadol 50 mg PO Q12H PRN #10 tab 01/23/18 06/09/18 Rx ergocalciferol (vitamin D2) 50,000 unit PO QWEEK 06/09/18 06/09/18 History [Vitamin D2] furosemide 60 mg PO DAILY 06/09/18 06/09/18 History insulin glargine [Basaglar KwikPen 8 unit SUBCUT HS 06/09/18 06/09/18 History U-100 Insulin] yfavchztueqk-iece-vevao acid 1 tab PO DAILY 06/09/18 06/09/18 History [Centrum Complete] ondansetron HCl 4 mg PO TID PRN 06/09/18 06/09/18 History Allergies Allergy/AdvReac Type Severity Reaction Status Date / Time erythromycin base Allergy Intermediate Skin Rash Verified 06/09/18 08:59 Sulfa (Sulfonamide Allergy Mild Itching Verified 06/09/18 08:59 Antibiotics) amoxicillin trihydrate AdvReac Severe DIARRHEA Verified 06/09/18 08:59 [From Augmentin] potassium clavulanate AdvReac Severe DIARRHEA Verified 06/09/18 08:59 [From Augmentin] simvastatin AdvReac Severe Severe Verified 06/09/18 08:59 Myalgia gabapentin AdvReac Intermediate WIPED ME Verified 06/09/18 08:59 OUT metformin AdvReac Intermediate H.A.; Verified 06/09/18 08:59 LOOSE TEETH; HAIR Exam Narrative Exam Narrative: General: Very pleasant middle Aged male, appears tired and weak, fully able to tell his story, A&OX3 Neurological: A&OX3, +asterexis Psychiatric: appropriate speech pattern/content Skin: Dry with facial scaling; chronic venous stasis dermatitis B; B feet without lesions. LLE tibial surface indeed with 2 healing wounds, no drainage/evidence of infection. HEENT: EOMI, Dry MM, clear oropharynx, no submandibular or cervical lymphadenopathy, no goiter or JVD Cardiovascular: RRR, no m/r/g Lungs: CTAB Gastrointestinal: abdomen soft with ascites, nontender, nondistended (though this is hard to tell with ascites); + bowel sounds. Genitourinary: Deferred Extremities: No edema, clubbing, or cyanosis; 2+ BLE pedal pulses; no lesions on feet. Skin exam as above Results Labs : 06/09/18 08:55 06/09/18 08:55 Laboratory Results - last 24 hr 06/09/18 06/09/18 06/09/18 08:55 08:55 08:55 WBC RBC Hgb Hct MCV MCH MCHC RDW Plt Count MPV Immature Gran % Neutrophils % Lymphocytes % Monocytes % Eosinophils % Basophils % Absolute Neutrophils Absolute Lymphocytes Absolute Monocytes Absolute Eosinophils Absolute Basophils Sodium 134 L Potassium 4.0 Chloride 97 L Carbon Dioxide 31.5 Anion Gap 5.5 BUN 54 H Creatinine 2.08 H Estimated GFR/1.73 m2 32.52 Glucose 106 H Calcium 8.9 Magnesium 2.3 Total Bilirubin 4.8 H AST 73 H ALT 44 Alkaline Phosphatase 273 H Ammonia 145 H Troponin I < 0.02 Total Protein 9.0 H Albumin 2.6 L Lipase 228 Urine Color Urine Clarity Urine pH Ur Specific [place] Urine Protein Urine Ketones Urine Blood Urine Nitrite Urine Bilirubin Urine Urobilinogen Ur Leukocyte Esterase Urine Glucose Fluid Source Fluid Color Fluid Appearance Fluid WBC Fluid Mononuclear Cell Fl Polymorphonucl Cell Fluid Other Cells 06/09/18 06/09/18 06/09/18 08:55 11:42 12:33 WBC 5.68 RBC 4.16 L Hgb 14.5 Hct 41.6 MCV 100.0 H MCH 34.9 H MCHC 34.9 RDW 14.0 Plt Count 47 L MPV 13.7 H Immature Gran % 0.4 Neutrophils % 71.0 Lymphocytes % 11.1 Monocytes % 15.5 Eosinophils % 1.1 Basophils % 0.9 Absolute Neutrophils 4.04 Absolute Lymphocytes 0.63 L Absolute Monocytes 0.88 H Absolute Eosinophils 0.06 Absolute Basophils 0.05 Sodium Potassium Chloride Carbon Dioxide Anion Gap BUN Creatinine Estimated GFR/1.73 m2 Glucose Calcium Magnesium Total Bilirubin AST ALT Alkaline Phosphatase Ammonia Troponin I Total Protein Albumin Lipase Urine Color Yellow Urine Clarity Clear Urine pH 7.0 Ur Specific [place] 1.015 Urine Protein Negative Urine Ketones Negative Urine Blood Negative Urine Nitrite Negative Urine Bilirubin Negative Urine Urobilinogen >=8.0 Ur Leukocyte Esterase Negative Urine Glucose Negative Fluid Source Peritoneal Fluid Color Yellow Fluid Appearance Clear Fluid WBC 208 H Fluid Mononuclear Cell 81 H Fl Polymorphonucl Cell 8 H Fluid Other Cells 11 H Last Vital Signs Temp 36.6 C 06/09/18 15:23 Pulse 57 L 06/09/18 15:23 Resp 18 06/09/18 15:23 BP 123/75 06/09/18 15:23 Pulse Ox 99 06/09/18 15:23
[2018-06-09] MEDS: Normal Saline 1,000 ML 75 ML IV (18:13)
--- NOTE | 2018-06-09 18:27 | DI.RAD_ITS ---
SYMPTOM/DIAGNOSIS: COUGH, FROM SENIOR LIVING, SUSPECT PNEUMONIA PORTABLE CHEST: Comparison is made with 17 Jan 2018. The heart size is normal. The lungs are poorly inflated. There is a question of patchy bilateral pulmonary densities which could represent pneumonia vs hypoventillatory changes. IMPRESSION: Question of bilateral infiltrates vs atelectasis. Limited exam.
--- NOTE | 2018-06-09 18:33 | DI.VRAD_ITS ---
EXAM: XR Chest, 1 View EXAM DATE/TIME: 06/09/2018 5:40 PM CLINICAL HISTORY: 63 years old, male; Signs and symptoms; Shortness of breath TECHNIQUE: XR of the chest, 1 view. COMPARISON: CR XR CHEST 2V PA LATERAL 01/17/2018 3:34 PM FINDINGS: Lungs: Mild to moderate nonspecific bilateral pulmonary opacities most consistent with pneumonia. Poor inspiratory effort with some crowding of pulmonary markings and possible accentuation of the apparent heart size. Pleural space: Unremarkable. No pleural effusion. No pneumothorax. Heart/Mediastinum: Unremarkable. No cardiomegaly. Bones/joints: Mild dextroscoliosis. Other findings: Patient rotation to the left. IMPRESSION: 1. Mild to moderate nonspecific bilateral pulmonary opacities most consistent with pneumonia. 2. Poor inspiratory effort with some crowding of pulmonary markings and possible accentuation of the apparent heart size. Dictated and Authenticated by: William Dash MD. Ordering:REJI Mooney MD
--- NOTE | 2018-06-09 19:19 | NUR.NOTE ---
Nursing Note: Report received from off going nurse, patient is in stable condition, currently resting in bed, no report of pain or discomfort at this time, the bed is in the low and locked position, side rails up x2, call light within reach.
[2018-06-09] MEDS: CEFEPIME 2 GM in Normal Saline 100 ML IVPB (19:35)
[2018-06-09] MEDS: Pantoprazole 40 MG VIAL IVP (19:36)
[2018-06-09] MEDS: Lactulose 20 GM/30 ML CUP PO (19:37)
[2018-06-09] MEDS: Insulin Aspart 300 UNITS/3 ML PEN SC (21:26)
[2018-06-09] MEDS: Melatonin 3 MG TAB PO (21:26)
--- NOTE | 2018-06-09 22:03 | NUR.NOTE ---
Nursing Note: Straight cath performed on patient per MD orders. Patient tolerated well. Output of 900cc, documented in I&O.
[2018-06-10] VITALS (7 sets, daily range): BP systolic 103–123; BP diastolic 54–71; PULSE 60–69; RESP 16–22; TEMP 36.1–37.1; O2SAT 90–99
--- NOTE | 2018-06-10 04:24 | NUR.NOTE ---
Nursing Note: Patient bladder scanned for PVR per MD orders, 161 greatest reading obtained.
[2018-06-10] MEDS: Normal Saline 1,000 ML 75 ML IV ×2 (05:46→20:48)
[2018-06-10 07:15] LABS: Abs Immature Grans 0.01 k/cumm (0.0-0.09); Absolute Basophil Count 0.05 k/cumm (0.0-0.2); Absolute Lymphocyte Count 0.36 k/cumm (1.2-3.4); Absolute Monocyte Count 0.75 k/cumm (0.11-0.7); Absolute Neutrophil Count 2.87 k/cumm (1.2-6.7); Basophils % 1.2; Eosinophils % 2.4; HCT 38.6 % (40.0-50.0); HGB 13.4 g/dL (13.5-17.5); Immature Grans % 0.2; Lymphocytes % 8.7; Mean Corp. HGB Concentration 34.7 g/dL (32.0-36.0); Mean Corpuscular Hemoglobin 34.9 pg (27.0-33.0); Mean Corpuscular Volume 100.5 fL (80-95); Mean Platelet Volume 13.4 fL (8.0-11.0); Monocytes % 18.1; Neutrophils % 69.4; RBC 3.84 m/cumm (4.50-6.00); White Blood Cell Count 4.14 k/cumm (4.4-10.8)
[2018-06-10 07:23] LABS: Ammonia 75 umol/L (11-32); INR 1.2 (0.9-1.1); Prothrombin Time 12.1 sec (9.3-11.0)
[2018-06-10 07:28] LABS: ALT 35 U/L (12-78); AST 66 U/L (15-37); Albumin 2.3 g/dL (3.4-5.0); Alkaline Phosphatase 233 U/L (46-116); Anion Gap 7.5 mmol/L (3-11); BUN 53 mg/dL (7-18); Bilirubin, Direct 2.66 mg/dL (0.00-0.20); Bilirubin, Total 3.9 mg/dL (0.2-1.0); CO2 29.5 mmol/L (21.0-32.0); CREATININE 1.99 mg/dL (0.70-1.30); Calcium 8.6 mg/dL (8.5-10.1); Chloride 104 mmol/L (98-107); Estimated GFR 34.22 (mL/min/1.73m2); Glucose 103 mg/dL (70-100); Magnesium 1.8 mg/dL (1.8-2.4); Potassium 4.3 mmol/L (3.5-5.1); Sodium 141 mmol/L (136-145); Total Protein 7.9 g/dL (6.4-8.2)
[2018-06-10 07:53] LABS: Platelet Count 48 x1000/uL (130-400)
[2018-06-10 07:54] LABS: Diff Comment RBC Morph Reviewed; Macrocytosis 2+
[2018-06-10] MEDS: CEFEPIME 2 GM in Normal Saline 100 ML IVPB ×2 (08:24→19:12)
[2018-06-10] MEDS: Lactulose 20 GM/30 ML CUP PO ×3 (08:24→19:12)
[2018-06-10] MEDS: Normal Saline Flush 10 ML SYR IVP ×2 (08:24→19:17)
[2018-06-10] MEDS: Multivitamin w/Minerals TAB 1 TAB PO (08:24)
[2018-06-10] MEDS: Pantoprazole 40 MG VIAL IVP ×2 (08:24→19:12)
--- NOTE | 2018-06-10 09:11 | PHARADMIT ---
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 Taken to OR for insertion of pigtail to drain ascites while on hospice. Objective HR-50 BP-95/59 Na-133, K+4.0 Mag-2.0 SCr-1.59 H&H-12.9/37 Plts-63 Wgt- 99.3 kg, BM today Assessment Spironolactone, Lasix, Lactulose continue. Plan Patient to return to [facility] Original Note: Addendum entered by Camille Barrera 06/18/18 14:08: Pharmacy Note Subjective Objective BP-92/58 HR-54 Na-130 SCr-1.68 FSBG-173 Plt-62(down) weight-102.6(up) Assessment furosemide discontinued, spironolactone started (pts home dose), lactulose changed from Q6H to TID albumin ordered prior to paracentesis nadolol discontinued yesterday due to bradycardia and fatigue Plan continue to watch VS, weight, labs, and for med changes Original Note: Addendum entered by Camron Garcia III 06/13/18 12:39: Pharmacy Note Subjective Nursing reports patient feeling achey last night Objective VS-OK K+5.0 Na-131 SCr-1.67 Plts- 57 INR-2.3 Assessment MD expecting diarrhea to start before she increases Lactulose further. Vancomycin trough due at 11am if patient does not discharge Plan Plan is for discharge tomorrow back to [facility]. Original Note: Addendum entered by Camron Garcia III 06/12/18 14:46: Pharmacy Note Subjective Nursing notes sho san MD dc'D IV Fluids Objective VS-OK K+4.5 SCr-1.46 Plts-44 H&H,WBC-OK Assessment Ammonia levels continues to drop with Lactulose. Vancomycin trough (18.2, no change, continue & Cefepime. Plan Watch K+(rising) & ammonia levels. thinking discharge on Sunday. Original Note: Addendum entered by Camille Barrera 06/11/18 16:33: Pharmacy Note Subjective Objective HR-54 BP-125/58 other VS okay Na-135 ammonia-93(up) SCr-1.73 improved plt-46 Assessment cefepime (day3) and vanco (day 2) continue, mentioned 5 days of vanco lactulose cahanged to Q6H rifaxamin, nadolol, metoclopramide, tamsulosin all ordered Plan vanco trough ordered for tomorrow @1100, not quite at steady state Original Note: Admission Pharmacy Clinical Review Hepatic encephalopathy, acites Code Status Full Code Current Weight 87.2 kg Renally Cleared and Narrow Therapeutic Index Meds Crcl ~42.00 mL/min current meds okay QTc Value / Action Taken QTc 449 BP Control, Fever BP 106/65 afebrile Electrolytes reviewed within normal limits DVT Prophylaxis none- thrombocytopenia Opiate Usage / Scheduled Bowel Regimen Ordered prn/prn Plt/SCr for Heparin / Enoxaparin plt 48 SCr 1.99 INR for Warfarin INR-1.2 H/H stable, WBC/Bands h/h 13.4/38.6 wbc 4.14 Antibiotic appropriateness cefepime and vanco Cultures and Sensitivities peritoneal body fluid culture- no growth @24 hours MRSA-pending rapid flu- negative sputum and blood cultures pending Surgical ABX d/c within 24 hr n/a DM control / Insulin Dosing BG 103 sliding scale aspart Heart Failure (Check EF%) (DAMI's, B-Block, Diuretics) carvedilol, furosemide, spironolactone (all home meds/not currently ordered) IV to PO Switch n/a Home Meds Reviewed - multivitamin and vitamin D may increase the serum concentration of aluminum hydroxide; avoid excessive use/watch for aluminum related toxicity -multiple vitamin D analogs, watch for increased risk of toxicity -separate admin of multivitamin from magnesium hydroxide Home Meds Not Ordered mag-al plus, carvedilol, docusate, ergocalciferol, furosemide, insulin glargine, milk of mag, omeprazole (has pantoprazole), miralax, spironolactone Comments
--- NOTE | 2018-06-10 09:44 | PT.INIE ---
Date of service: 06/10/18 Time of Service: 09:10 PT Notes Inpatient Physical Therapy Evaluation Date: 06/10/18 Referring Doctor: Dr. Wise PT Orders: PT CONSULT: evaluate and treat Precautions: contact, fall Patient Profile/Admitting Diagnosis: Patient admitted from the [facility] after experiencing weakness with nausea and vomiting. He is now being managed acutely for hepatic encephalopathy, hepatorenal syndrome and dehydration. PMHX: IDDM, esophageal varices, end stage liver disease, hyponatremia, thrombocytopenia Social History/Home Situation: Patient is a half-way resident of the [facility]. He reports that he walks the halls on his own with a WW throughout the day. He also completes a regular exercise program on his own, using therabands and performing seated exercises. Current Functional Limitations: Abdoulaye states that he hasn't been able to perform his exercises or walk on his own for the past couple of days due to weakness. He also required assistance getting in/out of bed yesterday. Equipment Owned/DME: [facility], assisted living Subjective: Abdoulaye states that he is feeling tired, but overall better than yesterday. He's anxious to get up and moving again. Objective: General Observation: Sitting in chair with IV in LUE. Mental Status: A&Ox3 Pain: denies ROM: Right Upper Extremity: Shoulder flexion to 140 degrees. Otherwise, grossly WFL. Left Upper Extremity: Shoulder flexion to 140 degrees. Otherwise, grossly WFL. Right Lower Extremity: Grossly WFL Left Lower Extremity: Grossly WFL Strength: Right Upper Extremity: Shoulder flexion 3+/5. Biceps 4-/5. Triceps 3+/5. Research Test Engine Operator weak, but equal. Left Upper Extremity: Shoulder flexion 3+/5. Biceps 4-/5. Triceps 3+/5. Research Test Engine Operator weak, but equal. Right Lower Extremity: Hip flexion 4/5. Quads 4-/5. Hamstrings 4-/5. Ankle DF 4+/5. Left Lower Extremity: Hip flexion 4/5. Quads 4-/5. Hamstrings 4-/5. Ankle DF 4+/5. Sensation: diminished through plantar aspect of feet Bed Mobility/Transfers: supine-sit: supervision sit-stand: CG stand-sit: CG, cues for safety bed-chair: FWW, CG Gait: Patient is able to ambulate 25' with FWW and CG. He requires cues for safety throughout, particularly with turning. Balance: Static Sitting: good Dynamic Sitting: fair Static Standing: fair Dynamic Standing: fair Special Tests: Mobility Limitations Standardized Measure [facility] AM-PAC 6 clicks Basic Mobility Inpatient Short Form: Raw Score: 19 Standardized Score: 45.44 CMS Score: 42% Informed Consent/Education: Patient instructed in purpose of PT consult and plan of care. Treatment: Patient was seen for evaluation, followed by instruction in both open and closed chain strengthening program. He required significant cues throughout, as well as CG during dynamic standing activities. Assessment: Patient is a 63 year old male referred to physical therapy services with the diagnosis of weakness due to hepatic ecephalopathy. Patient presents with clinical signs and symptoms consistent with diagnosis, as demonstrated by the following impairment level findings: 1. Decreased UE strength 2. Decreased LE strength 3. Decreased balance 4. Decreased activity tolerance 5. Decreased sensation bilat feet Impairments are contributing to the following functional limitations: 1. Decreased tolerance to household distance ambulation 2. Decreased independence with bed mobility 3. Decreased balance resulting in elevated fall risk [facility] score 42% deficit. Patient is assessed as Moderate 01546 complexity based on the following: History: 63 year old male admitted for acute management of hepatic encephalopathy. He has a complicated medical history as noted above, as well as being a long-term resident of the [facility] due to ongoing mobility issues. Examination: functional limitations as noted above Presentation: evolving Decision Making: moderate complexity Goals: Goals X1 week 1. Supine-Sit: supervision 2. Sit-Supine supervision 3. Sit-Stand : supervision 4. Stand-Sit : supervision 5. Bed-Chair : supervision with FWW 6. Chair-Bed : supervision with FWW 7. Gait : supervision with FWW x 50' Plan of Care/Treatment Plan: 1-2x/day, 7 days/week x 1 week. Plan of care has been reviewed with the CENTRAL OFFICE FRAME WIRER providing the service under Physical Therapy direction. Initiate Physical Therapy intervention for strengthening, bed mobility, transfers, gait, stairs, balance training, use of assistive device. DISCHARGE RECOMMENDATIONS: Return to the [facility], no equipment needs TREATMENT CODE/TIME: 30 minutes ([id number]) Vashti Ronquillo, PT, DPT [facility]
--- NOTE | 2018-06-10 09:49 | IN_ITS ---
Date of service: 06/10/18 Time of Service: 09:10 PT Notes Inpatient Physical Therapy Evaluation Date: 06/10/18 Referring Doctor: Dr. Wise PT Orders: PT CONSULT: evaluate and treat Precautions: contact, fall Patient Profile/Admitting Diagnosis: Patient admitted from the [facility] after experiencing weakness with nausea and vomiting. He is now being managed acutely for hepatic encephalopathy, hepatorenal syndrome and dehydration. PMHX: IDDM, esophageal varices, end stage liver disease, hyponatremia, thrombocytopenia Social History/Home Situation: Patient is a retirement resident of the [facility]. He reports that he walks the halls on his own with a WW throughout the day. He also completes a regular exercise program on his own, using therabands and performing seated exercises. Current Functional Limitations: Abdoulaye states that he hasn't been able to perform his exercises or walk on his own for the past couple of days due to weakness. He also required assistance getting in/out of bed yesterday. Equipment Owned/DME: [facility], assisted living Subjective: Abdoulaye states that he is feeling tired, but overall better than yesterday. He's anxious to get up and moving again. Objective: General Observation: Sitting in chair with IV in LUE. Mental Status: A&Ox3 Pain: denies ROM: Right Upper Extremity: Shoulder flexion to 140 degrees. Otherwise, grossly WFL. Left Upper Extremity: Shoulder flexion to 140 degrees. Otherwise, grossly WFL. Right Lower Extremity: Grossly WFL Left Lower Extremity: Grossly WFL Strength: Right Upper Extremity: Shoulder flexion 3+/5. Biceps 4-/5. Triceps 3+/5. Photographer Assistant weak, but equal. Left Upper Extremity: Shoulder flexion 3+/5. Biceps 4-/5. Triceps 3+/5. Photographer Assistant weak, but equal. Right Lower Extremity: Hip flexion 4/5. Quads 4-/5. Hamstrings 4-/5. Ankle DF 4+/5. Left Lower Extremity: Hip flexion 4/5. Quads 4-/5. Hamstrings 4-/5. Ankle DF 4+/5. Sensation: diminished through plantar aspect of feet Bed Mobility/Transfers: supine-sit: supervision sit-stand: CG stand-sit: CG, cues for safety bed-chair: FWW, CG Gait: Patient is able to ambulate 25' with FWW and CG. He requires cues for safety throughout, particularly with turning. Balance: Static Sitting: good Dynamic Sitting: fair Static Standing: fair Dynamic Standing: fair Special Tests: Mobility Limitations Standardized Measure [facility] AM-PAC 6 clicks Basic Mobility Inpatient Short Form: Raw Score: 19 Standardized Score: 45.44 CMS Score: 42% Informed Consent/Education: Patient instructed in purpose of PT consult and plan of care. Treatment: Patient was seen for evaluation, followed by instruction in both open and closed chain strengthening program. He required significant cues throughout, as well as CG during dynamic standing activities. Assessment: Patient is a 63 year old male referred to physical therapy services with the diagnosis of weakness due to hepatic ecephalopathy. Patient presents with clinical signs and symptoms consistent with diagnosis, as demonstrated by the following impairment level findings: 1. Decreased UE strength 2. Decreased LE strength 3. Decreased balance 4. Decreased activity tolerance 5. Decreased sensation bilat feet Impairments are contributing to the following functional limitations: 1. Decreased tolerance to household distance ambulation 2. Decreased independence with bed mobility 3. Decreased balance resulting in elevated fall risk [facility] score 42% deficit. Patient is assessed as Moderate 62773 complexity based on the following: History: 63 year old male admitted for acute management of hepatic encephalopathy. He has a complicated medical history as noted above, as well as being a long-term resident of the [facility] due to ongoing mobility issues. Examination: functional limitations as noted above Presentation: evolving Decision Making: moderate complexity Goals: Goals X1 week 1. Supine-Sit: supervision 2. Sit-Supine supervision 3. Sit-Stand : supervision 4. Stand-Sit : supervision 5. Bed-Chair : supervision with FWW 6. Chair-Bed : supervision with FWW 7. Gait : supervision with FWW x 50' Plan of Care/Treatment Plan: 1-2x/day, 7 days/week x 1 week. Plan of care has been reviewed with the GEAR ROLLER providing the service under Physical Therapy direction. Initiate Physical Therapy intervention for strengthening, bed mobility, transfers, gait, stairs, balance training, use of assistive device. DISCHARGE RECOMMENDATIONS: Return to the [facility], no equipment needs TREATMENT CODE/TIME: 30 minutes ([id number]) Vashti Ronquillo, PT, DPT [facility]
--- NOTE | 2018-06-10 11:04 | OTIE_ITS ---
Occupational Therapy Notes Inpatient Occupational Therapy Evaluation Date: 06/10/18 Referring Doctor:Jesica Wise MD OT Orders: Eval and Treat Precautions: Contact precautions, Fall Risk PATIENT PROFILE/ADMITTING DIAGNOSIS: Pt is a 63 year old male who was admitted through the ER on 06/09/18 from the [facility] after experiencing weakness,nausea and vomiting. He is now being managed acutely for hepatic encephalopathy, hepatorenal syndrome and dehydration. Past Medical History: IDDM, esophageal varices, end stage liver disease, hyponatremia, thrombocytopenia Current Functional Limitations: Decreased functional activity tolerance, decreased (B)UE strength, decreased (B)UE AROM, decreased functional mobility to perform ADLs. Social History/Home Situation: Pt is currently living at [facility], he reports that he daily washes himself up standing at the sink but only gets to shower 1x per week. He reports that his baseline is (I) with all ADLs/IADLs as well as toileting which he typically performs on the toilet (I). Equipment owned/DME: [facility], Assisted living facility SUBJECTIVE: Pt was sitting in bed when OT arrived. He reports that he is extremely tired since he worked with PT and would like to take a nap. He was agreeable to OT consult. OBJECTIVE: General Observation: IV (R) UE Mental Status: A&Ox3 Pain: no c/o pain ROM: Right Upper Extremity: Shoulder flexion to 130 degrees. Elbow and hand WNL Left Upper Extremity: Shoulder flexion to 130 degrees. Elbow and hand WNL STRENGTH: Right Upper Extremity: Shoulder flexion 3+/5. Biceps 4/5. Ham Stringer weak and symmetrical Left Upper Extremity: Shoulder flexion 3+/5. Biceps 4/5. Ham Stringer weak and symmetrical FUNCTIONAL MOBILITY/ADLS: BATHING sitting in bed with assist with set up (A) Bathing UE (I) UE, max (A) back with min vc Bathing LE Max(A) (B) LE DRESSING Sitting in hospital bed Dressing UE Mod (A) with donning and doffing hospital gown Dressing LE Max (A) GROOMING Pt performed teeth/hair brushing sitting in bed (I) TOILETING NT at todays session BALANCE: Static sitting Normal Dynamic Sitting Fair SPECIAL TESTS: Daily Activity Limitations [facility] Daily Activity Inpatient Short Form: Raw score: 17 Standardized score: 37.26 CMS score: 50.11% CMS modifier: CK INFORMED CONSENT/EDUCATION: Pt instructed in purpose of OT Consult and plan of care. ASSESSMENT: Patient is a 63-year-old male referred to occupational therapy services with diagnosis of ER on 06/09/18 from the [facility] after experiencing weakness,nausea and vomiting. He is now being managed acutely for hepatic encephalopathy, hepatorenal syndrome and dehydration. Patient presents with clinical signs and symptoms consistent with dx, as demonstrated by the following impairment level findings/ functional limitations: Decreased functional activity tolerance, decreased (B)UE strength, decreased (B)UE AROM, decreased functional mobility to perform ADLs. OT recommends that pt return to [facility] when medically cleared per MD. AMPAC score 17, CMS score 50.11% Patient is assessed as a Moderate 06051 complexity based on the following: History: See Above Examination: See Above Presentation: Evolving Decision Making: AMPAC score 17, CMS score 50.11% GOALS Goals x1 week 1. Transfers S, FWW 2. Dressing Sitting in chair (I) with UE/LE dressing 3. Bathing Standing at sink (I) with UE/LE. 4. Toileting on toilet (I) 5. Eating (I) 6. Grooming- standing at sink with FWW (I) PLAN OF CARE/TREATMENT PLAN: 1x/day, 5 days/ week x 1week Initiate Occupational Therapy Services for bathing, dressing, grooming, toileting, eating, transfer training. DISCHARGE RECOMMENDATIONS Return to [facility] when medically cleared per MD. TREATMENT TIME/MINUTES/CODES 35110, 58349, 30 minutes (10:30) G Codes in the area of self- : washing oneself, toileting, dressing, eating and drinking, current status GO [id number] CK projected status GO [id number]. Discharge status (if discharging) GO [id number] Lien Vera OTR/[facility]
--- NOTE | 2018-06-10 11:21 | PDOC.CMIN ---
Care Management Initial Assess REASON FOR HOSPITALIZATION:: Hepatic Encephalopathy, Ascites PAST MEDICAL HISTORY/PAST SURGICAL HISTORY:: Chronic liver failure, Diabetes type 2, controlled, Diabetic foot ulcer associated with type 2 diabetes mellitus, Hypertension, Liver cirrhosis secondary to nonalcoholic steatohepatitis, Thrombocytopenia, Appendectomy, Cholecystectomy, EGD - MA PREVIOUS FUNCTIONAL STATUS/SOCIAL/FAMILY SUPPORTS:: Abdoulaye resides at the [facility] in [place], [place] since his discharge from [facility] in January of 2018. He previously lived alone on [address]. He has no children and has never been . Abdoulaye retired from a [email or web address] in [place] 12 years ago and his income is limited to his social security. Abdoulaye has a sister in law, Vilma, and nephew, Tanvir, who are supportive. Abdoulaye is now on [facility] Medicaid which pays for his level of care at the [facility]. CURRENT FUNCTIONAL STATUS:: Abdoulaye was in bed, readying to eat lunch when CM met with him. His nephew and nephew's were at his bedside along with his CCC; Tammie. He was pleasant in interaction and reported no concerns at this time. ADVANCE DIRECTIVES:: On file at [facility]. Has patient been provided with information about the portal?: Yes Did the patient sign up for the portal?: No CODE STATUS:: Full Code INSURANCE COVERAGE / FINANCIAL ISSUES:: Medicare, Financial Assistance: 100%, [facility] Medicaid. CURRENT HOME/COMMUNITY SERVICES/EQUIPMENT:: Abdoulaye is a current resident at the [facility], he has LTC CFC. PRIMARY CARE PHYSICIAN:: Jaden Mendoza MD. POTENTIAL DISCHARGE NEEDS:: Follow up appointment with PCP and plan of care. PATIENT/FAMILY EDUCATION NEEDS:: Discharge education, any limitations and follow up plan of care. Ask Me Three discussion. ANTICIPATED BARRIERS TO DISCHARGE:: None anticipated at this time; Abdoulaye will return to his residence at the [facility]. TRANSPORTATION:: Via private vehicle with family or RCT. PLAN:: [facility]. CM will continue to follow and provide updated clinicals to [facility] staff. Abdoulaye will transport via private vehicle with family or RCT.
[2018-06-10] MEDS: Tamsulosin 0.4 MG CAPCR PO (11:24)
--- NOTE | 2018-06-10 12:00 | INITIAL_ITS ---
Care Management Initial Assess REASON FOR HOSPITALIZATION:: Hepatic Encephalopathy, Ascites PAST MEDICAL HISTORY/PAST SURGICAL HISTORY:: Chronic liver failure, Diabetes type 2, controlled, Diabetic foot ulcer associated with type 2 diabetes mellitus, Hypertension, Liver cirrhosis secondary to nonalcoholic steatohepatitis, Thrombocytopenia, Appendectomy, Cholecystectomy, EGD - MA PREVIOUS FUNCTIONAL STATUS/SOCIAL/FAMILY SUPPORTS:: Abdoulaye resides at the [facility] in [place], [place] since his discharge from [facility] in January of 2018. He previously lived alone on [address]. He has no children and has never been . Abdoulaye retired from a [employer] in [place] 12 years ago and his income is limited to his social security. Abdoulaye has a sister in law, Vilma, and nephew, Tanvir, who are supportive. Abdoulaye is now on [facility] Medicaid which pays for his level of care at the [facility]. CURRENT FUNCTIONAL STATUS:: Abdoulaye was in bed, readying to eat lunch when CM met with him. His nephew and nephew's were at his bedside along with his CCC; Tammie. He was pleasant in interaction and reported no concerns at this time. ADVANCE DIRECTIVES:: On file at [facility]. Has patient been provided with information about the portal?: Yes Did the patient sign up for the portal?: No CODE STATUS:: Full Code INSURANCE COVERAGE / FINANCIAL ISSUES:: Medicare, Financial Assistance: 100%, [facility] Medicaid. CURRENT HOME/COMMUNITY SERVICES/EQUIPMENT:: Abdoulaye is a current resident at the [facility], he has LTC CFC. PRIMARY CARE PHYSICIAN:: Jaden Mendoza MD. POTENTIAL DISCHARGE NEEDS:: Follow up appointment with PCP and plan of care. PATIENT/FAMILY EDUCATION NEEDS:: Discharge education, any limitations and follow up plan of care. Ask Me Three discussion. ANTICIPATED BARRIERS TO DISCHARGE:: None anticipated at this time; Abdoulaye will return to his residence at the [facility]. TRANSPORTATION:: Via private vehicle with family or RCT. PLAN:: [facility] when ready per MD. CM will continue to follow and provide updated clinicals to [facility] staff. Abdoulaye will transport via private vehicle with family or RCT.
[2018-06-10] MEDS: Insulin Aspart 300 UNITS/3 ML PEN SC ×3 (12:11→21:00)
[2018-06-10] MEDS: guaiFENesin 600 MG TABCR PO ×2 (12:11→19:12)
[2018-06-10] MEDS: Benzonatate 100 MG CAP PO ×2 (13:48→19:12)
--- NOTE | 2018-06-10 14:40 | PGE_ITS ---
Date of Service Date of service: 06/10/18 Time of Service: 14:37 Assessment and Plan (1) HCAP (healthcare-associated pneumonia): Current visit: Yes Status: Acute Seen on CXR yesterday evening - present on admission. Vancomycin added to cefepime. I also added antitussives and nebs. (2) Hepatic encephalopathy: Current visit: Yes Status: Acute Clinically improved. Continue lactulose. (3) Hepatorenal syndrome: Current visit: Yes Status: Acute YURI is multifactorial - both due to hepatorenal syndrome from overdiuresis with lasix as well as due to urinary retention. Obtain US kidneys. Flomax started today. If has retention again in the next 24 hours, he should get a mcfarland catheter. Continue gentle hydration and holding both lasix and aldactone. May require albumin, but at this point still responding to NS. On discharge, lasix should be written as prn for edema; aldactone should be continued the way it was. (4) Urinary retention: Current visit: Yes Status: Acute start flomax, continue monitoring PVR's. Check US kidneys. (5) Dehydration: Current visit: Yes Status: Acute As above (6) Ascites: Current visit: Yes Status: Acute S/p paracenthesis 06/09/18 in the ED with WBC's not quite meeting criteria for SBP. Clinically, there is no evidence of SBP either. He is being covered with cefepime for PNA. Fluid cultures show no growth to date so far. Aldactone is presently on hold, but should be resumed once kidney function returns to baseline. (7) Nausea & vomiting: Current visit: Yes Status: Acute ?due to portal gastropathy. This is significantly better on protonix IV - continue for now. Consider starting nadolol. (8) Thrombocytopenia: Current visit: Yes Status: Chronic Stable. Monitor for bleeding. No chemical DVT ppx (9) Hyponatremia: Current visit: Yes Status: Resolved Due to liver disease. At this point, will monitor. (10) End stage liver disease: Current visit: Yes Status: Chronic Due to BRUNNER, with known portal hypertension, esophageal varices (no history of bleeding, hemoccult negative), ascites, prior SBP, thrombocytopenia, encephalopathy. INR 1.2. Patient follows with [facility]. We will attempt to initiate nadolol on this admission. (11) Esophageal varices without bleeding: Current visit: No Status: Acute Hemoccult negative. Consider starting the patient on a nadolol (12) Insulin dependent diabetes mellitus: Current visit: Yes Status: Chronic Cover with sliding scale insulin (13) Discharge planning issues: Current visit: Yes Status: Acute Full code as per COLST form and my discussion with patient. Expected to return to the [facility] on discharge. (14) DVT prophylaxis: Current visit: Yes Status: Acute Chemical DVT ppx is contraindicated with patient's thrombocytopenia and history of esophageal varices Subjective Interval history since last seen: Mr Urias states he spent the whole night coughing, with cough being productive of white sputum. He states overall he feels better today. He denies dizziness, has more energy today, denies chest pain, shortness of breath. He still had nausea overnight,but had not had any today. He was able to tolerate his breakfast and lunch. He had not yet had diarrhea, but he has been taking his lactulose. He still notes that he is shaky. Overnight, nursing reports that the patient was retaining 900 cc of urine, for which he had to be straight cath'ed. Exam Narrative Exam Narrative: General: Very pleasant middle Aged male, A&Ox3, looks better, continues to have asterexis HEENT: EOMI, Dry MM (but better) Cardiovascular: RRR, no m/r/g Lungs: Quiet wheezing on expiration B; I do not observe the cough today Gastrointestinal: abdomen soft with ascites, nontender, nondistended Extremities: No edema, clubbing, or cyanosis; 2+ BLE pedal pulses; L tibial surface wounds do not look infected; wearing TEDs Objective Objective Clinical Data: Abnormal lab results 06/10/18 06/10/18 06/10/18 Range/Units 07:00 07:00 07:00 WBC (4.4-10.8) k/cumm RBC (4.50-6.00) m/cumm Hgb (13.5-17.5) g/dL Hct (40.0-50.0) % MCV (80-95) fL MCH (27.0-33.0) pg Plt Count (130-400) x1000/uL MPV (8.0-11.0) fL Absolute Lymphocytes (1.2-3.4) k/cumm Absolute Monocytes (0.11-0.7) k/cumm PT 12.1 H (9.3-11.0) sec INR 1.2 H (0.9-1.1) BUN 53 H (7-18) mg/dL Creatinine 1.99 H (0.70-1.30) mg/dL Glucose 103 H (70-100) mg/dL Total Bilirubin 3.9 H (0.2-1.0) mg/dL Conjugated Bilirubin 2.66 H (0.00-0.20) mg/dL AST 66 H (15-37) U/L Alkaline Phosphatase 233 H (46-116) U/L Ammonia 75 H (11-32) umol/L Albumin 2.3 L (3.4-5.0) g/dL 06/10/18 Range/Units 07:00 WBC 4.14 L (4.4-10.8) k/cumm RBC 3.84 L (4.50-6.00) m/cumm Hgb 13.4 L (13.5-17.5) g/dL Hct 38.6 L (40.0-50.0) % MCV 100.5 H (80-95) fL MCH 34.9 H (27.0-33.0) pg Plt Count 48 L (130-400) x1000/uL MPV 13.4 H (8.0-11.0) fL Absolute Lymphocytes 0.36 L (1.2-3.4) k/cumm Absolute Monocytes 0.75 H (0.11-0.7) k/cumm PT (9.3-11.0) sec INR (0.9-1.1) BUN (7-18) mg/dL Creatinine (0.70-1.30) mg/dL Glucose (70-100) mg/dL Total Bilirubin (0.2-1.0) mg/dL Conjugated Bilirubin (0.00-0.20) mg/dL AST (15-37) U/L Alkaline Phosphatase (46-116) U/L Ammonia (11-32) umol/L Albumin (3.4-5.0) g/dL Vital Signs Temperature 36.7 C 06/10/18 11:39 Temperature Source Tympanic 06/10/18 11:39 Pulse 60 06/10/18 11:39 Pulse Rhythm Regular 06/10/18 09:44 Pulse 56 L 06/09/18 09:40 Respiratory Rate 16 06/10/18 11:39 Respiratory Effort Non-Labored 06/10/18 09:44 Respiratory Depth Normal 06/10/18 09:44 Respiratory Pattern Normal 06/10/18 09:44 Blood Pressure 103/66 06/10/18 11:39 Blood Pressure Mean 71 06/09/18 09:30 Blood Pressure Position Sitting 06/09/18 09:00 Pulse Oximetry 96 06/10/18 11:39 Oxygen Delivery Method Room Air 06/10/18 11:39 Oxygen Flow Rate 0 06/10/18 11:39 Pain Level 0 06/09/18 15:23 Intake & Output 06/09/18 06/10/18 06/10/18 23:59 11:59 23:59 Intake Total 1100 / 1100 1320.00 / 1320.00 Output Total 3950 / 3950 500 / 700 200 / 700 Balance -2850 / -2850 820.00 / 620.00 -200 / 620.00 Weight 95.254 kg 87.2 kg Intake: IV 1100 / 1100 1320.00 / 1320.00 Output: Urine 3950 / 3950 500 / 700 200 / 700 Other: Urine Color Yellow Yellow Light Marta Urine Appearance Clear Clear Clear Comment Pt. straight cathed per MD orders for a PVR >250 Stool Occult Blood Negative Stool Size Moderate Stool Characteristics Formed Hard Black Voiding Methods Toilet Laboratory Results WBC 4.14 k/cumm (4.4-10.8) L 06/10/18 07:00 RBC 3.84 m/cumm (4.50-6.00) L 06/10/18 07:00 Hgb 13.4 g/dL (13.5-17.5) L 06/10/18 07:00 Hct 38.6 % (40.0-50.0) L 06/10/18 07:00 MCV 100.5 fL (80-95) H 06/10/18 07:00 MCH 34.9 pg (27.0-33.0) H 06/10/18 07:00 MCHC 34.7 g/dL (32.0-36.0) 06/10/18 07:00 RDW 14.0 % (11.8-14.1) 06/10/18 07:00 Plt Count 48 x1000/uL (130-400) L 06/10/18 07:00 MPV 13.4 fL (8.0-11.0) H 06/10/18 07:00 Immature Gran % 0.2 06/10/18 07:00 Neutrophils % 69.4 06/10/18 07:00 Lymphocytes % 8.7 06/10/18 07:00 Monocytes % 18.1 06/10/18 07:00 Eosinophils % 2.4 06/10/18 07:00 Basophils % 1.2 06/10/18 07:00 Absolute Neutrophils 2.87 k/cumm (1.2-6.7) 06/10/18 07:00 Absolute Lymphocytes 0.36 k/cumm (1.2-3.4) L 06/10/18 07:00 Absolute Monocytes 0.75 k/cumm (0.11-0.7) H 06/10/18 07:00 Absolute Eosinophils 0.10 k/cumm (0.0-0.7) 06/10/18 07:00 Absolute Basophils 0.05 k/cumm (0.0-0.2) 06/10/18 07:00 Differential Comment Rbc morph reviewed 06/10/18 07:00 RBC Morphology See below 06/10/18 07:00 Macrocytosis 2+ 06/10/18 07:00 PT 12.1 sec (9.3-11.0) H 06/10/18 07:00 INR 1.2 (0.9-1.1) H 06/10/18 07:00 Sodium 141 mmol/L (136-145) 06/10/18 07:00 Potassium 4.3 mmol/L (3.5-5.1) 06/10/18 07:00 Chloride 104 mmol/L (98-107) 06/10/18 07:00 Carbon Dioxide 29.5 mmol/L (21.0-32.0) 06/10/18 07:00 Anion Gap 7.5 mmol/L (3-11) 06/10/18 07:00 BUN 53 mg/dL (7-18) H 06/10/18 07:00 Creatinine 1.99 mg/dL (0.70-1.30) H 06/10/18 07:00 Estimated GFR/1.73 m2 34.22 (mL/min/1.73m2) 06/10/18 07:00 Glucose 103 mg/dL (70-100) H 06/10/18 07:00 Calcium 8.6 mg/dL (8.5-10.1) 06/10/18 07:00 Magnesium 1.8 mg/dL (1.8-2.4) 06/10/18 07:00 Total Bilirubin 3.9 mg/dL (0.2-1.0) H 06/10/18 07:00 Conjugated Bilirubin 2.66 mg/dL (0.00-0.20) H 06/10/18 07:00 AST 66 U/L (15-37) H 06/10/18 07:00 ALT 35 U/L (12-78) 06/10/18 07:00 Alkaline Phosphatase 233 U/L (46-116) H 06/10/18 07:00 Ammonia 75 umol/L (11-32) H 06/10/18 07:00 Troponin I < 0.02 ng/mL (0.00-0.06) 06/09/18 08:55 Total Protein 7.9 g/dL (6.4-8.2) 06/10/18 07:00 Albumin 2.3 g/dL (3.4-5.0) L 06/10/18 07:00 Lipase 228 U/L (73-393) 06/09/18 08:55 Urine Color Yellow (Yellow) 06/09/18 12:33 Urine Clarity Clear 06/09/18 12:33 Urine pH 7.0 (5-8) 06/09/18 12:33 Ur Specific [place] 1.015 (1.005-1.025) 06/09/18 12:33 Urine Protein Negative mg/dL (Negative) 06/09/18 12:33 Urine Ketones Negative mg/dL (Negative) 06/09/18 12:33 Urine Blood Negative (Negative) 06/09/18 12:33 Urine Nitrite Negative (Negative) 06/09/18 12:33 Urine Bilirubin Negative (Negative) 06/09/18 12:33 Urine Urobilinogen >=8.0 EU/dL (Up TO 0.2) 06/09/18 12:33 Ur Leukocyte Esterase Negative (Negative) 06/09/18 12:33 Urine Glucose Negative mg/dL (Negative) 06/09/18 12:33 Fluid Source Peritoneal 06/09/18 11:42 Fluid Color Yellow 06/09/18 11:42 Fluid Appearance Clear 06/09/18 11:42 Fluid WBC 208 /MM3 (0-0) H 06/09/18 11:42 Fluid Mononuclear Cell 81 % (0-0) H 06/09/18 11:42 Fl Polymorphonucl Cell 8 % (0-0) H 06/09/18 11:42 Fluid Other Cells 11 0 (0-0) H 06/09/18 11:42 Path Cons Comment 06/09/18 11:42 CXR: Question of bilateral infiltrates vs atelectasis. Limited exam.
--- NOTE | 2018-06-10 14:47 | PT.INTREAT ---
Date of service: 06/10/18 Time of Service: 14:47 PT Notes Inpatient Physical Therapy Treatment Note [facility] Date: 06/10/18 PRECAUTIONS: Fall, contact SUBJECTIVE: Abdoulaye states that he is feeling a little bit better than when he came to the hospital yesterday. He is also stating that he feels really tired this afternoon, although is willing to participate in PT. OBJECTIVE: PAIN: No complaints of pain BED MOBILITY/TRANSFERS Sit-supine: I with HOB flat Sit-stand: SBA Stand-sit: SBA Chair-bed: SBA with FWW GAIT Assistive Device: FWW Weight bearing: Full Assist: SBA Distance: 50' +10' Deviation: Slow pace THEREX: Patient completed several lower extremity strengthening exercises in a seated position, as per flow sheet. Patient was was not able to complete program in its entirety as he fell asleep during ther ex session. ASSESSMENT: Patient tolerated session without complaint. He was able to tolerate a slight progression in gait distance with FWW support requiring SBA only. Patient would benefit from continued gait and transfer training as well as strengthening for improved mobility and improved activity tolerance. PLAN: Continue with PTs POC TREATMENT CODE/TIME: 20 minutes; [id number]
--- NOTE | 2018-06-10 14:50 | PTTR_ITS ---
Date of service: 06/10/18 Time of Service: 14:47 PT Notes Inpatient Physical Therapy Treatment Note [facility] Date: 06/10/18 PRECAUTIONS: Fall, contact SUBJECTIVE: Abdoulaye states that he is feeling a little bit better than when he came to the hospital yesterday. He is also stating that he feels really tired this afternoon, although is willing to participate in PT. OBJECTIVE: PAIN: No complaints of pain BED MOBILITY/TRANSFERS Sit-supine: I with HOB flat Sit-stand: SBA Stand-sit: SBA Chair-bed: SBA with FWW GAIT Assistive Device: FWW Weight bearing: Full Assist: SBA Distance: 50' +10' Deviation: Slow pace THEREX: Patient completed several lower extremity strengthening exercises in a seated position, as per flow sheet. Patient was was not able to complete pr ogram in its entirety as he fell asleep during ther ex session. ASSESSMENT: Patient tolerated session without complaint. He was able to tolerate a slight progression in gait distance with FWW support requiring SBA only. Patient would benefit from continued gait and transfer training as well as strengthening for improved mobility and improved activity tolerance. PLAN: Continue with PTs POC TREATMENT CODE/TIME: 20 minutes; [id number]
--- NOTE | 2018-06-10 15:30 | DI.US_ITS ---
SYMPTOM/DIAGNOSIS: YURI, URINARY RETENTION RENAL ULTRASOUND: The exam was somewhat limited by patient coughing and limited breath holding ability. A large amount of ascites is again noted. The kidneys are not ideally visualized, also partially secondary to patient body habitus. There is no gross evidence of hydronephrosis. The bladder was empty since the patient had voided before the examination. IMPRESSION: Unremarkable kidneys. Bladder is not evaluated as it was empty.
--- NOTE | 2018-06-10 16:36 | DI.VRAD_ITS ---
EXAM: US Retroperitoneal Limited, Kidneys EXAM DATE/TIME: 06/10/2018 4:17 PM CLINICAL HISTORY: 63 years old, male; Signs and symptoms; Other: Kvng, urinary retention TECHNIQUE: Real-time ultrasound of the retroperitoneum with image documentation. Examination was focused on the kidneys. COMPARISON: CT Abdomen^ROUTINE ABDOMEN PELVIS WITHOUT (Adult) 06/09/2018 9:59 AM FINDINGS: Limitations: This examination is limited by patient motion secondary to coughing. Right kidney: The right kidney measures 10.9 cm in length. No right renal stone, focal renal lesion or hydronephrosis is identified. Left kidney: The left kidney measures 10.2 cm in length. No left renal stone, focal renal lesion or hydronephrosis is identified. Color Doppler blood flow to the left kidney was unable to be obtained. Intraperitoneal space: Small to moderate pelvic ascites. Bladder: The patient recently voided and the urinary bladder is not visible. IMPRESSION: No focal renal lesion or hydronephrosis. Dictated and Authenticated by: Jose Overton MD. Ordering:REJI Mooney MD
--- NOTE | 2018-06-10 19:55 | NUR.NOTE ---
Nursing Note: Report received from RHEA Silva. Patient is currently in stable condition, currently resting in bed, no report of pain or discomfort at this time, the bed is in the low and locked position, side rails up x2, call light within reach, bed alarm on.
[2018-06-10] MEDS: Melatonin 3 MG TAB PO (21:00)
[2018-06-11] MEDS: traMADol 50 MG TAB PO ×2 (01:12→13:41)
[2018-06-11 03:43] VITALS: BP 121/72; PULSE 69; RESP 20; TEMP 37.3; O2SAT 97
[2018-06-11 07:41] LABS: HCT 38.6 % (40.0-50.0); HGB 13.3 g/dL (13.5-17.5); Mean Corp. HGB Concentration 34.5 g/dL (32.0-36.0); Mean Corpuscular Hemoglobin 34.7 pg (27.0-33.0); Mean Corpuscular Volume 100.8 fL (80-95); Platelet Count 46 x1000/uL (130-400); RBC 3.83 m/cumm (4.50-6.00); RBC Distribution Width 13.9 % (11.8-14.1); White Blood Cell Count 4.59 k/cumm (4.4-10.8)
[2018-06-11 07:49] LABS: Anion Gap 5.7 mmol/L (3-11); BUN 50 mg/dL (7-18); CO2 27.3 mmol/L (21.0-32.0); CREATININE 1.73 mg/dL (0.70-1.30); Calcium 8.2 mg/dL (8.5-10.1); Chloride 102 mmol/L (98-107); Estimated GFR 40.22 (mL/min/1.73m2); Glucose 154 mg/dL (70-100); Potassium 4.4 mmol/L (3.5-5.1); Sodium 135 mmol/L (136-145)
[2018-06-11 07:50] VITALS: BP 107/67; PULSE 59; RESP 18; TEMP 37.1; O2SAT 96
[2018-06-11 07:51] LABS: Ammonia 93 umol/L (11-32)
[2018-06-11] MEDS: Multivitamin w/Minerals TAB 1 TAB PO (08:23)
[2018-06-11] MEDS: CEFEPIME 2 GM in Normal Saline 100 ML IVPB ×2 (08:23→19:53)
[2018-06-11] MEDS: Pantoprazole 40 MG VIAL IVP ×2 (08:23→19:54)
[2018-06-11] MEDS: Nadolol 40 MG TAB 20 MG PO (08:23)
[2018-06-11] MEDS: Normal Saline Flush 10 ML SYR IVP ×2 (08:23→19:58)
[2018-06-11] MEDS: Lactulose 20 GM/30 ML CUP PO ×4 (08:23→23:15)
[2018-06-11] MEDS: Benzonatate 100 MG CAP PO ×3 (08:23→19:54)
[2018-06-11] MEDS: Tamsulosin 0.4 MG CAPCR PO (08:24)
[2018-06-11] MEDS: Insulin Aspart 300 UNITS/3 ML PEN SC ×4 (08:24→21:07)
[2018-06-11] MEDS: guaiFENesin 600 MG TABCR PO ×2 (08:24→19:54)
--- NOTE | 2018-06-11 10:49 | OT.INTREAT ---
Date of service: 06/11/18 Time of Service: 09:50 Occupational Therapy Notes Occupational Therapy Inpatient Treatment Note Date: 06/11/18 PRECAUTIONS: Fall risk, standard precautions SUBJECTIVE: Pt reports that he has not slept in 3 days. He reports that he is willing to wash his face and arms but otherwise is too tired to do anything else. OBJECTIVE: PAIN:no c/o pain BATHING: Upper Body: Wash face with water sitting in bed (I) with min vc, washed (B) UE with min (A) for shoulders with water only per pt request. ASSESSMENT: Pt was very tired at todays session he was unable to follow instructions for more than 2 minute periods. He wanted to wash his face and (B) UE. We discussed the importance of body positioning in the bed to maximize (I) in bathing routine. Pt would benefit from continued skilled OT intervention for progression of (I) in bathing routine. PLAN: OT will follow up with pt tomorrow progressing pts (I) in bathing routine sitting in chair as pts symptoms allow. TREATMENT CODES/TIME: [id number], 10 minutes Lien Vera OTR/[facility]
[2018-06-11 11:50] VITALS: BP 105/68; PULSE 52; RESP 18; TEMP 36.5; O2SAT 95
[2018-06-11] MEDS: Normal Saline 1,000 ML 75 ML IV (12:03)
--- NOTE | 2018-06-11 12:34 | PDOC.CMPRO ---
Care Management Progress Note S/O: Abdoulaye was lying in bed, visitors at his bedside when CM met with him. He remains pleasant in interaction and shares no concerns at this time. CM updated Eugenia morales [facility] of anticipated return to the [facility] on Sunday. No change to overall plan. A: 63 year old male admitted to [facility] P: Abdoulaye will return to the [facility] when ready per MD, he will require continued IV ABX with an anticipated discharge of 06/14/18 per MD. CM will continue to follow and provide updated clinicals to [facility] staff. Abdoulaye will transport via private vehicle with family or RCT.
[2018-06-11] MEDS: Ondansetron 4 MG/2 ML VIAL IVP (13:45)
--- NOTE | 2018-06-11 13:46 | CMPROGNOTE_ITS ---
Care Management Progress Note S/O: Abdoulaye was lying in bed, visitors at his bedside when CM met with him. He remains pleasant in interaction and shares no concerns at this time. CM updated Eugenia morales [facility] of anticipated return to the [facility] on Sunday. No change to overall plan. A: 63 year old male admitted to [facility] P: Abdoulaye will return to the [facility] when ready per MD, he will require continued IV ABX with an anticipated discharge of 06/14/18 per MD. CM will continue to follow and provide updated clinicals to [facility] staff. Abdoulaye will transport via private vehicle with family or RCT.
[2018-06-11 15:29] VITALS: BP 125/58; PULSE 54; RESP 18; TEMP 36.1; O2SAT 98
--- NOTE | 2018-06-11 15:29 | PT.INTREAT ---
Date of service: 06/11/18 Time of Service: 15:29 PT Notes Inpatient Physical Therapy Treatment Note [facility] Date: 06/11/18 PRECAUTIONS: Fall SUBJECTIVE: Abdoulaye states that he is extremely fatigued today, I was up all night coughing. OBJECTIVE: PAIN: No c/o pain BED MOBILITY/TRANSFERS/GAIT: Refused THEREX: Patient completed a LE and UE strengthening program in a supine position, as per flow sheet. ASSESSMENT: Patient completed a ther ex program in a supine position, with c/o increased fatigue. Patient refused gait and transfer training due to fatigue. PLAN: Continue with PT's POC TREATMENT CODE/TIME: 15 minutes; [id number]
[2018-06-11] MEDS: Metoclopramide 10 MG/2 ML VIAL IVP (15:38)
--- NOTE | 2018-06-11 15:39 | PT.INNT ---
Date of service: 06/11/18 Time of Service: 15:39 PT Notes 06/11/18 Patient refused afternoon PT session stating that he just got sick and is extremely fatigued. Will attempt to resume PT services tomorrow morning.
--- NOTE | 2018-06-11 18:11 | PGE_ITS ---
Date of Service Date of service: 06/11/18 Time of Service: 15:10 Assessment and Plan (1) HCAP (healthcare-associated pneumonia): Current visit: Yes Status: Acute Present on admission. Continue vancomycin (D2), cefepime (D3), antitussives. (2) Hepatic encephalopathy: Current visit: Yes Status: Acute No improvement since yesterday. I increased lactulose and added rifaxamin (3) Hepatorenal syndrome: Current visit: Yes Status: Acute YURI is multifactorial - both due to hepatorenal syndrome from overdiuresis with lasix as well as due to urinary retention. US kidneys wnl. Continue flomax - passed VT. YURI is improving with gentle IVF - would continue for another 24 hours. Continue to hold both lasix and aldactone. On discharge, lasix should be written as prn for edema; aldactone should be continued the way it was. (4) Urinary retention: Current visit: Yes Status: Acute Better with flomax - continue. (5) Dehydration: Current visit: Yes Status: Acute As above (6) Ascites: Current visit: Yes Status: Acute S/p paracenthesis 06/09/18 in the ED with WBC's not quite meeting criteria for SBP. Clinically, there is no evidence of SBP either. He is being covered with cefepime for PNA. Fluid cultures show no growth to date. Aldactone is presently on hold, but should be resumed once kidney function returns to baseline. (7) Nausea & vomiting: Current visit: Yes Status: Acute ?due to portal gastropathy. Continue protonix IV, nadolol. (8) Thrombocytopenia: Current visit: Yes Status: Chronic Stable. Monitor for bleeding. Hemoccult negative. No chemical DVT ppx (9) Hyponatremia: Current visit: Yes Status: Resolved Due to liver disease. Continue to monitor. (10) End stage liver disease: Current visit: Yes Status: Chronic Due to BRUNNER, with known portal hypertension, esophageal varices (no history of bleeding, hemoccult negative), ascites, prior SBP, thrombocytopenia, encephalopathy. INR 1.2. Patient follows with [facility]. Nadolol initiated - monitor. (11) Esophageal varices without bleeding: Current visit: No Status: Acute Hemoccult negative. Started on nadolol. (12) Insulin dependent diabetes mellitus: Current visit: Yes Status: Chronic Cover with sliding scale insulin (13) Discharge planning issues: Current visit: Yes Status: Acute Full code as per COLST form and my discussion with patient. Expected to return to the [facility] on discharge - likely on 06/14/18 (14) DVT prophylaxis: Current visit: Yes Status: Acute Chemical DVT ppx is contraindicated with patient's thrombocytopenia and history of esophageal varices Subjective Interval history since last seen: The patient had an episode of vomiting today even after he got zofran. Continues to report cough at night. Denies dizziness, chest pain, shortness of breath, abdominal pain. Still no diarrhea - had 2 hard bowel movements today. Exam Narrative Exam Narrative: General: Very pleasant middle Aged male, A&Ox3, asterexis persists, essentially unchanged from yesterday HEENT: EOMI, moist MM Cardiovascular: RRR, no m/r/g Lungs: Quiet wheezing on expiration B - improved. No cough. Gastrointestinal: abdomen soft with ascites, nontender, nondistended Extremities: No edema, clubbing, or cyanosis; 2+ BLE pedal pulses; L tibial surface wounds do not look infected; wearing TEDs Objective Objective Clinical Data: Abnormal lab results 06/11/18 06/11/18 06/11/18 Range/Units 07:25 07:25 07:25 RBC 3.83 L (4.50-6.00) m/cumm Hgb 13.3 L (13.5-17.5) g/dL Hct 38.6 L (40.0-50.0) % MCV 100.8 H (80-95) fL MCH 34.7 H (27.0-33.0) pg Plt Count 46 L (130-400) x1000/uL Sodium 135 L (136-145) mmol/L BUN 50 H (7-18) mg/dL Creatinine 1.73 H (0.70-1.30) mg/dL Glucose 154 H (70-100) mg/dL Calcium 8.2 L (8.5-10.1) mg/dL Ammonia 93 H (11-32) umol/L Vital Signs Temperature 36.1 C L 06/11/18 15:29 Temperature Source Tympanic 06/11/18 15:29 Pulse 54 L 06/11/18 15:29 Pulse Rhythm Regular 06/11/18 09:13 Pulse 56 L 06/09/18 09:40 Respiratory Rate 18 02/05/19 15:29 Respiratory Effort Non-Labored 06/11/18 09:13 Respiratory Depth Normal 06/11/18 09:13 Respiratory Pattern Normal 06/11/18 09:13 Blood Pressure 125/58 L 06/11/18 15:29 Blood Pressure Mean 71 06/09/18 09:30 Blood Pressure Position Sitting 06/09/18 09:00 Pulse Oximetry 98 06/11/18 15:29 Oxygen Delivery Method Room Air 06/11/18 15:29 Oxygen Flow Rate 0 06/11/18 15:29 Pain Level 2 06/11/18 14:41 Intake & Output 06/10/18 06/11/18 06/11/18 23:59 11:59 23:59 Intake Total 1443.75 / 2763.75 1840 / 1840 Output Total 200 / 700 400 / 1100 700 / 1100 Balance 1243.75 / 2063.75 1440 / 740 -700 / 740 Weight 90.9 kg Intake: IV 943.75 / 2263.75 1300 / 1300 Oral 500 / 500 540 / 540 Output: Urine 200 / 700 400 / 1100 700 / 1100 Other: Urine Color Light Marta Light Marta Urine Appearance Clear Clear Clear Urine Odor Normal Stool Occult Blood Negative Negative Stool Size Moderate Moderate Stool Characteristics Formed Soft Brown Voiding Methods Toilet Toilet Laboratory Results WBC 4.59 k/cumm (4.4-10.8) 06/11/18 07:25 RBC 3.83 m/cumm (4.50-6.00) L 06/11/18 07:25 Hgb 13.3 g/dL (13.5-17.5) L 06/11/18 07:25 Hct 38.6 % (40.0-50.0) L 06/11/18 07:25 MCV 100.8 fL (80-95) H 06/11/18 07:25 MCH 34.7 pg (27.0-33.0) H 06/11/18 07:25 MCHC 34.5 g/dL (32.0-36.0) 06/11/18 07:25 RDW 13.9 % (11.8-14.1) 06/11/18 07:25 Plt Count 46 x1000/uL (130-400) L 06/11/18 07:25 MPV Not Applicable 06/11/18 07:25 Immature Gran % 0.2 06/10/18 07:00 Neutrophils % 69.4 06/10/18 07:00 Lymphocytes % 8.7 06/10/18 07:00 Monocytes % 18.1 06/10/18 07:00 Eosinophils % 2.4 06/10/18 07:00 Basophils % 1.2 06/10/18 07:00 Absolute Neutrophils 2.87 k/cumm (1.2-6.7) 06/10/18 07:00 Absolute Lymphocytes 0.36 k/cumm (1.2-3.4) L 06/10/18 07:00 Absolute Monocytes 0.75 k/cumm (0.11-0.7) H 06/10/18 07:00 Absolute Eosinophils 0.10 k/cumm (0.0-0.7) 06/10/18 07:00 Absolute Basophils 0.05 k/cumm (0.0-0.2) 06/10/18 07:00 Differential Comment Rbc morph reviewed 06/10/18 07:00 RBC Morphology See below 06/10/18 07:00 Macrocytosis 2+ 06/10/18 07:00 PT 12.1 sec (9.3-11.0) H 06/10/18 07:00 INR 1.2 (0.9-1.1) H 06/10/18 07:00 Sodium 135 mmol/L (136-145) L 06/11/18 07:25 Potassium 4.4 mmol/L (3.5-5.1) 06/11/18 07:25 Chloride 102 mmol/L (98-107) 06/11/18 07:25 Carbon Dioxide 27.3 mmol/L (21.0-32.0) 06/11/18 07:25 Anion Gap 5.7 mmol/L (3-11) 06/11/18 07:25 BUN 50 mg/dL (7-18) H 06/11/18 07:25 Creatinine 1.73 mg/dL (0.70-1.30) H 06/11/18 07:25 Estimated GFR/1.73 m2 40.22 (mL/min/1.73m2) 06/11/18 07:25 Glucose 154 mg/dL (70-100) H 06/11/18 07:25 Calcium 8.2 mg/dL (8.5-10.1) L 06/11/18 07:25 Magnesium 2.0 mg/dL (1.8-2.4) 06/11/18 07:25 Total Bilirubin 3.9 mg/dL (0.2-1.0) H 06/10/18 07:00 Conjugated Bilirubin 2.66 mg/dL (0.00-0.20) H 06/10/18 07:00 AST 66 U/L (15-37) H 06/10/18 07:00 ALT 35 U/L (12-78) 06/10/18 07:00 Alkaline Phosphatase 233 U/L (46-116) H 06/10/18 07:00 Ammonia 93 umol/L (11-32) H 06/11/18 07:25 Troponin I < 0.02 ng/mL (0.00-0.06) 06/09/18 08:55 Total Protein 7.9 g/dL (6.4-8.2) 06/10/18 07:00 Albumin 2.3 g/dL (3.4-5.0) L 06/10/18 07:00 Lipase 228 U/L (73-393) 06/09/18 08:55 Urine Color Yellow (Yellow) 06/09/18 12:33 Urine Clarity Clear 06/09/18 12:33 Urine pH 7.0 (5-8) 06/09/18 12:33 Ur Specific [place] 1.015 (1.005-1.025) 06/09/18 12:33 Urine Protein Negative mg/dL (Negative) 06/09/18 12:33 Urine Ketones Negative mg/dL (Negative) 06/09/18 12:33 Urine Blood Negative (Negative) 06/09/18 12:33 Urine Nitrite Negative (Negative) 06/09/18 12:33 Urine Bilirubin Negative (Negative) 06/09/18 12:33 Urine Urobilinogen >=8.0 EU/dL (Up TO 0.2) 06/09/18 12:33 Ur Leukocyte Esterase Negative (Negative) 06/09/18 12:33 Urine Glucose Negative mg/dL (Negative) 06/09/18 12:33 Fluid Source Peritoneal 06/09/18 11:42 Fluid Color Yellow 06/09/18 11:42 Fluid Appearance Clear 06/09/18 11:42 Fluid WBC 208 /MM3 (0-0) H 06/09/18 11:42 Fluid Mononuclear Cell 81 % (0-0) H 06/09/18 11:42 Fl Polymorphonucl Cell 8 % (0-0) H 06/09/18 11:42 Fluid Other Cells 11 0 (0-0) H 06/09/18 11:42 Path Cons Comment 06/09/18 11:42
--- NOTE | 2018-06-11 18:50 | NUR.NOTE ---
Nursing Note: Report received from RHEA Silva. Patient is in stable condition, currently resting in bed with no report of pain or discomfort at this time, the bed is in the low and locked position, side rails up x2, call light within reach, bed alarm on.
[2018-06-11] MEDS: Rifaximin 550 MG TAB PO (19:53)
[2018-06-11] MEDS: Docusate Sodium 100 MG CAP PO (19:53)
[2018-06-11 20:28] VITALS: BP 107/62; PULSE 50; RESP 18; TEMP 37; O2SAT 96
[2018-06-11] MEDS: Melatonin 3 MG TAB PO (21:07)
[2018-06-11 23:50] VITALS: BP 105/67; PULSE 53; RESP 16; TEMP 35.8; O2SAT 97
[2018-06-12] MEDS: Normal Saline 1,000 ML 75 ML IV (01:28)
[2018-06-12 03:50] VITALS: BP 100/63; PULSE 58; RESP 18; TEMP 36.8; O2SAT 98
[2018-06-12] MEDS: Lactulose 20 GM/30 ML CUP PO ×3 (05:30→17:13)
[2018-06-12 07:24] LABS: Ammonia 47 umol/L (11-32)
[2018-06-12 07:28] LABS: Abs Immature Grans 0.05 k/cumm (0.0-0.09); Absolute Basophil Count 0.04 k/cumm (0.0-0.2); Absolute Eosinophil Count 0.23 k/cumm (0.0-0.7); Absolute Lymphocyte Count 0.43 k/cumm (1.2-3.4); Absolute Monocyte Count 0.66 k/cumm (0.11-0.7); Absolute Neutrophil Count 2.99 k/cumm (1.2-6.7); Basophils % 0.9; Eosinophils % 5.2; HCT 43.2 % (40.0-50.0); HGB 14.6 g/dL (13.5-17.5); Immature Grans % 1.1; Lymphocytes % 9.8; Mean Corp. HGB Concentration 33.8 g/dL (32.0-36.0); Mean Corpuscular Hemoglobin 33.9 pg (27.0-33.0); Mean Corpuscular Volume 100.2 fL (80-95); Mean Platelet Volume 13.7 fL (8.0-11.0); RBC 4.31 m/cumm (4.50-6.00); RBC Distribution Width 13.7 % (11.8-14.1)
[2018-06-12 07:45] VITALS: BP 137/69; PULSE 62; RESP 22; TEMP 36.6; O2SAT 95
[2018-06-12 07:49] LABS: Anion Gap 5.5 mmol/L (3-11); BUN 46 mg/dL (7-18); CO2 27.5 mmol/L (21.0-32.0); CREATININE 1.46 mg/dL (0.70-1.30); Calcium 8.6 mg/dL (8.5-10.1); Chloride 101 mmol/L (98-107); Estimated GFR 48.92 (mL/min/1.73m2); Glucose 132 mg/dL (70-100); Magnesium 2.2 mg/dL (1.8-2.4); Potassium 4.5 mmol/L (3.5-5.1); Sodium 134 mmol/L (136-145)
[2018-06-12] MEDS: Pantoprazole 40 MG VIAL IVP ×2 (08:04→20:32)
[2018-06-12] MEDS: CEFEPIME 2 GM in Normal Saline 100 ML IVPB ×2 (08:04→20:32)
[2018-06-12 08:05] LABS: Platelet Count 44 x1000/uL (130-400)
[2018-06-12] MEDS: Benzonatate 100 MG CAP PO ×3 (08:05→20:33)
[2018-06-12] MEDS: guaiFENesin 600 MG TABCR PO ×2 (08:05→20:33)
[2018-06-12] MEDS: Tamsulosin 0.4 MG CAPCR PO (08:05)
[2018-06-12] MEDS: Multivitamin w/Minerals TAB 1 TAB PO (08:05)
[2018-06-12] MEDS: Rifaximin 550 MG TAB PO ×2 (08:05→20:32)
[2018-06-12] MEDS: Nadolol 40 MG TAB 20 MG PO (08:05)
[2018-06-12] MEDS: Normal Saline Flush 10 ML SYR IVP (08:05)
[2018-06-12] MEDS: Docusate Sodium 100 MG CAP PO ×2 (08:05→20:33)
[2018-06-12 08:06] LABS: Diff Comment Diff Reviewed; RBC Morphology Normal
[2018-06-12 08:52] LABS: PSA, Diagnostic <0.1 ng/ml (0-4.5)
--- NOTE | 2018-06-12 10:04 | OT.INTREAT ---
Date of service: 06/12/18 Time of Service: 09:25 Occupational Therapy Notes Occupational Therapy Inpatient Treatment Note Date: 06/12/18 PRECAUTIONS: Standard precautions, fall risk SUBJECTIVE: Pt was sitting in chair when OT arrived. He reports that he is tired again today but states that he is feeling a little better than yesterday. OBJECTIVE: PAIN:no c/o pain BATHING: Upper Body: Sitting in chair with set up (A) washed face and (B) UE with water (I). GROOMING: Sitting in chair with set up (A) brushed his teeth and hair (I) with set up (A). ASSESSMENT: Pt is demonstrating a slight increase in functional activity tolerance today. He is tired which limits his tolerance to his ADL routine. He reports that he is using the toilet with nursing. In sitting position in the chair he demonstrates increased progression of (I) in ADLs. Pt would benefit from continued skilled OT intervention for progression of ADLs to the standing position as this is pts baseline. PLAN: Continue per POC. TREATMENT CODES/TIME: 84166, 17 minutes (09:25) Lien Vera OTR/[facility]
--- NOTE | 2018-06-12 10:11 | OTTR_ITS ---
Date of service: 06/12/18 Time of Service: 09:25 Occupational Therapy Notes Occupational Therapy Inpatient Treatment Note Date: 06/12/18 PRECAUTIONS: Standard precautions, fall risk SUBJECTIVE: Pt was sitting in chair when OT arrived. He reports that he is tired again today but states that he is feeling a little better than yesterday. OBJECTIVE: PAIN:no c/o pain BATHING: Upper Body: Sitting in chair with set up (A) washed face and (B) UE with water (I). GROOMING: Sitting in chair with set up (A) brushed his teeth and hair (I) with set up (A). ASSESSMENT: Pt is demonstrating a slight increase in functional activity tolerance today. He is tired which limits his tolerance to his ADL routine. He reports that he is using the toilet with nursing. In sitting position in the chair he demonstrates increased progression of (I) in ADLs. Pt would benefit from continued skilled OT intervention for progression of ADLs to the standing position as this is pts baseline. PLAN: Continue per POC. TREATMENT CODES/TIME: 55087, 17 minutes (09:25) Lien Vera OTR/[facility]
[2018-06-12 11:22] LABS: Vancomycin, Trough 18.2 ug/mL (10.0-20.0)
[2018-06-12 11:30] VITALS: BP 130/69; PULSE 56; RESP 18; TEMP 36.2; O2SAT 99
--- NOTE | 2018-06-12 11:39 | PT.INTREAT ---
Date of service: 06/12/18 Time of Service: 11:40 PT Notes 06/12/18 SUBJECTIVE: Abdoulaye stating he is quite fatigued today. He is able to stay awake today unlike yesterday. He is unsure what he will be able to tolerate today. OBJECTIVE: Pt seated in his chair. He feels that he should go back to his bed. TRANSFERS: Sit to stand: SBA Stand to sit: SBA Sit to supine: I GAIT: Device: FWW Weight bearing: Full Assist: CGA Distance: 8' Deviation: Pt stating he feels weak. Therex: Light LE strengthening performed as noted on flow sheet including 5 functional sit to stands with bed elevated. See flow sheet for all activities performed. ASSESSMENT: Pt continues to be very fatigued today although was able to participate with PT today. He may tolerate increased gait distance this afternoon after some rest this morning. PLAN: Continue current POC progressing gait distance and strength as he is able to tolerate. Treatment time: 15' [id number] Marla Crawford PTA
--- NOTE | 2018-06-12 11:48 | PTTR_ITS ---
Date of service: 06/12/18 Time of Service: 11:40 PT Notes 06/12/18 SUBJECTIVE: Abdoulaye stating he is quite fatigued today. He is able to stay awake today unlike yesterday. He is unsure what he will be able to tolerate today. OBJECTIVE: Pt seated in his chair. He feels that he should go back to his bed. TRANSFERS: Sit to stand: SBA Stand to sit: SBA Sit to supine: I GAIT: Device: FWW Weight bearing: Full Assist: CGA Distance: 8' Deviation: Pt stating he feels weak. Therex: Light LE strengthening performed as noted on flow sheet including 5 functional sit to stands with bed elevated. See flow sheet for all activities performed. ASSESSMENT: Pt continues to be very fatigued today although was able to partic ipate with PT today. He may tolerate increased gait distance this afternoon after some rest this morning. PLAN: Continue current POC progressing gait distance and strength as he is able to tolerate. Treatment time: 15' [id number] Marla Crawford, PALEONTOLOGY TEACHER
[2018-06-12] MEDS: Insulin Aspart 300 UNITS/3 ML PEN SC ×3 (11:49→22:29)
--- NOTE | 2018-06-12 14:06 | PT.INTREAT ---
Date of service: 06/12/18 Time of Service: 14:06 PT Notes Inpatient Physical Therapy Treatment Note [facility] Date: 06/12/18 PRECAUTIONS: Contact and fall SUBJECTIVE: Pt reports that he is tired this afternoon. Pt reports that the medication that he takes in the am makes him feel off by the afternoon. OBJECTIVE: BED MOBILITY/TRANSFERS Supine-sit: Min Ax1 Sit-supine: SBA Sit-stand: SBA Stand-sit: SBA GAIT Assistive Device: FWW Weight bearing: Full Assist: CGA Distance: marching in place for approx 2 min. THEREX: Pt completed UE and LE ther ex in the supine and seated positions as per flow sheet. ASSESSMENT: Pt was fairly fatigued this afternoon but was still able to complete a fair amount of ther ex this afternoon. PLAN: Cont as per PT POC. TREATMENT CODE/TIME: 1:15-1:35 [phone]
--- NOTE | 2018-06-12 14:11 | PTTR_ITS ---
Date of service: 06/12/18 Time of Service: 14:06 PT Notes Inpatient Physical Therapy Treatment Note [facility] Date: 06/12/18 PRECAUTIONS: Contact and fall SUBJECTIVE: Pt reports that he is tired this afternoon. Pt reports that the me dication that he takes in the am makes him feel off by the afternoon. OBJECTIVE: BED MOBILITY/TRANSFERS Supine-sit: Min Ax1 Sit-supine: SBA Sit-stand: SBA Stand-sit: SBA GAIT Assistive Device: FWW Weight bearing: Full Assist: CGA Distance: marching in place for approx 2 min. THEREX: Pt completed UE and LE ther ex in the supine and seated positions as per flow sheet. ASSESSMENT: Pt was fairly fatigued this afternoon but was still able to complete a fair amount of ther ex this afternoon. PLAN: Cont as per PT POC. TREATMENT CODE/TIME: 1:15-1:35 [id number]
--- NOTE | 2018-06-12 14:44 | W.INDIABCONS ---
Date of service: 06/12/18 Time of Service: 14:44 Diabetes Inpatient Consult DESCRIPTION/ASSESSMENT: Appreciate diabetes consult for Abdoulaye Urias who is hospitalized with hepatic encephalopathy. At the [facility] Abdoulaye receives 8u Basaglar and 8units mealtime insulin per home med regimen. A1c 5.4 Initially Abdoulaye blood sugars were well controlled with only insulin for sensitive correction. Fasting blood sugars remain at goal however his blood sugar is climbing as the day progresses with just insulin correction yesterday eating 50-60grams carbohydrate at a meal. INTERVENTION: Abdoulaye manages his diabetes well with his at home regimen if it is without hypoglycemia based on A1c. He did well here with minimal insulin dosing until yesterday. If he will be staying for any length of time, would suggest he initiate mealtime insulin to cover carbohydrate at a sensitive level. No self management suggested at this time. He is well informed from previous self management consults and is in residential care. Only concern is whether he is sensitive to hypoglycemia symptoms. PLAN: No intervention suggested at this time. Time Spent in Nutritional Counseling and Treatment: 0 time face to face
--- NOTE | 2018-06-12 14:46 | PDOC.CMPRO ---
- If Service Date Differs Date of service: 06/12/18 Time of Service: 14:46 Care Management Progress Note S/O: Abdoulaye is lying in bed this morning when this data analyst report writer visits. Abduolaye is having breakfast and pleasant throughout interaction. Abdoulaye remains on IV antibiotics and will continue to require these until Sunday. The [facility] is aware of the potential DC for Sunday back to the [facility]. A: 63 year old male admitted to [facility] P: Abdoulaye will return to the [facility] when ready per MD, he will require continued IV ABX with an anticipated discharge of 06/14/18 per MD. CM will continue to follow and provide updated clinicals to [facility] staff. Abdoulaye will transport via private vehicle with family or RCT.
--- NOTE | 2018-06-12 14:53 | CMPROGNOTE_ITS ---
- If Service Date Differs Date of service: 06/12/18 Time of Service: 14:46 Care Management Progress Note S/O: Abdoulaye is lying in bed this morning when this screenplay writer visits. Abdoulaye is having breakfast and pleasant throughout interaction. Abdoulaye remains on IV antibiotics and will continue to require these until Sunday. The [facility] is aware of the potential DC for Sunday back to the [facility]. A: 63 year old male admitted to [facility] P: Abdoulaye will return to the [facility] when ready per MD, he will require continued IV ABX with an anticipated discharge of 06/14/18 per MD. CM will continue to follow and provide updated clinicals to [facility] staff. Abdoulaye will transport via private vehicle with family or RCT.
--- NOTE | 2018-06-12 14:56 | DM INPTCON_ITS ---
Date of service: 06/12/18 Time of Service: 14:44 Diabetes Inpatient Consult DESCRIPTION/ASSESSMENT: Appreciate diabetes consult for Abdoulaye Urias who is hospitalized with hepatic encephalopathy. At the [facility] Abdoulaye receives 8u Basaglar and 8units mealtime insulin per home med regimen. A1c 5.4 Initially Abdoulaye blood sugars were well controlled with only insulin for sensitive correction. Fasting blood sugars remain at goal however his blood sugar is climbing as the day progresses with just insulin correction yesterday eating 50- 60grams carbohydrate at a meal. INTERVENTION: Abdoulaye manages his diabetes well with his at home regimen if it is without hypoglycemia based on A1c. He did well here with minimal insulin dosing until yesterday. If he will be staying for any length of time, would suggest he initiate mealtime insulin to cover carbohydrate at a sensitive level. No self management suggested at this time. He is well informed from previous self management consults and is in residential care. Only concern is whether he is sensitive to hypoglycemia symptoms. PLAN: No intervention suggested at this time. Time Spent in Nutritional Counseling and Treatment: 0 time face to face
[2018-06-12 16:04] VITALS: BP 95/59; PULSE 53; RESP 18; TEMP 35.5; O2SAT 93
--- NOTE | 2018-06-12 18:21 | W.PM.PROGNOT ---
Date of Service Date of service: 06/12/18 Time of Service: 15:00 Assessment and Plan (1) HCAP (healthcare-associated pneumonia): Current visit: Yes Status: Acute Present on admission. Improving. Continue vancomycin (D3), cefepime (D4), antitussives. Planned to be discharged to SNF on Sunday. (2) Hepatic encephalopathy: Current visit: Yes Status: Acute Improved. Continue lactulose + rifaximine. (3) Hepatorenal syndrome: Current visit: Yes Status: Resolved YURI is multifactorial - both due to hepatorenal syndrome from overdiuresis with lasix as well as due to urinary retention. US kidneys wnl. Continue flomax - passed VT. Cr is now at baseline. IVF d/c'ed. Would resume aldactone tomorrow if Cr is stable. *On discharge, lasix should be written as prn for edema; aldactone should be continued the way it was. (4) Urinary retention: Current visit: Yes Status: Acute Better with flomax - continue. (5) Dehydration: Current visit: Yes Status: Resolved As above (6) Ascites: Current visit: Yes Status: Acute S/p paracenthesis 06/09/18 in the ED with WBC's not quite meeting criteria for SBP. Clinically, there is no evidence of SBP either. He is being covered with cefepime for PNA. Fluid cultures show no growth to date. Aldactone to be resumed tomorrow. (7) Nausea & vomiting: Current visit: Yes Status: Resolved ?due to portal gastropathy. Continue protonix IV, nadolol. Will need to be discharged on a PPI and with [place] [facility] (8) Thrombocytopenia: Current visit: Yes Status: Chronic Stable. Monitor for bleeding. Hemoccult negative. No chemical DVT ppx (9) Hyponatremia: Current visit: Yes Status: Resolved Due to liver disease. Continue to monitor. (10) End stage liver disease: Current visit: Yes Status: Chronic Due to BRUNNER, with known portal hypertension, esophageal varices (no history of bleeding, hemoccult negative), ascites, prior SBP, thrombocytopenia, encephalopathy. INR 1.2. Patient follows with [facility]. Nadolol initiated - monitor. (11) Esophageal varices without bleeding: Current visit: No Status: Acute Hemoccult negative. Started on nadolol. (12) Insulin dependent diabetes mellitus: Current visit: Yes Status: Chronic Cover with sliding scale insulin (13) Discharge planning issues: Current visit: Yes Status: Acute Full code as per COLST form and my discussion with patient. Expected to return to the [facility] on discharge - likely on 06/14/18 (14) DVT prophylaxis: Current visit: Yes Status: Acute Chemical DVT ppx is contraindicated with patient's thrombocytopenia and history of esophageal varices Subjective Interval history since last seen: Complains of feeling itchy all over (chronic condition), for which he would like to try his own lotion. Cough is better. Feels a little dizzy. Denies chest pain, shortness of breath, nausea, vomiting, abdominal pain. Still no diarrhea today, but less confused. Exam Narrative Exam Narrative: General: Very pleasant middle Aged male, A&Ox3, asterexis significantly better; patient appears more alert as well HEENT: EOMI, moist MM Cardiovascular: RRR, no m/r/g Lungs: Quiet bibasilar crackles B Gastrointestinal: abdomen soft with ascites, nontender, nondistended Extremities: No edema, clubbing, or cyanosis; 2+ BLE pedal pulses; L tibial surface wounds do not look infected; wearing TEDs Objective Objective Clinical Data: Abnormal lab results 06/12/18 06/12/18 06/12/18 Range/Units 07:05 07:05 07:05 RBC 4.31 L (4.50-6.00) m/cumm MCV 100.2 H (80-95) fL MCH 33.9 H (27.0-33.0) pg Plt Count 44 L (130-400) x1000/uL MPV 13.7 H (8.0-11.0) fL Absolute Lymphocytes 0.43 L (1.2-3.4) k/cumm Sodium 134 L (136-145) mmol/L BUN 46 H (7-18) mg/dL Creatinine 1.46 H (0.70-1.30) mg/dL Glucose 132 H (70-100) mg/dL Ammonia 47 H (11-32) umol/L Vital Signs Temperature 35.5 C L 06/12/18 16:04 Temperature Source Tympanic 06/12/18 16:04 Pulse 53 L 06/12/18 16:04 Pulse Rhythm Regular 06/12/18 08:05 Pulse 56 L 06/09/18 09:40 Respiratory Rate 18 06/12/18 16:04 Respiratory Effort Non-Labored 06/12/18 08:05 Respiratory Depth Normal 06/12/18 08:05 Respiratory Pattern Normal 06/12/18 08:05 Blood Pressure 95/59 L 06/12/18 16:04 Blood Pressure Mean 71 06/09/18 09:30 Blood Pressure Position Sitting 06/09/18 09:00 Pulse Oximetry 93 L 06/12/18 16:04 Oxygen Delivery Method Room Air 06/12/18 16:04 Oxygen Flow Rate 0 06/12/18 16:04 Pain Level 0 06/12/18 16:04 Intake & Output 06/11/18 06/12/18 06/12/18 23:59 11:59 23:59 Intake Total 540 / 2380 2337.5 / 3177.5 840 / 3177.5 Output Total 2300 / 2700 Balance -1760 / -320 2337.5 / 3177.5 840 / 3177.5 Weight 94.2 kg Intake: IV 300 / 1600 1897.5 / 1897.5 Oral 240 / 780 440 / 1280 840 / 1280 Output: Urine 2300 / 2700 Other: Urine Color Yellow Urine Appearance Clear Urine Odor Normal Comment Void in toilet. Stool Occult Blood Negative Stool Size Moderate Stool Characteristics Soft Brown Voiding Methods Toilet Laboratory Results WBC 4.40 k/cumm (4.4-10.8) 06/12/18 07:05 RBC 4.31 m/cumm (4.50-6.00) L 06/12/18 07:05 Hgb 14.6 g/dL (13.5-17.5) 06/12/18 07:05 Hct 43.2 % (40.0-50.0) 06/12/18 07:05 MCV 100.2 fL (80-95) H 06/12/18 07:05 MCH 33.9 pg (27.0-33.0) H 06/12/18 07:05 MCHC 33.8 g/dL (32.0-36.0) 06/12/18 07:05 RDW 13.7 % (11.8-14.1) 06/12/18 07:05 Plt Count 44 x1000/uL (130-400) L 06/12/18 07:05 MPV 13.7 fL (8.0-11.0) H 06/12/18 07:05 Immature Gran % 1.1 06/12/18 07:05 Neutrophils % 68.0 06/12/18 07:05 Lymphocytes % 9.8 06/12/18 07:05 Monocytes % 15.0 06/12/18 07:05 Eosinophils % 5.2 06/12/18 07:05 Basophils % 0.9 06/12/18 07:05 Absolute Neutrophils 2.99 k/cumm (1.2-6.7) 06/12/18 07:05 Absolute Lymphocytes 0.43 k/cumm (1.2-3.4) L 06/12/18 07:05 Absolute Monocytes 0.66 k/cumm (0.11-0.7) 06/12/18 07:05 Absolute Eosinophils 0.23 k/cumm (0.0-0.7) 06/12/18 07:05 Absolute Basophils 0.04 k/cumm (0.0-0.2) 06/12/18 07:05 Differential Comment Diff reviewed 06/12/18 07:05 RBC Morphology Normal 06/12/18 07:05 Macrocytosis 2+ 06/10/18 07:00 PT 12.1 sec (9.3-11.0) H 06/10/18 07:00 INR 1.2 (0.9-1.1) H 06/10/18 07:00 Sodium 134 mmol/L (136-145) L 06/12/18 07:05 Potassium 4.5 mmol/L (3.5-5.1) 06/12/18 07:05 Chloride 101 mmol/L (98-107) 06/12/18 07:05 Carbon Dioxide 27.5 mmol/L (21.0-32.0) 06/12/18 07:05 Anion Gap 5.5 mmol/L (3-11) 06/12/18 07:05 BUN 46 mg/dL (7-18) H 06/12/18 07:05 Creatinine 1.46 mg/dL (0.70-1.30) H 06/12/18 07:05 Estimated GFR/1.73 m2 48.92 (mL/min/1.73m2) 06/12/18 07:05 Glucose 132 mg/dL (70-100) H 06/12/18 07:05 Calcium 8.6 mg/dL (8.5-10.1) 06/12/18 07:05 Magnesium 2.2 mg/dL (1.8-2.4) 06/12/18 07:05 Total Bilirubin 3.9 mg/dL (0.2-1.0) H 06/10/18 07:00 Conjugated Bilirubin 2.66 mg/dL (0.00-0.20) H 06/10/18 07:00 AST 66 U/L (15-37) H 06/10/18 07:00 ALT 35 U/L (12-78) 06/10/18 07:00 Alkaline Phosphatase 233 U/L (46-116) H 06/10/18 07:00 Ammonia 47 umol/L (11-32) H 06/12/18 07:05 Troponin I < 0.02 ng/mL (0.00-0.06) 06/09/18 08:55 Total Protein 7.9 g/dL (6.4-8.2) 06/10/18 07:00 Albumin 2.3 g/dL (3.4-5.0) L 06/10/18 07:00 Lipase 228 U/L (73-393) 06/09/18 08:55 Prostate Specific Ag <0.1 ng/ml (0-4.5) 06/11/18 07:25 Urine Color Yellow (Yellow) 06/09/18 12:33 Urine Clarity Clear 06/09/18 12:33 Urine pH 7.0 (5-8) 06/09/18 12:33 Ur Specific [place] 1.015 (1.005-1.025) 06/09/18 12:33 Urine Protein Negative mg/dL (Negative) 06/09/18 12:33 Urine Ketones Negative mg/dL (Negative) 06/09/18 12:33 Urine Blood Negative (Negative) 06/09/18 12:33 Urine Nitrite Negative (Negative) 06/09/18 12:33 Urine Bilirubin Negative (Negative) 06/09/18 12:33 Urine Urobilinogen >=8.0 EU/dL (Up TO 0.2) 06/09/18 12:33 Ur Leukocyte Esterase Negative (Negative) 06/09/18 12:33 Urine Glucose Negative mg/dL (Negative) 06/09/18 12:33 Fluid Source Peritoneal 06/09/18 11:42 Fluid Color Yellow 06/09/18 11:42 Fluid Appearance Clear 06/09/18 11:42 Fluid WBC 208 /MM3 (0-0) H 06/09/18 11:42 Fluid Mononuclear Cell 81 % (0-0) H 06/09/18 11:42 Fl Polymorphonucl Cell 8 % (0-0) H 06/09/18 11:42 Fluid Other Cells 11 0 (0-0) H 06/09/18 11:42 Vancomycin Trough 18.2 ug/mL (10.0-20.0) 06/12/18 11:00 Path Cons Comment 06/09/18 11:42
[2018-06-12 20:03] VITALS: BP 97/58; PULSE 65; RESP 19; TEMP 36.7; O2SAT 99
[2018-06-12] MEDS: Melatonin 3 MG TAB PO (22:28)
[2018-06-12 22:51] VITALS: BP 97/57; PULSE 58; RESP 17; TEMP 36.3; O2SAT 96
[2018-06-13] MEDS: Lactulose 20 GM/30 ML CUP PO ×5 (00:50→23:53)
[2018-06-13 03:32] VITALS: BP 104/69; PULSE 60; RESP 18; TEMP 35.9; O2SAT 97
[2018-06-13] MEDS: Normal Saline Flush 10 ML SYR IVP ×5 (03:51→20:36)
[2018-06-13 07:31] LABS: Abs Immature Grans 0.05 k/cumm (0.0-0.09); Absolute Basophil Count 0.07 k/cumm (0.0-0.2); Absolute Eosinophil Count 0.38 k/cumm (0.0-0.7); Absolute Lymphocyte Count 0.47 k/cumm (1.2-3.4); Absolute Monocyte Count 0.69 k/cumm (0.11-0.7); Absolute Neutrophil Count 3.56 k/cumm (1.2-6.7); Basophils % 1.3; Eosinophils % 7.3; HCT 42.9 % (40.0-50.0); HGB 14.5 g/dL (13.5-17.5); Mean Corp. HGB Concentration 33.8 g/dL (32.0-36.0); Mean Corpuscular Hemoglobin 33.8 pg (27.0-33.0); Monocytes % 13.2; Neutrophils % 68.2; RBC 4.29 m/cumm (4.50-6.00); RBC Distribution Width 13.8 % (11.8-14.1); White Blood Cell Count 5.22 k/cumm (4.4-10.8)
[2018-06-13 07:38] LABS: Anion Gap 4.4 mmol/L (3-11); BUN 52 mg/dL (7-18); CO2 25.6 mmol/L (21.0-32.0); CREATININE 1.67 mg/dL (0.70-1.30); Calcium 8.4 mg/dL (8.5-10.1); Chloride 101 mmol/L (98-107); Glucose 148 mg/dL (70-100); Magnesium 2.3 mg/dL (1.8-2.4); Sodium 131 mmol/L (136-145)
[2018-06-13 07:53] LABS: Platelet Count 57 x1000/uL (130-400)
[2018-06-13] MEDS: Nadolol 40 MG TAB 20 MG PO (08:11)
[2018-06-13] MEDS: Docusate Sodium 100 MG CAP PO ×2 (08:12→20:36)
[2018-06-13] MEDS: guaiFENesin 600 MG TABCR PO ×2 (08:12→20:37)
[2018-06-13] MEDS: Benzonatate 100 MG CAP PO ×3 (08:12→20:36)
[2018-06-13] MEDS: Ondansetron 4 MG/2 ML VIAL IVP (08:12)
[2018-06-13] MEDS: Tamsulosin 0.4 MG CAPCR PO (08:12)
[2018-06-13] MEDS: Multivitamin w/Minerals TAB 1 TAB PO (08:12)
[2018-06-13] MEDS: Rifaximin 550 MG TAB PO ×2 (08:12→20:37)
[2018-06-13] MEDS: Pantoprazole 40 MG VIAL IVP ×2 (08:12→20:36)
[2018-06-13] MEDS: Insulin Aspart 300 UNITS/3 ML PEN SC ×4 (08:13→22:04)
[2018-06-13] MEDS: CEFEPIME 2 GM in Normal Saline 100 ML IVPB ×2 (08:13→22:04)
[2018-06-13 08:32] VITALS: BP 117/73; PULSE 52; RESP 16; TEMP 36.8; O2SAT 97
--- NOTE | 2018-06-13 10:36 | PDOC.CMPRO ---
Care Management Progress Note S/O: Abdoulaye was ambulating with PT through the hallways this morning, this afternoon he was sleeping soundly. He is aware of his discharge plan for tomorrow and remains agreeable to [place] [facility] [place] Abdoulaye reports he plans to return to his home this Spring. No change to overall plan. A: 63 year old male admitted to [facility] P: Abdoulaye will return to the [facility] when ready per MD, he will require continued IV ABX with an anticipated discharge of 06/14/18 per MD. CM will continue to follow and provide updated clinicals to [facility] [place] staff. Abdoulaye will transport via private vehicle with family or RCT.
--- NOTE | 2018-06-13 10:48 | OT.INTREAT ---
Date of service: 06/13/18 Time of Service: 10:00 Occupational Therapy Notes Occupational Therapy Inpatient Treatment Note Date: 06/13/18 PRECAUTIONS:Standard, fall SUBJECTIVE: Pt was sitting in chair when OT arrived. He reports that he is very tired again today but that he was already cleaned up with nursing. OBJECTIVE: PAIN:no c/o pain TOILETING: Pt reports that he is (I) toileting at this time Therapeutic Activities [id number]: Pt performed the following functional activities to increase functional activity tolerance during ADL routines and gross motor control of (B) UE. He performed each exercise 10x each with min vc including: Shoulder flexion, crossing midline with (B) UE, shoulder abduction, reaching above head, reaching towards knees. Pt also demonstrated ideal technique for donning and doffing (B) socks with min vc. ASSESSMENT: Pt demonstrating increased (I) in ADLs in the sitting position in the chair. He was still very tired during todays session but was more receptive to performing functional activities today. Pt would benefit from continued skilled OT services for increased functional activity tolerance. Pt is functionally able to perform ADLs he just can only perform for a short time period. OT does recommend though that pt return to the [facility] when medically cleared per MD. PLAN: Pt reports thats he believes he will be going back to [facility] soon he is unsure when at this time. OT will continue to work with pt to progress (I) in ADL/IADL routine. TREATMENT CODES/TIME: [id number], 15 minutes (10:00) [facility]
--- NOTE | 2018-06-13 10:54 | OTTR_ITS ---
Date of service: 06/13/18 Time of Service: 10:00 Occupational Therapy Notes Occupational Therapy Inpatient Treatment Note Date: 06/13/18 PRECAUTIONS:Standard, fall SUBJECTIVE: Pt was sitting in chair when OT arrived. He reports that he is very tired again today but that he was already cleaned up with nursing. OBJECTIVE: PAIN:no c/o pain TOILETING: Pt reports that he is (I) toileting at this time Therapeutic Activities [id number]: Pt performed the following functional activities to increase functional activity tolerance during ADL routines and gross motor control of (B) UE. He performed each exercise 10x each with min vc including: Shoulder flexion, crossing midline with (B) UE, shoulder abduction, reaching above head, reaching towards knees. Pt also demonstrated ideal technique for donning and doffing (B) socks with min vc. ASSESSMENT: Pt demonstrating increased (I) in ADLs in the sitting position in the chair. He was still very tired during todays session but was more receptive to performing functional activities today. Pt would benefit from continued skilled OT services for increased functional activity tolerance. Pt is functionally able to perform ADLs he just can only perform for a short time period. OT does recommend though that pt return to the [facility] when medically cleared per MD. PLAN: Pt reports thats he believes he will be going back to [facility] soon he is unsure when at this time. OT will continue to work with pt to progress (I) in ADL/IADL routine. TREATMENT CODES/TIME: [id number], 15 minutes (10:00) [facility]
[2018-06-13] MEDS: Bisacodyl 5 MG TABEC PO (11:01)
[2018-06-13 11:50] VITALS: BP 101/58; PULSE 58; RESP 18; TEMP 36.7; O2SAT 98
--- NOTE | 2018-06-13 12:37 | DI.RAD_ITS ---
SYMPTOMS/DIAGNOSIS: NEW WHEEZING, ? NEW PNEUMONIA/CHF PORTABLE AP CHEST: The heart is not enlarged. The lungs appear grossly clear and well expanded. CONCLUSION: No evidence of acute disease.
[2018-06-13] MEDS: predniSONE 20 MG TAB 40 MG PO (13:26)
--- NOTE | 2018-06-13 14:45 | CHAPLAIN ---
Abdoulaye was sitting up in his chair when I visited, waiting for PT or RT to come in an work with him. He was here in January and we'd met then. Abdoulaye lives at the [facility] currently. He said he hopes he will be able to return home this spring, after spending the winter at the [facility]. He identified a nephew as a support person. He is the youngest of five brothers and the only surviving one, he told me.
--- NOTE | 2018-06-13 15:07 | PT.INTREAT ---
Date of service: 06/13/18 Time of Service: 15:07 PT Notes Inpatient Physical Therapy Treatment Note [facility] Date: 06/13/18 PRECAUTIONS: Contact, Fall SUBJECTIVE: Abdoulaye reports that he is feeling better today than he has been. OBJECTIVE: PAIN: No c/o pain BED MOBILITY/TRANSFERS Supine-sit: I Sit-supine: I Sit-stand: S Stand-sit: S GAIT Assistive Device: FWW Weight bearing: Full Assist: SBA Distance: 60' x2 in both a.m. and p.m. THEREX: Patient completed a LE strengthening program in a seated position at EOB in a.m., and an UE and LE strengthening program in a supine position in p.m., as per flow sheet. ASSESSMENT: Patient tolerated sessions well with some complaint of increased fatigue. He was able to tolerate a progression in gait distance with FWW support and SBA. She would benefit from continued gait training and strengthening for improved activity tolerance. PLAN: Continue with PT's POC TREATMENT CODE/TIME: Session 1: 25 minutes; [id number], [id number] Session 2: 30 minutes; [id number], [id number]
--- NOTE | 2018-06-13 15:37 | PGE_ITS ---
Date of Service Date of service: 06/13/18 Time of Service: 15:35 Assessment and Plan (1) HCAP (healthcare-associated pneumonia): Current visit: Yes Status: Acute Present on admission. CXR is not showing an infiltrate today, but wheezing could still be due to either this infectious process or mild fluid overload. I started prednisone and wrote for lasix 20 mg IV x1. Continue vancomycin (D4), cefepime (D5), antitussives. (2) Hepatic encephalopathy: Current visit: Yes Status: Acute Improved. Continue lactulose + rifaximine. Finally started to have diarrhea. (3) Hepatorenal syndrome: Current visit: Yes Status: Resolved YURI is multifactorial - both due to hepatorenal syndrome from overdiuresis with lasix as well as due to urinary retention. Continue flomax. Creatinine is a little worse today, and potassium higher. No aldactone today. Trialing a single dose of lasix. *On discharge, lasix should be written as prn for edema; aldactone should be continued the way it was. (4) Urinary retention: Current visit: Yes Status: Acute Better with flomax - continue. (5) Dehydration: Current visit: Yes Status: Resolved As above (6) Ascites: Current visit: Yes Status: Acute S/p paracenthesis 06/09/18 in the ED with WBC's not quite meeting criteria for SBP. Clinically, there is no evidence of SBP either. He is being covered with cefepime for PNA. Fluid cultures show no growth to date. Holding off on aldactone. (7) Nausea & vomiting: Current visit: Yes Status: Resolved ?due to portal gastropathy. Continue protonix IV, nadolol. Will need to be discharged on a PPI and with follow [place] [facility] (8) Thrombocytopenia: Current visit: Yes Status: Chronic Stable. Monitor for bleeding. Hemoccult negative. No chemical DVT ppx (9) Hyponatremia: Current visit: Yes Status: Resolved Due to liver disease. Continue to monitor. (10) End stage liver disease: Current visit: Yes Status: Chronic Due to BRUNNER, with known portal hypertension, esophageal varices (no history of bleeding, hemoccult negative), ascites, prior SBP, thrombocytopenia, encephalopathy. INR 1.2. Patient follows with [facility]. Nadolol initiated - monitor. (11) Esophageal varices without bleeding: Current visit: No Status: Acute Hemoccult negative. Continue nadolol. (12) Insulin dependent diabetes mellitus: Current visit: Yes Status: Chronic Cover with sliding scale insulin (13) Discharge planning issues: Current visit: Yes Status: Acute Full code as per COLST form and my discussion with patient. Expected to return to the [facility] on discharge - likely on 06/14/18 (14) DVT prophylaxis: Current visit: Yes Status: Acute Chemical DVT ppx is contraindicated with patient's thrombocytopenia and history of esophageal varices Subjective Interval history since last seen: Mr Urias states his cough is doing a little bit better - however, he is noticing himself wheeze. Cough is not productive. Denies dizziness, chest pain, shortness of breath, nausea, vomiting. Did finally have diarrhea today - and was about to have a 2nd bowel movement when I came to see him. Exam Narrative Exam Narrative: General: Very pleasant middle Aged male, A&Ox3, asterexis significantly better; patient appears more alert as well HEENT: EOMI, moist MM Cardiovascular: RRR, no m/r/g Lungs: Wheezing on expiration B - new Gastrointestinal: abdomen soft with ascites, nontender, nondistended Extremities: Trace edema BLE's, no clubbing, or cyanosis; 2+ BLE pedal pulses; L tibial surface wounds do not look infected; wearing TEDs Objective Objective Clinical Data: Abnormal lab results 06/13/18 06/13/18 Range/Units 06:40 06:40 RBC 4.29 L (4.50-6.00) m/cumm MCV 100.0 H (80-95) fL MCH 33.8 H (27.0-33.0) pg Plt Count 57 L (130-400) x1000/uL Absolute Lymphocytes 0.47 L (1.2-3.4) k/cumm Sodium 131 L (136-145) mmol/L BUN 52 H (7-18) mg/dL Creatinine 1.67 H (0.70-1.30) mg/dL Glucose 148 H (70-100) mg/dL Calcium 8.4 L (8.5-10.1) mg/dL Vital Signs Temperature 36.7 C 06/13/18 11:50 Temperature Source Tympanic 06/13/18 11:50 Pulse 58 L 06/13/18 11:50 Pulse Rhythm Regular 06/13/18 07:35 Pulse 56 L 06/09/18 09:40 Respiratory Rate 18 06/13/18 11:50 Respiratory Effort Non-Labored 06/13/18 07:35 Respiratory Depth Normal 06/13/18 07:35 Respiratory Pattern Normal 06/13/18 07:35 Blood Pressure 101/58 L 06/13/18 11:50 Blood Pressure Mean 71 06/09/18 09:30 Blood Pressure Position Sitting 06/09/18 09:00 Pulse Oximetry 98 06/13/18 11:50 Oxygen Delivery Method Room Air 06/13/18 11:50 Oxygen Flow Rate 0 06/13/18 11:50 Pain Level 2 06/13/18 11:50 Comment 06/13/18 08:32 Intake & Output 06/12/18 06/13/18 06/13/18 23:59 11:59 23:59 Intake Total 1140 / 3477.5 710 / 1300 590 / 1300 Output Total 400 / 400 450 / 750 300 / 750 Balance 740 / 3077.5 260 / 550 290 / 550 Weight 94.3 kg Intake: IV 300 / 2197.5 310 / 310 Oral 840 / 1280 400 / 990 590 / 990 Output: Urine 400 / 400 450 / 750 300 / 750 Other: Urine Color Dark Marta Dark Marta Dark Marta Urine Appearance Clear Cloudy Urine Odor Strong None Strong Comment voided in the tiolet Stool Size Moderate Large Small Stool Characteristics Formed Soft Soft Liquid Formed Voiding Methods Toilet Laboratory Results WBC 5.22 k/cumm (4.4-10.8) 06/13/18 06:40 RBC 4.29 m/cumm (4.50-6.00) L 06/13/18 06:40 Hgb 14.5 g/dL (13.5-17.5) 06/13/18 06:40 Hct 42.9 % (40.0-50.0) 06/13/18 06:40 MCV 100.0 fL (80-95) H 06/13/18 06:40 MCH 33.8 pg (27.0-33.0) H 06/13/18 06:40 MCHC 33.8 g/dL (32.0-36.0) 06/13/18 06:40 RDW 13.8 % (11.8-14.1) 06/13/18 06:40 Plt Count 57 x1000/uL (130-400) L 06/13/18 06:40 MPV fL (8.0-11.0) 06/13/18 06:40 Immature Gran % 1.0 06/13/18 06:40 Neutrophils % 68.2 06/13/18 06:40 Lymphocytes % 9.0 06/13/18 06:40 Monocytes % 13.2 06/13/18 06:40 Eosinophils % 7.3 06/13/18 06:40 Basophils % 1.3 06/13/18 06:40 Absolute Neutrophils 3.56 k/cumm (1.2-6.7) 06/13/18 06:40 Absolute Lymphocytes 0.47 k/cumm (1.2-3.4) L 06/13/18 06:40 Absolute Monocytes 0.69 k/cumm (0.11-0.7) 06/13/18 06:40 Absolute Eosinophils 0.38 k/cumm (0.0-0.7) 06/13/18 06:40 Absolute Basophils 0.07 k/cumm (0.0-0.2) 06/13/18 06:40 Differential Comment Diff reviewed 06/12/18 07:05 RBC Morphology Normal 06/12/18 07:05 Macrocytosis 2+ 06/10/18 07:00 PT 12.1 sec (9.3-11.0) H 06/10/18 07:00 INR 1.2 (0.9-1.1) H 06/10/18 07:00 Sodium 131 mmol/L (136-145) L 06/13/18 06:40 Potassium 5.0 mmol/L (3.5-5.1) 06/13/18 06:40 Chloride 101 mmol/L (98-107) 06/13/18 06:40 Carbon Dioxide 25.6 mmol/L (21.0-32.0) 06/13/18 06:40 Anion Gap 4.4 mmol/L (3-11) 06/13/18 06:40 BUN 52 mg/dL (7-18) H 06/13/18 06:40 Creatinine 1.67 mg/dL (0.70-1.30) H 06/13/18 06:40 Estimated GFR/1.73 m2 41.90 (mL/min/1.73m2) 06/13/18 06:40 Glucose 148 mg/dL (70-100) H 06/13/18 06:40 Calcium 8.4 mg/dL (8.5-10.1) L 06/13/18 06:40 Magnesium 2.3 mg/dL (1.8-2.4) 06/13/18 06:40 Total Bilirubin 3.9 mg/dL (0.2-1.0) H 06/10/18 07:00 Conjugated Bilirubin 2.66 mg/dL (0.00-0.20) H 06/10/18 07:00 AST 66 U/L (15-37) H 06/10/18 07:00 ALT 35 U/L (12-78) 06/10/18 07:00 Alkaline Phosphatase 233 U/L (46-116) H 06/10/18 07:00 Ammonia 47 umol/L (11-32) H 06/12/18 07:05 Troponin I < 0.02 ng/mL (0.00-0.06) 06/09/18 08:55 Total Protein 7.9 g/dL (6.4-8.2) 06/10/18 07:00 Albumin 2.3 g/dL (3.4-5.0) L 06/10/18 07:00 Lipase 228 U/L (73-393) 06/09/18 08:55 Prostate Specific Ag <0.1 ng/ml (0-4.5) 06/11/18 07:25 Urine Color Yellow (Yellow) 06/09/18 12:33 Urine Clarity Clear 06/09/18 12:33 Urine pH 7.0 (5-8) 06/09/18 12:33 Ur Specific [place] 1.015 (1.005-1.025) 06/09/18 12:33 Urine Protein Negative mg/dL (Negative) 06/09/18 12:33 Urine Ketones Negative mg/dL (Negative) 06/09/18 12:33 Urine Blood Negative (Negative) 06/09/18 12:33 Urine Nitrite Negative (Negative) 06/09/18 12:33 Urine Bilirubin Negative (Negative) 06/09/18 12:33 Urine Urobilinogen >=8.0 EU/dL (Up TO 0.2) 06/09/18 12:33 Ur Leukocyte Esterase Negative (Negative) 06/09/18 12:33 Urine Glucose Negative mg/dL (Negative) 06/09/18 12:33 Fluid Source Peritoneal 06/09/18 11:42 Fluid Color Yellow 06/09/18 11:42 Fluid Appearance Clear 06/09/18 11:42 Fluid WBC 208 /MM3 (0-0) H 06/09/18 11:42 Fluid Mononuclear Cell 81 % (0-0) H 06/09/18 11:42 Fl Polymorphonucl Cell 8 % (0-0) H 06/09/18 11:42 Fluid Other Cells 11 0 (0-0) H 06/09/18 11:42 Vancomycin Trough 18.2 ug/mL (10.0-20.0) 06/12/18 11:00 Path Cons Comment 06/09/18 11:42 CXR (official read): No evidence of acute disease. Per my read, there is cephalization and evidence of mild vascular congestion.
[2018-06-13 15:51] VITALS: BP 99/64; PULSE 49; RESP 18; TEMP 36.4; O2SAT 98
[2018-06-13] MEDS: Furosemide 20 MG/2 ML VIAL IVP (16:30)
[2018-06-13 19:08] VITALS: BP 108/58; PULSE 51; RESP 18; TEMP 36; O2SAT 95
[2018-06-13] MEDS: Melatonin 3 MG TAB PO (22:04)
[2018-06-14] VITALS (18 sets, daily range): BP systolic 94–150; BP diastolic 60–72; PULSE 46–80; RESP 16–20; TEMP 35.3–36.7; O2SAT 91–100
[2018-06-14] MEDS: Lactulose 20 GM/30 ML CUP PO ×4 (06:12→23:27)
[2018-06-14 07:32] LABS: HCT 41.2 % (40.0-50.0); HGB 14.2 g/dL (13.5-17.5); Mean Corp. HGB Concentration 34.5 g/dL (32.0-36.0); Mean Corpuscular Hemoglobin 34.1 pg (27.0-33.0); Mean Corpuscular Volume 98.8 fL (80-95); Mean Platelet Volume 13.9 fL (8.0-11.0); RBC 4.17 m/cumm (4.50-6.00); RBC Distribution Width 13.5 % (11.8-14.1); White Blood Cell Count 6.47 k/cumm (4.4-10.8)
[2018-06-14 07:37] LABS: Ammonia 16 umol/L (11-32)
[2018-06-14 07:40] LABS: Anion Gap 5.8 mmol/L (3-11); BUN 52 mg/dL (7-18); CO2 24.2 mmol/L (21.0-32.0); CREATININE 1.79 mg/dL (0.70-1.30); Calcium 8.3 mg/dL (8.5-10.1); Chloride 97 mmol/L (98-107); Estimated GFR 38.67 (mL/min/1.73m2); Glucose 277 mg/dL (70-100); Magnesium 2.4 mg/dL (1.8-2.4); Sodium 127 mmol/L (136-145)
[2018-06-14 08:10] LABS: Platelet Count 54 x1000/uL (130-400)
[2018-06-14 08:34] LABS: Potassium 6.1 mmol/L (3.5-5.1)
[2018-06-14] MEDS: Dextrose 50%-Water 25 GM/50 ML SYR IVP (09:58)
[2018-06-14] MEDS: Insulin REGULAR-Human 100 UNITS/ML UNIT 10 UNITS IV (10:01)
[2018-06-14] MEDS: Insulin Aspart 300 UNITS/3 ML PEN SC ×4 (10:17→22:06)
[2018-06-14] MEDS: Normal Saline Flush 10 ML SYR IVP ×4 (10:22→20:17)
[2018-06-14] MEDS: guaiFENesin 600 MG TABCR PO ×2 (10:23→20:15)
[2018-06-14] MEDS: Rifaximin 550 MG TAB PO ×2 (10:23→20:16)
[2018-06-14] MEDS: Benzonatate 100 MG CAP PO ×3 (10:23→20:16)
[2018-06-14] MEDS: Nadolol 40 MG TAB 20 MG PO (10:23)
[2018-06-14] MEDS: Docusate Sodium 100 MG CAP PO ×2 (10:23→20:16)
[2018-06-14] MEDS: Multivitamin w/Minerals TAB 1 TAB PO (10:23)
[2018-06-14] MEDS: Tamsulosin 0.4 MG CAPCR PO (10:23)
[2018-06-14] MEDS: predniSONE 20 MG TAB 40 MG PO (10:24)
[2018-06-14] MEDS: Pantoprazole 40 MG VIAL IVP ×2 (10:41→20:16)
[2018-06-14] MEDS: Furosemide 20 MG/2 ML VIAL IVP (10:41)
[2018-06-14] MEDS: CEFEPIME 2 GM in Normal Saline 100 ML IVPB ×2 (10:42→20:17)
--- NOTE | 2018-06-14 11:18 | PDOC.CMPRO ---
Care Management Progress Note S/O: Abdoulaye continues to ambulate with PT and is being closely monitored. Per MD, he was not yet medically ready for discharge today and will remain at [facility] over the weekend as the [facility] is unable to admit him over the weekend. He is aware of his discharge plan and remains agreeable to returning to the [facility]. Abdoulaye reports he plans to return to his home this Spring. No change to overall plan. CM spoke with Tanvir, Abdoulaye's nephew who planned on transporting Abdoulaye today, Tanvir reported he would be at [facility] to see Abdoulaye at 1500 and would like to meet with nursing for a status update. CM notified RNEbenezer Ching of request. A: 63 year old male admitted to [facility] P: Abdoulaye will return to the [facility] when ready per MD, he will require continued IV ABX with an anticipated discharge of 06/14/18 per MD. CM will continue to follow and provide updated clinicals to [facility] staff. Abdoulaye will transport via private vehicle with family or RCT.
[2018-06-14 11:34] LABS: BUN 52 mg/dL (7-18); CREATININE 1.82 mg/dL (0.70-1.30); Calcium 8.5 mg/dL (8.5-10.1); Chloride 97 mmol/L (98-107); Estimated GFR 37.94 (mL/min/1.73m2); Glucose 306 mg/dL (70-100); Potassium 5.3 mmol/L (3.5-5.1); Sodium 128 mmol/L (136-145)
--- NOTE | 2018-06-14 11:56 | PT.INTREAT ---
Date of service: 06/14/18 Time of Service: 09:15 PT Notes Inpatient Physical Therapy Treatment Note [facility] Date: 06/14/18 PRECAUTIONS: fall, standard SUBJECTIVE: States that he is feeling well today. OBJECTIVE: PAIN: denies BED MOBILITY/TRANSFERS Supine-sit: Independent Sit-supine: Independent Sit-stand: Supervision Stand-sit: Supervision Bed-Chair: Supervision with FW W Chair-bed: Supervision with FW W GAIT Assistive Device: FW W Weight bearing: Full weightbearing Assist: SBA Distance: 75 feet Deviation: Slow shuffling gait VITALS: Monitored on telemetry THEREX: Patient was instructed in both open and close chain strengthening activities, with progression to sit to stand exercises. He completed only 6 repetitions of sit to stand, with obvious fatigue and difficulty completing last repetition. These were performed from elevated bed. Also added standing hip PREs, with patient able to tolerate hip abduction only, requiring heavy reliance on upper extremity support to wheeled walker for final repetitions. ASSESSMENT: Demonstrating continued lower extremity weakness and significant limitations in activity tolerance. Requires continued PT intervention to maximize mobility and safety. PLAN: Continue per established plan of care TREATMENT CODE/TIME: 30 minutes ([id number], [id number])
--- NOTE | 2018-06-14 12:03 | PT.INTREAT ---
Date of service: 06/14/18 Time of Service: 11:00 PT Notes Inpatient Physical Therapy Treatment Note [facility] Date: 06/14/18 PRECAUTIONS:FALL SUBJECTIVE: Darcy states that he is very anxious to return home. He has had several recommendations today for care home facility, although states that he knows that if he goes home he will be able to improve his balance and strength. He is now agreeable to home health services, and continues to have questions about outpatient PT. OBJECTIVE: BED MOBILITY/TRANSFERS Supine-sit: Independent Sit-supine: Independent Sit-stand: Independent Stand-sit: Independent Bed-Chair: Cane with supervision Chair-bed: Cane with supervision GAIT Assistive Device: Cane Weight bearing: Full weightbearing Assist: Contact-guard to supervision. Patient does have minor loss of balance x2, as well as a single significant loss of balance which recovers mod assist for recovery Distance: 120 feet x2 Deviation: Continued path deviation and ataxia. Patient continues to require cues for appropriate utilization of straight cane Neuromuscular reeducation: Patient completed balance activities as noted on flowsheet. He also completed a Russell balance test, demonstrating score of 29/56. During completion he is unable to perform stair stepping activities or single leg standing. He was subsequently instructed in step tap activities to forage therapeutic stair with right upper extremity support to rail and contact-guard. STAIRS: Patient manages therapeutic stairs (6 inches x4, 4 inches x6) with cane and contact-guard. He continues to demonstrate poor safety awareness, and requires cues for foot placement and cane management. He also has a loss of balance which requires mod assist for recovery. FUNCTIONAL MOBILITY: Patient requires significantly increased time to perform and minimal assistance for donning pants. ASSESSMENT: Continued deficits in balance and safety. Performed Russell balance test today with score of 29/56, indicating significant fall risk (of note, a score of less than 40/56 in combination with a history of falls indicates a HIGH fall risk, based on Tushar, 1997). I have strongly recommended to patient that he consider further PT intervention in care home facility prior to returning home, given his high fall risk. He is continuing to adamantly refuse this. We will continue with PT intervention here in acute care, with continued recommendation for SNF. PLAN: Continue per established plan of care with recommendation for care home facility upon discharge TREATMENT CODE/TIME: 30 minutes ([id number], [id number])
--- NOTE | 2018-06-14 12:12 | PTTR_ITS ---
Date of service: 06/14/18 Time of Service: 11:00 PT Notes Inpatient Physical Therapy Treatment Note [facility] Date: 06/14/18 PRECAUTIONS:FALL SUBJECTIVE: Darcy states that he is very anxious to return home. He has had several recommendations today for detention facility, although states that he knows that if he goes home he will be able to improve his balance and strength. He is now agreeable to home health services, and continues to have questions about outpatient PT. OBJECTIVE: BED MOBILITY/TRANSFERS Supine-sit: Independent Sit-supine: Independent Sit-stand: Independent Stand-sit: Independent Bed-Chair: Cane with supervision Chair-bed: Cane with supervision GAIT Assistive Device: Cane Weight bearing: Full weightbearing Assist: Contact-guard to supervision. Patient does have minor loss of balance x2, as well as a single significant loss of balance which recovers mod assist for recovery Distance: 120 feet x2 Deviation: Continued path deviation and ataxia. Patient continues to require cues for appropriate utilization of straight cane Neuromuscular reeducation: Patient completed balance activities as noted on flowsheet. He also completed a Russell balance test, demonstrating score of 29/56. During completion he is unable to perform stair stepping activities or single leg standing. He was subsequently instructed in step tap activities to forage therapeutic stair with right upper extremity support to rail and contact-guard. STAIRS: Patient manages therapeutic stairs (6 inches x4, 4 inches x6) with cane and contact-guard. He continues to demonstrate poor safety awareness, and requires cues for foot placement and cane management. He also has a loss of balance which requires mod assist for recovery. FUNCTIONAL MOBILITY: Patient requires significantly increased time to perform and minimal assistance for donning pants. ASSESSMENT: Continued deficits in balance and safety. Performed Russell balance test today with score of 29/56, indicating significant fall risk (of note, a score of less than 40/56 in combination with a history of falls indicates a HIGH fall risk, based on Tushar, 1997). I have strongly recommended to patient that he consider further PT intervention in detention facility prior to returning home, given his high fall risk. He is continuing to adamantly refuse this. We will continue with PT intervention here in acute care, with continued recommendation for SNF. PLAN: Continue per established plan of care with recommendation for detention facility upon discharge TREATMENT CODE/TIME: 30 minutes ([id number], [id number])
[2018-06-14 12:31] LABS: Anion Gap 7.7 mmol/L (3-11); BUN 52 mg/dL (7-18); CO2 22.3 mmol/L (21.0-32.0); CREATININE 1.69 mg/dL (0.70-1.30); Calcium 8.4 mg/dL (8.5-10.1); Chloride 97 mmol/L (98-107); Estimated GFR 41.32 (mL/min/1.73m2); Glucose 246 mg/dL (70-100); Potassium 4.6 mmol/L (3.5-5.1); Sodium 127 mmol/L (136-145)
--- NOTE | 2018-06-14 14:25 | PT.INTREAT ---
Date of service: 06/14/18 Time of Service: 14:26 PT Notes Inpatient Physical Therapy Treatment Note [facility] Date: 06/14/18 PRECAUTIONS: Fall SUBJECTIVE: Abdoulaye states that he is feeling much better today. OBJECTIVE: PAIN: No c/o pain BED MOBILITY/TRANSFERS Supine-sit: I Sit-supine: I Sit-stand: S Stand-sit: S GAIT Assistive Device: FWW Weight bearing: Full Assist: SBA Distance: 300' THEREX: Patient completed a standing LE strengthening program, as per flow sheet. He required a seated rest due to increased fatigue. ASSESSMENT: Patient tolerated session well with some c/o increased fatigue with ther ex. Patient was able to tolerate a progression in gait distance with FWW support and SBA. He would benefit from continued gait training as well as strengthening for improved activity tolerance. PLAN: Continue with PT's POC TREATMENT CODE/TIME: 30 minutes; [id number], [id number]
--- NOTE | 2018-06-14 16:42 | CMPROGNOTE_ITS ---
Care Management Progress Note S/O: Abdoulaye continues to ambulate with PT and is being closely monitored. Per MD, he was not yet medically ready for discharge today and will remain at [facility] over the weekend as the [facility] is unable to admit him over the weekend. He is aware of his discharge plan and remains agreeable to returning to the [facility]. Abdoulaye reports he plans to return to his home this Spring. No change to overall plan. CM spoke with Tanvir, Abdoulaye's nephew who planned on transporting Abdoulaye today, Tanvir reported he would be at [facility] to see Abdoulaye at 1500 and would like to meet with nursing for a status update. CM notified RNEbenezer Ching of request. A: 63 year old male admitted to [facility] P: Abdoulaye will return to the [facility] when ready per MD, he will require continued IV ABX with an anticipated discharge of 06/14/18 per MD. CM will continue to follow and provide updated clinicals to [facility] staff. Abdoulaye will transport via private vehicle with family or RCT.
--- NOTE | 2018-06-14 21:55 | W.PM.PROGNOT ---
Date of Service Date of service: 06/14/18 Time of Service: 15:30 Assessment and Plan (1) HCAP (healthcare-associated pneumonia): Current visit: Yes Status: Acute Present on admission and resolved by CXR. D/c antibiotics (completed 5 days of vancomycin/cefepime). Wheezing could still be due to either this infectious process or mild fluid overload. Continue prednisone and diuresis. (2) Hepatic encephalopathy: Current visit: Yes Status: Acute Improved. Continue lactulose + rifaximine. (3) Hepatorenal syndrome: Current visit: Yes Status: Resolved YURI is multifactorial - both due to hepatorenal syndrome from overdiuresis with lasix as well as due to urinary retention. Continue flomax. Cr is better. Continue lasix. No aldactone due to hyperkalemia *On discharge, lasix should be written as prn for edema; Decision re aldactone to be based on potassium. (4) Urinary retention: Current visit: Yes Status: Acute Better with flomax - continue. (5) Dehydration: Current visit: Yes Status: Resolved As above (6) Ascites: Current visit: Yes Status: Acute S/p paracenthesis 06/09/18 in the ED with WBC's not quite meeting criteria for SBP. Clinically, there is no evidence of SBP either. Cultures with no growth to date. Holding off on aldactone due to hyperkalemia today. (7) Nausea & vomiting: Current visit: Yes Status: Resolved ?due to portal gastropathy. Continue protonix IV, nadolol. Will need to be discharged on a PPI and with follow up with GI at [facility]. (8) Thrombocytopenia: Current visit: Yes Status: Chronic Stable. Monitor for bleeding. Hemoccult negative. No chemical DVT ppx (9) Hyponatremia: Current visit: Yes Status: Resolved Due to liver disease. Continue to monitor. (10) End stage liver disease: Current visit: Yes Status: Chronic Due to BRUNNER, with known portal hypertension, esophageal varices (no history of bleeding, hemoccult negative), ascites, prior SBP, thrombocytopenia, encephalopathy. INR 1.2. Patient follows with [facility] GI. Nadolol initiated - monitor. (11) Esophageal varices without bleeding: Current visit: No Status: Acute Hemoccult negative. Continue nadolol. (12) Insulin dependent diabetes mellitus: Current visit: Yes Status: Chronic Cover with sliding scale insulin (13) Hyperkalemia: Current visit: Yes Status: Acute Resolved with veltassa, D50/insulin, lasix. Monitor over the weekend. (14) Discharge planning issues: Current visit: Yes Status: Acute Full code as per COLST form and my discussion with patient. Expected to return back to the [facility] on 06/17/18 if Potassium ok. (15) DVT prophylaxis: Current visit: Yes Status: Acute Chemical DVT ppx is contraindicated with patient's thrombocytopenia and history of esophageal varices Subjective Interval history since last seen: The patient states his cough is better. He denies dizziness, chest pain, nausea, vomiting, or abdominal pain today. Not yet! Exam Narrative Exam Narrative: General: Very pleasant middle Aged male, A&Ox3, asterexis barely seen; patient appears more alert as well HEENT: EOMI, moist MM Cardiovascular: RRR, no m/r/g Lungs: Improved wheezing on expiration B. Gastrointestinal: abdomen soft with ascites, nontender, nondistended Extremities: Trace edema BLE's, no clubbing, or cyanosis; 2+ BLE pedal pulses; L tibial surface wounds do not look infected; wearing TEDs Objective Objective Clinical Data: Abnormal lab results 06/14/18 06/14/18 06/14/18 Range/Units 07:12 07:12 11:06 RBC 4.17 L (4.50-6.00) m/cumm MCV 98.8 H (80-95) fL MCH 34.1 H (27.0-33.0) pg Plt Count 54 L (130-400) x1000/uL MPV 13.9 H (8.0-11.0) fL Sodium 127 L 128 L (136-145) mmol/L Potassium 6.1 H* 5.3 H (3.5-5.1) mmol/L Chloride 97 L 97 L (98-107) mmol/L BUN 52 H 52 H (7-18) mg/dL Creatinine 1.79 H 1.82 H (0.70-1.30) mg/dL Glucose 277 H D 306 H (70-100) mg/dL Calcium 8.3 L (8.5-10.1) mg/dL 06/14/18 Range/Units 12:03 RBC (4.50-6.00) m/cumm MCV (80-95) fL MCH (27.0-33.0) pg Plt Count (130-400) x1000/uL MPV (8.0-11.0) fL Sodium 127 L (136-145) mmol/L Potassium (3.5-5.1) mmol/L Chloride 97 L (98-107) mmol/L BUN 52 H (7-18) mg/dL Creatinine 1.69 H (0.70-1.30) mg/dL Glucose 246 H (70-100) mg/dL Calcium 8.4 L (8.5-10.1) mg/dL Vital Signs Temperature 36.7 C 06/14/18 19:21 Temperature Source Tympanic 06/14/18 19:21 Pulse 52 L 06/14/18 19:21 Pulse Rhythm Regular 06/14/18 20:28 Pulse 56 L 06/09/18 09:40 Respiratory Rate 18 06/14/18 19:21 Respiratory Effort Non-Labored 06/14/18 20:28 Respiratory Depth Normal 06/14/18 20:28 Respiratory Pattern Normal 06/14/18 20:28 Blood Pressure 99/63 L 06/14/18 19:21 Blood Pressure Mean 71 06/09/18 09:30 Blood Pressure Position Sitting 06/09/18 09:00 Pulse Oximetry 96 06/14/18 19:21 Oxygen Delivery Method Room Air 06/14/18 19:21 Oxygen Flow Rate 0 06/14/18 19:21 Pain Level 0 06/14/18 07:36 Comment 06/14/18 10:40 Intake & Output 06/13/18 06/14/18 06/14/18 23:59 11:59 23:59 Intake Total 1410 / 2720 1036.667 / 2030.000 993.333 / 2030.000 Output Total 1500 / 1950 900 / 1500 600 / 1500 Balance -90 / 770 136.667 / 530.000 393.333 / 530.000 Weight 93.3 kg Intake: IV 340 / 700 296.667 / 560.000 263.333 / 560.000 Oral 1069 740 / 1470 730 / 1470 Output: Urine 1500 / 1950 900 / 1500 600 / 1500 Other: Urine Color Straw Light Marta Light Marta Urine Appearance Cloudy Clear Clear Urine Odor Strong Strong None Comment Void x1 in the toilet. Stool Size Moderate Small Small Stool Characteristics Formed Soft Soft Brown Brown Voiding Methods Toilet Toilet Toilet Laboratory Results WBC 6.47 k/cumm (4.4-10.8) 06/14/18 07:12 RBC 4.17 m/cumm (4.50-6.00) L 06/14/18 07:12 Hgb 14.2 g/dL (13.5-17.5) 06/14/18 07:12 Hct 41.2 % (40.0-50.0) 06/14/18 07:12 MCV 98.8 fL (80-95) H 06/14/18 07:12 MCH 34.1 pg (27.0-33.0) H 06/14/18 07:12 MCHC 34.5 g/dL (32.0-36.0) 06/14/18 07:12 RDW 13.5 % (11.8-14.1) 06/14/18 07:12 Plt Count 54 x1000/uL (130-400) L 06/14/18 07:12 MPV 13.9 fL (8.0-11.0) H 06/14/18 07:12 Immature Gran % 1.0 06/13/18 06:40 Neutrophils % 68.2 06/13/18 06:40 Lymphocytes % 9.0 06/13/18 06:40 Monocytes % 13.2 06/13/18 06:40 Eosinophils % 7.3 06/13/18 06:40 Basophils % 1.3 06/13/18 06:40 Absolute Neutrophils 3.56 k/cumm (1.2-6.7) 06/13/18 06:40 Absolute Lymphocytes 0.47 k/cumm (1.2-3.4) L 06/13/18 06:40 Absolute Monocytes 0.69 k/cumm (0.11-0.7) 06/13/18 06:40 Absolute Eosinophils 0.38 k/cumm (0.0-0.7) 06/13/18 06:40 Absolute Basophils 0.07 k/cumm (0.0-0.2) 06/13/18 06:40 Differential Comment Diff reviewed 06/12/18 07:05 RBC Morphology Normal 06/12/18 07:05 Macrocytosis 2+ 06/10/18 07:00 PT 12.1 sec (9.3-11.0) H 06/10/18 07:00 INR 1.2 (0.9-1.1) H 06/10/18 07:00 Sodium 127 mmol/L (136-145) L 06/14/18 12:03 Potassium 4.6 mmol/L (3.5-5.1) 06/14/18 12:03 Chloride 97 mmol/L (98-107) L 06/14/18 12:03 Carbon Dioxide 22.3 mmol/L (21.0-32.0) 06/14/18 12:03 Anion Gap 7.7 mmol/L (3-11) 06/14/18 12:03 BUN 52 mg/dL (7-18) H 06/14/18 12:03 Creatinine 1.69 mg/dL (0.70-1.30) H 06/14/18 12:03 Estimated GFR/1.73 m2 41.32 (mL/min/1.73m2) 06/14/18 12:03 Glucose 246 mg/dL (70-100) H 06/14/18 12:03 Calcium 8.4 mg/dL (8.5-10.1) L 06/14/18 12:03 Magnesium 2.4 mg/dL (1.8-2.4) 06/14/18 07:12 Total Bilirubin 3.9 mg/dL (0.2-1.0) H 06/10/18 07:00 Conjugated Bilirubin 2.66 mg/dL (0.00-0.20) H 06/10/18 07:00 AST 66 U/L (15-37) H 06/10/18 07:00 ALT 35 U/L (12-78) 06/10/18 07:00 Alkaline Phosphatase 233 U/L (46-116) H 06/10/18 07:00 Ammonia 16 umol/L (11-32) 06/14/18 07:12 Troponin I < 0.02 ng/mL (0.00-0.06) 06/09/18 08:55 Total Protein 7.9 g/dL (6.4-8.2) 06/10/18 07:00 Albumin 2.3 g/dL (3.4-5.0) L 06/10/18 07:00 Lipase 228 U/L (73-393) 06/09/18 08:55 Prostate Specific Ag <0.1 ng/ml (0-4.5) 06/11/18 07:25 Urine Color Yellow (Yellow) 06/09/18 12:33 Urine Clarity Clear 06/09/18 12:33 Urine pH 7.0 (5-8) 06/09/18 12:33 Ur Specific [place] 1.015 (1.005-1.025) 06/09/18 12:33 Urine Protein Negative mg/dL (Negative) 06/09/18 12:33 Urine Ketones Negative mg/dL (Negative) 06/09/18 12:33 Urine Blood Negative (Negative) 06/09/18 12:33 Urine Nitrite Negative (Negative) 06/09/18 12:33 Urine Bilirubin Negative (Negative) 06/09/18 12:33 Urine Urobilinogen >=8.0 EU/dL (Up TO 0.2) 06/09/18 12:33 Ur Leukocyte Esterase Negative (Negative) 06/09/18 12:33 Urine Glucose Negative mg/dL (Negative) 06/09/18 12:33 Fluid Source Peritoneal 06/09/18 11:42 Fluid Color Yellow 06/09/18 11:42 Fluid Appearance Clear 06/09/18 11:42 Fluid WBC 208 /MM3 (0-0) H 06/09/18 11:42 Fluid Mononuclear Cell 81 % (0-0) H 06/09/18 11:42 Fl Polymorphonucl Cell 8 % (0-0) H 06/09/18 11:42 Fluid Other Cells 11 0 (0-0) H 06/09/18 11:42 Vancomycin Trough 18.2 ug/mL (10.0-20.0) 06/12/18 11:00 Path Cons Comment 06/09/18 11:42
[2018-06-14] MEDS: Melatonin 3 MG TAB PO (22:10)
[2018-06-15] VITALS (11 sets, daily range): BP systolic 102–108; BP diastolic 47–66; PULSE 44–56; RESP 16–18; TEMP 35.8–37; O2SAT 94–97
[2018-06-15] MEDS: Lactulose 20 GM/30 ML CUP PO ×3 (05:10→17:16)
[2018-06-15 05:19] LABS: Vancomycin, Trough 23.7 ug/mL (10.0-20.0)
[2018-06-15 07:14] LABS: Abs Immature Grans 0.06 k/cumm (0.0-0.09); Absolute Basophil Count 0.01 k/cumm (0.0-0.2); Absolute Monocyte Count 0.69 k/cumm (0.11-0.7); Absolute Neutrophil Count 10.47 k/cumm (1.2-6.7); Basophils % 0.1; HCT 38.3 % (40.0-50.0); HGB 13.2 g/dL (13.5-17.5); Immature Grans % 0.5; Lymphocytes % 2.6; Mean Corp. HGB Concentration 34.5 g/dL (32.0-36.0); Mean Corpuscular Hemoglobin 33.8 pg (27.0-33.0); Mean Corpuscular Volume 98.2 fL (80-95); Neutrophils % 90.8; RBC Distribution Width 13.5 % (11.8-14.1); White Blood Cell Count 11.53 k/cumm (4.4-10.8)
[2018-06-15 07:23] LABS: Anion Gap 7.7 mmol/L (3-11); BUN 53 mg/dL (7-18); CO2 21.3 mmol/L (21.0-32.0); CREATININE 1.57 mg/dL (0.70-1.30); Calcium 8.3 mg/dL (8.5-10.1); Chloride 98 mmol/L (98-107); Estimated GFR 44.99 (mL/min/1.73m2); Glucose 279 mg/dL (70-100); Magnesium 2.1 mg/dL (1.8-2.4); Potassium 5.2 mmol/L (3.5-5.1); Sodium 127 mmol/L (136-145)
[2018-06-15 07:43] LABS: Diff Comment PLT Morph Reviewed; Platelet Count 58 x1000/uL (130-400); RBC Morphology Normal
[2018-06-15] MEDS: Rifaximin 550 MG TAB PO ×2 (08:45→19:41)
[2018-06-15] MEDS: guaiFENesin 600 MG TABCR PO ×2 (08:45→19:41)
[2018-06-15] MEDS: Nadolol 40 MG TAB 20 MG PO (08:45)
[2018-06-15] MEDS: predniSONE 20 MG TAB 40 MG PO (08:45)
[2018-06-15] MEDS: Tamsulosin 0.4 MG CAPCR PO (08:45)
[2018-06-15] MEDS: Multivitamin w/Minerals TAB 1 TAB PO (08:45)
[2018-06-15] MEDS: Docusate Sodium 100 MG CAP PO ×2 (08:46→19:41)
[2018-06-15] MEDS: Benzonatate 100 MG CAP PO ×3 (08:46→19:41)
[2018-06-15] MEDS: Normal Saline Flush 10 ML SYR IVP ×2 (08:46→19:41)
[2018-06-15] MEDS: Pantoprazole 40 MG VIAL IVP ×2 (08:46→19:41)
[2018-06-15] MEDS: Insulin Aspart 300 UNITS/3 ML PEN SC ×4 (08:47→22:21)
[2018-06-15] MEDS: Furosemide 20 MG/2 ML VIAL IVP (08:47)
--- NOTE | 2018-06-15 11:10 | PDOC.CMPRO ---
Care Management Progress Note S/O: Abdoulaye continues to work with PT and be closely monitored. He remains agreeable to returning to the [facility], and shared plans to return to his home residence in the spring. No change to overall plan. A: 63 year old male admitted to [facility] P: Abdoulaye will return to the [facility] when ready. CM will continue to follow and provide updated clinicals to [facility] staff. Abdoulaye will transport via private vehicle with his nephew, Tanvir.
--- NOTE | 2018-06-15 11:15 | CMPROGNOTE_ITS ---
Care Management Progress Note S/O: Abdoulaye continues to work with PT and be closely monitored. He remains agreeable to returning to the [facility], and shared plans to return to his home residence in the spring. No change to overall plan. A: 63 year old male admitted to [facility] P: Abdoulaye will return to the [facility] when ready. CM will continue to follow and provide updated clinicals to [facility] staff. Abdoulaye will transport via private vehicle with his nephew, Tanvir.
--- NOTE | 2018-06-15 11:18 | PT.INTREAT ---
Date of service: 06/15/18 Time of Service: 09:50 PT Notes Inpatient Physical Therapy Treatment Note [facility] Date: 06/15/18 PRECAUTIONS:Fall and Standard SUBJECTIVE: Indicated he is doing fair. Likes to get up and walk. OBJECTIVE: PAIN: No complaints of pain offered during PT session. BED MOBILITY/TRANSFERS Supine-sit: I Sit-supine: I Sit-stand: SBA Stand-sit: SBA GAIT Assistive Device: FWW Weight bearing: FWW Assist: SBA Distance: 150ft x 2 Did have to use toilet for urination prior to ambulation. Required slight assist with going sit to stand from toilet today. THEREX: Performed standing HR x 10, seated SAQs, hip abd/ add and hip flex x 10 reps each and sit to stand transfers x 10 reps. Also, performed UE shoulder horizontal abd/ adduction, row and shoulder flexion to 90 degrees for 10 reps each. ASSESSMENT: Tolerated today's PT session very well with good effort given. PLAN: Continue with current POC with focus on UE / LE strengthening and improved balance with mobility. TREATMENT CODE/TIME: 8:50 to 9:30 (40 minutes), [id number] x 1 and [id number] x 1 Destinee Woods FEEDER TENDER
--- NOTE | 2018-06-15 11:28 | PTTR_ITS ---
Date of service: 06/15/18 Time of Service: 09:50 PT Notes Inpatient Physical Therapy Treatment Note [facility] Date: 06/15/18 PRECAUTIONS:Fall and Standard SUBJECTIVE: Indicated he is doing fair. Likes to get up and walk. OBJECTIVE: PAIN: No complaints of pain offered during PT session. BED MOBILITY/TRANSFERS Supine-sit: I Sit-supine: I Sit-stand: SBA Stand-sit: SBA GAIT Assistive Device: FWW Weight bearing: FWW Assist: SBA Distance: 150ft x 2 Did have to use toilet for urination prior to ambulation. Required slight assist with going sit to stand from toilet today. THEREX: Performed standing HR x 10, seated SAQs, hip abd/ add and hip flex x 10 reps each and sit to stand transfers x 10 reps. Also, performed UE shoulder horizontal abd/ adduction, row and shoulder flexion to 90 degrees for 10 reps each. ASSESSMENT: Tolerated today's PT session very well with good effort given. PLAN: Continue with current POC with focus on UE / LE strengthening and improved balance with mobility. TREATMENT CODE/TIME: 8:50 to 9:30 (40 minutes), [id number] x 1 and [id number] x 1 Destinee Woods [employer]
--- NOTE | 2018-06-15 15:10 | W.PM.PROGNOT ---
Date of Service Date of service: 06/15/18 Time of Service: 15:10 Assessment and Plan (1) Hepatic encephalopathy: Current visit: Yes Status: Acute Appears resolved and likely in setting of lactulose non-compliance per review of records. Continue Lactulose and wean pending number of daily bowel movements, and consider discontinuation of Rifaximin. Ammonia well within normal limits following treatment - 145 originally down to 16 currently. (2) End stage liver disease: Current visit: Yes Status: Chronic Noted, secondary to BRUNNER, with known Portal Hypertension, reported Esophageal Varices, Ascites with prior SBP, Hepatic Encephalopathy, and TCP. Follows with [facility]. Reinitiate Lasix - current hyperkalemia likely in setting of witholding of this medication. Will reinitiate Aldactone when able. Monitor HR with initiated low dose Nadolol - currently appears bradycardic which may be limiting for use of this medication. Also with Ascites, s/p Paracenthesis on 06/09 - WBC's did not meet criteria for SBP, and cultures negative. Continue with reinitiated lasix and restart Spironolactone when able. (3) HCAP (healthcare-associated pneumonia): Current visit: Yes Status: Acute S/p 5 day course of Vancomycin and Cefepime. Appears resolved. Monitor. (4) Urinary retention: Current visit: Yes Status: Acute Reportedly improved on Tamsulosin. Continue to monitor. (5) Hepatorenal syndrome: Current visit: Yes Status: Resolved Noted elevation in creatinine that appears chronic, and dates back to approximately 2017. Continue to monitor renal function as diuretic therapy is reinitiated. (6) Insulin dependent diabetes mellitus: Current visit: Yes Status: Chronic Continue sliding scale coverage and monitor blood sugars. (7) Diabetes mellitus type 2: Current visit: No Status: Active (8) DVT prophylaxis: Current visit: Yes Status: Acute Currently without chemical prophylaxis due to Thrombocytopenia, which is stable. Continue TEDS, SCDs. Subjective Interval history since last seen: 63 year old man with a prior history of end stage liver disease/chronic liver failure secondary to BRUNNER, admitted from [facility] Emergency Department on 06/09 with a diagnosis of weakness. Mr. Urias has a history of ESLD in the setting of BRUNNER, with known Ascites with prior history of SBP as well as a history of hepatic encephalopathy. He also has known DM, HTN, and likely hepatorenal syndrome. He is a [place] resident at the [facility]. The patient was brought to the ED for evaluation of weakness, nausea with vomitting, and poor oral intake for approximately 2 weeks. There was note of noncompliance with his lactulos. He states he had an appointment at [facility] for a paracenthesis on 05/22, when a significant amount of fluid was removed. Prior to admission the patient underwent a paracentesis with approximate 2 Liter removal of ascitic fluid. He was also noted to have potential infiltrates by CXR. His CT of the abdomen showed stable hepatosplenomegally with ascites, and bowel wall thickening consistent with either infection/inflammation vs. portal hypertension in patient without abdominal pain or diarrhea. Following admission the patient has undergone a 5 day course of antibiotic therapy for treatment of HCAP, and has remained on lactulose and Rifaximine for treatment of hepatic encephalopathy. He appears stable and is without complaints this morning. No overnight events reported. Remains afebrile. Exam Narrative Exam Narrative: General: Patient appears comfortable, AAOX3, NAD Neck: Supple CV: Regular, nontachycardic, S1S2, No rubs, murmurs, or gallops. Pulmonary: Clear to auscultation bilaterally, no crackles, wheezing, or rhonchi Abdomen: + Bowel Sounds, soft, nontender, distended but soft with known ascites Vascular: B/l lower extremity edema Psych: Normal mood and affect. Objective Objective Clinical Data: Abnormal lab results 06/15/18 06/15/18 06/15/18 Range/Units 04:50 06:38 06:38 WBC 11.53 H D (4.4-10.8) k/cumm RBC 3.90 L (4.50-6.00) m/cumm Hgb 13.2 L (13.5-17.5) g/dL Hct 38.3 L (40.0-50.0) % MCV 98.2 H (80-95) fL MCH 33.8 H (27.0-33.0) pg Plt Count 58 L (130-400) x1000/uL Absolute Neutrophils 10.47 H (1.2-6.7) k/cumm Absolute Lymphocytes 0.30 L (1.2-3.4) k/cumm Sodium 127 L (136-145) mmol/L Potassium 5.2 H (3.5-5.1) mmol/L BUN 53 H (7-18) mg/dL Creatinine 1.57 H (0.70-1.30) mg/dL Glucose 279 H (70-100) mg/dL Calcium 8.3 L (8.5-10.1) mg/dL Vancomycin Trough 23.7 H* (10.0-20.0) ug/mL Vital Signs Temperature 36.0 C L 06/15/18 11:30 Temperature Source Tympanic 06/15/18 11:30 Pulse 46 L 06/15/18 11:30 Pulse Rhythm Regular 06/14/18 20:28 Pulse 56 L 06/09/18 09:40 Respiratory Rate 18 06/15/18 11:30 Respiratory Effort Non-Labored 06/14/18 20:28 Respiratory Depth Normal 06/14/18 20:28 Respiratory Pattern Normal 06/14/18 20:28 Blood Pressure 108/66 06/15/18 11:30 Blood Pressure Mean 71 06/09/18 09:30 Blood Pressure Position Sitting 06/09/18 09:00 Pulse Oximetry 96 06/15/18 11:30 Oxygen Delivery Method Room Air 06/15/18 11:30 Oxygen Flow Rate 0 06/15/18 11:30 Pain Level 0 06/15/18 11:30 Comment 06/14/18 10:40 Intake & Output 06/14/18 06/15/18 06/15/18 23:59 11:59 23:59 Intake Total 993.333 / 2030.000 650 / 1490 840 / 1490 Output Total 600 / 1500 1050 / 1650 600 / 1650 Balance 393.333 / 530.000 -400 / -160 240 / -160 Weight 97.1 kg Intake: IV 263.333 / 560.000 Oral 730 / 1470 650 / 1490 840 / 1490 Output: Urine 600 / 1500 1050 / 1650 600 / 1650 Other: Urine Color Light Marta Yellow Light Marta Urine Appearance Clear Clear Clear Urine Odor None None Strong Comment Void x1 in the toilet. He has not voided since around dinnertime per the nurse aide's. He has not voided for about 7 hours. Bladder scan done and no more than 15cc read on scan. Pt denies urge to void, agreed to get up to toilet to try. hat in toilet. Stool Size Small Stool Characteristics Soft Brown Voiding Methods Toilet Toilet Toilet Laboratory Results WBC 11.53 k/cumm (4.4-10.8) H D 06/15/18 06:38 RBC 3.90 m/cumm (4.50-6.00) L 06/15/18 06:38 Hgb 13.2 g/dL (13.5-17.5) L 06/15/18 06:38 Hct 38.3 % (40.0-50.0) L 06/15/18 06:38 MCV 98.2 fL (80-95) H 06/15/18 06:38 MCH 33.8 pg (27.0-33.0) H 06/15/18 06:38 MCHC 34.5 g/dL (32.0-36.0) 06/15/18 06:38 RDW 13.5 % (11.8-14.1) 06/15/18 06:38 Plt Count 58 x1000/uL (130-400) L 06/15/18 06:38 MPV fL (8.0-11.0) 06/15/18 06:38 Immature Gran % 0.5 06/15/18 06:38 Neutrophils % 90.8 06/15/18 06:38 Lymphocytes % 2.6 06/15/18 06:38 Monocytes % 6.0 06/15/18 06:38 Eosinophils % 0.0 06/15/18 06:38 Basophils % 0.1 06/15/18 06:38 Absolute Neutrophils 10.47 k/cumm (1.2-6.7) H 06/15/18 06:38 Absolute Lymphocytes 0.30 k/cumm (1.2-3.4) L 06/15/18 06:38 Absolute Monocytes 0.69 k/cumm (0.11-0.7) 06/15/18 06:38 Absolute Eosinophils 0.00 k/cumm (0.0-0.7) 06/15/18 06:38 Absolute Basophils 0.01 k/cumm (0.0-0.2) 06/15/18 06:38 Differential Comment Plt morph reviewed 06/15/18 06:38 RBC Morphology Normal 06/15/18 06:38 Macrocytosis 2+ 06/10/18 07:00 PT 12.1 sec (9.3-11.0) H 06/10/18 07:00 INR 1.2 (0.9-1.1) H 06/10/18 07:00 Sodium 127 mmol/L (136-145) L 06/15/18 06:38 Potassium 5.2 mmol/L (3.5-5.1) H 06/15/18 06:38 Chloride 98 mmol/L (98-107) 06/15/18 06:38 Carbon Dioxide 21.3 mmol/L (21.0-32.0) 06/15/18 06:38 Anion Gap 7.7 mmol/L (3-11) 06/15/18 06:38 BUN 53 mg/dL (7-18) H 06/15/18 06:38 Creatinine 1.57 mg/dL (0.70-1.30) H 06/15/18 06:38 Estimated GFR/1.73 m2 44.99 (mL/min/1.73m2) 06/15/18 06:38 Glucose 279 mg/dL (70-100) H 06/15/18 06:38 Calcium 8.3 mg/dL (8.5-10.1) L 06/15/18 06:38 Magnesium 2.1 mg/dL (1.8-2.4) 06/15/18 06:38 Total Bilirubin 3.9 mg/dL (0.2-1.0) H 06/10/18 07:00 Conjugated Bilirubin 2.66 mg/dL (0.00-0.20) H 06/10/18 07:00 AST 66 U/L (15-37) H 06/10/18 07:00 ALT 35 U/L (12-78) 06/10/18 07:00 Alkaline Phosphatase 233 U/L (46-116) H 06/10/18 07:00 Ammonia 16 umol/L (11-32) 06/14/18 07:12 Troponin I < 0.02 ng/mL (0.00-0.06) 06/09/18 08:55 Total Protein 7.9 g/dL (6.4-8.2) 06/10/18 07:00 Albumin 2.3 g/dL (3.4-5.0) L 06/10/18 07:00 Lipase 228 U/L (73-393) 06/09/18 08:55 Prostate Specific Ag <0.1 ng/ml (0-4.5) 06/11/18 07:25 Urine Color Yellow (Yellow) 06/09/18 12:33 Urine Clarity Clear 06/09/18 12:33 Urine pH 7.0 (5-8) 06/09/18 12:33 Ur Specific [place] 1.015 (1.005-1.025) 06/09/18 12:33 Urine Protein Negative mg/dL (Negative) 06/09/18 12:33 Urine Ketones Negative mg/dL (Negative) 06/09/18 12:33 Urine Blood Negative (Negative) 06/09/18 12:33 Urine Nitrite Negative (Negative) 06/09/18 12:33 Urine Bilirubin Negative (Negative) 06/09/18 12:33 Urine Urobilinogen >=8.0 EU/dL (Up TO 0.2) 06/09/18 12:33 Ur Leukocyte Esterase Negative (Negative) 06/09/18 12:33 Urine Glucose Negative mg/dL (Negative) 06/09/18 12:33 Fluid Source Peritoneal 06/09/18 11:42 Fluid Color Yellow 06/09/18 11:42 Fluid Appearance Clear 06/09/18 11:42 Fluid WBC 208 /MM3 (0-0) H 06/09/18 11:42 Fluid Mononuclear Cell 81 % (0-0) H 06/09/18 11:42 Fl Polymorphonucl Cell 8 % (0-0) H 06/09/18 11:42 Fluid Other Cells 11 0 (0-0) H 06/09/18 11:42 Vancomycin Trough 23.7 ug/mL (10.0-20.0) H* 06/15/18 04:50 Path Cons Comment 06/09/18 11:42
[2018-06-15] MEDS: Furosemide 40 MG TAB PO (15:57)
[2018-06-15] MEDS: Melatonin 3 MG TAB PO (22:21)
[2018-06-16] VITALS (9 sets, daily range): BP systolic 99–110; BP diastolic 60–63; PULSE 42–50; RESP 18; TEMP 35.5–36.9; O2SAT 93–99
[2018-06-16] MEDS: Lactulose 20 GM/30 ML CUP PO ×4 (00:56→18:35)
[2018-06-16 08:07] LABS: Absolute Basophil Count 0.01 k/cumm (0.0-0.2); Absolute Lymphocyte Count 0.23 k/cumm (1.2-3.4); Absolute Monocyte Count 1.14 k/cumm (0.11-0.7); Absolute Neutrophil Count 11.29 k/cumm (1.2-6.7); Basophils % 0.1; HCT 39.7 % (40.0-50.0); HGB 13.8 g/dL (13.5-17.5); Immature Grans % 0.8; Lymphocytes % 1.8; Mean Corp. HGB Concentration 34.8 g/dL (32.0-36.0); Mean Corpuscular Hemoglobin 34.3 pg (27.0-33.0); Mean Corpuscular Volume 98.8 fL (80-95); Monocytes % 8.9; Neutrophils % 88.4; RBC 4.02 m/cumm (4.50-6.00); RBC Distribution Width 13.8 % (11.8-14.1); White Blood Cell Count 12.77 k/cumm (4.4-10.8)
[2018-06-16 08:18] LABS: ALT 50 U/L (12-78); AST 72 U/L (15-37); Albumin 2.1 g/dL (3.4-5.0); Alkaline Phosphatase 258 U/L (46-116); Anion Gap 7.1 mmol/L (3-11); BUN 55 mg/dL (7-18); Bilirubin, Total 1.7 mg/dL (0.2-1.0); CO2 22.9 mmol/L (21.0-32.0); CREATININE 1.63 mg/dL (0.70-1.30); Calcium 8.9 mg/dL (8.5-10.1); Chloride 98 mmol/L (98-107); Estimated GFR 43.08 (mL/min/1.73m2); Glucose 270 mg/dL (70-100); Magnesium 2.2 mg/dL (1.8-2.4); Potassium 5.5 mmol/L (3.5-5.1); Sodium 128 mmol/L (136-145); Total Protein 7.8 g/dL (6.4-8.2)
[2018-06-16 08:19] LABS: Diff Comment PLT Morph Reviewed; Platelet Count 72 x1000/uL (130-400); RBC Morphology Normal
[2018-06-16] MEDS: Docusate Sodium 100 MG CAP PO ×2 (08:30→20:00)
[2018-06-16] MEDS: guaiFENesin 600 MG TABCR PO ×2 (08:30→20:02)
[2018-06-16] MEDS: Tamsulosin 0.4 MG CAPCR PO (08:30)
[2018-06-16] MEDS: Rifaximin 550 MG TAB PO ×2 (08:30→20:00)
[2018-06-16] MEDS: Multivitamin w/Minerals TAB 1 TAB PO (08:30)
[2018-06-16] MEDS: Furosemide 40 MG TAB PO (08:30)
[2018-06-16] MEDS: Benzonatate 100 MG CAP PO ×3 (08:30→20:00)
[2018-06-16] MEDS: Pantoprazole 40 MG VIAL IVP ×2 (08:31→19:57)
[2018-06-16] MEDS: Normal Saline Flush 10 ML SYR IVP ×2 (08:31→19:56)
[2018-06-16] MEDS: Insulin Aspart 300 UNITS/3 ML PEN SC ×4 (08:41→22:31)
[2018-06-16] MEDS: Nadolol 40 MG TAB 10 MG PO (08:42)
--- NOTE | 2018-06-16 11:56 | CMPROGNOTE_ITS ---
Care Management Progress Note S/O: Abdoulaye remains pleasant in interaction and enjoy visiting with family and friends. He is aware and agreeable to tentative discharge plan for tomorrow. CM faxed updated clinicals to [facility] at the [facility] and spoke with Tanvir who is able to transport at 1300. No change to overall plan. CM will continue to follow. A: 63 year old male admitted to [facility] P: Abdoulaye will return to the [facility] when ready. CM will continue to follow and provide updated clinicals to [facility] staff. Abdoulaye will transport via private vehicle with his nephew, Tanvir.
--- NOTE | 2018-06-16 13:43 | PT.INTREAT ---
Date of service: 06/16/18 Time of Service: 11:40 PT Notes Inpatient Physical Therapy Treatment Note [facility] Date: 06/16/18 PRECAUTIONS: Fall and standard SUBJECTIVE: Having some forehead region fuzziness that he spoke with his doctor about today. Did complain of feeling a little light headed while performing last of his ther ex. Nursing staff was made aware of this. This appeared to improve with ambulation back to room. OBJECTIVE: PAIN: fuzziness in forehead region, but not painful. BED MOBILITY/TRANSFERS Sit-stand: SBA Stand-sit: SBA GAIT Assistive Device: FWW to dept and 4WW back to room Weight bearing: Full Assist: SBA Distance: 150ft x 2 THEREX: Performed seated heel raises x 20 reps, LAQs x 15 reps, seated hip flexion and hip abd/ adduction x 12 reps each, seated UE horizontal shoulder abd/adduction, rows and shoulder flexion x 10 reps each. Held on sit to stands today due to patient complaining of feeling light headed. ASSESSMENT: Tolerated today's PT session fair, but appeared a little stressed mentally. Indicated he would like to go home but knows he should go back to the [facility]. PLAN: Continue with current POC with focus on improving extremity strength and functional mobility. TREATMENT CODE/TIME: 11:40 to 12:15 (35'), [id number] x 1 and [id number] x 1 Destinee Woods, CHANNEL BUSINESS MANAGER
--- NOTE | 2018-06-16 13:55 | PTTR_ITS ---
Date of service: 06/16/18 Time of Service: 11:40 PT Notes Inpatient Physical Therapy Treatment Note [facility] Date: 06/16/18 PRECAUTIONS: Fall and standard SUBJECTIVE: Having some forehead region fuzziness that he spoke with his doctor about today. Did complain of feeling a little light headed while performing last of his ther ex. Nursing staff was made aware of this. This appeared to improve with ambulation back to room. OBJECTIVE: PAIN: fuzziness in forehead region, but not painful. BED MOBILITY/TRANSFERS Sit-stand: SBA Stand-sit: SBA GAIT Assistive Device: FWW to dept and 4WW back to room Weight bearing: Full Assist: SBA Distance: 150ft x 2 THEREX: Performed seated heel raises x 20 reps, LAQs x 15 reps, seated hip flexion and hip abd/ adduction x 12 reps each, seated UE horizontal shoulder abd/adduction, rows and shoulder flexion x 10 reps each. Held on sit to stands today due to patient complaining of feeling light headed. ASSESSMENT: Tolerated today's PT session fair, but appeared a little stressed mentally. Indicated he would like to go home but knows he should go back to the [facility]. PLAN: Continue with current POC with focus on improving extremity strength and functional mobility. TREATMENT CODE/TIME: 11:40 to 12:15 (35'), [id number] x 1 and [id number] x 1 Destinee Woods, CLINICAL TRANSPLANT COORDINATOR
--- NOTE | 2018-06-16 14:22 | W.PM.PROGNOT ---
Date of Service Date of service: 06/16/18 Time of Service: 14:22 Assessment and Plan (1) Hepatic encephalopathy: Current visit: Yes Status: Acute Appears resolved and likely in setting of lactulose non-compliance per review of records. Continue Lactulose and wean pending number of daily bowel movements, and consider discontinuation of Rifaximin. Ammonia well within normal limits following treatment - 145 originally down to 16 currently. Reports one soft bowel movement this morning. (2) End stage liver disease: Current visit: Yes Status: Chronic Secondary to BRUNNER, with known Portal Hypertension, reported Esophageal Varices, Ascites with prior SBP, Hepatic Encephalopathy, and TCP. Follows with [facility]. Reinitiated Lasix but with continued weight gain - increase dose today. Current hyperkalemia prohibitive of restarting Aldactone, but will when able. Monitor HR with initiated low dose Nadolol - currently appears bradycardic which may be limiting for use of this medication - decrease to minimal dose today. Also with Ascites, s/p Paracenthesis on 06/09 - WBC's did not meet criteria for SBP, and cultures negative. Continue with reinitiated lasix and restart Spironolactone when able. (3) HCAP (healthcare-associated pneumonia): Current visit: Yes Status: Acute S/p 5 day course of Vancomycin and Cefepime. Appears resolved. Monitor. (4) Urinary retention: Current visit: Yes Status: Acute Reportedly improved on Tamsulosin. Continue to monitor. (5) Hepatorenal syndrome: Current visit: Yes Status: Resolved Noted elevation in creatinine that appears chronic, and dates back to approximately 2017. Continue to monitor renal function as diuretic therapy is reinitiated. (6) Insulin dependent diabetes mellitus: Current visit: Yes Status: Chronic Continue sliding scale coverage and monitor blood sugars. (7) Diabetes mellitus type 2: Current visit: No Status: Active (8) DVT prophylaxis: Current visit: Yes Status: Acute Currently without chemical prophylaxis due to Thrombocytopenia, which is stable. Continue TEDS, SCDs. Subjective Interval history since last seen: 63 year old man with a prior history of end stage liver disease/chronic liver failure secondary to BRUNNER, admitted from [facility] Emergency Department on 06/09 with a diagnosis of weakness. Mr. Urias has a history of ESLD in the setting of BRUNNER, with known Ascites with prior history of SBP as well as a history of hepatic encephalopathy. He also has known DM, HTN, and likely hepatorenal syndrome. He is a [place] resident at the [facility]. The patient was brought to the ED for evaluation of weakness, nausea with vomitting, along with poor oral intake for approximately 2 weeks. There was note of noncompliance with his lactulose. He apparently had an appointment at [facility] for a paracenthesis on 05/22, at which time a significant amount of ascitic fluid was removed. Prior to admission the patient underwent a paracentesis in the ED with approximate 2 Liter removal of fluid as well. He was also noted to have potential infiltrates by CXR. His CT of the abdomen showed stable hepatosplenomegally with ascites, and bowel wall thickening consistent with either infection/inflammation vs. portal hypertension in patient without abdominal pain or diarrhea. Following admission the patient has undergone a 5 day course of antibiotic therapy for treatment of HCAP, and has remained on lactulose and Rifaximine for treatment of hepatic encephalopathy. He appears stable and is without complaints this morning other than fatigue. His weight continues to elevate despite reinitiation of lasix. He is also bradycardic with initiation of minimal dose Nadolol. His mental status appears to be at baseline. No overnight events reported. Remains afebrile. Exam Narrative Exam Narrative: General: Patient appears comfortable, AAOX3, NAD Neck: Supple CV: Regular, nontachycardic, S1S2, No rubs, murmurs, or gallops. Pulmonary: Clear to auscultation bilaterally, no crackles, wheezing, or rhonchi Abdomen: + Bowel Sounds, soft, nontender, distended but soft with known ascites Vascular: B/l lower extremity edema Psych: Normal mood and affect. Objective Objective Clinical Data: Abnormal lab results 06/16/18 06/16/18 Range/Units 07:00 07:00 WBC 12.77 H (4.4-10.8) k/cumm RBC 4.02 L (4.50-6.00) m/cumm Hct 39.7 L (40.0-50.0) % MCV 98.8 H (80-95) fL MCH 34.3 H (27.0-33.0) pg Plt Count 72 L (130-400) x1000/uL Absolute Neutrophils 11.29 H (1.2-6.7) k/cumm Absolute Lymphocytes 0.23 L (1.2-3.4) k/cumm Absolute Monocytes 1.14 H (0.11-0.7) k/cumm Sodium 128 L (136-145) mmol/L Potassium 5.5 H (3.5-5.1) mmol/L BUN 55 H (7-18) mg/dL Creatinine 1.63 H (0.70-1.30) mg/dL Glucose 270 H (70-100) mg/dL Total Bilirubin 1.7 H (0.2-1.0) mg/dL AST 72 H (15-37) U/L Alkaline Phosphatase 258 H (46-116) U/L Albumin 2.1 L (3.4-5.0) g/dL Vital Signs Temperature 36.9 C 06/16/18 11:05 Temperature Source Tympanic 06/16/18 11:05 Pulse 42 L 06/16/18 11:05 Pulse Rhythm Regular 06/16/18 07:50 Pulse 56 L 06/09/18 09:40 Respiratory Rate 18 06/16/18 11:05 Respiratory Effort Non-Labored 06/16/18 07:50 Respiratory Depth Normal 06/16/18 07:50 Respiratory Pattern Normal 06/16/18 07:50 Blood Pressure 102/62 06/16/18 11:05 Blood Pressure Mean 71 06/09/18 09:30 Blood Pressure Position Sitting 06/09/18 09:00 Pulse Oximetry 98 06/16/18 11:05 Oxygen Delivery Method Room Air 06/16/18 11:05 Oxygen Flow Rate 0 06/16/18 11:05 Pain Level 0 06/16/18 11:05 Comment 06/16/18 04:05 Intake & Output 06/15/18 06/16/18 06/16/18 23:59 11:59 23:59 Intake Total 1080 / 1730 620 / 980 360 / 980 Output Total 1200 / 2250 600 / 950 350 / 950 Balance -120 / -520 Weight 98.2 kg Intake: IV 100 / 100 Oral 1080 / 1730 520 / 880 360 / 880 Output: Urine 1200 / 2250 600 / 950 350 / 950 Other: Urine Color Yellow Yellow Yellow [place] Urine Appearance Clear Clear Clear Urine Odor Strong None Comment hat in toilet. Stool Size Small Stool Characteristics Soft Formed Brown Voiding Methods Toilet Toilet Toilet Laboratory Results WBC 12.77 k/cumm (4.4-10.8) H 06/16/18 07:00 RBC 4.02 m/cumm (4.50-6.00) L 06/16/18 07:00 Hgb 13.8 g/dL (13.5-17.5) 06/16/18 07:00 Hct 39.7 % (40.0-50.0) L 06/16/18 07:00 MCV 98.8 fL (80-95) H 06/16/18 07:00 MCH 34.3 pg (27.0-33.0) H 06/16/18 07:00 MCHC 34.8 g/dL (32.0-36.0) 06/16/18 07:00 RDW 13.8 % (11.8-14.1) 06/16/18 07:00 Plt Count 72 x1000/uL (130-400) L 06/16/18 07:00 MPV fL (8.0-11.0) 06/16/18 07:00 Immature Gran % 0.8 06/16/18 07:00 Neutrophils % 88.4 06/16/18 07:00 Lymphocytes % 1.8 06/16/18 07:00 Monocytes % 8.9 06/16/18 07:00 Eosinophils % 0.0 06/16/18 07:00 Basophils % 0.1 06/16/18 07:00 Absolute Neutrophils 11.29 k/cumm (1.2-6.7) H 06/16/18 07:00 Absolute Lymphocytes 0.23 k/cumm (1.2-3.4) L 06/16/18 07:00 Absolute Monocytes 1.14 k/cumm (0.11-0.7) H 06/16/18 07:00 Absolute Eosinophils 0.00 k/cumm (0.0-0.7) 06/16/18 07:00 Absolute Basophils 0.01 k/cumm (0.0-0.2) 06/16/18 07:00 Differential Comment Plt morph reviewed 06/16/18 07:00 RBC Morphology Normal 06/16/18 07:00 Macrocytosis 2+ 06/10/18 07:00 PT 12.1 sec (9.3-11.0) H 06/10/18 07:00 INR 1.2 (0.9-1.1) H 06/10/18 07:00 Sodium 128 mmol/L (136-145) L 06/16/18 07:00 Potassium 5.5 mmol/L (3.5-5.1) H 06/16/18 07:00 Chloride 98 mmol/L (98-107) 06/16/18 07:00 Carbon Dioxide 22.9 mmol/L (21.0-32.0) 06/16/18 07:00 Anion Gap 7.1 mmol/L (3-11) 06/16/18 07:00 BUN 55 mg/dL (7-18) H 06/16/18 07:00 Creatinine 1.63 mg/dL (0.70-1.30) H 06/16/18 07:00 Estimated GFR/1.73 m2 43.08 (mL/min/1.73m2) 06/16/18 07:00 Glucose 270 mg/dL (70-100) H 06/16/18 07:00 Calcium 8.9 mg/dL (8.5-10.1) 06/16/18 07:00 Magnesium 2.2 mg/dL (1.8-2.4) 06/16/18 07:00 Total Bilirubin 1.7 mg/dL (0.2-1.0) H 06/16/18 07:00 Conjugated Bilirubin 2.66 mg/dL (0.00-0.20) H 06/10/18 07:00 AST 72 U/L (15-37) H 06/16/18 07:00 ALT 50 U/L (12-78) 06/16/18 07:00 Alkaline Phosphatase 258 U/L (46-116) H 06/16/18 07:00 Ammonia 16 umol/L (11-32) 06/14/18 07:12 Troponin I < 0.02 ng/mL (0.00-0.06) 06/09/18 08:55 Total Protein 7.8 g/dL (6.4-8.2) 06/16/18 07:00 Albumin 2.1 g/dL (3.4-5.0) L 06/16/18 07:00 Lipase 228 U/L (73-393) 06/09/18 08:55 Prostate Specific Ag <0.1 ng/ml (0-4.5) 06/11/18 07:25 Urine Color Yellow (Yellow) 06/09/18 12:33 Urine Clarity Clear 06/09/18 12:33 Urine pH 7.0 (5-8) 06/09/18 12:33 Ur Specific [place] 1.015 (1.005-1.025) 06/09/18 12:33 Urine Protein Negative mg/dL (Negative) 06/09/18 12:33 Urine Ketones Negative mg/dL (Negative) 06/09/18 12:33 Urine Blood Negative (Negative) 06/09/18 12:33 Urine Nitrite Negative (Negative) 06/09/18 12:33 Urine Bilirubin Negative (Negative) 06/09/18 12:33 Urine Urobilinogen >=8.0 EU/dL (Up TO 0.2) 06/09/18 12:33 Ur Leukocyte Esterase Negative (Negative) 06/09/18 12:33 Urine Glucose Negative mg/dL (Negative) 06/09/18 12:33 Fluid Source Peritoneal 06/09/18 11:42 Fluid Color Yellow 06/09/18 11:42 Fluid Appearance Clear 06/09/18 11:42 Fluid WBC 208 /MM3 (0-0) H 06/09/18 11:42 Fluid Mononuclear Cell 81 % (0-0) H 06/09/18 11:42 Fl Polymorphonucl Cell 8 % (0-0) H 06/09/18 11:42 Fluid Other Cells 11 0 (0-0) H 06/09/18 11:42 Vancomycin Trough 23.7 ug/mL (10.0-20.0) H* 06/15/18 04:50 Path Cons Comment 06/09/18 11:42
[2018-06-16] MEDS: Furosemide 20 MG TAB 60 MG PO (15:41)
[2018-06-16] MEDS: Melatonin 3 MG TAB PO (20:01)
[2018-06-17] VITALS (10 sets, daily range): BP systolic 99–106; BP diastolic 61–68; PULSE 45–85; RESP 16–18; TEMP 35.4–36.7; O2SAT 93–99
[2018-06-17] MEDS: Lactulose 20 GM/30 ML CUP PO ×5 (00:09→23:24)
[2018-06-17] MEDS: Mylanta Suspension 30 ML CUP PO (04:54)
[2018-06-17] MEDS: traMADol 50 MG TAB PO (04:54)
[2018-06-17 07:34] LABS: Abs Immature Grans 0.33 k/cumm (0.0-0.09); HCT 39.5 % (40.0-50.0); HGB 13.7 g/dL (13.5-17.5); Mean Corp. HGB Concentration 34.7 g/dL (32.0-36.0); Mean Corpuscular Hemoglobin 34.2 pg (27.0-33.0); Mean Corpuscular Volume 98.5 fL (80-95); Mean Platelet Volume 13.9 fL (8.0-11.0); RBC 4.01 m/cumm (4.50-6.00); White Blood Cell Count 8.79 k/cumm (4.4-10.8)
[2018-06-17 07:56] LABS: ALT 69 U/L (12-78); AST 106 U/L (15-37); Alkaline Phosphatase 265 U/L (46-116); Anion Gap 6.1 mmol/L (3-11); BUN 64 mg/dL (7-18); Bilirubin, Total 1.7 mg/dL (0.2-1.0); CO2 21.9 mmol/L (21.0-32.0); CREATININE 1.57 mg/dL (0.70-1.30); Calcium 8.5 mg/dL (8.5-10.1); Chloride 100 mmol/L (98-107); Estimated GFR 44.99 (mL/min/1.73m2); Glucose 152 mg/dL (70-100); Magnesium 2.2 mg/dL (1.8-2.4); Potassium 5.4 mmol/L (3.5-5.1); Sodium 128 mmol/L (136-145); Total Protein 7.4 g/dL (6.4-8.2)
[2018-06-17] MEDS: Normal Saline Flush 10 ML SYR IVP ×4 (08:00→20:23)
[2018-06-17] MEDS: Multivitamin w/Minerals TAB 1 TAB PO (08:01)
[2018-06-17] MEDS: guaiFENesin 600 MG TABCR PO ×2 (08:01→20:21)
[2018-06-17] MEDS: Rifaximin 550 MG TAB PO ×2 (08:01→20:21)
[2018-06-17] MEDS: Nadolol 40 MG TAB 10 MG PO (08:01)
[2018-06-17] MEDS: Benzonatate 100 MG CAP PO ×3 (08:01→20:21)
[2018-06-17] MEDS: Docusate Sodium 100 MG CAP PO ×2 (08:01→20:21)
[2018-06-17] MEDS: Tamsulosin 0.4 MG CAPCR PO (08:01)
[2018-06-17] MEDS: Furosemide 20 MG TAB 60 MG PO (08:01)
[2018-06-17] MEDS: Pantoprazole 40 MG VIAL IVP ×2 (08:01→20:23)
[2018-06-17 08:25] LABS: Absolute Lymphocyte Count 0.18 k/cumm (1.2-3.4); Absolute Neutrophil Count 6.94 k/cumm (1.2-6.7)
[2018-06-17 08:26] LABS: Absolute Eosinophil Count 0.18 k/cumm (0.0-0.7); Absolute Monocyte Count 1.32 k/cumm (0.11-0.7); Diff Comment Manual Differential; Platelet Count 73 x1000/uL (130-400); RBC Morphology Normal
--- NOTE | 2018-06-17 08:35 | PDOC.CMDIS ---
LACE Index Scoring Tool - Questions: Length of Stay (in days): 7 - 13 Acuity (Admit via E.D.?): Yes Comorbidities: Diabetes w/o Complication E.D. Visits: 2 - Answers: Total Score: 11 Risk of Readmission: High Risk Care Management Discharge Reason for Hospitalization: Hepatic Encephalopathy, Ascites Discharge Plan: Abdoulaye will return to the [facility] when ready. CM will continue to follow and provide updated clinicals to [facility] staff. Abdoulaye will transport via private vehicle with his nephew, Tanvir. Patient/Family Education Needs: Review of discharge instructions, discuss Ask Me Three. Services Needed at Discharge: Detention Facility (Coordinated return to the [facility]. )
--- NOTE | 2018-06-17 11:38 | OT.INTREAT ---
Date of service: 06/17/18 Time of Service: 11:05 Occupational Therapy Notes Occupational Therapy Inpatient Treatment Note Date: 06/17/18 PRECAUTIONS: Standard, Fall precautions SUBJECTIVE: Pt was alonzo ramos bed when OT arrived. He reports that he needed to utilize the bathroom and is agreeable to OT session. OBJECTIVE: PAIN:pain in abdomen about a 5/10 per pt report. FUNCTIONAL MOBILITY Rolling L/R: S Supine-sit: S Sit-stand: SBA, FWW Stand-sit: SBA, FWW Bed-Bathroom: SBA, FWW Bathroom -bed: SBA, FWW BATHING: Upper Body: Standing at sink with FWW pt washed (B) UE (I) with min vc for body positioning and safe body mechanics. GROOMING: Standing at sink with FWW pt was (I) with brushing teeth, and hair with min vc for hand placement on walker and weight shifting. TOILETING: Device: On toilet Assist: (I) ASSESSMENT: Pt was tired and reports he was not feeling good today however he demonstrated increased (I) in ADL routines for toileting and grooming while standing at the sink with FWW. Pt required min vc throughout. Pt would benefit from continued skilled OT services for increased functional activity tolerance during ADL routines. PLAN: OT recommends that pt return to [facility] when medically cleared per MD. TREATMENT CODES/TIME: [id number], 24 minutes [facility]
--- NOTE | 2018-06-17 11:44 | OTTR_ITS ---
Date of service: 06/17/18 Time of Service: 11:05 Occupational Therapy Notes Occupational Therapy Inpatient Treatment Note Date: 06/17/18 PRECAUTIONS: Standard, Fall precautions SUBJECTIVE: Pt was alonzo ramos bed when OT arrived. He reports that he needed to utilize the bathroom and is agreeable to OT session. OBJECTIVE: PAIN:pain in abdomen about a 5/10 per pt report. FUNCTIONAL MOBILITY Rolling L/R: S Supine-sit: S Sit-stand: SBA, FWW Stand-sit: SBA, FWW Bed-Bathroom: SBA, FWW Bathroom -bed: SBA, FWW BATHING: Upper Body: Standing at sink with FWW pt washed (B) UE (I) with min vc for body positioning and safe body mechanics. GROOMING: Standing at sink with FWW pt was (I) with brushing teeth, and hair with min vc for hand placement on walker and weight shifting. TOILETING: Device: On toilet Assist: (I) ASSESSMENT: Pt was tired and reports he was not feeling good today however he demonstrated increased (I) in ADL routines for toileting and grooming while standing at the sink with FWW. Pt required min vc throughout. Pt would benefit from continued skilled OT services for increased functional activity tolerance during ADL routines. PLAN: OT recommends that pt return to [facility] when medically cleared per MD. TREATMENT CODES/TIME: [id number], 24 minutes [facility]
--- NOTE | 2018-06-17 12:12 | PT.INTREAT ---
Date of service: 06/17/18 Time of Service: 12:13 PT Notes Inpatient Physical Therapy Treatment Note [facility] Date: 06/17/18 PRECAUTIONS: Fall SUBJECTIVE: Abdoulaye states that he is not feeling well today, he states that his stomach is aching and that he also has a headache. OBJECTIVE: PAIN: No complaints of pain BED MOBILITY/TRANSFERS Sit-stand: S Stand-sit: S GAIT Assistive Device: FWW Weight bearing: Full Assist: SBA Distance: 120' THEREX: Patient completed standing heel raises and hip flexion with FWW support. Patient deferred further ther ex due to nausea. ASSESSMENT: Patient tolerated session with complaints of nausea and a headache. Patient appears to be limited due to the symptoms. Patient would benefit from continued gait and transfer training as well as strengthening for improved activity tolerance. PLAN: Continue with PTs POC TREATMENT CODE/TIME: 20 minutes; [id number]
--- NOTE | 2018-06-17 12:27 | CMPROGNOTE_ITS ---
Care Management Progress Note S/O: Abdoulaye reported feeling frustration with setbacks and reported feeling as he would make progress and then worsen. He was not discharge ready today per MD due to fluid retention and will require IV LASIX. Abdoulaye reports he anticipates having further work up including abdominal scans as well. CM updated the [facility] and his nephew Tanvir. A: 63 year old male admitted to [facility] P: Abdoulaye will return to the [facility] when ready. CM will continue to follow and provide updated clinicals to [facility] staff. Abdoulaye will transport via private vehicle with his nephew, Tanvir.
--- NOTE | 2018-06-17 12:48 | DI.RAD_ITS ---
SYMPTOM/DIAGNOSIS: COUGH, DYSPNEA CHEST X-RAY: Frontal and lateral views. Comparison 06/13/18 Heart size and pulmonary vasculature are within normal limits. No focal consolidating infiltrates, effusions or pneumothoraces are identified. IMPRESSION: No acute pulmonary process.
--- NOTE | 2018-06-17 15:40 | PT.INPN ---
Date of service: 06/17/18 Time of Service: 15:00 PT Notes Date: 06/17/18 Referring Doctor: Dr. Wise PT Orders: PT CONSULT: evaluate and treat Precautions: contact, fall Treatment Dates: - 06/17/18 Patient Profile/Admitting Diagnosis: Patient admitted from the [facility] after experiencing weakness with nausea and vomiting. He is now being managed acutely for hepatic encephalopathy, hepatorenal syndrome and dehydration. 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 He reports that he walks the halls on his own with a WW throughout the day. He also completes a regular exercise program on his own, using therabands and performing seated exercises. Equipment Owned/DME: FWW, assisted living Subjective: Abdoulaye states that he is extremely tired. He states that he is having abdominal discomfort, and is generally not feeling well. Objective: General Observation: Resting in bed. No lines. Mental Status: A&Ox3 ROM: Right Upper Extremity: Shoulder flexion to 160 degrees. Otherwise, grossly WFL. Left Upper Extremity: Shoulder flexion to 160 degrees. Otherwise, grossly WFL. Right Lower Extremity: Grossly WFL Left Lower Extremity: Grossly WFL Strength: Right Upper Extremity: Shoulder flexion 3+/5. Biceps 4-/5. Triceps 3+/5. Manager Case Management weak, but equal. Left Upper Extremity: Shoulder flexion 3+/5. Biceps 4-/5. Triceps 3+/5. Manager Case Management weak, but equal. Right Lower Extremity: Hip flexion 4-/5. Quads 4-/5. Hamstrings 4-/5. Ankle DF 4/5. Left Lower Extremity: Hip flexion 4-/5. Quads 4-/5. Hamstrings 4-/5. Ankle DF 4/5. During assessment of lower extremity strength, patient demonstrates significant muscle fasciculation. He struggles with left upper extremity weightbearing during bed mobility, with intermittent jerking motions of the left upper extremity. Bed Mobility/Transfers: supine-sit: Min assist with head of bed at 30 degrees at time of today's session. Patient had previously been performing independently. sit-stand: Supervision stand-sit: Supervision Gait: Patient is able to ambulate 120' with FWW and SBA. He reports generalized fatigue with ambulation. Balance: Static Sitting: good Dynamic Sitting: good Static Standing: fair Dynamic Standing: fair Informed Consent/Education: Patient instructed in purpose of PT consult and plan of care. Treatment: Patient was seen for re-evaluation, followed by progressive ambulation for cardiovascular retraining, and instruction in open and closed chain strengthening program. Deferred on close chain strengthening activities, due to obvious fatigue. Assessment: Patient is a 63 year old male referred to physical therapy services with the diagnosis of weakness due to hepatic ecephalopathy. He is been participating in skilled PT intervention 1-2 times per day for the past 7 days, and had been making significant gains in activity tolerance, general mobility and safety. Unfortunately patient is demonstrating increased weakness today, and reporting feeling generally poor. He has been working with the hospitalist, and is currently undergoing further workup and treatment. Due to his recent decline in mobility and strength, he will require continued PT intervention in an acute care setting. Will extend goals for an additional week. Goals: Goals X1 week 1. Supine-Sit: supervision (progressing towards) 2. Sit-Supine supervision (MET) 3. Sit-Stand : supervision (MET) 4. Stand-Sit : supervision(MET) 5. Bed-Chair : supervision with FWW (PROGRESSING TOWARD) 6. Chair-Bed : supervision with FWW(PROGRESSING TOWARD) 7. Gait : supervision with FWW x 50'(PROGRESSING TOWARD) Plan of Care/Treatment Plan: 1-2x/day, 7 days/week x 1 week. Plan of care has been reviewed with the LICENSED THERAPIST providing the service under Physical Therapy direction. Initiate Physical Therapy intervention for strengthening, bed mobility, transfers, gait, stairs, balance training, use of assistive device. DISCHARGE RECOMMENDATIONS: Return to the [facility], no equipment needs TREATMENT CODE/TIME: 30 minutes ([id number]) Vashti Ronquillo, PT, DPT [facility]
--- NOTE | 2018-06-17 15:49 | INPN_ITS ---
Date of service: 06/17/18 Time of Service: 15:00 PT Notes Date: 06/17/18 Referring Doctor: Dr. Wise PT Orders: PT CONSULT: evaluate and treat Precautions: contact, fall Treatment Dates: - 06/17/18 Patient Profile/Admitting Diagnosis: Patient admitted from the [facility] after experiencing weakness with nausea and vomiting. He is now being managed acutely for hepatic encephalopathy, hepatorenal syndrome and dehydration. 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 He reports that he walks the halls on his own with a WW throughout the day. He also completes a regular exercise program on his own, using therabands and performing seated exercises. Equipment Owned/DME: FWW, assisted living Subjective: Abdoulaye states that he is extremely tired. He states that he is having abdominal discomfort, and is generally not feeling well. Objective: General Observation: Resting in bed. No lines. Mental Status: A&Ox3 ROM: Right Upper Extremity: Shoulder flexion to 160 degrees. Otherwise, grossly WFL. Left Upper Extremity: Shoulder flexion to 160 degrees. Otherwise, grossly WFL. Right Lower Extremity: Grossly WFL Left Lower Extremity: Grossly WFL Strength: Right Upper Extremity: Shoulder flexion 3+/5. Biceps 4-/5. Triceps 3+/5. Manager [employer] weak, but equal. Left Upper Extremity: Shoulder flexion 3+/5. Biceps 4-/5. Triceps 3+/5. Manager [employer] weak, but equal. Right Lower Extremity: Hip flexion 4-/5. Quads 4-/5. Hamstrings 4-/5. Ankle DF 4/5. Left Lower Extremity: Hip flexion 4-/5. Quads 4-/5. Hamstrings 4-/5. Ankle DF 4/5. During assessment of lower extremity strength, patient demonstrates significant muscle fasciculation. He struggles with left upper extremity weightbearing during bed mobility, with intermittent jerking motions of the left upper extremity. Bed Mobility/Transfers: supine-sit: Min assist with head of bed at 30 degrees at time of today's session. Patient had previously been performing independently. sit-stand: Supervision stand-sit: Supervision Gait: Patient is able to ambulate 120' with FWW and SBA. He reports generalized fatigue with ambulation. Balance: Static Sitting: good Dynamic Sitting: good Static Standing: fair Dynamic Standing: fair Informed Consent/Education: Patient instructed in purpose of PT consult and plan of care. Treatment: Patient was seen for re-evaluation, followed by progressive ambulation for cardiovascular retraining, and instruction in open and closed chain strengthening program. Deferred on close chain strengthening activities, due to obvious fatigue. Assessment: Patient is a 63 year old male referred to physical therapy services with the diagnosis of weakness due to hepatic ecephalopathy. He is been participating in skilled PT intervention 1-2 times per day for the past 7 days, and had been making significant gains in activity tolerance, general mobility and safety. Unfortunately patient is demonstrating increased weakness today, and reporting feeling generally poor. He has been working with the hospitalist, and is currently undergoing further workup and treatment. Due to his recent decline in mobility and strength, he will require continued PT intervention in an acute care setting. Will extend goals for an additional week. Goals: Goals X1 week 1. Supine-Sit: supervision (progressing towards) 2. Sit-Supine supervision (MET) 3. Sit-Stand : supervision (MET) 4. Stand-Sit : supervision(MET) 5. Bed-Chair : supervision with FWW (PROGRESSING TOWARD) 6. Chair-Bed : supervision with FWW(PROGRESSING TOWARD) 7. Gait : supervision with FWW x 50'(PROGRESSING TOWARD) Plan of Care/Treatment Plan: 1-2x/day, 7 days/week x 1 week. Plan of care has been reviewed with the ANALYTICAL DATA MINER providing the service under Physical Therapy direction. Initiate Physical Therapy intervention for strengthening, bed mobility, transfers, gait, stairs, balance training, use of assistive device. DISCHARGE RECOMMENDATIONS: Return to the [facility], no equipment needs TREATMENT CODE/TIME: 30 minutes ([id number]) Vashti Ronquillo, PT, DPT [facility]
--- NOTE | 2018-06-17 16:43 | PGE_ITS ---
Date of Service Date of service: 06/17/18 Time of Service: 16:37 Assessment and Plan (1) Hepatic encephalopathy: Current visit: Yes Status: Acute Appears resolved and likely in setting of lactulose non-compliance per review of records. Continue Lactulose and wean pending number of daily bowel movements (currently reported as 3), and consider discontinuation of Rifaximin soon. Ammonia well within normal limits following treatment - 145 originally down to 16 currently. (2) End stage liver disease: Current visit: Yes Status: Chronic Secondary to BRUNNER, with known Portal Hypertension, reported Esophageal Varices, Ascites with prior SBP, Hepatic Encephalopathy, and TCP. Follows with [facility]. Continued weight gain despite initiation and uptitration of lasix - change to IV dosing. Current hyperkalemia prohibitive of restarting Aldactone, but will when able. Continued significant bradycardia and fatigue despite less than minimal dosing on Nadolol - likely limiting for use of this medication. Will discontinue today. Also with Ascites, s/p Paracenthesis on 06/09 - WBC's did not meet criteria for SBP, and cultures negative. Continue with lasix as above, and restart Spironolactone when able. (3) HCAP (healthcare-associated pneumonia): Current visit: Yes Status: Acute S/p 5 day course of Vancomycin and Cefepime. Appears resolved, but given worsening cough will repeat a CXR today. Monitor. (4) Urinary retention: Current visit: Yes Status: Acute Reportedly improved on Tamsulosin. Continue to monitor. (5) Hepatorenal syndrome: Current visit: Yes Status: Resolved Noted elevation in creatinine that appears chronic, and dates back to approximately 2017. Continue to monitor renal function as diuretic therapy is being intensified. (6) Insulin dependent diabetes mellitus: Current visit: Yes Status: Chronic Continue sliding scale coverage and monitor blood sugars. (7) Diabetes mellitus type 2: Current visit: No Status: Active (8) DVT prophylaxis: Current visit: Yes Status: Acute Currently without chemical prophylaxis due to Thrombocytopenia, which is stable. Continue TEDS, SCDs. Subjective Interval history since last seen: 63 year old man with a prior history of end stage liver disease/chronic liver failure secondary to BRUNNER, admitted from [facility] Emergency Department on 06/09 with a diagnosis of weakness. Mr. Urias has a history of ESLD in the setting of BRUNNER, with known Ascites with prior history of SBP as well as a history of hepatic encephalopathy. He also has known DM, HTN, and likely hepatorenal syndrome. 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 The patient was brought to the ED for evaluation of weakness, nausea with vomitting, along with poor oral intake for approximately 2 weeks. There was note of noncompliance with his lactulose. He apparently had an appointment at [facility] for a paracenthesis on 05/22, at which time a significant amount of ascitic fluid was removed. Prior to admission the patient underwent a paracentesis in the ED with approximate 2 Liter removal of fluid as well. He was also noted to have potential infiltrates by CXR. His CT of the abdomen showed stable hepatosplenomegally with ascites, and bowel wall thickening consistent with either infection/inflammation vs. portal hypertension in patient without abdominal pain or diarrhea. Following admission the patient has undergone a 5 day course of antibiotic therapy for treatment of HCAP, and has remained on lactulose and Rifaximine for treatment of hepatic encephalopathy. He appears stable and back to his baseline mental status. However, he has continued to have significant weight gain despite reinitiation and increase in his lasix. This morning he reports continued fatigue and worsening cough. He also remains bradycardic despite decrease in minimal dose Nadolol. No overnight events reported. Remains afebrile. Exam Narrative Exam Narrative: General: Patient appears comfortable, AAOX3, NAD Neck: Supple CV: Regular, nontachycardic, S1S2, No rubs, murmurs, or gallops. Pulmonary: Clear to auscultation bilaterally, no crackles, wheezing, or rhonchi Abdomen: + Bowel Sounds, soft, nontender, distended but soft with known ascites Vascular: B/l lower extremity edema Psych: Normal mood and affect. Objective Objective Clinical Data: Abnormal lab results 06/17/18 06/17/18 Range/Units 07:18 07:18 RBC 4.01 L (4.50-6.00) m/cumm Hct 39.5 L (40.0-50.0) % MCV 98.5 H (80-95) fL MCH 34.2 H (27.0-33.0) pg Plt Count 73 L (130-400) x1000/uL MPV 13.9 H (8.0-11.0) fL Absolute Neutrophils 6.94 H (1.2-6.7) k/cumm Absolute Lymphocytes 0.18 L (1.2-3.4) k/cumm Absolute Monocytes 1.32 H (0.11-0.7) k/cumm Sodium 128 L (136-145) mmol/L Potassium 5.4 H (3.5-5.1) mmol/L BUN 64 H (7-18) mg/dL Creatinine 1.57 H (0.70-1.30) mg/dL Glucose 152 H D (70-100) mg/dL Total Bilirubin 1.7 H (0.2-1.0) mg/dL AST 106 H (15-37) U/L Alkaline Phosphatase 265 H (46-116) U/L Albumin 2.0 L (3.4-5.0) g/dL Vital Signs Temperature 35.4 C L 06/17/18 15:45 Temperature Source Tympanic 06/17/18 15:45 Pulse 50 L 06/17/18 15:45 Pulse Rhythm Regular 06/17/18 16:08 Pulse 56 L 06/09/18 09:40 Respiratory Rate 18 06/17/18 15:45 Respiratory Effort 06/17/18 16:08 Respiratory Depth Normal 06/17/18 16:08 Respiratory Pattern Normal 06/17/18 16:08 Blood Pressure 100/61 06/17/18 15:45 Blood Pressure Mean 71 06/09/18 09:30 Blood Pressure Position Sitting 06/09/18 09:00 Pulse Oximetry 95 06/17/18 15:45 Oxygen Delivery Method Room Air 06/17/18 15:45 Oxygen Flow Rate 0 06/17/18 15:45 Pain Level 5 06/17/18 15:45 Comment 06/17/18 07:25 Intake & Output 06/16/18 06/17/18 06/17/18 23:59 11:59 23:59 Intake Total 840 / 1460 790 / 1150 360 / 1150 Output Total 900 / 1500 800 / 800 Balance -60 / -40 - 360 / 350 Weight 100.4 kg Intake: Oral 840 / 1360 790 / 1150 360 / 1150 Output: Urine 900 / 1500 800 / 800 Other: Urine Color Light Marta Yellow Yellow Urine Appearance Clear Clear Clear Urine Odor Normal Normal Stool Size Small Small Stool Characteristics Soft Soft Formed Formed Voiding Methods Toilet Toilet Toilet Laboratory Results WBC 8.79 k/cumm (4.4-10.8) D 06/17/18 07:18 RBC 4.01 m/cumm (4.50-6.00) L 06/17/18 07:18 Hgb 13.7 g/dL (13.5-17.5) 06/17/18 07:18 Hct 39.5 % (40.0-50.0) L 06/17/18 07:18 MCV 98.5 fL (80-95) H 06/17/18 07:18 MCH 34.2 pg (27.0-33.0) H 06/17/18 07:18 MCHC 34.7 g/dL (32.0-36.0) 06/17/18 07:18 RDW 14.0 % (11.8-14.1) 06/17/18 07:18 Plt Count 73 x1000/uL (130-400) L 06/17/18 07:18 MPV 13.9 fL (8.0-11.0) H 06/17/18 07:18 Immature Gran % See Differential 06/17/18 07:18 Neutrophils % 77.0 06/17/18 07:18 Band Neutrophils % 2.0 % 06/17/18 07:18 Lymphocytes % 2.0 06/17/18 07:18 Monocytes % 15.0 06/17/18 07:18 Eosinophils % 2.0 06/17/18 07:18 Basophils % 0.0 06/17/18 07:18 Absolute Neutrophils 6.94 k/cumm (1.2-6.7) H 06/17/18 07:18 Absolute Lymphocytes 0.18 k/cumm (1.2-3.4) L 06/17/18 07:18 Absolute Monocytes 1.32 k/cumm (0.11-0.7) H 06/17/18 07:18 Absolute Eosinophils 0.18 k/cumm (0.0-0.7) 06/17/18 07:18 Absolute Basophils 0.00 k/cumm (0.0-0.2) 06/17/18 07:18 Metamyelocytes 2.0 % 06/17/18 07:18 Differential Comment Manual differential 06/17/18 07:18 RBC Morphology Normal 06/17/18 07:18 Macrocytosis 2+ 06/10/18 07:00 PT 12.1 sec (9.3-11.0) H 06/10/18 07:00 INR 1.2 (0.9-1.1) H 06/10/18 07:00 Sodium 128 mmol/L (136-145) L 06/17/18 07:18 Potassium 5.4 mmol/L (3.5-5.1) H 06/17/18 07:18 Chloride 100 mmol/L (98-107) 06/17/18 07:18 Carbon Dioxide 21.9 mmol/L (21.0-32.0) 06/17/18 07:18 Anion Gap 6.1 mmol/L (3-11) 06/17/18 07:18 BUN 64 mg/dL (7-18) H 06/17/18 07:18 Creatinine 1.57 mg/dL (0.70-1.30) H 06/17/18 07:18 Estimated GFR/1.73 m2 44.99 (mL/min/1.73m2) 06/17/18 07:18 Glucose 152 mg/dL (70-100) H D 06/17/18 07:18 Calcium 8.5 mg/dL (8.5-10.1) 06/17/18 07:18 Magnesium 2.2 mg/dL (1.8-2.4) 06/17/18 07:18 Total Bilirubin 1.7 mg/dL (0.2-1.0) H 06/17/18 07:18 Conjugated Bilirubin 2.66 mg/dL (0.00-0.20) H 06/10/18 07:00 AST 106 U/L (15-37) H 06/17/18 07:18 ALT 69 U/L (12-78) 06/17/18 07:18 Alkaline Phosphatase 265 U/L (46-116) H 06/17/18 07:18 Ammonia 16 umol/L (11-32) 06/14/18 07:12 Troponin I < 0.02 ng/mL (0.00-0.06) 06/09/18 08:55 Total Protein 7.4 g/dL (6.4-8.2) 06/17/18 07:18 Albumin 2.0 g/dL (3.4-5.0) L 06/17/18 07:18 Lipase 228 U/L (73-393) 06/09/18 08:55 Prostate Specific Ag <0.1 ng/ml (0-4.5) 06/11/18 07:25 Urine Color Yellow (Yellow) 06/09/18 12:33 Urine Clarity Clear 06/09/18 12:33 Urine pH 7.0 (5-8) 06/09/18 12:33 Ur Specific Sumner 1.015 (1.005-1.025) 06/09/18 12:33 Urine Protein Negative mg/dL (Negative) 06/09/18 12:33 Urine Ketones Negative mg/dL (Negative) 06/09/18 12:33 Urine Blood Negative (Negative) 06/09/18 12:33 Urine Nitrite Negative (Negative) 06/09/18 12:33 Urine Bilirubin Negative (Negative) 06/09/18 12:33 Urine Urobilinogen >=8.0 EU/dL (Up TO 0.2) 06/09/18 12:33 Ur Leukocyte Esterase Negative (Negative) 06/09/18 12:33 Urine Glucose Negative mg/dL (Negative) 06/09/18 12:33 Fluid Source Peritoneal 06/09/18 11:42 Fluid Color Yellow 06/09/18 11:42 Fluid Appearance Clear 06/09/18 11:42 Fluid WBC 208 /MM3 (0-0) H 06/09/18 11:42 Fluid Mononuclear Cell 81 % (0-0) H 06/09/18 11:42 Fl Polymorphonucl Cell 8 % (0-0) H 06/09/18 11:42 Fluid Other Cells 11 0 (0-0) H 06/09/18 11:42 Vancomycin Trough 23.7 ug/mL (10.0-20.0) H* 06/15/18 04:50 Path Cons Comment 06/09/18 11:42
[2018-06-17] MEDS: Furosemide 40 MG/4 ML VIAL IVP (17:01)
[2018-06-17] MEDS: Ondansetron 4 MG/2 ML VIAL IVP (17:28)
[2018-06-17] MEDS: Insulin Aspart 300 UNITS/3 ML PEN SC ×2 (17:32→22:16)
[2018-06-17] MEDS: Melatonin 3 MG TAB PO (22:07)
[2018-06-18] VITALS (8 sets, daily range): BP systolic 92–102; BP diastolic 54–65; PULSE 52–54; RESP 12–18; TEMP 35.2–36.8; O2SAT 96–99
[2018-06-18] MEDS: Lactulose 20 GM/30 ML CUP PO ×3 (06:09→20:10)
[2018-06-18 07:25] LABS: HCT 40.4 % (40.0-50.0); HGB 13.8 g/dL (13.5-17.5); Mean Corp. HGB Concentration 34.2 g/dL (32.0-36.0); Mean Corpuscular Volume 99.5 fL (80-95); Mean Platelet Volume 13.5 fL (8.0-11.0); RBC 4.06 m/cumm (4.50-6.00); RBC Distribution Width 14.2 % (11.8-14.1); White Blood Cell Count 7.59 k/cumm (4.4-10.8)
[2018-06-18 07:39] LABS: ALT 69 U/L (12-78); AST 100 U/L (15-37); Alkaline Phosphatase 293 U/L (46-116); Anion Gap 4.6 mmol/L (3-11); BUN 66 mg/dL (7-18); CO2 26.4 mmol/L (21.0-32.0); CREATININE 1.68 mg/dL (0.70-1.30); Calcium 8.3 mg/dL (8.5-10.1); Chloride 99 mmol/L (98-107); Estimated GFR 41.61 (mL/min/1.73m2); Glucose 143 mg/dL (70-100); Magnesium 2.1 mg/dL (1.8-2.4); Potassium 5.1 mmol/L (3.5-5.1); Sodium 130 mmol/L (136-145); Total Protein 7.4 g/dL (6.4-8.2)
[2018-06-18] MEDS: Pantoprazole 40 MG VIAL IVP ×2 (08:05→20:11)
[2018-06-18] MEDS: Furosemide 40 MG/4 ML VIAL IVP (08:05)
[2018-06-18] MEDS: Multivitamin w/Minerals TAB 1 TAB PO (08:06)
[2018-06-18] MEDS: Docusate Sodium 100 MG CAP PO ×2 (08:06→20:11)
[2018-06-18] MEDS: Benzonatate 100 MG CAP PO ×3 (08:06→20:11)
[2018-06-18] MEDS: Normal Saline Flush 10 ML SYR IVP ×2 (08:06→20:12)
[2018-06-18] MEDS: guaiFENesin 600 MG TABCR PO ×2 (08:06→20:10)
[2018-06-18] MEDS: Tamsulosin 0.4 MG CAPCR PO (08:06)
[2018-06-18] MEDS: Rifaximin 550 MG TAB PO ×2 (08:06→20:10)
[2018-06-18 08:12] LABS: Absolute Neutrophil Count 5.84 k/cumm (1.2-6.7); Platelet Count 62 x1000/uL (130-400)
[2018-06-18 08:13] LABS: Absolute Monocyte Count 0.99 k/cumm (0.11-0.7); Diff Comment Manual Differential; RBC Morphology Normal
--- NOTE | 2018-06-18 09:50 | PDOC.CMPRO ---
Care Management Progress Note S/O: Abdoulaye was lying in bed when CM met with him, he reported still feeling frustrated about his lack of progress medically, CM encouraged Abdoulaye to reach out to CM if he felt he needed additional support. CM reviewed contact methods. MD reports consult from [facility] provider may be forthcoming. CM continues to follow. A: 63 year old male admitted to [facility] P: Abdoulaye will return to the [facility] when ready. CM will continue to follow and provide updated clinicals to [facility] staff. Abdoulaye will transport via private vehicle with his nephew, Tanvir.
--- NOTE | 2018-06-18 09:51 | CMPROGNOTE_ITS ---
Care Management Progress Note S/O: Abdoulaye was lying in bed when CM met with him, he reported still feeling frustrated about his lack of progress medically, CM encouraged Abdoulaye to reach out to CM if he felt he needed additional support. CM reviewed contact methods. MD reports consult from [facility] provider may be forthcoming. CM continues to follow. A: 63 year old male admitted to [facility] P: Abdoulaye will return to the [facility] when ready. CM will continue to follow and provide updated clinicals to [facility] staff. Abdoulaye will transport via private vehicle with his nephew, Tanvir.
--- NOTE | 2018-06-18 10:51 | OT.INTREAT ---
Date of service: 06/18/18 Time of Service: 09:15 Occupational Therapy Notes Occupational Therapy Inpatient Treatment Note Date: 06/18/18 PRECAUTIONS: Fall, Standard SUBJECTIVE: Pt was sitting in bed, he was agreeable to OT session. He reports that he is retaining fluid in his belly at this time but states that he wants to get up and get moving. OBJECTIVE: PAIN:no c/o pain FUNCTIONAL MOBILITY Rolling L/R: (I) Supine-sit: (I) Sit-stand: S, FWW Stand-sit: SBA, FWW Bed-Bathroom: SBA, FWW Bathroom-Chair: SBA, FWW BATHING: Standing at sink Upper Body: FWW, SBA, (I) (B) UE and face Lower Body: NT DRESSING: Upper Extremity: NT Lower Extremity: Able to (I) don and doff (B) socks and shoes in the sitting position. Pt leave shoes tied and slips his feet into them to increase his (I). GROOMING: Standing at sink with FWW, SBA (I) brushing teeth with min vc for weight shifting during functional dynamic reaching. TOILETING: Device: TOilet Assist: (I) ASSESSMENT: Pt is tolerating skilled OT intervention well, he is demonstrating increased (I) in ADL routine and is able to perform teeth, hair and washing UE standing at sink with FWW. Pt would benefit from continued skilled OT intervention for progression of (I) in ADLs. PLAN: Progression of (I) in ADL routines. OT recommends that pt return to [facility] when medically cleared per MD. TREATMENT CODES/TIME: [id number], 23minutes (09:15) Lien Vera OTR/[facility]
--- NOTE | 2018-06-18 10:59 | OTTR_ITS ---
Date of service: 06/18/18 Time of Service: 09:15 Occupational Therapy Notes Occupational Therapy Inpatient Treatment Note Date: 06/18/18 PRECAUTIONS: Fall, Standard SUBJECTIVE: Pt was sitting in bed, he was agreeable to OT session. He reports that he is retaining fluid in his belly at this time but states that he wants to get up and get moving. OBJECTIVE: PAIN:no c/o pain FUNCTIONAL MOBILITY Rolling L/R: (I) Supine-sit: (I) Sit-stand: S, FWW Stand-sit: SBA, FWW Bed-Bathroom: SBA, FWW Bathroom-Chair: SBA, FWW BATHING: Standing at sink Upper Body: FWW, SBA, (I) (B) UE and face Lower Body: NT DRESSING: Upper Extremity: NT Lower Extremity: Able to (I) don and doff (B) socks and shoes in the sitting position. Pt leave shoes tied and slips his feet into them to increase his (I). GROOMING: Standing at sink with FWW, SBA (I) brushing teeth with min vc for weight shifting during functional dynamic reaching. TOILETING: Device: TOilet Assist: (I) ASSESSMENT: Pt is tolerating skilled OT intervention well, he is demonstrating increased (I) in ADL routine and is able to perform teeth, hair and washing UE standing at sink with FWW. Pt would benefit from continued skilled OT intervention for progression of (I) in ADLs. PLAN: Progression of (I) in ADL routines. OT recommends that pt return to [facility] when medically cleared per MD. TREATMENT CODES/TIME: [id number], 23minutes (09:15) Lien Vera OTR/[facility]
[2018-06-18] MEDS: Insulin Aspart 300 UNITS/3 ML PEN SC ×2 (12:10→17:11)
--- NOTE | 2018-06-18 12:12 | PT.INTREAT ---
Date of service: 06/18/18 Time of Service: 12:13 PT Notes Inpatient Physical Therapy Treatment Note [facility] Date: 06/18/18 PRECAUTIONS: Fall SUBJECTIVE: Abdoulaye states that he is feeling much better today. He is agreeable to participating in PT. OBJECTIVE: PAIN: No c/o pain BED MOBILITY/TRANSFERS Sit-supine: I Sit-stand: S Stand-sit: S GAIT Assistive Device: FWW Weight bearing: Full Assist: S Distance: 300' THEREX: Patient completed a LE strengthening program, in a standing position, including functional [id number], as per flow sheet. ASSESSMENT: Patient tolerated sessions well without complaint. He was able to tolerate a progression in ther ex today, modifications made to reps are noted on flow sheet. Patient would benefit from continued gait training as well as strengthening for continued improvement in activity tolerance. PLAN: Continue with PT's POC TREATMENT CODE/TIME: 30 minutes; 19391, [id number]
--- NOTE | 2018-06-18 13:07 | PGE_ITS ---
Date of Service Date of service: 06/18/18 Time of Service: 13:05 Assessment and Plan (1) Hepatic encephalopathy: Current visit: Yes Status: Acute Appears resolved and likely in setting of lactulose non-compliance per review of records. Now with reported 3-4 loose bowel movements a day. Continue Lactulose and attempt to wean to TID dosing today. Will also continue Rifaximin as patient's symptoms apparently improved once this medication was initiated. Ammonia well within normal limits following treatment - 145 originally down to 16. (2) End stage liver disease: Current visit: Yes Status: Chronic Secondary to BRUNNER, with known Portal Hypertension, reported Esophageal Varices, Ascites with prior SBP, Hepatic Encephalopathy, and TCP. Follows with [facility]. Continued weight gain despite initiation, uptitration, and change to IV lasix. Hyperkalemia had prohibited restarting of Aldactone. Discussed with GI at [facility] - patient is apparently diuretic resistant, now requiring large volume therapeutic Paracentesis. Underwent a tap for 11 L on 05/22 at [facility], and 2L in the ED here at time of admission. Discussed with surgery regarding repeat tape today. Plan for Albumin prior to procedure. Continued significant bradycardia with fatigue despite less than minimal dosing on Nadolol - likely limiting for use of this medication. Discontinued. Prior paracentesis with WBC's that did not meet criteria for SBP, and cultures negative. Continue with lasix but change to PO dosing, and restart Spironolactone as potassium has normalized, with careful monitoring. (3) HCAP (healthcare-associated pneumonia): Current visit: Yes Status: Acute S/p 5 day course of Vancomycin and Cefepime. Appears resolved, but given worsening coughrepeat a CXR 06/18 that was negative for infection. Monitor. (4) Urinary retention: Current visit: Yes Status: Acute Reportedly improved on Tamsulosin. (5) Hepatorenal syndrome: Current visit: Yes Status: Resolved Noted elevation in creatinine that appears chronic, and dates back to approximately 2017. Continue to monitor renal function as diuretic therapy is being intensified. (6) Insulin dependent diabetes mellitus: Current visit: Yes Status: Chronic Continue sliding scale coverage and monitor blood sugars. (7) Diabetes mellitus type 2: Current visit: No Status: Active (8) DVT prophylaxis: Current visit: Yes Status: Acute Currently without chemical prophylaxis due to Thrombocytopenia, which is stable. Continue TEDS, SCDs. Subjective Interval history since last seen: 63 year old man with a prior history of end stage liver disease/chronic liver failure secondary to BRUNNER, admitted from [facility] Emergency Department on 06/09 with a diagnosis of weakness. Mr. Urias has a history of ESLD in the setting of BRUNNER, with known Ascites with prior history of SBP as well as a history of hepatic encephalopathy. He also has known DM, HTN, and likely hepatorenal syndrome. He is a [place] resident at the [facility]. The patient was brought to the ED for evaluation of weakness, nausea with vomitting, along with poor oral intake for approximately 2 weeks. There was note of noncompliance with his lactulose. He apparently had an appointment at [facility] for a paracenthesis on 05/22, at which time a significant amount of ascitic fluid was removed. Prior to admission the patient underwent a paracentesis in the ED with approximate 2 Liter removal of fluid as well. He was also noted to have potential infiltrates by CXR. His CT of the abdomen showed stable hepatosplenomegally with ascites, and bowel wall thickening consistent with either infection/inflammation vs. portal hypertension in patient without abdominal pain or diarrhea. Following admission the patient has undergone a 5 day course of antibiotic therapy for treatment of HCAP, and has remained on lactulose and Rifaximine for treatment of hepatic encephalopathy. He appears stable and back to his baseline mental status. However, he has continued to have significant weight gain despite reinitiation and increase in his lasix. This morning his weight has continued to elevate - he has a history of therapeutic paracentesis for what has essentially become diuretic resistant ascites. He had remained bradycardic despite decrease in minimal dose Nadolol, improved but still mildly bradycardic with discontinuation. No overnight events reported. Remains afebrile. Exam Narrative Exam Narrative: General: Patient appears comfortable, AAOX3, NAD Neck: Supple CV: Regular, nontachycardic, S1S2, No rubs, murmurs, or gallops. Pulmonary: Clear to auscultation bilaterally, no crackles, wheezing, or rhonchi Abdomen: + Bowel Sounds, soft, nontender, worsening distention but soft with known worsening ascites Vascular: B/l lower extremity edema Psych: Normal mood and affect. Objective Objective Clinical Data: Abnormal lab results 06/18/18 06/18/18 Range/Units 06:55 06:55 RBC 4.06 L (4.50-6.00) m/cumm MCV 99.5 H (80-95) fL MCH 34.0 H (27.0-33.0) pg RDW 14.2 H (11.8-14.1) % Plt Count 62 L (130-400) x1000/uL MPV 13.5 H (8.0-11.0) fL Absolute Lymphocytes 0.30 L (1.2-3.4) k/cumm Absolute Monocytes 0.99 H (0.11-0.7) k/cumm Sodium 130 L (136-145) mmol/L BUN 66 H (7-18) mg/dL Creatinine 1.68 H (0.70-1.30) mg/dL Glucose 143 H (70-100) mg/dL Calcium 8.3 L (8.5-10.1) mg/dL Total Bilirubin 2.0 H (0.2-1.0) mg/dL AST 100 H (15-37) U/L Alkaline Phosphatase 293 H (46-116) U/L Albumin 2.0 L (3.4-5.0) g/dL Vital Signs Temperature 36.5 C 06/18/18 07:38 Temperature Source Tympanic 06/18/18 07:38 Pulse 53 L 06/18/18 07:38 Pulse Rhythm Irregular 06/17/18 23:33 Pulse 56 L 06/09/18 09:40 Respiratory Rate 18 06/18/18 07:38 Respiratory Effort 06/17/18 23:33 Respiratory Depth Normal 06/17/18 23:33 Respiratory Pattern Normal 06/17/18 23:33 Blood Pressure 97/64 L 06/18/18 07:38 Blood Pressure Mean 71 06/09/18 09:30 Blood Pressure Position Sitting 06/09/18 09:00 Pulse Oximetry 98 06/18/18 07:38 Oxygen Delivery Method Room Air 06/18/18 07:38 Oxygen Flow Rate 0 06/18/18 07:38 Pain Level 0 06/17/18 22:18 Comment 06/17/18 07:25 Intake & Output 06/17/18 06/18/18 06/18/18 23:59 11:59 23:59 Intake Total 600 / 1390 370 / 370 Output Total 1300 / 2100 Balance -700 / -710 370 / 370 Weight 102.6 kg Intake: Oral 600 / 1390 370 / 370 Output: Urine 1300 / 2100 Other: Urine Color Yellow Urine Appearance Clear Urine Odor Normal Stool Size Moderate Stool Characteristics Soft Voiding Methods Toilet Laboratory Results WBC 7.59 k/cumm (4.4-10.8) 06/18/18 06:55 RBC 4.06 m/cumm (4.50-6.00) L 06/18/18 06:55 Hgb 13.8 g/dL (13.5-17.5) 06/18/18 06:55 Hct 40.4 % (40.0-50.0) 06/18/18 06:55 MCV 99.5 fL (80-95) H 06/18/18 06:55 MCH 34.0 pg (27.0-33.0) H 06/18/18 06:55 MCHC 34.2 g/dL (32.0-36.0) 06/18/18 06:55 RDW 14.2 % (11.8-14.1) H 06/18/18 06:55 Plt Count 62 x1000/uL (130-400) L 06/18/18 06:55 MPV 13.5 fL (8.0-11.0) H 06/18/18 06:55 Immature Gran % See Differential 06/18/18 06:55 Neutrophils % 77.0 06/18/18 06:55 Band Neutrophils % 2.0 % 06/17/18 07:18 Lymphocytes % 4.0 06/18/18 06:55 Monocytes % 13.0 06/18/18 06:55 Eosinophils % 0.0 06/18/18 06:55 Basophils % 0.0 06/18/18 06:55 Absolute Neutrophils 5.84 k/cumm (1.2-6.7) 06/18/18 06:55 Absolute Lymphocytes 0.30 k/cumm (1.2-3.4) L 06/18/18 06:55 Absolute Monocytes 0.99 k/cumm (0.11-0.7) H 06/18/18 06:55 Absolute Eosinophils 0.00 k/cumm (0.0-0.7) 06/18/18 06:55 Absolute Basophils 0.00 k/cumm (0.0-0.2) 06/18/18 06:55 Metamyelocytes 6.0 % 06/18/18 06:55 Differential Comment Manual differential 06/18/18 06:55 RBC Morphology Normal 06/18/18 06:55 Macrocytosis 2+ 06/10/18 07:00 PT 12.1 sec (9.3-11.0) H 06/10/18 07:00 INR 1.2 (0.9-1.1) H 06/10/18 07:00 Sodium 130 mmol/L (136-145) L 06/18/18 06:55 Potassium 5.1 mmol/L (3.5-5.1) 06/18/18 06:55 Chloride 99 mmol/L (98-107) 06/18/18 06:55 Carbon Dioxide 26.4 mmol/L (21.0-32.0) 06/18/18 06:55 Anion Gap 4.6 mmol/L (3-11) 06/18/18 06:55 BUN 66 mg/dL (7-18) H 06/18/18 06:55 Creatinine 1.68 mg/dL (0.70-1.30) H 06/18/18 06:55 Estimated GFR/1.73 m2 41.61 (mL/min/1.73m2) 06/18/18 06:55 Glucose 143 mg/dL (70-100) H 06/18/18 06:55 Calcium 8.3 mg/dL (8.5-10.1) L 06/18/18 06:55 Magnesium 2.1 mg/dL (1.8-2.4) 06/18/18 06:55 Total Bilirubin 2.0 mg/dL (0.2-1.0) H 06/18/18 06:55 Conjugated Bilirubin 2.66 mg/dL (0.00-0.20) H 06/10/18 07:00 AST 100 U/L (15-37) H 06/18/18 06:55 ALT 69 U/L (12-78) 06/18/18 06:55 Alkaline Phosphatase 293 U/L (46-116) H 06/18/18 06:55 Ammonia 16 umol/L (11-32) 06/14/18 07:12 Troponin I < 0.02 ng/mL (0.00-0.06) 06/09/18 08:55 Total Protein 7.4 g/dL (6.4-8.2) 06/18/18 06:55 Albumin 2.0 g/dL (3.4-5.0) L 06/18/18 06:55 Lipase 228 U/L (73-393) 06/09/18 08:55 Prostate Specific Ag <0.1 ng/ml (0-4.5) 06/11/18 07:25 Urine Color Yellow (Yellow) 06/09/18 12:33 Urine Clarity Clear 06/09/18 12:33 Urine pH 7.0 (5-8) 06/09/18 12:33 Ur Specific [place] 1.015 (1.005-1.025) 06/09/18 12:33 Urine Protein Negative mg/dL (Negative) 06/09/18 12:33 Urine Ketones Negative mg/dL (Negative) 06/09/18 12:33 Urine Blood Negative (Negative) 06/09/18 12:33 Urine Nitrite Negative (Negative) 06/09/18 12:33 Urine Bilirubin Negative (Negative) 06/09/18 12:33 Urine Urobilinogen >=8.0 EU/dL (Up TO 0.2) 06/09/18 12:33 Ur Leukocyte Esterase Negative (Negative) 06/09/18 12:33 Urine Glucose Negative mg/dL (Negative) 06/09/18 12:33 Fluid Source Peritoneal 06/09/18 11:42 Fluid Color Yellow 06/09/18 11:42 Fluid Appearance Clear 06/09/18 11:42 Fluid WBC 208 /MM3 (0-0) H 06/09/18 11:42 Fluid Mononuclear Cell 81 % (0-0) H 06/09/18 11:42 Fl Polymorphonucl Cell 8 % (0-0) H 06/09/18 11:42 Fluid Other Cells 11 0 (0-0) H 06/09/18 11:42 Vancomycin Trough 23.7 ug/mL (10.0-20.0) H* 06/15/18 04:50 Path Cons Comment 06/09/18 11:42
[2018-06-18] MEDS: ALBUMIN HUMAN 25 GM/100 ML BTL IV (13:24)
--- NOTE | 2018-06-18 15:08 | W.SURGCON ---
Documented by User: JERRY Andrea 06/18/18 15:17 Date of service: 06/18/18 Time of Service: 15:08 Assessment and Plan (1) Ascites: Current visit: Yes Status: Acute A// Ascites was present on exam. Performed paracentesis on started with lateral RLQ then switched to anterior RUQ due to poor flow at bedside with total of 3L of fluid removed. The patient tolerated this well, expressing some discomfort with palpation of his abdomen. P// Will sign off at this time. Qualifiers: Ascites type: other type Qualified Code(s): R18.8 - Other ascites History of Present Illness Chief Complaint: Ascites Narrative: 63 y/o male presents with abdominal pain and recurrent ascites. CT scan showed ascites. 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) Thrombocytopenia (Chronic) Surgical History Appendectomy (Resolved) Cholecystectomy (Resolved 08/12/12) EGD - MAC (Resolved) Family History Mother Heart disease Cancer Father Essential hypertension Heart disease Cancer Sister Cancer Brother Cancer Social History what type of physical activity do you participate in: none Smoking and Tabacco status: Never alcohol intake: never substance use type: does not use Exam Const General: cooperative, healthy appearing and comfortable Orientation: alert and oriented x3 Resp Effort & Inspection: normal respiratory effort, no audible wheezes and no cough Cardio Jugular venous pressure: no JVD GI Inspection: normal to inspection and distended Palpation: soft, no guarding, tender and ascites Percussion: fluid wave and tympanic to percussion Results Last Vital Signs Temp 36.3 C L 06/18/18 11:05 Pulse 54 L 06/18/18 11:05 Resp 18 06/18/18 11:05 BP 92/58 L 06/18/18 11:05 Pulse Ox 96 06/18/18 11:05 Labs : 06/18/18 06:55 06/18/18 06:55 Laboratory Results - last 24 hr 06/18/18 06/18/18 06:55 06:55 WBC 7.59 RBC 4.06 L Hgb 13.8 Hct 40.4 MCV 99.5 H MCH 34.0 H MCHC 34.2 RDW 14.2 H Plt Count 62 L MPV 13.5 H Immature Gran % See Differential Neutrophils % 77.0 Lymphocytes % 4.0 Monocytes % 13.0 Eosinophils % 0.0 Basophils % 0.0 Absolute Neutrophils 5.84 Absolute Lymphocytes 0.30 L Absolute Monocytes 0.99 H Absolute Eosinophils 0.00 Absolute Basophils 0.00 Metamyelocytes 6.0 Differential Comment Manual differential RBC Morphology Normal Sodium 130 L Potassium 5.1 Chloride 99 Carbon Dioxide 26.4 Anion Gap 4.6 BUN 66 H Creatinine 1.68 H Estimated GFR/1.73 m2 41.61 Glucose 143 H Calcium 8.3 L Magnesium 2.1 Total Bilirubin 2.0 H AST 100 H ALT 69 Alkaline Phosphatase 293 H Total Protein 7.4 Albumin 2.0 L Procedures Paracentesis Time out performed: Yes Indication: Ascites Procedure: therapeutic paracentesis Location: RLQ (and RUQ) Local anesthetic used: lidocaine 1% Amount of anesthesia used (ml): 5 Bedside ultrasound used: yes, real-time guidance (with ultrasound) Preparation: 11 blade used to make ramón in skin Amount of fluid obtained (ml): 3,000 Fluid: clear Post procedure exam: awake, alert Patient tolerated procedure: well Complications: none Documented by User: Scottie Shepard III, DO 06/18/18 15:50 [facility] Medical History Chronic liver failure (Chronic) Diabetes type 2, controlled (Chronic) Diabetic foot ulcer associated with type 2 diabetes mellitus (Chronic) Hypertension (Chronic) 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
--- NOTE | 2018-06-18 15:50 | PT.INTREAT ---
Date of service: 06/18/18 Time of Service: 15:15 PT Notes Inpatient Physical Therapy Treatment Note [facility] Date: 06/18/18 PRECAUTIONS: Fall SUBJECTIVE: Abdoulaye states that he is feeling well. He is anxious to get up and move. OBJECTIVE: PAIN: No c/o pain BED MOBILITY/TRANSFERS Sit-supine: I Sit-stand: S Stand-sit: S GAIT Assistive Device: FWW Weight bearing: Full Assist: S Distance: 300' THEREX: Patient completed a LE strengthening program, in a standing position, including functional [id number], as per flow sheet. ASSESSMENT: Patient tolerated sessions well without complaint. He was able to tolerate a progression in ther ex today, modifications made to reps are noted on flow sheet. Also added balance retraining activities with good tolerance. Patient would benefit from continued gait training as well as strengthening for continued improvement in activity tolerance. PLAN: Continue with PT's POC TREATMENT CODE/TIME: 30 minutes (3:15-3:45); [id number], [id number]
[2018-06-18] MEDS: FUROSEMIDE 40 MG, FUROSEMIDE 20 MG 60 MG PO (17:09)
[2018-06-18] MEDS: Melatonin 3 MG TAB PO (21:49)
[2018-06-19] VITALS (10 sets, daily range): BP systolic 91–103; BP diastolic 53–63; PULSE 49–62; RESP 12–19; TEMP 35.2–36.7; O2SAT 93–98
[2018-06-19 07:36] LABS: Abs Immature Grans 0.28 k/cumm (0.0-0.09); HGB 12.9 g/dL (13.5-17.5); Mean Corp. HGB Concentration 34.9 g/dL (32.0-36.0); Mean Corpuscular Hemoglobin 34.6 pg (27.0-33.0); Mean Corpuscular Volume 99.2 fL (80-95); Mean Platelet Volume 13.6 fL (8.0-11.0); RBC 3.73 m/cumm (4.50-6.00); RBC Distribution Width 14.3 % (11.8-14.1); White Blood Cell Count 7.01 k/cumm (4.4-10.8)
[2018-06-19] MEDS: Lactulose 20 GM/30 ML CUP PO ×3 (07:49→19:41)
[2018-06-19] MEDS: Pantoprazole 40 MG VIAL IVP ×2 (07:49→19:42)
[2018-06-19] MEDS: Multivitamin w/Minerals TAB 1 TAB PO (07:49)
[2018-06-19] MEDS: Rifaximin 550 MG TAB PO ×2 (07:49→19:42)
[2018-06-19] MEDS: Benzonatate 100 MG CAP PO ×3 (07:49→19:41)
[2018-06-19] MEDS: FUROSEMIDE 40 MG, FUROSEMIDE 20 MG 60 MG PO ×2 (07:49→16:03)
[2018-06-19] MEDS: Docusate Sodium 100 MG CAP PO ×2 (07:49→19:41)
[2018-06-19] MEDS: Tamsulosin 0.4 MG CAPCR PO (07:49)
[2018-06-19] MEDS: guaiFENesin 600 MG TABCR PO ×2 (07:49→19:41)
[2018-06-19] MEDS: traMADol 50 MG TAB PO (07:49)
[2018-06-19] MEDS: Spironolactone 50 MG TAB 100 MG PO (07:49)
[2018-06-19] MEDS: Normal Saline Flush 10 ML SYR IVP ×2 (07:50→19:42)
[2018-06-19 07:57] LABS: ALT 63 U/L (12-78); AST 89 U/L (15-37); Albumin 2.2 g/dL (3.4-5.0); Alkaline Phosphatase 300 U/L (46-116); Anion Gap 8.2 mmol/L (3-11); BUN 67 mg/dL (7-18); Bilirubin, Total 2.1 mg/dL (0.2-1.0); CO2 25.8 mmol/L (21.0-32.0); CREATININE 1.59 mg/dL (0.70-1.30); Calcium 8.1 mg/dL (8.5-10.1); Chloride 99 mmol/L (98-107); Estimated GFR 44.34 (mL/min/1.73m2); Glucose 136 mg/dL (70-100); Sodium 133 mmol/L (136-145); Total Protein 6.9 g/dL (6.4-8.2)
[2018-06-19 08:08] LABS: Absolute Eosinophil Count 0.14 k/cumm (0.0-0.7); Absolute Lymphocyte Count 0.42 k/cumm (1.2-3.4); Absolute Monocyte Count 1.12 k/cumm (0.11-0.7); Absolute Neutrophil Count 5.19 k/cumm (1.2-6.7); Diff Comment Manual Differential; Platelet Count 56 x1000/uL (130-400); Polychromasia Present
--- NOTE | 2018-06-19 10:05 | W.PALLCONSUL ---
Date of service: 06/19/18 Time of Service: 10:05 History of Present Illness Chief Complaint: Cirrhosis with frequent paracentesis Narrative: Abdoulaye is a 63-year-old man with advanced cirrhosis. He has had frequent paracentesis. 11 L were taken off by interventional radiology a few weeks ago, 2 L and 3 L most recently. He has been hospitalized for several days. I was asked to do a palliative consult to further determine goals of care. Abdoulaye states that he understands that his time is ending soon. With a wonderful smirk on his face he said the doctor said he would in 2012 and he showed them. He has not. He understands that CPR is not going to be helpful in improving the quality or quantity of his life due to his comorbidities. This last hospitalization has really taken a lot out of him. He does not know that he can come back from this. He wonders what next steps are. He would like to come get [facility] to [facility] where [facility] lived for the last several months. He does not like the food there. He would like to have this improved. He is also concerned about worsening ascites and sort shortness of breath Consults Consult date: 06/19/18 Requesting physician: Jayden Lucia Assessment and Plan (1) Palliative care patient: Current visit: Yes Status: Acute CODE STATUS?we discussed his CODE STATUS. He completed a CO LST form. He is a DNR DNI. He would prefer if his needs could be met at the [facility] and not return to the hospital. He would want antibiotics for things that he could recover from. He does not want a tube feeding. He does not want IV fluids and less he could return to the present level of function. Copies of the CO LST form have been given to the patient, hospice, [facility] and the [facility] I also discussed all of this with his D DEBORAHA, his nephew Tanvir. We also discussed hospice. Would like to get Abdoulaye settled back into the [facility] and then after some rehab consider hospice. I have put in a hospice consult while he is at [facility]. I spoke with hospitalist Dr. Toledo about a catheter that could be in place so that we could drain some of the ascites on a regular basis without needing ultrasound and needle insertion. This is supposed to be placed later today with the anticipation that he could return to the [facility] tomorrow I will speak to the [facility] about improving his food choices. This document was created by [employer] and may contain grammatical and translation errors. I have spent more than 50% of time in counseling with this patient. (2) Urinary retention: Current visit: Yes Status: Acute (3) HCAP (healthcare-associated pneumonia): Current visit: Yes Status: Acute (4) Hepatorenal syndrome: Current visit: Yes Status: Resolved (5) End stage liver disease: Current visit: Yes Status: Chronic (6) Ascites: Current visit: Yes Status: Acute Qualifiers: Ascites type: other type Qualified Code(s): R18.8 - Other ascites (7) Non-alcoholic fatty liver disease: Current visit: No Status: Acute Review of Systems Constitutional Reports body ache(s) and Reports weakness Eyes Reports system reviewed and no additional complaints, except as docu ENT Comments: Feeding is a problem for him. Mostly he is bored with the food at the [facility]. Cardiovascular Reports system reviewed and no additional complaints, except as docu, Reports dyspnea and Reports dyspnea on exertion Respiratory Reports dyspnea and Reports dyspnea on exertion Gastrointestinal Reports abdominal pain and Reports bloating Musculoskeletal Reports myalgias Neurologic Reports weakness Psychiatric Comments: He appears sad but not depressed [facility] Medical History Chronic liver failure (Chronic) Diabetes type 2, controlled (Chronic) Diabetic foot ulcer associated with type 2 diabetes mellitus (Chronic) Hypertension (Chronic) Liver cirrhosis secondary to nonalcoholic steatohepatitis ([place]) (Chronic) Thrombocytopenia (Chronic) Surgical History Appendectomy (Resolved) Cholecystectomy (Resolved 08/12/12) EGD - MAC (Resolved) Family History Mother Heart disease Cancer Father Essential hypertension Heart disease Cancer Sister Cancer Brother Cancer Social History what type of physical activity do you participate in: none Smoking and Tabacco status: Never alcohol intake: never substance use type: does not use Exam Narrative Exam Narrative: Abdoulaye is lying in bed. He does tear up during some of her conversation. Mentally he is very clear and wants to do what is best. What is best is based on quality of life. HEENT pupils are equal and reactive cor his heart is regular breathing some reduced effort, abdomen large with ascites nontender. Psych Appearance: other (In a hospital gown) Mental Status: mental status grossly normal and other Speech and Movement: speech clear Mood: other Affect: sad Attitude: cooperative Thought Process: normal Thought Content: normal Insight: fair Judgment: fair Results Last Vital Signs Temp 97.5 F L 06/19/18 07:35 Pulse 49 L 06/19/18 07:46 Resp 19 06/19/18 07:35 BP 94/59 L 06/19/18 07:35 Pulse Ox 97 06/19/18 07:35 Labs : 06/19/18 06:35 06/19/18 06:35 Laboratory Results - last 24 hr 06/19/18 06/19/18 06:35 06:35 WBC 7.01 RBC 3.73 L Hgb 12.9 L Hct 37.0 L MCV 99.2 H MCH 34.6 H MCHC 34.9 RDW 14.3 H Plt Count 56 L MPV 13.6 H Immature Gran % See Differential Neutrophils % 73.0 Band Neutrophils % 1.0 Lymphocytes % 6.0 Monocytes % 16.0 Eosinophils % 2.0 Basophils % 0.0 Absolute Neutrophils 5.19 Absolute Lymphocytes 0.42 L Absolute Monocytes 1.12 H Absolute Eosinophils 0.14 Absolute Basophils 0.00 Metamyelocytes 1.0 Myelocytes 1.0 Differential Comment Manual differential RBC Morphology See below Polychromasia Present Sodium 133 L Potassium 4.0 D Chloride 99 Carbon Dioxide 25.8 Anion Gap 8.2 BUN 67 H Creatinine 1.59 H Estimated GFR/1.73 m2 44.34 Glucose 136 H Calcium 8.1 L Magnesium 2.0 Total Bilirubin 2.1 H AST 89 H ALT 63 Alkaline Phosphatase 300 H Total Protein 6.9 Albumin 2.2 L
--- NOTE | 2018-06-19 11:43 | OT.INDS ---
Date of service: 06/19/18 Time of Service: 09:45 Occupational Therapy Notes Occupational Therapy Inpatient Discharge Summary Dates of Service: 06/10/18-06/19/18 Date: 06/19/18 Referring Doctor:Jesica Wise MD OT Orders: Eval and Treat Precautions: Contact precautions, Fall Risk PATIENT PROFILE/ADMITTING DIAGNOSIS: Pt is a 63 year old male who was admitted through the ER on 06/09/18 from the [facility] after experiencing weakness,nausea and vomiting. He is now being managed acutely for hepatic encephalopathy, hepatorenal syndrome and dehydration. Past Medical History: IDDM, esophageal varices, end stage liver disease, hyponatremia, thrombocytopenia Current Functional Limitations: Decreased functional activity tolerance, decreased (B)UE strength, decreased (B)UE AROM, decreased functional mobility to perform ADLs. Social History/Home Situation: Pt is currently living at [facility], he reports that he daily washes himself up standing at the sink but only gets to shower 1x per week. He reports that his baseline is (I) with all ADLs/IADLs as well as toileting which he typically performs on the toilet (I). Equipment owned/DME: FWW, Assisted living facility SUBJECTIVE: Pt was sitting in bed when OT arrived. He was very emotional today stating, I'm dying, I knew it was coming but I didn't want it to be now. Pt was tearful and also reports later that he is stressed about the news he received. OBJECTIVE: ROM: Right Upper Extremity: Shoulder flexion to 130 degrees. Elbow and hand WNL Left Upper Extremity: Shoulder flexion to 130 degrees. Elbow and hand WNL STRENGTH: Right Upper Extremity: Shoulder flexion 3+/5. Biceps 4/5. Harness Tier weak and symmetrical Left Upper Extremity: Shoulder flexion 3+/5. Biceps 4/5. Harness Tier weak and symmetrical FUNCTIONAL MOBILITY/ADLS: BATHING sitting in bed with assist with set up (A) progressed to (S), FWW standing at sink Bathing UE (I), max (A) back Bathing LE Sitting in chair (I) DRESSING Sitting in hospital bed at IE he progressed to sitting in chair Dressing UE (I) don and doff hospital gown Dressing LE (I) don and doff (B) socks GROOMING (S) FWW standing at sink (I) with brushing hair and teeth TOILETING (I) on toilet BALANCE: Static sitting Normal Dynamic Sitting Normal ASSESSMENT: Patient is a 63-year-old male referred to occupational therapy services with diagnosis of ER on 06/09/18 from the [facility] after experiencing weakness,nausea and vomiting. He is now being managed acutely for hepatic encephalopathy, hepatorenal syndrome and dehydration. Pt was seen over a time period of 10 days. He was seen for 7 skilled OT sessions demonstrating increased (I) in ADLs compared to at initial evaluation. Pt is discouraged about medical condition at this time. Per nursing he is to be discharged back to [facility] today. He had a palliative consult today prior to OT session. At this time pt will be discharged from skilled OT services. Goals x1 week 1. Transfers S, FWW (MET) 2. Dressing Sitting in chair (I) with UE/LE dressing (MET) 3. Bathing Standing at sink (I) with UE/LE. (MET) 4. Toileting on toilet (I) (MET) 5. Eating (I) (MET) 6. Grooming- standing at sink with FWW (I) (MET) PLAN OF CARE/TREATMENT PLAN: Discharge pt from skilled OT services. DISCHARGE RECOMMENDATIONS Return to [facility] when medically cleared per MD. Per nursing pt is to be discharged back to [facility] today, TREATMENT TIME/MINUTES/CODES [id number], 20 minutes (09:45) [facility]
--- NOTE | 2018-06-19 11:53 | OTDS_ITS ---
Date of service: 06/19/18 Time of Service: 09:45 Occupational Therapy Notes Occupational Therapy Inpatient Discharge Summary Dates of Service: 06/10/18-06/19/18 Date: 06/19/18 Referring Doctor:Jesica Wise MD OT Orders: Eval and Treat Precautions: Contact precautions, Fall Risk PATIENT PROFILE/ADMITTING DIAGNOSIS: Pt is a 63 year old male who was admitted through the ER on 06/09/18 from the [facility] after experiencing weakness,nausea and vomiting. He is now being managed acutely for hepatic encephalopathy, hepatorenal syndrome and dehydration. Past Medical History: IDDM, esophageal varices, end stage liver disease, hyponatremia, thrombocytopenia Current Functional Limitations: Decreased functional activity tolerance, decreased (B)UE strength, decreased (B)UE AROM, decreased functional mobility to perform ADLs. Social History/Home Situation: Pt is currently living at The [facility], he reports that he daily washes himself up standing at the sink but only gets to shower 1x per week. He reports that his baseline is (I) with all ADLs/IADLs as well as toileting which he typically performs on the toilet (I). Equipment owned/DME: FWW, Assisted living facility SUBJECTIVE: Pt was sitting in bed when OT arrived. He was very emotional today stating, I'm dying, I knew it was coming but I didn't want it to be now. Pt was tearful and also reports later that he is stressed about the news he received. OBJECTIVE: ROM: Right Upper Extremity: Shoulder flexion to 130 degrees. Elbow and hand WNL Left Upper Extremity: Shoulder flexion to 130 degrees. Elbow and hand WNL STRENGTH: Right Upper Extremity: Shoulder flexion 3+/5. Biceps 4/5. Industry Analyst weak and symmetrical Left Upper Extremity: Shoulder flexion 3+/5. Biceps 4/5. Industry Analyst weak and symmetrical FUNCTIONAL MOBILITY/ADLS: BATHING sitting in bed with assist with set up (A) progressed to (S), FWW standing at sink Bathing UE (I), max (A) back Bathing LE Sitting in chair (I) DRESSING Sitting in hospital bed at IE he progressed to sitting in chair Dressing UE (I) don and doff hospital gown Dressing LE (I) don and doff (B) socks GROOMING (S) FWW standing at sink (I) with brushing hair and teeth TOILETING (I) on toilet BALANCE: Static sitting Normal Dynamic Sitting Normal ASSESSMENT: Patient is a 63-year-old male referred to occupational therapy services with diagnosis of ER on 06/09/18 from the [facility] after experiencing weakness,nausea and vomiting. He is now being managed acutely for hepatic encephalopathy, hepatorenal syndrome and dehydration. Pt was seen over a time period of 10 days. He was seen for 7 skilled OT sessions demonstrating increased (I) in ADLs compared to at initial evaluation. Pt is discouraged about medical condition at this time. Per nursing he is to be discharged back to The [facility] today. He had a palliative consult today prior to OT session. At this time pt will be discharged from skilled OT services. Goals x1 week 1. Transfers S, FWW (MET) 2. Dressing Sitting in chair (I) with UE/LE dressing (MET) 3. Bathing Standing at sink (I) with UE/LE. (MET) 4. Toileting on toilet (I) (MET) 5. Eating (I) (MET) 6. Grooming- standing at sink with FWW (I) (MET) PLAN OF CARE/TREATMENT PLAN: Discharge pt from skilled OT services. DISCHARGE RECOMMENDATIONS Return to The [facility] when medically cleared per MD. Per nursing pt is to be discharged back to [facility] today, TREATMENT TIME/MINUTES/CODES [id number], 20 minutes (09:45) [facility]
--- NOTE | 2018-06-19 12:02 | PT.INDS ---
Date of service: 06/19/18 Time of Service: 12:00 PT Notes Date: 06/19/18 Referring Doctor: Dr. Wise PT Orders: PT CONSULT: evaluate and treat Precautions: contact, fall Treatment Dates: - 06/19/18 Patient Profile/Admitting Diagnosis: Patient admitted from the [facility] after experiencing weakness with nausea and vomiting. He has been managed acutely for hepatic encephalopathy, hepatorenal syndrome and dehydration. He's been seen for PT intervention 1-2x/day during his acute care stay, with a total of 16 sessions over the past 11days. PMHX: IDDM, esophageal varices, end stage liver disease, hyponatremia, thrombocytopenia Social History/Home Situation: Patient is a residential resident of the [facility]. He reports that he walks the halls on his own with a WW throughout the day. He also completes a regular exercise program on his own, using therabands and performing seated exercises. Equipment Owned/DME: FWW, assisted living Subjective: Abdoulaye states that he is feeling well. He's anxious to get up and walking. He just finished working with OT, and also had a palliative care consultation this morning. Objective: General Observation: Resting in chair. No lines. Mental Status: A&Ox3 ROM: Right Upper Extremity: Shoulder flexion to 160 degrees. Otherwise, grossly WFL. Left Upper Extremity: Shoulder flexion to 160 degrees. Otherwise, grossly WFL. Right Lower Extremity: Grossly WFL Left Lower Extremity: Grossly WFL Strength: Right Upper Extremity: Shoulder flexion 3+/5. Biceps 4-/5. Triceps 3+/5. Cue Worker weak, but equal. Left Upper Extremity: Shoulder flexion 3+/5. Biceps 4-/5. Triceps 3+/5. Cue Worker weak, but equal. Right Lower Extremity: Hip flexion 4/5. Quads 4/5. Hamstrings 4/5. Ankle DF 4/5. Left Lower Extremity: Hip flexion 4/5. Quads 4/5. Hamstrings 4/5. Ankle DF 4/5. Bed Mobility/Transfers: supine-sit: Independent with head of bed at 30 degrees at time of today's session. sit-supine: independent sit-stand: Supervision stand-sit: Supervision Gait: Patient is able to ambulate 300' with FWW and SBA. Balance: Static Sitting: good Dynamic Sitting: good Static Standing: good Dynamic Standing: fair Treatment: Patient was seen for re-evaluation, followed by progressive ambulation for cardiovascular retraining, and instruction in open and closed chain strengthening program. He completed balance retraining activities, as noted on flowsheet. Assessment: Patient is a 63 year old male referred to physical therapy services with the diagnosis of weakness due to hepatic ecephalopathy. He susana been participating in skilled PT intervention 1-2 times per day for the past 11 days, and has made significant gains in activity tolerance, general mobility and safety. He has medically stabilized, and is now appropriate for transition back to the [facility]. Goals: Goals X1 week 1. Supine-Sit: supervision (MET) 2. Sit-Supine supervision (MET) 3. Sit-Stand : supervision (MET) 4. Stand-Sit : supervision(MET) 5. Bed-Chair : supervision with FWW (MET) 6. Chair-Bed : supervision with FWW(MET) 7. Gait : supervision with FWW x 50'(MET) Plan of Care/Treatment Plan: DC from PT services in acute care setting DISCHARGE RECOMMENDATIONS: Return to the [facility], no equipment needs TREATMENT CODE/TIME: 35 minutes ([id number])(9:55?10:05; 10:35?11:00) Vashti Ronquillo, PT, DPT [facility]
[2018-06-19] MEDS: Insulin Aspart 300 UNITS/3 ML PEN SC ×3 (12:06→21:50)
--- NOTE | 2018-06-19 12:10 | INDS_ITS ---
Date of service: 06/19/18 Time of Service: 12:00 PT Notes Date: 06/19/18 Referring Doctor: Dr. Wise PT Orders: PT CONSULT: evaluate and treat Precautions: contact, fall Treatment Dates: - 06/19/18 Patient Profile/Admitting Diagnosis: Patient admitted from the [facility] after experiencing weakness with nausea and vomiting. He has been managed acutely for hepatic encephalopathy, hepatorenal syndrome and dehydration. He's been seen for PT intervention 1-2x/day during his acute care stay, with a total of 16 sessions over the past 11days. PMHX: IDDM, esophageal varices, end stage liver disease, hyponatremia, thrombocytopenia Social History/Home Situation: Patient is a senior living resident of the [facility]. He reports that he walks the halls on his own with a WW throughout the day. He also completes a regular exercise program on his own, using therabands and performing seated exercises. Equipment Owned/DME: FWW, assisted living Subjective: Abdoulaye states that he is feeling well. He's anxious to get up and walking. He just finished working with OT, and also had a palliative care consultation this morning. Objective: General Observation: Resting in chair. No lines. Mental Status: A&Ox3 ROM: Right Upper Extremity: Shoulder flexion to 160 degrees. Otherwise, grossly WFL. Left Upper Extremity: Shoulder flexion to 160 degrees. Otherwise, grossly WFL. Right Lower Extremity: Grossly WFL Left Lower Extremity: Grossly WFL Strength: Right Upper Extremity: Shoulder flexion 3+/5. Biceps 4-/5. Triceps 3+/5. Geothermal Powerplant Mechanic weak, but equal. Left Upper Extremity: Shoulder flexion 3+/5. Biceps 4-/5. Triceps 3+/5. Geothermal Powerplant Mechanic weak, but equal. Right Lower Extremity: Hip flexion 4/5. Quads 4/5. Hamstrings 4/5. Ankle DF 4/5. Left Lower Extremity: Hip flexion 4/5. Quads 4/5. Hamstrings 4/5. Ankle DF 4/5. Bed Mobility/Transfers: supine-sit: Independent with head of bed at 30 degrees at time of today's session. sit-supine: independent sit-stand: Supervision stand-sit: Supervision Gait: Patient is able to ambulate 300' with FWW and SBA. Balance: Static Sitting: good Dynamic Sitting: good Static Standing: good Dynamic Standing: fair Treatment: Patient was seen for re-evaluation, followed by progressive ambulation for cardiovascular retraining, and instruction in open and closed chain strengthening program. He completed balance retraining activities, as noted on flowsheet. Assessment: Patient is a 63 year old male referred to physical therapy services with the diagnosis of weakness due to hepatic ecephalopathy. He susana been participating in skilled PT intervention 1-2 times per day for the past 11 days, and has made significant gains in activity tolerance, general mobility and safety. He has medically stabilized, and is now appropriate for transition back to the [facility]. Goals: Goals X1 week 1. Supine-Sit: supervision (MET) 2. Sit-Supine supervision (MET) 3. Sit-Stand : supervision (MET) 4. Stand-Sit : supervision(MET) 5. Bed-Chair : supervision with FWW (MET) 6. Chair-Bed : supervision with FWW(MET) 7. Gait : supervision with FWW x 50'(MET) Plan of Care/Treatment Plan: DC from PT services in acute care setting DISCHARGE RECOMMENDATIONS: Return to the [facility], no equipment needs TREATMENT CODE/TIME: 35 minutes ([id number])(9:55?10:05; 10:35?11:00) Vashti Ronquillo, PT, DPT [facility]
--- NOTE | 2018-06-19 13:59 | W.PM.OP ---
Date of service: 06/19/18 Time of Service: 14:00 Operative Note DATE OF PROCEDURE: 06/19/18 PRE-OP DIAGNOSIS: Ascitis/ Hospice care POST-OP DIAGNOSIS: same PROCEDURE: US guided Pig tail catheter placement SURGEON: Luna Barnes SENIOR COMMISSARY AGENT: Leigh Betancourt ANESTHESIA: local (2% Lidocaine 5 cc) ESTIMATED BLOOD LOSS: 5 PATHOLOGY: none sent COMPLICATIONS: None Patient was transported to: no change Patient's condition: stable Indications: Mr. Urias is a pleasant 63 year old male who we were asked to see again today for a permanent catheter placement for drainage of ascites while in hospice. Risks, benefits and complications have been reviewed. Complications include but are not limited to injury to the bowel, infection, malfunction of the drain. Questions were entertained and answered to their satisfaction and they wished to proceed. No guarantees were given or implied. Procedure Description: After informed consent was obtained the US was used to find a pocket of fluid in the LLQ of his abdomen. The bowel was noted to be away from the skin due to the fluid. The skin was marked and prepped and draped in a standard fashion. The skin was then infiltrated with 2 % Lidocaine down to the peritoneum. A small incision was made in the skin with an 11 blade. The 14 mong[place] catheter was then slowly inserted. As soon as we were able to pull back some fluid the needle was removed and the soft catheter was advanced into the abdomen. 4x4 were placed around the tube and secured with tape. The patient tolerated the procedure well and there were no immediate complications.
--- NOTE | 2018-06-19 14:05 | ROE_ITS ---
Date of service: 06/19/18 Time of Service: 14:00 Operative Note DATE OF PROCEDURE: 06/19/18 PRE-OP DIAGNOSIS: Ascitis/ Hospice care POST-OP DIAGNOSIS: same PROCEDURE: US guided Pig tail catheter placement SURGEON: Luna Barnes [employer]TY [employer]OD [employer]ODUCTS SUPERVISOR: Leigh Betancourt ANESTHESIA: local (2% Lidocaine 5 cc) ESTIMATED BLOOD LOSS: 5 PATHOLOGY: none sent COMPLICATIONS: None Patient was transported to: no change Patient's condition: stable Indications: Mr. Urias is a pleasant 63 year old male who we were asked to see again today for a permanent catheter placement for drainage of ascites while in hospice. Risks, benefits and complications have been reviewed. Complications include but are not limited to injury to the bowel, infection, malfunction of the drain. Questions were entertained and answered to their satisfaction and they wished to proceed. No guarantees were given or implied. Procedure Description: After informed consent was obtained the US was used to find a pocket of fluid in the LLQ of his abdomen. The bowel was noted to be away from the skin due to the fluid. The skin was marked and prepped and draped in a standard fashion. The skin was then infiltrated with 2 % Lidocaine down to the peritoneum. A small incision was made in the skin with an 11 blade. The 14 m[place] [address]nes catheter was then slowly inserted. As soon as we were able to pull back some fluid the needle was removed and the soft catheter was advanced into the abdomen. 4x4 were placed around the tube and secured with tape. The patient tolerated the procedure well and there were no immediate complications.
[2018-06-19] MEDS: Lidocaine 2% Multi-Dose 50 ML VIAL (14:42)
--- NOTE | 2018-06-19 14:53 | PDOC.CMPRO ---
- If Service Date Differs Date of service: 06/19/18 Time of Service: 14:53 Care Management Progress Note S/O: Abdoulaye is lying in bed when this procedure writer visits this morning. He is receptive to discussion. Abdoulaye had a Palliative Consult with Dr. Wilson this morning, the outcome of that meeting was that Abdoulaye has transitioned from full code to DNR/DNI. Abdoulaye also would like to return to [facility] when ready, and once stronger is interested in a Hospice Consult. A: 63 year old male admitted to [facility] P: Abdoulaye will return to the [facility] when ready. CM will continue to follow and provide updated clinicals to [facility] staff. Abdoulaye will transport via private vehicle with his nephew, Tanvir.
--- NOTE | 2018-06-19 15:01 | CMPROGNOTE_ITS ---
- If Service Date Differs Date of service: 06/19/18 Time of Service: 14:53 Care Management Progress Note S/O: Abdoulaye is lying in bed when this news writer visits this morning. He is receptive to discussion. Abdoulaye had a Palliative Consult with Dr. Wilson this morning, the outcome of that meeting was that Abdoulaye has transitioned from full code to DNR/DNI. Abdoulaye also would like to return to [facility] when ready, and once stronger is interested in a Hospice Consult. A: 63 year old male admitted to [facility] P: Abdoulaye will return to the [facility] when ready. CM will continue to follow and provide updated clinicals to [facility] staff. Abdoulaye will transport via private vehicle with his nephew, Tanvir.
--- NOTE | 2018-06-19 16:27 | CHAPLAIN ---
Abdoulaye was sitting up in his chair when I visited. He seemed tired, said he hadn't slept well. He said he isn't sure when he'll be going back to the [facility], he's waiting to hear. He added that he doesn't mind being here because he likes to be by himself and to have things quiet.
--- NOTE | 2018-06-19 19:28 | PGE_ITS ---
Date of Service Date of service: 06/19/18 Time of Service: 19:28 Assessment and Plan (1) Hepatic encephalopathy: Current visit: Yes Status: Acute Appears resolved and likely in setting of lactulose non-compliance per review of records. Now with reported 3-4 loose bowel movements a day. Continue Lactulose with attempt to wean to TID dosing yesterday. Will also continue Rifaximin as patient's symptoms apparently improved once this medication was initiated. Ammonia well within normal limits following treatment - 145 originally down to 16. (2) End stage liver disease: Current visit: Yes Status: Chronic Secondary to BRUNNER, with known Portal Hypertension, reported Esophageal Varices, Ascites with prior SBP, Hepatic Encephalopathy, and TCP. Follows with [facility]. Discussed with GI at [facility] - patient is diuretic resistant, now requiring large volume therapeutic Paracentesis. Underwent a tap for 11 L on 05/22 at [facility], and 2L in the ED here at time of admission, and 3L removal on 06/18. Due to end- stage nature of his Cirrhosis Palliative care has consulted - patient prefers to return to his residential, and will likely be hospice care in the near future. Surgery was asked to place a pigtail catheter for removal of ascitic fluid in the future for comfort. Currently with plans to continue Lasix and spironolactone. Bradycardia limited use of nadolol. (3) HCAP (healthcare-associated pneumonia): Current visit: Yes Status: Acute S/p 5 day course of Vancomycin and Cefepime. Appears resolved, but given worsening coughrepeat a CXR 06/18 that was negative for infection. (4) Urinary retention: Current visit: Yes Status: Acute Reportedly improved on Tamsulosin. (5) Hepatorenal syndrome: Current visit: Yes Status: Resolved Noted elevation in creatinine that appears chronic, and dates back to approximately 2017. Improved this morning. (6) Insulin dependent diabetes mellitus: Current visit: Yes Status: Chronic Continue sliding scale coverage and monitor blood sugars. (7) Diabetes mellitus type 2: Current visit: No Status: Active (8) DVT prophylaxis: Current visit: Yes Status: Acute Currently without chemical prophylaxis due to Thrombocytopenia, which is stable. Continue TEDS, SCDs. (9) Discharge planning issues: Current visit: Yes Status: Acute For likely discharge tomorrow back to [facility] for skilled level care initially, with potential hospice admission following. Subjective Interval history since last seen: 63 year old man with a prior history of end stage liver disease/chronic liver failure secondary to BRUNNER, admitted from [facility] Emergency Department on 06/09 with a diagnosis of weakness. Mr. Urias has a history of ESLD in the setting of BRUNNER, with known Ascites with prior history of SBP as well as a history of hepatic encephalopathy. He also has known DM, HTN, and likely hepatorenal syndrome. He is a [place] resident at the [facility]. The patient was brought to the ED for evaluation of weakness, nausea with vomitting, along with poor oral intake for approximately 2 weeks. There was note of noncompliance with his lactulose. He apparently had an appointment at [facility] for a paracenthesis on 05/22, at which time a significant amount of ascitic fluid was removed. Prior to admission the patient underwent a paracentesis in the ED with approximate 2 Liter removal of fluid as well. He was also noted to have potential infiltrates by CXR. His CT of the abdomen showed stable hepatosplenomegally with ascites, and bowel wall thickening consistent with either infection/inflammation vs. portal hypertension in patient without abdominal pain or diarrhea. Following admission the patient has undergone a 5 day course of antibiotic therapy for treatment of HCAP, and has remained on lactulose and Rifaximine for treatment of hepatic encephalopathy. He appears stable and back to his baseline mental status. However, he has continued to have significant weight gain despite reinitiation and increase in his lasix. 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 The patient underwent a therapeutic tap yesterday, with removal of 3 additional liters. He also understands the severity of his Cirrhosis, and as per request of family a Palliative Care consult was requested today. Currently with plans for insertion of a catheter for easy drainage of ascites, with plans to return to the [facility] for skilled level care followed by likely Hospice admission. He would also prefer to have no further hospitalizations in the future. No overnight events reported. Remains afebrile. Exam Narrative Exam Narrative: General: Patient appears comfortable, AAOX3, NAD Neck: Supple CV: Regular, nontachycardic, S1S2, No rubs, murmurs, or gallops. Pulmonary: Clear to auscultation bilaterally, no crackles, wheezing, or rhonchi Abdomen: + Bowel Sounds, soft, nontender, improved distention but soft with known ascites Vascular: B/l lower extremity edema Psych: Normal mood and affect. Objective Objective Clinical Data: Abnormal lab results 06/19/18 06/19/18 Range/Units 06:35 06:35 RBC 3.73 L (4.50-6.00) m/cumm Hgb 12.9 L (13.5-17.5) g/dL Hct 37.0 L (40.0-50.0) % MCV 99.2 H (80-95) fL MCH 34.6 H (27.0-33.0) pg RDW 14.3 H (11.8-14.1) % Plt Count 56 L (130-400) x1000/uL MPV 13.6 H (8.0-11.0) fL Absolute Lymphocytes 0.42 L (1.2-3.4) k/cumm Absolute Monocytes 1.12 H (0.11-0.7) k/cumm Sodium 133 L (136-145) mmol/L BUN 67 H (7-18) mg/dL Creatinine 1.59 H (0.70-1.30) mg/dL Glucose 136 H (70-100) mg/dL Calcium 8.1 L (8.5-10.1) mg/dL Total Bilirubin 2.1 H (0.2-1.0) mg/dL AST 89 H (15-37) U/L Alkaline Phosphatase 300 H (46-116) U/L Albumin 2.2 L (3.4-5.0) g/dL Vital Signs Temperature 35.2 C L 06/19/18 15:47 Temperature Source Tympanic 06/19/18 15:47 Pulse 50 L 06/19/18 15:47 Pulse Rhythm Regular 06/19/18 15:47 Pulse 56 L 06/09/18 09:40 Respiratory Rate 12 06/19/18 15:47 Respiratory Effort Non-Labored 06/19/18 15:47 Respiratory Depth Normal 06/19/18 15:47 Respiratory Pattern Normal 06/19/18 15:47 Blood Pressure 91/57 L 06/19/18 15:47 Blood Pressure Mean 71 06/09/18 09:30 Blood Pressure Position Sitting 06/09/18 09:00 Pulse Oximetry 94 L 06/19/18 15:47 Oxygen Delivery Method Room Air 06/19/18 15:47 Oxygen Flow Rate 0 06/19/18 15:47 Pain Level 5 06/19/18 07:49 Comment 06/17/18 07:25 Intake & Output 06/18/18 06/19/18 06/19/18 23:59 11:59 23:59 Intake Total 480 / 850 760 / 1240 480 / 1240 Output Total 800 / 800 1350 / 2050 700 / 2050 Balance -320 / 50 -590 / -810 -220 / -810 Weight 99.3 kg Intake: Oral 480 / 850 760 / 1240 480 / 1240 Output: Urine 800 / 800 1350 / 2050 700 / 2050 Other: Urine Color Yellow Straw Light Marta Urine Appearance Clear Clear Clear Urine Odor None None Stool Size Small Small Stool Characteristics Soft Soft Soft Brown Formed Formed Brown Voiding Methods Toilet Toilet Toilet Laboratory Results WBC 7.01 k/cumm (4.4-10.8) 06/19/18 06:35 RBC 3.73 m/cumm (4.50-6.00) L 06/19/18 06:35 Hgb 12.9 g/dL (13.5-17.5) L 06/19/18 06:35 Hct 37.0 % (40.0-50.0) L 06/19/18 06:35 MCV 99.2 fL (80-95) H 06/19/18 06:35 MCH 34.6 pg (27.0-33.0) H 06/19/18 06:35 MCHC 34.9 g/dL (32.0-36.0) 06/19/18 06:35 RDW 14.3 % (11.8-14.1) H 06/19/18 06:35 Plt Count 56 x1000/uL (130-400) L 06/19/18 06:35 MPV 13.6 fL (8.0-11.0) H 06/19/18 06:35 Immature Gran % See Differential 06/19/18 06:35 Neutrophils % 73.0 06/19/18 06:35 Band Neutrophils % 1.0 % 06/19/18 06:35 Lymphocytes % 6.0 06/19/18 06:35 Monocytes % 16.0 06/19/18 06:35 Eosinophils % 2.0 06/19/18 06:35 Basophils % 0.0 06/19/18 06:35 Absolute Neutrophils 5.19 k/cumm (1.2-6.7) 06/19/18 06:35 Absolute Lymphocytes 0.42 k/cumm (1.2-3.4) L 06/19/18 06:35 Absolute Monocytes 1.12 k/cumm (0.11-0.7) H 06/19/18 06:35 Absolute Eosinophils 0.14 k/cumm (0.0-0.7) 06/19/18 06:35 Absolute Basophils 0.00 k/cumm (0.0-0.2) 06/19/18 06:35 Metamyelocytes 1.0 % 06/19/18 06:35 Myelocytes 1.0 % 06/19/18 06:35 Differential Comment Manual differential 06/19/18 06:35 RBC Morphology See below 06/19/18 06:35 Polychromasia Present 06/19/18 06:35 Macrocytosis 2+ 06/10/18 07:00 PT 12.1 sec (9.3-11.0) H 06/10/18 07:00 INR 1.2 (0.9-1.1) H 06/10/18 07:00 Sodium 133 mmol/L (136-145) L 06/19/18 06:35 Potassium 4.0 mmol/L (3.5-5.1) D 06/19/18 06:35 Chloride 99 mmol/L (98-107) 06/19/18 06:35 Carbon Dioxide 25.8 mmol/L (21.0-32.0) 06/19/18 06:35 Anion Gap 8.2 mmol/L (3-11) 06/19/18 06:35 BUN 67 mg/dL (7-18) H 06/19/18 06:35 Creatinine 1.59 mg/dL (0.70-1.30) H 06/19/18 06:35 Estimated GFR/1.73 m2 44.34 (mL/min/1.73m2) 06/19/18 06:35 Glucose 136 mg/dL (70-100) H 06/19/18 06:35 Calcium 8.1 mg/dL (8.5-10.1) L 06/19/18 06:35 Magnesium 2.0 mg/dL (1.8-2.4) 06/19/18 06:35 Total Bilirubin 2.1 mg/dL (0.2-1.0) H 06/19/18 06:35 Conjugated Bilirubin 2.66 mg/dL (0.00-0.20) H 06/10/18 07:00 AST 89 U/L (15-37) H 06/19/18 06:35 ALT 63 U/L (12-78) 06/19/18 06:35 Alkaline Phosphatase 300 U/L (46-116) H 06/19/18 06:35 Ammonia 16 umol/L (11-32) 06/14/18 07:12 Troponin I < 0.02 ng/mL (0.00-0.06) 06/09/18 08:55 Total Protein 6.9 g/dL (6.4-8.2) 06/19/18 06:35 Albumin 2.2 g/dL (3.4-5.0) L 06/19/18 06:35 Lipase 228 U/L (73-393) 06/09/18 08:55 Prostate Specific Ag <0.1 ng/ml (0-4.5) 06/11/18 07:25 Urine Color Yellow (Yellow) 06/09/18 12:33 Urine Clarity Clear 06/09/18 12:33 Urine pH 7.0 (5-8) 06/09/18 12:33 Ur Specific [place] 1.015 (1.005-1.025) 06/09/18 12:33 Urine Protein Negative mg/dL (Negative) 06/09/18 12:33 Urine Ketones Negative mg/dL (Negative) 06/09/18 12:33 Urine Blood Negative (Negative) 06/09/18 12:33 Urine Nitrite Negative (Negative) 06/09/18 12:33 Urine Bilirubin Negative (Negative) 06/09/18 12:33 Urine Urobilinogen >=8.0 EU/dL (Up TO 0.2) 06/09/18 12:33 Ur Leukocyte Esterase Negative (Negative) 06/09/18 12:33 Urine Glucose Negative mg/dL (Negative) 06/09/18 12:33 Fluid Source Peritoneal 06/09/18 11:42 Fluid Color Yellow 06/09/18 11:42 Fluid Appearance Clear 06/09/18 11:42 Fluid WBC 208 /MM3 (0-0) H 06/09/18 11:42 Fluid Mononuclear Cell 81 % (0-0) H 06/09/18 11:42 Fl Polymorphonucl Cell 8 % (0-0) H 06/09/18 11:42 Fluid Other Cells 11 0 (0-0) H 06/09/18 11:42 Vancomycin Trough 23.7 ug/mL (10.0-20.0) H* 06/15/18 04:50 Path Cons Comment 06/09/18 11:42
[2018-06-19] MEDS: Melatonin 3 MG TAB PO (21:49)
[2018-06-20 05:10] VITALS: BP 100/65; PULSE 51; RESP 20; TEMP 36.7; O2SAT 94
[2018-06-20 07:05] VITALS: PULSE 52
[2018-06-20 07:25] VITALS: BP 104/65; PULSE 50; RESP 18; TEMP 36.8; O2SAT 96
[2018-06-20 07:27] LABS: Abs Immature Grans 0.33 k/cumm (0.0-0.09); HCT 38.2 % (40.0-50.0); HGB 13.2 g/dL (13.5-17.5); Mean Corp. HGB Concentration 34.6 g/dL (32.0-36.0); Mean Corpuscular Hemoglobin 34.3 pg (27.0-33.0); Mean Corpuscular Volume 99.2 fL (80-95); Mean Platelet Volume 13.9 fL (8.0-11.0); RBC 3.85 m/cumm (4.50-6.00); RBC Distribution Width 14.2 % (11.8-14.1); White Blood Cell Count 7.88 k/cumm (4.4-10.8)
[2018-06-20 07:52] LABS: ALT 69 U/L (12-78); AST 101 U/L (15-37); Albumin 2.2 g/dL (3.4-5.0); Alkaline Phosphatase 360 U/L (46-116); Anion Gap 8.3 mmol/L (3-11); BUN 61 mg/dL (7-18); Bilirubin, Total 2.1 mg/dL (0.2-1.0); CO2 26.7 mmol/L (21.0-32.0); CREATININE 1.55 mg/dL (0.70-1.30); Chloride 96 mmol/L (98-107); Estimated GFR 45.66 (mL/min/1.73m2); Glucose 172 mg/dL (70-100); Magnesium 1.9 mg/dL (1.8-2.4); Potassium 4.1 mmol/L (3.5-5.1); Sodium 131 mmol/L (136-145); Total Protein 7.1 g/dL (6.4-8.2)
[2018-06-20 08:01] LABS: Absolute Lymphocyte Count 0.16 k/cumm (1.2-3.4); Absolute Monocyte Count 1.26 k/cumm (0.11-0.7); Absolute Neutrophil Count 5.99 k/cumm (1.2-6.7); Diff Comment Manual Differential; Platelet Count 62 x1000/uL (130-400); RBC Morphology Normal
[2018-06-20] MEDS: Insulin Aspart 300 UNITS/3 ML PEN SC ×2 (08:40→12:10)
[2018-06-20] MEDS: Rifaximin 550 MG TAB PO (08:41)
[2018-06-20] MEDS: Docusate Sodium 100 MG CAP PO (08:41)
[2018-06-20] MEDS: Multivitamin w/Minerals TAB 1 TAB PO (08:41)
[2018-06-20] MEDS: guaiFENesin 600 MG TABCR PO (08:41)
[2018-06-20] MEDS: Tamsulosin 0.4 MG CAPCR PO (08:41)
[2018-06-20] MEDS: Lactulose 20 GM/30 ML CUP PO (08:41)
[2018-06-20] MEDS: Benzonatate 100 MG CAP PO (08:41)
[2018-06-20] MEDS: Spironolactone 50 MG TAB 100 MG PO (08:41)
[2018-06-20] MEDS: FUROSEMIDE 40 MG, FUROSEMIDE 20 MG 60 MG PO (08:41)
--- NOTE | 2018-06-20 09:46 | PDOC.CMDIS ---
LACE Index Scoring Tool - Questions: Length of Stay (in days): 7 - 13 Acuity (Admit via E.D.?): Yes Comorbidities: Diabetes w/o Complication, Liver or Renal Disease E.D. Visits: 2 - Answers: Total Score: 15 Risk of Readmission: High Risk Care Management Discharge Reason for Hospitalization: Hepatic Encephalopathy, Ascites Discharge Plan: Abdoulaye will return to the [facility] when ready. CM faxed updated clinicals to [facility] staff. Abdoulaye had a pigtail catheter placed for comfort, he will return skilled to [facility] with the expectation he will transfer to Hospice care in the near future. Abdoulaye will transport via private vehicle with his nephew, Tanvir. Patient/Family Education Needs: Review discharge instructions, discuss Ask Me Three. Services Needed at Discharge: [facility] (Return skilled, transition to Hospice expected )
--- NOTE | 2018-06-20 09:56 | CMDISCH_ITS ---
LACE Index Scoring Tool - Questions: Length of Stay (in days): 7 - 13 Acuity (Admit via E.D.?): Yes Comorbidities: Diabetes w/o Complication, Liver or Renal Disease E.D. Visits: 2 - Answers: Total Score: 15 Risk of Readmission: High Risk Care Management Discharge Reason for Hospitalization: Hepatic Encephalopathy, Ascites Discharge Plan: Abdoulaye will return to the [facility] when ready. CM faxed updated clinicals to [facility] staff. Abdoulaye had a pigtail catheter placed for comfort, he will return skilled to [facility] with the expectation he will transfer to Hospice care in the near future. Abdoulaye will transport via private vehicle with his nephew, Tanvir. Patient/Family Education Needs: Review discharge instructions, discuss Ask Me Three. Services Needed at Discharge: [facility] (Return skilled, transition to Hospice expected )
--- NOTE | 2018-06-20 10:12 | W.PM.DS.N ---
Date of service: 06/20/18 Time of Service: 10:12 DS: Diagnosis Discharge Diagnosis (1) Hepatic encephalopathy: Status: Acute (2) End stage liver disease: Status: Chronic (3) HCAP (healthcare-associated pneumonia): Status: Acute (4) Urinary retention: Status: Acute (5) Hepatorenal syndrome: Status: Resolved (6) Insulin dependent diabetes mellitus: Status: Chronic (7) Diabetes mellitus type 2: Status: Active (8) Advance directive discussed with patient: Status: Acute Discharge Plan Disposition Patient Disposition: SNF (LEVEL 1) [facility] Condition: Stable Discharge Details Reason For Visit: HEPATIC ENCEPHALOPATHY, ASCITES Admit Date/Time: 06/09/18 13:56 Admit Provider: Jesica Wise Attending Provider: Jeisca Wise Primary Care Provider: Jaden Mendoza Hospital Course Hospital Course: CC: Weakness HPI: 63 year old man with a prior history of end stage liver disease/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 Mr. Urias has a history of ESLD in the setting of BOSS, with known Ascites with prior history of SBP, Variceal Disease, as well as a history of hepatic encephalopathy. He also has known DM, HTN, and likely hepatorenal syndrome. He is a [place] resident at the [facility]. The patient was brought to the ED for evaluation of weakness, nausea with vomitting, along with poor oral intake for approximately 2 weeks. There was note of noncompliance with his lactulose. He apparently had an appointment at [facility] for a paracenthesis on 05/22, at which time a significant amount of ascitic fluid (11L) was removed. Prior to admission the patient underwent a paracentesis in the ED with approximate 2 Liter removal of fluid as well. He was also noted to have potential infiltrates by CXR. His CT of the abdomen showed stable hepatosplenomegally with ascites, and bowel wall thickening consistent with either infection/inflammation vs. portal hypertension in patient without abdominal pain or diarrhea. Following admission the patient underwent a 5 day course of antibiotic therapy for treatment of HCAP, and has remained on lactulose and Rifaximine for treatment of hepatic encephalopathy. He appears stable and back to his baseline mental status. However, he had continued to have significant weight gain despite reinitiation and increase in his lasix. 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 The patient underwent a therapeutic tap on 06/17, with removal of 3 additional liters by surgery. He also understands the severity of his Cirrhosis, and as per request of family a Palliative Care consult was requested. Following this, Mr. Urias changed his code status to DNR/DNI, and plans were made for insertion of a pigtail catheter for easy drainage of ascites, which was carried out by surgery on 06/19. Plans now are to return to the [facility] for skilled level care followed by Hospice admission. He would also prefer to have no further hospitalizations in the future. No overnight events reported. Remains afebrile. Hospital Course: (1) Hepatic encephalopathy: Appears resolved and likely in setting of lactulose non-compliance per review of records. Now with reported 3-4 loose bowel movements a day, including the day prior to discharge. Continue Lactulose at current TID dosing. Will also continue Rifaximin as patient's symptoms apparently improved once this medication was initiated. Ammonia well within normal limits following treatment - 145 originally down to 16. If worsening mental status would consider increase in lactulose dosing. (2) End stage liver disease: Secondary to BOSS, with known Portal Hypertension, reported Esophageal Varices, Ascites with prior SBP, Hepatic Encephalopathy, and TCP. Follows with [facility] GI. Discussed with GI at [facility] - patient is diuretic resistant, now requiring large volume therapeutic Paracentesis. Underwent a tap for 11 L on 05/22 at [facility], and 2L in the ED here at time of admission, and 3L removal on 06/18. Due to end-stage nature of his Cirrhosis Palliative care was consulted - patient prefers to return to his halfway, and would like to be hospice care in the near future. Surgery was asked to place a pigtail catheter for removal of ascitic fluid in the future for comfort. Would consider drainage periodically for comfort. Currently with plans to continue Lasix and spironolactone. Bradycardia limited use of nadolol. (3) HCAP (healthcare-associated pneumonia): S/p 5 day course of Vancomycin and Cefepime. Appears resolved, but given worsening coughrepeat a CXR 06/18 that was negative for infection. (4) Urinary retention: Reportedly improved on Tamsulosin. (5) Hepatorenal syndrome: Noted elevation in creatinine that appears chronic, and dates back to approximately 2017. (6) Insulin dependent diabetes mellitus: Maintained on sliding scale coverage while hospitalized. (7) DVT prophylaxis: Was held without chemical prophylaxis due to Thrombocytopenia, which appears stable. TEDS, SCDs were ordered but apparently refused by patient at times. (8) Discharge planning issues: For discharge today back to [facility] for skilled level care initially, with potential hospice admission following. (9) Code Status DNR/DNI Home Meds and New Rx's Prescriptions: New tamsulosin 0.4 mg Capsule 0.4 mg PO DAILY Qty: 0 RF: 0 calamine-zinc oxide 8-8 % Lotion 160 ml topical TID PRN PRNQty: 0 RF: 0 Xifaxan 550 mg Tablet 550 mg PO BID Qty: 0 RF: 0 lactulose 20 gram/30 mL Solution 20 g PO TID Qty: 0 RF: 0 Continued lancets [FreeStyle Lancets] 1 EACH misc 1 ea Miscellaneous QID Qty: 100 RF: 11 pen needle, diabetic 1 EACH needle 1 ea Miscellaneous QID Qty: 100 RF: 4 spironolactone 100 MG tablet 100 mg PO DAILY Qty: 90 RF: 3 blood sugar diagnostic [FreeStyle Test] 1 EACH strip 1 ea Miscellaneous AC & HS Qty: 400 RF: 4 polyethylene glycol 3350 17 gram Powder In Packet 17 g PO DAILY PRN PRN (Reason: Constipation) Qty: 30 RF: 0 tramadol 50 mg Tablet 50 mg PO Q12H PRNQty: 10 RF: 0 magnesium hydroxide [Milk of Magnesia] 400 mg/5 mL Suspension 30 ml PO DAILY PRN PRNQty: 1000 RF: 0 docusate sodium [Colace] 100 mg Capsule 100 mg PO TID PRN PRNQty: 90 RF: 0 omeprazole 20 mg Capsule,Delayed Release(Dr/Ec) 20 mg PO BID Qty: 60 RF: 0 alum-mag hydroxide-simeth [Mag-Al Plus] 200-200-20 mg/5 mL Suspension 30 ml PO Q2H PRN PRNQty: 1000 RF: 0 melatonin 3 mg Tablet Extended Release 3 mg PO HS Qty: 30 RF: 0 Novolog Flexpen U-100 Insulin 100 unit/mL Insulin Pen 8 units subcut AC Qty: 10 RF: 0 Novolog Flexpen U-100 Insulin 100 unit/mL Insulin Pen subcut 0800,1200,1700 Qty: 10 RF: 0 ondansetron HCl 4 mg Tablet 4 mg PO TID PRNRF: 0 ergocalciferol (vitamin D2) [Vitamin D2] 50,000 unit Capsule 50,000 unit PO QWEEK RF: 0 Basaglar KwikPen U-100 Insulin 100 unit/mL (3 mL) Insulin Pen 8 unit SUBCUT HS RF: 0 Centrum Complete 18-400 mg-mcg Tablet 1 tab PO DAILY RF: 0 furosemide 40 mg tablet 60 mg PO DAILY RF: 0 Discontinued lactulose 20 gram/30 mL Solution 20 g PO BID Qty: 1800 RF: 0 Discharge Instructions Activity:: As per PT recommendations Equipment/Supplies:: No Equipment Needed Diet:: As Tolerated Discharge Orders Discharge Orders: Discharge Order (Routine); Ordered 06/20/18 Ordered By: Jayden Lucia DS: Data Vitals/I&O Vitals and I&O: Vital Signs Temperature 36.8 C 06/20/18 07:25 Temperature Source Tympanic 06/20/18 07:25 Pulse 50 L 06/20/18 07:25 Pulse Rhythm Regular 06/20/18 02:06 Pulse 56 L 06/09/18 09:40 Respiratory Rate 18 06/20/18 07:25 Respiratory Effort Non-Labored 06/20/18 02:06 Respiratory Depth Normal 06/20/18 02:06 Respiratory Pattern Normal 06/20/18 02:06 Blood Pressure 104/65 06/20/18 07:25 Blood Pressure Mean 71 06/09/18 09:30 Blood Pressure Position Sitting 06/09/18 09:00 Pulse Oximetry 96 06/20/18 07:25 Oxygen Delivery Method Room Air 06/20/18 07:25 Oxygen Flow Rate 0 06/20/18 07:25 Pain Level 0 06/20/18 05:10 Comment 06/17/18 07:25 Intake & Output 06/19/18 06/19/18 06/20/18 11:59 23:59 11:59 Intake Total 760 / 1240 480 / 1240 750 / 750 Output Total 1350 / 2050 700 / 2050 1500 / 1500 Balance -590 / -810 -220 / -810 -750 / -750 Weight 99.3 kg 97.9 kg Intake: Oral 760 / 1240 480 / 1240 750 / 750 Output: Urine 1350 / 2050 700 / 2050 1500 / 1500 Other: Urine Color Straw Yellow Light Marta Urine Appearance Clear Clear Clear Urine Odor None None Normal Stool Size Moderate Moderate Stool Characteristics Soft Soft Soft Formed Brown Brown Voiding Methods Toilet Toilet Toilet Completed studies during hospitalization [Text1]: EXAM: CT Abdomen and Pelvis Without Contrast EXAM DATE/TIME: 06/09/2018 10:06 AM CLINICAL HISTORY: 63 years old, male; Signs and symptoms; Nausea and vomiting; Patient HX: Nausea, feculent emesis, HX boss. TECHNIQUE: Axial computed tomography images of the abdomen and pelvis without contrast. All CT scans at this facility use at least one of these dose optimization techniques: automated exposure control; mA and/or kV adjustment per patient size (includes targeted exams where dose is matched to clinical indication); or iterative reconstruction. Coronal and sagittal reformatted images were created and reviewed. COMPARISON: CT UPPER ABD WITH CONTRAST (P) 12/11/2012 8:17 AM FINDINGS: Lower thorax: No acute findings. ABDOMEN: Liver: Hepatic cirrhosis morphology with nodular contour and/or caudate lobe enlargement and/or left lobe enlargement. Gallbladder and bile ducts: Stable cholecystectomy. Pancreas: Normal. No ductal dilation. Spleen: Continued significant cirrhosis with portal hypertension and moderate splenomegaly. There are one or more accessory splenules. Moderate 15.0 x 14.7 cm splenomegaly. Adrenals: Normal. No mass. Kidneys and ureters: Normal. No hydronephrosis. Stomach and bowel: New onset mild to moderate bowel wall thickening in the right colon most consistent with portal colonopathy. Appendix: No evidence of appendicitis. PELVIS: Bladder: The urinary bladder is enlarged suggesting possible outlet obstruction versus neurogenic bladder. Reproductive: Unremarkable as visualized. ABDOMEN and PELVIS: Intraperitoneal space: New onset severe four-quadrant ascites. Bones/joints: No acute fracture. No dislocation. Soft tissues: Unremarkable. Vasculature: 18 mm portal vein consistent with portal hypertension. One or more calcified pelvic phleboliths. Lymph nodes: Increased mild cardiophrenic angle adenopathy with increase size of 3 lymph nodes which is non-specific and suggestive of infectious or neoplastic process. Other findings: Examination is limited secondary to motion artifact. The images were repeated with or without additional motion artifact. IMPRESSION: 1. New onset severe four-quadrant ascites. 2. Increased mild cardiophrenic angle adenopathy with increase size of 3 lymph nodes which is non-specific and suggestive of infectious or neoplastic process. 3. Continued significant cirrhosis with portal hypertension and moderate splenomegaly. 4. New onset mild to moderate bowel wall thickening in the right colon most consistent with portal colonopathy. 5. The urinary bladder is enlarged suggesting possible outlet obstruction versus neurogenic bladder. Exam(s) 06/09 a RAD:XR portable chest AP SYMPTOM/DIAGNOSIS: COUGH, FROM LONGTERM, SUSPECT PNEUMONIA PORTABLE CHEST: Comparison is made with 17 Jan 2018. The heart size is normal. The lungs are poorly inflated. There is a question of patchy bilateral pulmonary densities which could represent pneumonia vs hypoventillatory changes. IMPRESSION: Question of bilateral infiltrates vs atelectasis. Limited exam. Exam(s) 06/10 a US:US renal SYMPTOM/DIAGNOSIS: YURI, URINARY RETENTION RENAL ULTRASOUND: The exam was somewhat limited by patient coughing and limited breath holding ability. A large amount of ascites is again noted. The kidneys are not ideally visualized, also partially secondary to patient body habitus. There is no gross evidence of hydronephrosis. The bladder was empty since the patient had voided before the examination. IMPRESSION: Unremarkable kidneys. Bladder is not evaluated as it was empty. Exam(s) 06/13 a RAD:XR portable chest AP SYMPTOMS/DIAGNOSIS: NEW WHEEZING, ? NEW PNEUMONIA/CHF PORTABLE AP CHEST: The heart is not enlarged. The lungs appear grossly clear and well expanded. CONCLUSION: No evidence of acute disease. Exam(s) 06/17 a RAD:XR chest 2V PA & lateral SYMPTOM/DIAGNOSIS: COUGH, DYSPNEA CHEST X-RAY: Frontal and lateral views. Comparison 06/13/18 Heart size and pulmonary vasculature are within normal limits. No focal consolidating infiltrates, effusions or pneumothoraces are identified. IMPRESSION: No acute pulmonary process. Labs on day of discharge: Labs from last 24 hours 06/20/18 06/20/18 06:58 06:55 WBC 7.88 RBC 3.85 L Hgb 13.2 L Hct 38.2 L MCV 99.2 H MCH 34.3 H MCHC 34.6 RDW 14.2 H Plt Count 62 L MPV 13.9 H Immature Gran % See Differential Neutrophils % 76.0 Lymphocytes % 2.0 Monocytes % 16.0 Eosinophils % 0.0 Basophils % 0.0 Absolute Neutrophils 5.99 Absolute Lymphocytes 0.16 L Absolute Monocytes 1.26 H Absolute Eosinophils 0.00 Absolute Basophils 0.00 Metamyelocytes 4.0 Myelocytes 2.0 Differential Comment Manual differential RBC Morphology Normal Sodium 131 L Potassium 4.1 Chloride 96 L Carbon Dioxide 26.7 Anion Gap 8.3 BUN 61 H Creatinine 1.55 H Estimated GFR/1.73 m2 45.66 Glucose 172 H Calcium 8.0 L Magnesium 1.9 Total Bilirubin 2.1 H AST 101 H ALT 69 Alkaline Phosphatase 360 H Total Protein 7.1 Albumin 2.2 L PFSH Medical History Chronic liver failure (Chronic) Diabetes type 2, controlled (Chronic) Diabetic foot ulcer associated with type 2 diabetes mellitus (Chronic) Hypertension (Chronic) 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
--- NOTE | 2018-06-20 10:22 | DSE_ITS ---
Date of service: 06/20/18 Time of Service: 10:12 DS: Diagnosis Discharge Diagnosis (1) Hepatic encephalopathy: Status: Acute (2) End stage liver disease: Status: Chronic (3) HCAP (healthcare-associated pneumonia): Status: Acute (4) Urinary retention: Status: Acute (5) Hepatorenal syndrome: Status: Resolved (6) Insulin dependent diabetes mellitus: Status: Chronic (7) Diabetes mellitus type 2: Status: Active (8) Advance directive discussed with patient: Status: Acute Discharge Plan Disposition Patient Disposition: SNF (LEVEL 1) [facility] Condition: Stable Discharge Details Reason For Visit: HEPATIC ENCEPHALOPATHY, ASCITES Admit Date/Time: 06/09/18 13:56 Admit Provider: Jesica Wise Attending Provider: Jesica Wise Primary Care Provider: Jaden Mendoza Hospital Course Hospital Course: CC: Weakness HPI: 63 year old man with a prior history of end stage liver disease/chronic liver failure secondary to BOSS, admitted from [facility] Emergency Department on 06/09 with a diagnosis of weakness. Mr. Urias has a history of ESLD in the setting of BOSS, with known Ascites with prior history of SBP, Variceal Disease, as well as a history of hepatic encephalopathy. He also has known DM, HTN, and likely hepatorenal syndrome. He is a [place] resident at the [facility]. The patient was brought to the ED for evaluation of weakness, nausea with vomitting, along with poor oral intake for approximately 2 weeks. There was note of noncompliance with his lactulose. He apparently had an appointment at [facility] for a paracenthesis on 05/22, at which time a significant amount of ascitic fluid (11L) was removed. Prior to admission the patient underwent a paracentesis in the ED with approximate 2 Liter removal of fluid as well. He was also noted to have potential infiltrates by CXR. His CT of the abdomen showed stable hepatosplenomegally with ascites, and bowel wall thickening consistent with either infection/inflammation vs. portal hypertension in patient without abdominal pain or diarrhea. Following admission the patient underwent a 5 day course of antibiotic therapy for treatment of HCAP, and has remained on lactulose and Rifaximine for treatment of hepatic encephalopathy. He appears stable and back to his baseline mental status. However, he had continued to have significant weight gain despite reinitiation and increase in his lasix. 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 The patient underwent a therapeutic tap on 06/17, with removal of 3 additional liters by surgery. He also understands the severity of his Cirrhosis, and as per request of family a Palliative Care consult was requested. Following this, Mr. Urias changed his code status to DNR/DNI, and plans were made for insertion of a pigtail catheter for easy drainage of ascites, which was carried out by surgery on 06/19. Plans now are to return to the [facility] for skilled level care followed by Hospice admission. He would also prefer to have no further hospitalizations in the future. No overnight events reported. Remains afebrile. Hospital Course: (1) Hepatic encephalopathy: Appears resolved and likely in setting of lactulose non-compliance per review of records. Now with reported 3-4 loose bowel movements a day, including the day prior to discharge. Continue Lactulose at current TID dosing. Will also continue Rifaximin as patient's symptoms apparently improved once this medication was initiated. Ammonia well within normal limits following treatment - 145 originally down to 16. If worsening mental status would consider increase in lactulose dosing. (2) End stage liver disease: Secondary to BOSS, with known Portal Hypertension, reported Esophageal Varices, Ascites with prior SBP, Hepatic Encephalopathy, and TCP. Follows with [facility]. Discussed with GI at [facility] - patient is diuretic resistant, now requiring large volume therapeutic Paracentesis. Underwent a tap for 11 L on 05/22 at [facility], and 2L in the ED here at time of admission, and 3L removal on 06/18. Due to end- stage nature of his Cirrhosis Palliative care was consulted - patient [facility], and would like to be hospice care in the near future. Surgery was asked to place a pigtail catheter for removal of ascitic fluid in the future for comfort. Would consider drainage periodically for comfort. Currently with plans to continue Lasix and spironolactone. Bradycardia limited use of nadolol. (3) HCAP (healthcare-associated pneumonia): S/p 5 day course of Vancomycin and Cefepime. Appears resolved, but given worsening coughrepeat a CXR 06/18 that was negative for infection. (4) Urinary retention: Reportedly improved on Tamsulosin. (5) Hepatorenal syndrome: Noted elevation in creatinine that appears chronic, and dates back to approximately 2017. (6) Insulin dependent diabetes mellitus: Maintained on sliding scale coverage while hospitalized. (7) DVT prophylaxis: Was held without chemical prophylaxis due to Thrombocytopenia, which appears stable. TEDS, SCDs were ordered but apparently refused by patient at times. (8) Discharge planning issues: For discharge today back to [facility] for skilled level care initially, with potential hospice admission following. (9) Code Status DNR/DNI Home Meds and New Rx's Prescriptions: New tamsulosin 0.4 mg Capsule 0.4 mg PO DAILY Qty: 0 RF: 0 calamine-zinc oxide 8-8 % Lotion 160 ml topical TID PRN PRNQty: 0 RF: 0 Xifaxan 550 mg Tablet 550 mg PO BID Qty: 0 RF: 0 lactulose 20 gram/30 mL Solution 20 g PO TID Qty: 0 RF: 0 Continued lancets [FreeStyle Lancets] 1 EACH misc 1 ea Miscellaneous QID Qty: 100 RF: 11 pen needle, diabetic 1 EACH needle 1 ea Miscellaneous QID Qty: 100 RF: 4 spironolactone 100 MG tablet 100 mg PO DAILY Qty: 90 RF: 3 blood sugar diagnostic [FreeStyle Test] 1 EACH strip 1 ea Miscellaneous AC & HS Qty: 400 RF: 4 polyethylene glycol 3350 17 gram Powder In Packet 17 g PO DAILY PRN PRN (Reason: Constipation) Qty: 30 RF: 0 tramadol 50 mg Tablet 50 mg PO Q12H PRNQty: 10 RF: 0 magnesium hydroxide [Milk of Magnesia] 400 mg/5 mL Suspension 30 ml PO DAILY PRN PRNQty: 1000 RF: 0 docusate sodium [Colace] 100 mg Capsule 100 mg PO TID PRN PRNQty: 90 RF: 0 omeprazole 20 mg Capsule,Delayed Release(Dr/Ec) 20 mg PO BID Qty: 60 RF: 0 alum-mag hydroxide-simeth [Mag-Al Plus] 200-200-20 mg/5 mL Suspension 30 ml PO Q2H PRN PRNQty: 1000 RF: 0 melatonin 3 mg Tablet Extended Release 3 mg PO HS Qty: 30 RF: 0 Novolog Flexpen U-100 Insulin 100 unit/mL Insulin Pen 8 units subcut AC Qty: 10 RF: 0 Novolog Flexpen U-100 Insulin 100 unit/mL Insulin Pen subcut 0800,1200,1700 Qty: 10 RF: 0 ondansetron HCl 4 mg Tablet 4 mg PO TID PRNRF: 0 ergocalciferol (vitamin D2) [Vitamin D2] 50,000 unit Capsule 50,000 unit PO QWEEK RF: 0 Basaglar KwikPen U-100 Insulin 100 unit/mL (3 mL) Insulin Pen 8 unit SUBCUT HS RF: 0 Centrum Complete 18-400 mg-mcg Tablet 1 tab PO DAILY RF: 0 furosemide 40 mg tablet 60 mg PO DAILY RF: 0 Discontinued lactulose 20 gram/30 mL Solution 20 g PO BID Qty: 1800 RF: 0 Discharge Instructions Activity:: As per PT recommendations Equipment/Supplies:: No Equipment Needed Diet:: As Tolerated Discharge Orders Discharge Orders: Discharge Order (Routine); Ordered 06/20/18 Ordered By: Jayden Lucia DS: Data Vitals/I&O Vitals and I&O: Vital Signs Temperature 36.8 C 06/20/18 07:25 Temperature Source Tympanic 06/20/18 07:25 Pulse 50 L 06/20/18 07:25 Pulse Rhythm Regular 06/20/18 02:06 Pulse 56 L 06/09/18 09:40 Respiratory Rate 18 06/20/18 07:25 Respiratory Effort Non-Labored 06/20/18 02:06 Respiratory Depth Normal 06/20/18 02:06 Respiratory Pattern Normal 06/20/18 02:06 Blood Pressure 104/65 06/20/18 07:25 Blood Pressure Mean 71 06/09/18 09:30 Blood Pressure Position Sitting 06/09/18 09:00 Pulse Oximetry 96 06/20/18 07:25 Oxygen Delivery Method Room Air 06/20/18 07:25 Oxygen Flow Rate 0 06/20/18 07:25 Pain Level 0 06/20/18 05:10 Comment 06/17/18 07:25 Intake & Output 06/19/18 06/19/18 06/20/18 11:59 23:59 11:59 Intake Total 760 / 1240 480 / 1240 750 / 750 Output Total 1350 / 2050 700 / 2050 1500 / 1500 Balance -590 / -810 -220 / -810 -750 / -750 Weight 99.3 kg 97.9 kg Intake: Oral 760 / 1240 480 / 1240 750 / 750 Output: Urine 1350 / 2050 700 / 2050 1500 / 1500 Other: Urine Color Straw Yellow Light Marta Urine Appearance Clear Clear Clear Urine Odor None None Normal Stool Size Moderate Moderate Stool Characteristics Soft Soft Soft Formed Brown Brown Voiding Methods Toilet Toilet Toilet Completed studies during hospitalization [Text1]: EXAM: CT Abdomen and Pelvis Without Contrast EXAM DATE/TIME: 06/09/2018 10:06 AM CLINICAL HISTORY: 63 years old, male; Signs and symptoms; Nausea and vomiting; Patient HX: Nausea, feculent emesis, HX boss. TECHNIQUE: Axial computed tomography images of the abdomen and pelvis without contrast. All CT scans at this facility use at least one of these dose optimization techniques: automated exposure control; mA and/or kV adjustment per patient size (includes targeted exams where dose is matched to clinical indication); or iterative reconstruction. Coronal and sagittal reformatted images were created and reviewed. COMPARISON: CT UPPER ABD WITH CONTRAST (P) 12/11/2012 8:17 AM FINDINGS: Lower thorax: No acute findings. ABDOMEN: Liver: Hepatic cirrhosis morphology with nodular contour and/or caudate lobe enlargement and/or left lobe enlargement. Gallbladder and bile ducts: Stable cholecystectomy. Pancreas: Normal. No ductal dilation. Spleen: Continued significant cirrhosis with portal hypertension and moderate splenomegaly. There are one or more accessory splenules. Moderate 15.0 x 14.7 cm splenomegaly. Adrenals: Normal. No mass. Kidneys and ureters: Normal. No hydronephrosis. Stomach and bowel: New onset mild to moderate bowel wall thickening in the right colon most consistent with portal colonopathy. Appendix: No evidence of appendicitis. PELVIS: Bladder: The urinary bladder is enlarged suggesting possible outlet obstruction versus neurogenic bladder. Reproductive: Unremarkable as visualized. ABDOMEN and PELVIS: Intraperitoneal space: New onset severe four-quadrant ascites. Bones/joints: No acute fracture. No dislocation. Soft tissues: Unremarkable. Vasculature: 18 mm portal vein consistent with portal hypertension. One or more calcified pelvic phleboliths. Lymph nodes: Increased mild cardiophrenic angle adenopathy with increase size of 3 lymph nodes which is non-specific and suggestive of infectious or neoplastic process. Other findings: Examination is limited secondary to motion artifact. The images were repeated with or without additional motion artifact. IMPRESSION: 1. New onset severe four-quadrant ascites. 2. Increased mild cardiophrenic angle adenopathy with increase size of 3 lymph nodes which is non-specific and suggestive of infectious or neoplastic process. 3. Continued significant cirrhosis with portal hypertension and moderate splenomegaly. 4. New onset mild to moderate bowel wall thickening in the right colon most consistent with portal colonopathy. 5. The urinary bladder is enlarged suggesting possible outlet obstruction versus neurogenic bladder. Exam(s) 06/09 a RAD:XR portable chest AP SYMPTOM/DIAGNOSIS: COUGH, FROM HALFWAY, SUSPECT PNEUMONIA PORTABLE CHEST: Comparison is made with 17 Jan 2018. The heart size is normal. The lungs are poorly inflated. There is a question of patchy bilateral pulmonary densities which could represent pneumonia vs hypoventillatory changes. IMPRESSION: Question of bilateral infiltrates vs atelectasis. Limited exam. Exam(s) 06/10 a US:US renal SYMPTOM/DIAGNOSIS: YURI, URINARY RETENTION RENAL ULTRASOUND: The exam was somewhat limited by patient coughing and limited breath holding ability. A large amount of ascites is again noted. The kidneys are not ideally visualized, also partially secondary to patient body habitus. There is no gross evidence of hydronephrosis. The bladder was empty since the patient had voided before the examination. IMPRESSION: Unremarkable kidneys. Bladder is not evaluated as it was empty. Exam(s) 06/13 a RAD:XR portable chest AP SYMPTOMS/DIAGNOSIS: NEW WHEEZING, ? NEW PNEUMONIA/CHF PORTABLE AP CHEST: The heart is not enlarged. The lungs appear grossly clear and well expanded. CONCLUSION: No evidence of acute disease. Exam(s) 06/17 a RAD:XR chest 2V PA & lateral SYMPTOM/DIAGNOSIS: COUGH, DYSPNEA CHEST X-RAY: Frontal and lateral views. Comparison 06/13/18 Heart size and pulmonary vasculature are within normal limits. No focal consolidating infiltrates, effusions or pneumothoraces are identified. IMPRESSION: No acute pulmonary process. Labs on day of discharge: Labs from last 24 hours 06/20/18 06/20/18 06:58 06:55 WBC 7.88 RBC 3.85 L Hgb 13.2 L Hct 38.2 L MCV 99.2 H MCH 34.3 H MCHC 34.6 RDW 14.2 H Plt Count 62 L MPV 13.9 H Immature Gran % See Differential Neutrophils % 76.0 Lymphocytes % 2.0 Monocytes % 16.0 Eosinophils % 0.0 Basophils % 0.0 Absolute Neutrophils 5.99 Absolute Lymphocytes 0.16 L Absolute Monocytes 1.26 H Absolute Eosinophils 0.00 Absolute Basophils 0.00 Metamyelocytes 4.0 Myelocytes 2.0 Differential Comment Manual differential RBC Morphology Normal Sodium 131 L Potassium 4.1 Chloride 96 L Carbon Dioxide 26.7 Anion Gap 8.3 BUN 61 H Creatinine 1.55 H Estimated GFR/1.73 m2 45.66 Glucose 172 H Calcium 8.0 L Magnesium 1.9 Total Bilirubin 2.1 H AST 101 H ALT 69 Alkaline Phosphatase 360 H Total Protein 7.1 Albumin 2.2 L PFSH Medical History Chronic liver failure (Chronic) Diabetes type 2, controlled (Chronic) Diabetic foot ulcer associated with type 2 diabetes mellitus (Chronic) Hypertension (Chronic) 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
--- NOTE | 2018-06-20 10:49 | W.INDIABCONS ---
Date of service: 06/20/18 Time of Service: 10:49 Diabetes Inpatient Consult DESCRIPTION/ASSESSMENT: Mr. Urias has had a long inpatient stay for hepatic encephalopathy. GFR 45 BMI 29 A1c 5.4 taking 8u Basaglar and 8u mealtime insulin at the [facility] according to Home med list. He did experience hyperglycemia with the addition of steroid medication. Most recently he has had no basal insulin and only insulin correction at the sensitive level. Blood sugars 130-183 over past few days without basal insulin. INTERVENTION: Given Abdoulaye's co-morbidities, tight glycemic control in the non or pre-diabetes range may not be beneficial, especially if he experiences hypoglycemia which is common with this tight management of blood sugars. Given his current blood sugars, he may benefit from a low dose basal insulin at 8 units and only insulin correction at the sensitive level. Abdoulaye has been well educated regarding diabetes self management in the past. No intervention at this time given his residential status and care for his diabetes by others. PLAN: Will follow blood sugars. Time Spent in Nutritional Counseling and Treatment: 0 face to face inpatient
--- NOTE | 2018-06-20 10:59 | DM INPTCON_ITS ---
Date of service: 06/20/18 Time of Service: 10:49 Diabetes Inpatient Consult DESCRIPTION/ASSESSMENT: Mr. Urias has had a long inpatient stay for hepatic encephalopathy. GFR 45 BMI 29 A1c 5.4 taking 8u Basaglar and 8u mealtime insulin at the [facility] according to Home med list. He did experience hyperglycemia with the addition of steroid medication. Most recently he has had no basal insulin and only insulin correction at the sensitive level. Blood sugars 130-183 over past few days without basal insulin. INTERVENTION: Given Abdoulaye's co-morbidities, tight glycemic control in the non or pre-diabetes range may not be beneficial, especially if he experiences hypoglycemia which is common with this tight management of blood sugars. Given his current blood sugars, he may benefit from a low dose basal insulin at 8 units and only insulin correction at the sensitive level. Abdoulaye has been well educated regarding diabetes self management in the past. No intervention at this time given his residential status and care for his diabetes by others. PLAN: Will follow blood sugars. Time Spent in Nutritional Counseling and Treatment: 0 face to face inpatient
[2018-06-20 12:22] VITALS: PULSE 61
== END 2018-06-20 13:43 | disposition skilled nursing facility (03) | DRG 981 ==
LOC: ER 15:03 → MS 15:06
PROVIDERS: Admitting Provider Internal Medicine; Emergency Provider Emergency Medicine; PCP Family Medicine; Visit Provider Internal Medicine
DX: K72.10 Chronic hepatic failure without coma (principal); K76.7 Hepatorenal syndrome; J18.9 Pneumonia, unspecified organism; N17.9 Acute kidney failure, unspecified; R18.8 Other ascites; K76.6 Portal hypertension; I85.10 Secondary esophageal varices without bleeding; E87.1 Hypo-osmolality and hyponatremia; K75.81 Nonalcoholic steatohepatitis (NASH); R53.1 Weakness; E11.9 Type 2 diabetes mellitus without complications; I10 Essential (primary) hypertension; Z91.14 Patient's other noncompliance with medication regimen; Y95 Nosocomial condition; E87.5 Hyperkalemia; R19.7 Diarrhea, unspecified; R16.0 Hepatomegaly, not elsewhere classified; Z51.5 Encounter for palliative care; R33.9 Retention of urine, unspecified; Z79.4 Long term (current) use of insulin; D69.6 Thrombocytopenia, unspecified; E86.0 Dehydration; R11.2 Nausea with vomiting, unspecified
CPT/HCPCS: 49083; 36410; 36415; 49082; 76770; 80048; 80053; 80076; 83690; 85027; 87040; 87081; 87449; 93005; 96361; 96365; 97110; 97162; 97166; 97530; 97535; 99221; 99223; 99232; 99233; 99239; 99255; 99285; 71045; 71046; 74176; 80202; 81003; 82140; 83735; 84153; 84484; 85025; 85610; 87070; 87205; 89051; 93010; J0610; J1940; J1941; J2405; J2765; J7512

== ENCOUNTER 2018-07-08 09:57 | Outpatient (REF) | payer MEDICARE, SELFPAY ==
[2018-07-08 10:28] LABS: Abs Immature Grans 0.01 k/cumm (0.0-0.09); Absolute Basophil Count 0.01 k/cumm (0.0-0.2); Absolute Eosinophil Count 0.05 k/cumm (0.0-0.7); Absolute Lymphocyte Count 0.17 k/cumm (1.2-3.4); Absolute Monocyte Count 0.19 k/cumm (0.11-0.7); Absolute Neutrophil Count 3.32 k/cumm (1.2-6.7); Basophils % 0.3; Eosinophils % 1.3; HCT 39.9 % (40.0-50.0); HGB 13.8 g/dL (13.5-17.5); Immature Grans % 0.3; Lymphocytes % 4.5; Mean Corp. HGB Concentration 34.6 g/dL (32.0-36.0); Mean Corpuscular Hemoglobin 35.8 pg (27.0-33.0); Mean Corpuscular Volume 103.6 fL (80-95); Mean Platelet Volume 13.1 fL (8.0-11.0); Monocytes % 5.1; Neutrophils % 88.5; RBC 3.85 m/cumm (4.50-6.00); RBC Distribution Width 14.9 % (11.8-14.1); White Blood Cell Count 3.75 k/cumm (4.4-10.8)
[2018-07-08 10:43] LABS: ALT 60 U/L (12-78); AST 81 U/L (15-37); Albumin 2.5 g/dL (3.4-5.0); Alkaline Phosphatase 310 U/L (46-116); Anion Gap 8.5 mmol/L (3-11); BUN 48 mg/dL (7-18); Bilirubin, Total 4.4 mg/dL (0.2-1.0); CO2 26.5 mmol/L (21.0-32.0); CREATININE 1.46 mg/dL (0.70-1.30); Calcium 8.6 mg/dL (8.5-10.1); Chloride 101 mmol/L (98-107); Estimated GFR 48.92 (mL/min/1.73m2); Glucose 121 mg/dL (70-100); Potassium 5.2 mmol/L (3.5-5.1); Sodium 136 mmol/L (136-145); Total Protein 7.3 g/dL (6.4-8.2)
[2018-07-08 11:23] LABS: Platelet Count 57 x1000/uL (130-400)
== END 2018-07-08 10:17 ==
LOC: LBN 09:57
PROVIDERS: PCP Family Medicine; Visit Provider Family Medicine
DX: I10 Essential (primary) hypertension (principal); R50.9 Fever, unspecified; R11.10 Vomiting, unspecified
CPT/HCPCS: 80053; 85025